=== PATIENT | female | born 1970 | race American Indian/Alaskan Native ===

== ENCOUNTER 2017-08-21 19:55 | Inpatient (IN) | payer OTHER ==
[2017-08-21] MEDS ORDERED: TYLENOL ONE (20:28)
[2017-08-21] MEDS ORDERED: CATAPRES ONE (20:29)
[2017-08-21] MEDS ORDERED: TYLENOL PO ONE (20:31)
[2017-08-21] MEDS ORDERED: CATAPRES PO ONE (20:31)
[2017-08-21 20:53] LABS: Bilirubin,Urine NEG (Negative); Blood,Urine SM (Negative); Color,Urine Yellow (Yellow); Urobilinogen,Urine < 2.0 mg/dL (<2.0)
[2017-08-21 21:02] LABS: WBC,Urine > 182.0 /HPF (0.0-6.0)
[2017-08-21 21:13] LABS: Mean Corpuscular HGB Conc 30 % (30-34); Mean Corpuscular Volume 82 fl (79-97); Platelet Count 313 K/mm3 (140-440); Red Blood Count 4.07 M/mm3 (3.65-5.03); Red Cell Distribution Width 15.9 % (13.2-15.2)
[2017-08-21 21:15] LABS: Hematocrit 33.5 % (30.3-42.9); Hemoglobin 10.2 gm/dl (10.1-14.3); Mean Corpuscular Hemoglobin 25 pg (28-32)
[2017-08-21 22:04] LABS: Albumin 4.1 g/dL (3.9-5); Calcium 6.6 mg/dL (8.4-10.2)
[2017-08-22] MEDS ORDERED: NACL 0.9% 1000 ML 1,000 ML IV ONE (00:32)
[2017-08-22] MEDS ORDERED: ROCEPHIN/NS 1 GM/50 ML 1 GM/50 ML BAG IV ONE (00:32)
[2017-08-22] MEDS ORDERED: cefTRIAXone 1 GM in NACL 0.9% 20 ML IV ONE (01:00)
--- NOTE | 2017-08-22 01:08 | Emergency Department Report ---
ED Female HPI - General Chief complaint: Urogenital-Female Stated complaint: BACK PAIN, PAIN URINATING Time Seen by Provider: 08/22/17 00:27 Source: patient Mode of arrival: Ambulatory Limitations: No Limitations - History of Present Illness Initial comments: 46 yo female with a past medical history, hypertension and hypothyroidism presents to the hospital complaining of 3 days of urinary frequency and pain with urination. Yesterday patient started to have 7/10 pain to her right flank described as a pressure rated 7/10 intensity. No aggravating or alleviating factors reported. She denies fever, nausea, vomiting, diarrhea. History of kidney stones in the past that passed spontaneously without surgery. Last almost 10 years ago. Patient has been noncompliant with her Synthroid and blood pressure medication times one year. Has not seen a primary care doctor in 1 year and denies known history of renal insufficiency. - Related Data Allergies Allergy/AdvReac Type Severity Reaction Status Date / Time No Known Allergies Allergy Unverified 08/21/17 20:00 ED Review of Systems ROS: Stated complaint: BACK PAIN, PAIN URINATING Other details as noted in HPI Comment: All other systems reviewed and negative ED Past Medical Hx - Past Medical History Previous Medical History?: Yes Hx Hypertension: Yes Additional medical history: Hypothyroidism - Social History Smoking Status: Never Smoker ED Physical Exam - General Limitations: No Limitations - Other Other exam information: General: No limitations, patient is alert in no acute distress Head exam: Atraumatic, normocephalic Eyes exam: Normal appearance ENT: Moist mucous membrane, normal oropharynx Neck exam: Normal inspection, full range of motion, no meningismus nontender Respiratory exam: Clear to auscultation bilateral, no wheezes, rales, crackles Cardiovascular: Normal rate and rhythm, normal heart sounds Abdomen: Soft, nondistended, no suprapubic tenderness, with normal bowel sounds , no rebound, or guarding Extremity: Full range of motion normal inspection no deformity Back: Normal Inspection, full range of motion, no right flank tenderness Neurologic: Alert, oriented x3, cranial nerves intact, no motor or sensory deficit Psychiatric: normal affect, normal mood Skin: Warm, dry, intact ED Course Vital Signs 08/21/17 08/21/17 08/21/17 20:03 20:32 20:33 Temperature 98.6 F Pulse Rate 102 H 102 H Respiratory 20 20 Rate Blood Pressure 183/94 183/94 Blood Pressure [Left] Blood Pressure [Right] O2 Sat by Pulse 100 Oximetry 08/22/17 08/22/17 00:36 00:37 Temperature 97.9 F Pulse Rate 88 Respiratory 16 16 Rate Blood Pressure Blood Pressure 181/116 [Left] Blood Pressure 174/99 [Right] O2 Sat by Pulse 99 98 Oximetry - Consultations Consultation #1: 08/22/17 01:35 case d/w Dr Samuel pino, will consult during admission ED Medical Decision Making - Lab Data Result diagrams: 08/21/17 20:31 08/21/17 20:31 Lab Results 08/21/17 08/21/17 08/21/17 Range/Units 20:30 20:31 20:31 WBC 8.8 (4.5-11.0) K/mm3 RBC 4.07 (3.65-5.03) M/mm3 Hgb 10.2 (10.1-14.3) gm/dl Hct 33.5 (30.3-42.9) % MCV 82 (79-97) fl MCH 25 L (28-32) pg MCHC 30 (30-34) % RDW 15.9 H (13.2-15.2) % Plt Count 313 (140-440) K/mm3 Sodium 140 (137-145) mmol/L Potassium 4.6 (3.6-5.0) mmol/L Chloride 104.6 (98-107) mmol/L Carbon Dioxide 19 L (22-30) mmol/L Anion Gap 21 mmol/L BUN 53 H (7-17) mg/dL Creatinine 4.1 H (0.7-1.2) mg/dL Estimated GFR 14 ml/min BUN/Creatinine Ratio 13 % Glucose 82 (65-100) mg/dL Calcium 6.6 L (8.4-10.2) mg/dL Total Bilirubin 0.20 (0.1-1.2) mg/dL AST 15 (5-40) units/L ALT 9 (7-56) units/L Alkaline Phosphatase 92 (35-129) units/L Total Protein 8.4 H (6.3-8.2) g/dL Albumin 4.1 (3.9-5) g/dL Albumin/Globulin Ratio 1.0 % Lipase 85 H (13-60) units/L HCG, Qual (Negative) Urine Color Yellow (Yellow) Urine Turbidity Clear (Clear) Urine pH 6.0 (5.0-7.0) Ur Specific [place] 1.011 (1.003-1.030) Urine Protein 100 mg/dl (Negative) mg/dL Urine Glucose (UA) 50 (Negative) mg/dL Urine Ketones Neg (Negative) mg/dL Urine Blood Sm (Negative) Urine Nitrite Neg (Negative) Urine Bilirubin Neg (Negative) Urine Urobilinogen < 2.0 (<2.0) mg/dL Ur Leukocyte Esterase Lg (Negative) Urine WBC (Auto) > 182.0 H (0.0-6.0) /HPF Urine RBC (Auto) 86.0 (0.0-6.0) /HPF Urine WBC Clumps 2+ /HPF 08/21/17 Range/Units 20:31 WBC (4.5-11.0) K/mm3 RBC (3.65-5.03) M/mm3 Hgb (10.1-14.3) gm/dl Hct (30.3-42.9) % MCV (79-97) fl MCH (28-32) pg MCHC (30-34) % RDW (13.2-15.2) % Plt Count (140-440) K/mm3 Sodium (137-145) mmol/L Potassium (3.6-5.0) mmol/L Chloride (98-107) mmol/L Carbon Dioxide (22-30) mmol/L Anion Gap mmol/L BUN (7-17) mg/dL Creatinine (0.7-1.2) mg/dL Estimated GFR ml/min BUN/Creatinine Ratio % Glucose (65-100) mg/dL Calcium (8.4-10.2) mg/dL Total Bilirubin (0.1-1.2) mg/dL AST (5-40) units/L ALT (7-56) units/L Alkaline Phosphatase (35-129) units/L Total Protein (6.3-8.2) g/dL Albumin (3.9-5) g/dL Albumin/Globulin Ratio % Lipase (13-60) units/L HCG, Qual Negative (Negative) Urine Color (Yellow) Urine Turbidity (Clear) Urine pH (5.0-7.0) Ur Specific [place] (1.003-1.030) Urine Protein (Negative) mg/dL Urine Glucose (UA) (Negative) mg/dL Urine Ketones (Negative) mg/dL Urine Blood (Negative) Urine Nitrite (Negative) Urine Bilirubin (Negative) Urine Urobilinogen (<2.0) mg/dL Ur Leukocyte Esterase (Negative) Urine WBC (Auto) (0.0-6.0) /HPF Urine RBC (Auto) (0.0-6.0) /HPF Urine WBC Clumps /HPF - Radiology Data Radiology results: report reviewed CT abdomen and pelvis without contrast: Small nodular airspace consolidation right lower lobe concerning for pneumonia. Stranding throughout the course of the right ureter and marginal right kidney. Wall thickening of the bladder. Concerning for infection. Cannot rule out recently passed stone. No nephrolithiasis - Medical Decision Making UTI No signs of sepsis Culture pending Rocephin initiated Renal insufficiency CT abdomen and pelvis reviewed IV fluids initiated Nephrology consult Uncontrolled hypertension Noncompliance of meds 1 year Received Clonidine 0.1 mg in the ED with persistent elevated blood Critical Care Time: No Critical care attestation.: If time is entered above; I have spent that time in minutes in the direct care of this critically ill patient, excluding procedure time. ED Disposition Clinical Impression: UTI (urinary tract infection), Acute renal insufficiency, Noncompliance with medication regimen, Uncontrolled hypertension, History of hypothyroidism Disposition: OP ADMIT IP TO THIS HOSP Is pt being admited?: Yes Condition: Stable Time of Disposition: 01:38 (Dr Granda/[facility])
--- NOTE | 2017-08-22 01:22 | Cat Scan Report ---
FINAL REPORT EXAM: CT ABDOMEN PELVIS WO CON HISTORY: renal insufficency, uti, right sided pain COMPARISON: None available. TECHNIQUE: Contiguous axial images were obtained. Additional sagittal and coronal reformatted images were obtained. FINDINGS: Small nodular consolidation the posterior margin right lower lobe measuring 1.3 x 2.6 centimeters concerning for pneumonia. Mild subsegmental atelectasis at the lung bases otherwise. No calcified gallstones. Liver, spleen, pancreas are grossly unremarkable. Right adrenal nodule measuring 2.4 x 1.4 centimeters in axial dimension. Internal Hounsfield units-16 compatible with adenoma. There is also left adrenal adenoma with internal Hounsfield units-11 measuring 1.4 x 0.8 centimeters in axial dimension. No nephrolithiasis bilaterally. There is mild right-sided perinephric fat stranding and fat stranding along the course the right ureter. No radiopaque calculus identified along the course the right ureter or within the urinary bladder. Wall thickening the urinary bladder with mild adjacent fat stranding. Wall thickening is accentuated by decompressed state of the urinary bladder. Aorta and IVC normal in caliber. Uterus and ovaries are grossly unremarkable. No free fluid or lymphadenopathy in the pelvic cavity. Large and small bowel loops normal in caliber. No focal inflammatory changes the bowel. Tiny noninflamed appendix. Lumbar vertebral body heights are preserved. Bony pelvis is grossly intact. IMPRESSION: Small nodular airspace consolidation right lower lobe concerning for pneumonia. Fat stranding along the course the right ureter and along the margin right kidney. There is also wall thickening and fat stranding at the margin the urinary bladder. Findings are concerning for infection of the right renal collecting system and urinary bladder. Recent passage of calculus is not excluded. No radiopaque calculus identified along the course the right ureter or urinary bladder on today's exam.
--- NOTE | 2017-08-22 01:51 | XRay Report ---
FINAL REPORT EXAM: XR CHEST ROUTINE 2V HISTORY: rll infiltrate on ct COMPARISON: None available. FINDINGS:: Frontal and lateral views of the chest obtained. Heart upper limits normal in size. Shallow inspiration. Small nodular consolidation the posterior margin right lower lobe seen on CT abdomen pelvis from today is not well visualized by plain film. No large consolidation or effusion otherwise. No pneumothorax IMPRESSION:: Small right lower lobe consolidation seen on earlier CT abdomen pelvis from the same date is not well visualized by plain film. Lungs otherwise clear.
[2017-08-22] MEDS ORDERED: TYLENOL PO PRN (02:16)
[2017-08-22] MEDS ORDERED: ZOFRAN IV PRN (02:16)
[2017-08-22] MEDS ORDERED: SODIUM CHLORIDE FLUSH SYRINGE 10 ML IV PRN (02:16)
--- NOTE | 2017-08-22 02:22 | History and Physical Report ---
History of Present Illness Date of examination: 08/22/17 History of present illness: 46 year old woman with hypertension, hypothroidism, Chronic kidney disease, not on any medication for the last 1 year comes to the emergency room for dysuria, frquency. No fever, chills Review Of Systems: Constitutional: no weight loss Ears, eyes, nose, mouth and throat: no nasal congestion, no nasal discharge, no sinus pressure, blurry vision, diplopia Neck: No neck pain or rigidity. Cardiovascular: no chest pain, orthopnea, palpitations Respiratory: No shortness of breath, cough Gastrointestinal: no abdominal pain, hematochezia Genitourinary : no hematuria Musculoskeletal: no muscle ache Integumentary: no rash, no pruritis Neurological: no parathesias, focal weakness Endocrine: no cold or heat intolerance, no polyuria or polydipsia Hematologic/Lymphatic: no easy bruising, no easy bleeding, no gland swelling Allergic/Immunologic: no urticaria, no angioedema. PAST MEDICAL HISTORY: hypertension, hypothyroidism, CKD PAST SURGICAL HISTORY: Tubal ligation SOCIAL HISTORY: Denies alcohol, tobacco, drugs FAMILY HISTORY: Hypertension Medications and Allergies Allergies Allergy/AdvReac Type Severity Reaction Status Date / Time No Known Allergies Allergy Unverified 08/21/17 20:00 Active Meds: Active Medications Sodium Chloride (Nacl 0.9% 1000 Ml) 1,000 mls @ 200 mls/hr IV BOLUS ONE Stop: 08/22/17 05:31 Last Admin: 08/22/17 01:24 Dose: 200 mls/hr Exam - Physical Exam Narrative exam: Gen. appearance: Patient lying in bed, no apparent distress HEENT: Normocephalic, atraumatic, pupils equally round and reactive to light, extraocular movement intact, and no sclericterus,. No JVD or thyromegaly or nodule,neck supple, no carotid bruit ,mucous membranes moist, no exudate or erythema Heart: S1, S2, regular rate and rhythm Lungs: Clear to auscultation bilaterally, breathing comfortable Abdomen: Positive bowel sounds, nontender, nondistended, no organomegaly Extremity: No edema, cyanosis, clubbing Skin: No rash, nodules, warm, dry Neuro: Oriented 3, cranial nerves II-12 intact, speech is fluent, motor and sensory intact - Constitutional Vitals: Temp Pulse Resp BP Pulse Ox 97.9 F 74 15 174/99 98 08/22/17 00:36 08/22/17 01:47 08/22/17 01:47 08/22/17 01:47 08/22/17 01:47 Results - Labs CBC & Chem 7: 08/21/17 20:31 08/21/17 20:31 Labs: Abnormal lab results 08/21/17 08/21/17 08/21/17 Range/Units 20:30 20:31 20:31 MCH 25 L (28-32) pg RDW 15.9 H (13.2-15.2) % Carbon Dioxide 19 L (22-30) mmol/L BUN 53 H (7-17) mg/dL Creatinine 4.1 H (0.7-1.2) mg/dL Calcium 6.6 L (8.4-10.2) mg/dL Total Protein 8.4 H (6.3-8.2) g/dL Lipase 85 H (13-60) units/L Urine WBC (Auto) > 182.0 H (0.0-6.0) /HPF - Imaging and Cardiology CT scan - abdomen: report reviewed CT scan - pelvis: report reviewed Assessment and Plan Assessment Acute on chronic renal failure Pneumonia, community acquire UTI Hypertension, uncontrolled Plan Start IV fluid, antibiotic, IV hydralazine Folow antibiotic Dvt prophalaxis
--- NOTE | 2017-08-22 03:15 | Ultrasound Report ---
FINAL REPORT EXAM: US RENAL BILAT HISTORY: rf COMPARISON: CT of the abdomen and pelvis from the same date. TECHNIQUE: Several real-time grayscale and color Doppler images were obtained. FINDINGS: The right kidney measures 10.1 x 4.6 x 5.5 centimeters. Cortex 1.3 centimeters. Left kidney measures 11.7 x 6.6 x 6.5 centimeters. Cortex 1.7 centimeters. No gross focal renal lesion bilaterally. Punctate nonobstructive renal calculi could be obscured by renal sinus fat. No renal calculus seen on earlier CT of the abdomen and pelvis. Mild pelviectasis bilaterally. There is gross vascular flow to the bilateral kidneys. IMPRESSION: No gross focal renal lesion bilaterally. Mild bilateral pelviectasis.
[2017-08-22] MEDS: NACL 0.45% 1000 ML 1,000 ML IV SCH ×2 (06:07→18:19)
[2017-08-22] MEDS: ZITHROMAX PO SCH (09:12)
[2017-08-22] MEDS: LOVENOX SUB-Q SCH (09:12)
[2017-08-22] MEDS: CEFTRIAXONE IV SCH (10:08)
[2017-08-22] MEDS: SODIUM CHLORIDE FLUSH SYRINGE 10 ML IV SCH ×2 (10:08→22:04)
[2017-08-22] MEDS: NACL 0.9% IV SCH (10:08)
[2017-08-22 11:10] LABS: Calcium 6.6 mg/dL (8.4-10.2)
[2017-08-22] MEDS: PERCOCET 5/325 PO PRN ×2 (11:23→18:23)
--- NOTE | 2017-08-22 12:42 | Event Note ---
Date: 08/22/17 patient seen and examined admitted with PNA, UTI and RAVINDER cont abx, follow nephrology recommendation, get renal US will cont current Mx and plan as dictated in H and P
--- NOTE | 2017-08-22 13:20 | Consultation ---
History of Present Illness - Reason for Consult Consult date: 08/22/17 acute renal failure Requesting physician: UMEHS BERMEO - History of Present Illness 46 yo female with a past medical history, hypertension and hypothyroidism presents to the hospital complaining of 3 days of urinary frequency and pain with urination. day before yesterday patient started to have 7/10 pain to her right flank described as a pressure rated 7/10 intensity. No aggravating or alleviating factors reported. She denies fever, nausea, vomiting, diarrhea. History of kidney stones in the past that passed spontaneously without surgery. Last almost 10 years ago. Patient has been noncompliant with her Synthroid and blood pressure medication times one year. Has not seen a primary care doctor in 1 year and denies known history of renal insufficiency. Patient denies any previous knowledge of renal dysfunction. She does have a history of hypertension. However states that she has not been very compliant with her antihypertensive medications. Patient states that she may have had a kidney stone in the past. She admits to having taken some nonsteroidals in the past few days. Past History Past Medical History: hypertension, hypothyroidism Past Surgical History: No surgical history Social history: no significant social history Family history: no significant family history Medications and Allergies Allergies Allergy/AdvReac Type Severity Reaction Status Date / Time No Known Allergies Allergy Unverified 08/21/17 20:00 Active Meds: Active Medications Acetaminophen (Tylenol) 650 mg PO Q4H PRN PRN Reason: Pain MILD(1-3)/Fever >100.5/KIM Azithromycin (Zithromax) 500 mg PO DAILY [facility] Last Admin: 08/22/17 09:12 Dose: 500 mg Enoxaparin Sodium (Lovenox) 30 mg SUB-Q QDAY [facility] Last Admin: 08/22/17 09:12 Dose: 30 mg Sodium Chloride (Nacl 0.45% 1000 Ml) 1,000 mls @ 125 mls/hr IV DIRECT [facility] Last Admin: 08/22/17 06:07 Dose: 125 mls/hr Ceftriaxone Sodium 1 gm/ (Sodium Chloride) 20 mls @ 2 mls/min IV Q24HR [facility] Last Admin: 08/22/17 10:08 Dose: 2 mls/min Ondansetron HCl (Zofran) 4 mg IV Q8H PRN PRN Reason: Nausea And Vomiting Oxycodone/Acetaminophen (Percocet 5/325) 1 tab PO Q6H PRN PRN Reason: Pain, Moderate (4-6) Last Admin: 08/22/17 11:23 Dose: 1 tab Sodium Chloride (Sodium Chloride Flush Syringe 10 Ml) 10 ml IV BID NILA Last Admin: 08/22/17 10:08 Dose: 10 ml Sodium Chloride (Sodium Chloride Flush Syringe 10 Ml) 10 ml IV PRN PRN PRN Reason: LINE FLUSH Review of Systems All systems: negative (except as noted above) Exam - Vital Signs Vital signs: Vital Signs Temp Pulse Resp BP Pulse Ox 98.6 F 102 H 20 183/94 100 08/21/17 20:03 08/21/17 20:03 08/21/17 20:03 08/21/17 20:03 08/21/17 20:03 - General Appearance General appearance: well-developed, well-nourished, appears stated age, obese EENT: PERRL, mucous membranes moist Neck: Present: neck supple, trachea midline. Absent: JVD/HJR, Masses Respiratory: Clear to Ascultation Heart: regular, normal heart rate, S1S2, no murmurs Gastrointestinal: Present: normal, normoactive bowel sounds, tenderness (right flank) Integumentary: no rash, other (no edema ) Results - Lab Results 08/21/17 20:31 08/22/17 10:35 Most recent lab results Calcium 6.6 mg/dL (8.4-10.2) L 08/22/17 10:35 Assessment and Plan Impression * Acute renal failure. May be prerenal and/or related to pyelonephritis * She may have some degree of underlying chronic kidney disease as well * Pyelonephritis * Hypertension * Hypothyroidism Recommendations * Shall check a fractional excretion of sodium * Renal ultrasound shows mild caliectasis * Continue IV hydration * Check vasculitis workup as well as urine for eosinophils * Continue IV antibiotics * Monitor fluid status and electrolytes closely * No indication for renal replacement therapy at this time * Thank you very much for the consultation. Shall follow along with you
[2017-08-22] MEDS ORDERED: APRESOLINE IV PRN (14:01)
[2017-08-22] MEDS: LOPRESSOR PO SCH ×2 (14:09→21:13)
[2017-08-22] MEDS: NORVASC PO SCH (14:10)
[2017-08-22 14:33] LABS: Hepatitis A Antibody IgM Non-Reactive (NonReactive); Hepatitis B Core IgM Non-Reactive (NonReactive); Hepatitis B Surface Antigen Non-Reactive (Negative); Hepatitis C Virus Antibody Non-Reactive (NonReactive)
[2017-08-22 20:42] LABS: Creatinine,Urine 74.9 mg/dL (0.1-20.0); Fractional Sodium Excretion 2.2
[2017-08-22 20:54] LABS: Protein/Creatinine Ratio,Urine 5.38
[2017-08-22] MEDS: AMBIEN PO PRN (21:13)
[2017-08-23] MEDS: NACL 0.45% 1000 ML 1,000 ML IV SCH ×3 (04:43→22:59)
[2017-08-23 06:47] LABS: Basophils % (Auto) 0.4 % (0.0-1.8); Eosinophils # (Auto) 0.1 K/mm3 (0.0-0.4); Eosinophils % (Auto) 2.3 % (0.0-4.3); Hematocrit 29.2 % (30.3-42.9); Lymphocytes # (Auto) 2.4 K/mm3 (1.2-5.4); Mean Corpuscular HGB Conc 31 % (30-34); Mean Corpuscular Volume 82 fl (79-97); Monocytes # (Auto) 0.5 K/mm3 (0.0-0.8); Monocytes % (Auto) 7.4 % (0.0-7.3); Platelet Count 246 K/mm3 (140-440); Red Blood Count 3.58 M/mm3 (3.65-5.03); Red Cell Distribution Width 15.9 % (13.2-15.2)
[2017-08-23 07:01] LABS: Mean Corpuscular Hemoglobin 25 pg (28-32)
[2017-08-23] MEDS: PERCOCET 5/325 PO PRN ×3 (08:24→21:41)
[2017-08-23] MEDS: NACL 0.9% IV SCH (10:00)
[2017-08-23] MEDS: CEFTRIAXONE IV SCH (10:00)
[2017-08-23] MEDS ORDERED: ROCEPHIN/NS 1 GM/50 ML 1 GM/50 ML BAG IV SCH (10:00)
[2017-08-23] MEDS: NORVASC PO SCH (10:19)
[2017-08-23] MEDS: SODIUM CHLORIDE FLUSH SYRINGE 10 ML IV SCH ×2 (10:19→21:33)
[2017-08-23] MEDS: LOPRESSOR PO SCH ×2 (10:19→21:32)
[2017-08-23] MEDS: LOVENOX SUB-Q SCH (10:19)
[2017-08-23] MEDS: ZITHROMAX PO SCH (10:20)
--- NOTE | 2017-08-23 11:14 | Progress Note ---
Assessment and Plan Impression * Acute renal failure. May be prerenal and/or related to pyelonephritis * She may have some degree of underlying chronic kidney disease as well * Pyelonephritis * Hypertension * Hypothyroidism Recommendations * 2.2--fractional excretion of sodium * Renal ultrasound shows mild caliectasis * improving renal function today * Continue IV hydration * Check vasculitis workup--2 urine for eosinophils * Continue IV antibiotics * Monitor fluid status and electrolytes closely * No indication for renal replacement therapy at this time Subjective Date of service: 08/23/17 Principal diagnosis: toby Interval history: resting in bed today Objective - Exam Narrative Exam: General appearance: well-developed, well-nourished, appears stated age, obese EENT: PERRL, mucous membranes moist Neck: Present: neck supple, trachea midline. Absent: JVD/HJR, Masses Respiratory: Clear to Ascultation Heart: regular, normal heart rate, S1S2, no murmurs Gastrointestinal: Present: normal, normoactive bowel sounds, tenderness (right flank) Integumentary: no rash, other (no edema ) - Vital Signs Vital signs: Vital Signs - 12hr 08/22/17 08/23/17 23:48 07:55 Temperature 98.1 F 98.4 F Pulse Rate 86 82 Respiratory 20 18 Rate Blood Pressure 151/99 167/91 O2 Sat by Pulse 100 99 Oximetry - Lab 08/23/17 06:17 08/23/17 06:17 Most recent lab results Calcium 6.0 mg/dL (8.4-10.2) L 08/23/17 06:17 Urine Creatinine 74.9 mg/dL (0.1-20.0) H 08/22/17 20:20 Urine Sodium 62 mmol/L 08/22/17 20:20 Urine Total Protein 403 mg/dL (5-11.8) H 08/22/17 20:20
--- NOTE | 2017-08-23 14:23 | Progress Note ---
Assessment and Plan Acute on chronic renal failure - cont iv fluid, nephrology following - monitor BMP - renal US unremarkable Pneumonia, community acquire UTI - follow cx, cont abx Hypertension, uncontrolled - cont current meds, IV hydralazine Anemia, likely due to CD - will monitor H/H Dvt prophalaxis, lovenox Brief history: 46 yo female with a past medical history, hypertension and hypothyroidism presents to the hospital complaining of 3 days of urinary frequency and pain with urination. CXR showed RLL PNA, UTI and Cr of 4.1 Radiological test: CXR - RLL PNA Renal US - no obstruction, no hydronephrosis abdominal/pelvis CT - Hospitalist Physical exam: GENERAL: well-developed aobese AAF lying on bed appeared to be in no discomfort. HEENT: Normocephalic. Atraumatic. No conjunctival congestion or icterus. Patient has moist mucous membranes. NECK: Supple. Trachea midline. CHEST/LUNGS: Clear to auscultated bilaterally, breathing nonlabored. No wheezes crackles or rhonchi. HEART/CARDIOVASCULAR: Regular in rate and rhythm. S1 and S2 positive. ABDOMEN: Abdomen is soft, nontender. Patient has normal bowel sounds. SKIN: There is no rash. Warm and dry. NEURO: No focal motor deficit. Follows command. MUSCULOSKELETAL: No joint effusion or tenderness. EXTRIMITY: No edema, no cyanosis or clubbing. PSYCH: Cooperative. Subjective Date of service: 08/23/17 Principal diagnosis: toby Interval history: Pt seen and examined tolerating diet, denies any abdominal pain Objective - Constitutional Vitals: Vital Signs - 12hr 08/23/17 07:55 Temperature 98.4 F Pulse Rate 82 Respiratory 18 Rate Blood Pressure 167/91 O2 Sat by Pulse 99 Oximetry - Labs CBC & Chem 7: 08/23/17 06:17 08/23/17 06:17 Labs: Abnormal lab results 08/22/17 08/22/17 08/23/17 Range/Units 18:45 20:20 06:17 RBC 3.58 L (3.65-5.03) M/mm3 Hgb 9.0 L (10.1-14.3) gm/dl Hct 29.2 L (30.3-42.9) % MCH 25 L (28-32) pg RDW 15.9 H (13.2-15.2) % Lymph % (Auto) 38.0 H (13.4-35.0) % [place] % (Auto) 7.4 H (0.0-7.3) % Chloride (98-107) mmol/L Carbon Dioxide (22-30) mmol/L BUN (7-17) mg/dL Creatinine 4.2 H (0.7-1.2) mg/dL Calcium (8.4-10.2) mg/dL Urine Creatinine 74.9 H (0.1-20.0) mg/dL Urine Total Protein 403 H (5-11.8) mg/dL 08/23/17 Range/Units 06:17 RBC (3.65-5.03) M/mm3 Hgb (10.1-14.3) gm/dl Hct (30.3-42.9) % MCH (28-32) pg RDW (13.2-15.2) % Lymph % (Auto) (13.4-35.0) % [place] % (Auto) (0.0-7.3) % Chloride 108.4 H (98-107) mmol/L Carbon Dioxide 19 L (22-30) mmol/L BUN 43 H (7-17) mg/dL Creatinine 3.7 H (0.7-1.2) mg/dL Calcium 6.0 L (8.4-10.2) mg/dL Urine Creatinine (0.1-20.0) mg/dL Urine Total Protein (5-11.8) mg/dL
[2017-08-23] MEDS: AMBIEN PO PRN (21:41)
[2017-08-24] MEDS: NACL 0.45% 1000 ML 1,000 ML IV SCH ×3 (06:13→21:17)
[2017-08-24] MEDS: NORVASC PO SCH (09:15)
[2017-08-24] MEDS: LOVENOX SUB-Q SCH (09:15)
[2017-08-24] MEDS: LOPRESSOR PO SCH ×2 (09:15→21:17)
[2017-08-24] MEDS: ZITHROMAX PO SCH (09:16)
[2017-08-24] MEDS: CEFTRIAXONE IV SCH (09:16)
[2017-08-24] MEDS: SODIUM CHLORIDE FLUSH SYRINGE 10 ML IV SCH ×2 (09:16→21:19)
[2017-08-24] MEDS: NACL 0.9% IV SCH (09:16)
--- NOTE | 2017-08-24 10:13 | Progress Note ---
Assessment and Plan Impression * Acute renal failure. May be prerenal and/or related to pyelonephritis * She may have some degree of underlying chronic kidney disease as well * Pyelonephritis * Hypertension * Hypothyroidism Recommendations * 2.2--fractional excretion of sodium * Renal ultrasound shows mild caliectasis * stable renal function today * Continue IV hydration * Check vasculitis workup--2 urine for eosinophils * Continue IV antibiotics * Monitor fluid status and electrolytes closely * No indication for renal replacement therapy at this time Subjective Date of service: 08/24/17 Principal diagnosis: toby Interval history: resting in bed today Objective - Exam Narrative Exam: General appearance: well-developed, well-nourished, appears stated age, obese EENT: PERRL, mucous membranes moist Neck: Present: neck supple, trachea midline. Absent: JVD/HJR, Masses Respiratory: Clear to Ascultation Heart: regular, normal heart rate, S1S2, no murmurs Gastrointestinal: Present: normal, normoactive bowel sounds, tenderness (right flank) Integumentary: no rash, other (no edema ) - Vital Signs Vital signs: Vital Signs - 12hr 08/23/17 08/23/17 08/24/17 22:41 23:36 07:23 Temperature 98.3 F Pulse Rate 78 78 Respiratory 18 18 20 Rate Blood Pressure 157/84 156/77 O2 Sat by Pulse 99 100 Oximetry - Lab 08/23/17 06:17 08/24/17 03:36 Most recent lab results Calcium 6.0 mg/dL (8.4-10.2) L 08/24/17 03:36 Urine Creatinine 74.9 mg/dL (0.1-20.0) H 08/22/17 20:20 Urine Sodium 62 mmol/L 08/22/17 20:20 Urine Total Protein 403 mg/dL (5-11.8) H 08/22/17 20:20
--- NOTE | 2017-08-24 18:40 | Progress Note ---
Assessment and Plan Assessment and plan: --Acute on chronic renal failure Mild improvement, creatinine improved from 4.2-3.6 today Continue IV fluids, closely monitor renal function, avoid nephrotoxic medications Nephrology following --Community acquired Pneumonia, Continue current antibiotics, follow cultures --Sepsis secondary to UTI/Escherichia coli Continue antibiotics, supportive care --Malignant Hypertension; well controlled Continue current antihypertensives and when necessary medications --Anemia, likely due to chronic kidney disease Closely monitor H&H and transfuse as needed --DVT prophylaxis: lovenox, renal dose Closely monitor the patient and adjust management as needed Consults and recommendations noted no appreciated History Interval history: Patient seen and examined medical records reviewed No new complaints Alert awake oriented 3 Vital signs reviewed Hospitalist Physical - Constitutional Vitals: Temp Pulse Resp BP Pulse Ox 98.1 F 84 20 137/74 98 08/24/17 16:11 08/24/17 16:11 08/24/17 16:11 08/24/17 16:11 08/24/17 16:11 General appearance: Present: no acute distress, well-nourished, obese (morbidly obese) - EENT Eyes: Present: PERRL, EOM intact - Neck Neck: Present: supple, normal ROM - Respiratory Respiratory effort: normal Respiratory: bilateral: diminished, negative: rales, rhonchi, wheezing - Cardiovascular Rhythm: regular Heart Sounds: Present: S1 & S2 - Extremities Extremities: no ischemia, No edema - Abdominal General gastrointestinal: soft, non-tender, non-distended, normal bowel sounds - Integumentary Integumentary: Present: clear, warm - Psychiatric Psychiatric: appropriate mood/affect, cooperative - Neurologic Neurologic: CNII-XII intact, moves all extremities Results - Labs CBC & Chem 7: 08/23/17 06:17 08/24/17 03:36 Labs: Laboratory Last Values WBC 6.2 K/mm3 (4.5-11.0) 08/23/17 06:17 RBC 3.58 M/mm3 (3.65-5.03) L 08/23/17 06:17 Hgb 9.0 gm/dl (10.1-14.3) L 08/23/17 06:17 Hct 29.2 % (30.3-42.9) L 08/23/17 06:17 MCV 82 fl (79-97) 08/23/17 06:17 MCH 25 pg (28-32) L 08/23/17 06:17 MCHC 31 % (30-34) 08/23/17 06:17 RDW 15.9 % (13.2-15.2) H 08/23/17 06:17 Plt Count 246 K/mm3 (140-440) 08/23/17 06:17 Lymph % (Auto) 38.0 % (13.4-35.0) H 08/23/17 06:17 [place] % (Auto) 7.4 % (0.0-7.3) H 08/23/17 06:17 Eos % (Auto) 2.3 % (0.0-4.3) 08/23/17 06:17 Baso % (Auto) 0.4 % (0.0-1.8) 08/23/17 06:17 Lymph # 2.4 K/mm3 (1.2-5.4) 08/23/17 06:17 [place] # 0.5 K/mm3 (0.0-0.8) 08/23/17 06:17 Eos # 0.1 K/mm3 (0.0-0.4) 08/23/17 06:17 Baso # 0.0 K/mm3 (0.0-0.1) 08/23/17 06:17 Seg Neutrophils % 51.9 % (40.0-70.0) 08/23/17 06:17 Seg Neutrophils # 3.2 K/mm3 (1.8-7.7) 08/23/17 06:17 Sodium 140 mmol/L (137-145) 08/24/17 03:36 Potassium 4.5 mmol/L (3.6-5.0) 08/24/17 03:36 Chloride 105.8 mmol/L (98-107) 08/24/17 03:36 Carbon Dioxide 19 mmol/L (22-30) L 08/24/17 03:36 Anion Gap 20 mmol/L 08/24/17 03:36 BUN 38 mg/dL (7-17) H 08/24/17 03:36 Creatinine 3.6 mg/dL (0.7-1.2) H 08/24/17 03:36 Estimated GFR 16 ml/min 08/24/17 03:36 BUN/Creatinine Ratio 11 % 08/24/17 03:36 Glucose 76 mg/dL (65-100) 08/24/17 03:36 Calcium 6.0 mg/dL (8.4-10.2) L 08/24/17 03:36 Total Bilirubin 0.20 mg/dL (0.1-1.2) 08/21/17 20:31 AST 15 units/L (5-40) 08/21/17 20:31 ALT 9 units/L (7-56) 08/21/17 20:31 Alkaline Phosphatase 92 units/L (35-129) 08/21/17 20:31 Total Protein 8.4 g/dL (6.3-8.2) H 08/21/17 20:31 Albumin 4.1 g/dL (3.9-5) 08/21/17 20:31 Albumin/Globulin Ratio 1.0 % 08/21/17 20:31 Lipase 85 units/L (13-60) H 08/21/17 20:31 HCG, Qual Negative (Negative) 08/21/17 20:31 Urine Color Yellow (Yellow) 08/21/17 20:30 Urine Turbidity Clear (Clear) 08/21/17 20:30 Urine pH 6.0 (5.0-7.0) 08/21/17 20:30 Ur Specific [place] 1.011 (1.003-1.030) 08/21/17 20:30 Urine Protein 100 mg/dl mg/dL (Negative) 08/21/17 20:30 Urine Glucose (UA) 50 mg/dL (Negative) 08/21/17 20:30 Urine Ketones Neg mg/dL (Negative) 08/21/17 20:30 Urine Blood Sm (Negative) 08/21/17 20:30 Urine Nitrite Neg (Negative) 08/21/17 20:30 Urine Bilirubin Neg (Negative) 08/21/17 20:30 Urine Urobilinogen < 2.0 mg/dL (<2.0) 08/21/17 20:30 Ur Leukocyte Esterase Lg (Negative) 08/21/17 20:30 Urine WBC (Auto) > 182.0 /HPF (0.0-6.0) H 08/21/17 20:30 Urine RBC (Auto) 86.0 /HPF (0.0-6.0) 08/21/17 20:30 Urine WBC Clumps 2+ /HPF 08/21/17 20:30 Urine Eosinophils 2 (None Seen) 08/22/17 20:20 Urine Creatinine 74.9 mg/dL (0.1-20.0) H 08/22/17 20:20 Protein/Creatinin Ratio 5.38 08/22/17 20:20 Urine Sodium 62 mmol/L 08/22/17 20:20 Fraction Sodium Excret 2.2 08/22/17 20:20 Urine Total Protein 403 mg/dL (5-11.8) H 08/22/17 20:20 Hepatitis A IgM Ab Non-reactive (NonReactive) 08/22/17 13:30 Hep Bs Antigen Non-reactive (Negative) 08/22/17 13:30 Hep B Core IgM Ab Non-reactive (NonReactive) 08/22/17 13:30 Hepatitis C Antibody Non-reactive (NonReactive) 08/22/17 13:30
[2017-08-24] MEDS: PERCOCET 5/325 PO PRN (20:20)
[2017-08-24] MEDS: AMBIEN PO PRN (21:17)
[2017-08-25] MEDS: NACL 0.45% 1000 ML 1,000 ML IV SCH ×2 (04:51→22:22)
[2017-08-25] MEDS: LOPRESSOR PO SCH ×2 (09:39→22:21)
[2017-08-25] MEDS: NORVASC PO SCH (09:39)
[2017-08-25] MEDS: ZITHROMAX PO SCH (09:40)
[2017-08-25] MEDS: LOVENOX SUB-Q SCH (09:40)
[2017-08-25] MEDS: NACL 0.9% IV SCH (09:40)
[2017-08-25] MEDS: CEFTRIAXONE IV SCH (09:40)
[2017-08-25] MEDS ORDERED: MILK OF MAGNESIA PO PRN (09:41)
[2017-08-25] MEDS: SODIUM CHLORIDE FLUSH SYRINGE 10 ML IV SCH ×2 (09:48→22:24)
[2017-08-25 10:13] LABS: Calcium 6.3 mg/dL (8.4-10.2)
--- NOTE | 2017-08-25 10:26 | Progress Note ---
Assessment and Plan - Patient Problems (1) Acute renal insufficiency Current Visit: Yes Status: Acute Plan to address problem: may be prerenal, r/o interstitial nephritis. Scr up from 3.6--3.9 today, non oliguric. Renal US- no hydro. Continue present hydration. CXR report reviewed- no infiltrates. Adjust meds per renal function. Urine culture-E.coli. Consider kidney biopsy if no improvement in renal function and free of infection. Ca- noted to be low--check ionised calcium, Mg, P levels. (2) Hypocalcemia Current Visit: Yes Status: Acute (3) UTI (urinary tract infection) Current Visit: Yes Status: Acute (4) HTN (hypertension) Current Visit: Yes Status: Acute Plan to address problem: BP under control, continue present meds (5) Anemia Current Visit: Yes Status: Acute Subjective Date of service: 08/25/17 Principal diagnosis: toby Interval history: alert, oriented, feeling little better Objective - Vital Signs Vital signs: Vital Signs - 12hr 08/24/17 08/25/17 08/25/17 23:52 07:28 08:12 Temperature 98.6 F 97.7 F Pulse Rate 71 73 Respiratory 20 20 17 Rate Blood Pressure 135/74 150/85 Blood Pressure 156/87 [Right] O2 Sat by Pulse 98 100 Oximetry - General Appearance General appearance: well-developed EENT: mucous membranes moist Neck: no JVD Respiratory: Present: Clear to Ascultation Cardiology: regular Gastrointestinal: normoactive bowel sounds Neurologic: alert and oriented x3 Musculoskeletal: other (no edema) Psychiatric: mood/affect appropriate, cooperative - Lab 08/23/17 06:17 08/25/17 09:33 Most recent lab results Calcium 6.3 mg/dL (8.4-10.2) L 08/25/17 09:33 Urine Creatinine 74.9 mg/dL (0.1-20.0) H 08/22/17 20:20 Urine Sodium 62 mmol/L 08/22/17 20:20 Urine Total Protein 403 mg/dL (5-11.8) H 08/22/17 20:20
[2017-08-25] MEDS: TUMS PO SCH ×2 (14:59→22:21)
--- NOTE | 2017-08-25 15:31 | Progress Note ---
Assessment and Plan Assessment and plan: --Acute on chronic renal failure; worsening renal function Nephrology following, continue IV fluids, nephrology following closely monitor renal function, avoid nephrotoxic medications --Community acquired Pneumonia, Continue current antibiotics, follow cultures --Sepsis secondary to UTI/Escherichia coli Continue Rocephin, supportive care --Malignant Hypertension; well controlled Continue current antihypertensives and when necessary medications --Anemia, likely due to chronic kidney disease Closely monitor H&H and transfuse as needed --DVT prophylaxis: lovenox, renal dose Closely monitor the patient and adjust management as needed Consults and recommendations noted no appreciated Plan of care reviewed with the patient and her nurse Possible discharge in 1-2 days if renal function continues to improve History Interval history: Patient seen and examined medical records reviewed no new events reported by the nursing staff Urine cultures positive for Escherichia coli Patient is on Rocephin Renal function slightly worse today Patient is alert awake oriented 3 Vital signs reviewed Hospitalist Physical - Constitutional Vitals: Temp Pulse Resp BP Pulse Ox 97.7 F 73 17 156/87 100 08/25/17 08:12 08/25/17 08:12 08/25/17 08:12 08/25/17 08:12 08/25/17 08:12 General appearance: Present: no acute distress, well-nourished, obese (morbidly obese) - EENT Eyes: Present: PERRL, EOM intact - Neck Neck: Present: supple, normal ROM - Respiratory Respiratory effort: normal Respiratory: bilateral: diminished, negative: rales, rhonchi, wheezing - Cardiovascular Rhythm: regular Heart Sounds: Present: S1 & S2 - Extremities Extremities: no ischemia, No edema - Abdominal General gastrointestinal: soft, non-tender, non-distended, normal bowel sounds - Integumentary Integumentary: Present: clear, warm - Psychiatric Psychiatric: appropriate mood/affect, cooperative - Neurologic Neurologic: CNII-XII intact, moves all extremities Results - Labs CBC & Chem 7: 08/23/17 06:17 08/25/17 09:33 Labs: Laboratory Last Values WBC 6.2 K/mm3 (4.5-11.0) 08/23/17 06:17 RBC 3.58 M/mm3 (3.65-5.03) L 08/23/17 06:17 Hgb 9.0 gm/dl (10.1-14.3) L 08/23/17 06:17 Hct 29.2 % (30.3-42.9) L 08/23/17 06:17 MCV 82 fl (79-97) 08/23/17 06:17 MCH 25 pg (28-32) L 08/23/17 06:17 MCHC 31 % (30-34) 08/23/17 06:17 RDW 15.9 % (13.2-15.2) H 08/23/17 06:17 Plt Count 246 K/mm3 (140-440) 08/23/17 06:17 Lymph % (Auto) 38.0 % (13.4-35.0) H 08/23/17 06:17 [place] % (Auto) 7.4 % (0.0-7.3) H 08/23/17 06:17 Eos % (Auto) 2.3 % (0.0-4.3) 08/23/17 06:17 Baso % (Auto) 0.4 % (0.0-1.8) 08/23/17 06:17 Lymph # 2.4 K/mm3 (1.2-5.4) 08/23/17 06:17 [place] # 0.5 K/mm3 (0.0-0.8) 08/23/17 06:17 Eos # 0.1 K/mm3 (0.0-0.4) 08/23/17 06:17 Baso # 0.0 K/mm3 (0.0-0.1) 08/23/17 06:17 Seg Neutrophils % 51.9 % (40.0-70.0) 08/23/17 06:17 Seg Neutrophils # 3.2 K/mm3 (1.8-7.7) 08/23/17 06:17 Sodium 139 mmol/L (137-145) 08/25/17 09:33 Potassium 4.3 mmol/L (3.6-5.0) 08/25/17 09:33 Chloride 103.9 mmol/L (98-107) 08/25/17 09:33 Carbon Dioxide 20 mmol/L (22-30) L 08/25/17 09:33 Anion Gap 19 mmol/L 08/25/17 09:33 BUN 37 mg/dL (7-17) H 08/25/17 09:33 Creatinine 3.9 mg/dL (0.7-1.2) H 08/25/17 09:33 Estimated GFR 15 ml/min 08/25/17 09:33 BUN/Creatinine Ratio 9 % 08/25/17 09:33 Glucose 119 mg/dL (65-100) H 08/25/17 09:33 Calcium 6.3 mg/dL (8.4-10.2) L 08/25/17 09:33 Total Bilirubin 0.20 mg/dL (0.1-1.2) 08/21/17 20:31 AST 15 units/L (5-40) 08/21/17 20:31 ALT 9 units/L (7-56) 08/21/17 20:31 Alkaline Phosphatase 92 units/L (35-129) 08/21/17 20:31 Total Protein 8.4 g/dL (6.3-8.2) H 08/21/17 20:31 Albumin 4.1 g/dL (3.9-5) 08/21/17 20:31 Albumin/Globulin Ratio 1.0 % 08/21/17 20:31 Lipase 85 units/L (13-60) H 08/21/17 20:31 HCG, Qual Negative (Negative) 08/21/17 20:31 Urine Color Yellow (Yellow) 08/21/17 20:30 Urine Turbidity Clear (Clear) 08/21/17 20:30 Urine pH 6.0 (5.0-7.0) 08/21/17 20:30 Ur Specific [place] 1.011 (1.003-1.030) 08/21/17 20:30 Urine Protein 100 mg/dl mg/dL (Negative) 08/21/17 20:30 Urine Glucose (UA) 50 mg/dL (Negative) 08/21/17 20:30 Urine Ketones Neg mg/dL (Negative) 08/21/17 20:30 Urine Blood Sm (Negative) 08/21/17 20:30 Urine Nitrite Neg (Negative) 08/21/17 20:30 Urine Bilirubin Neg (Negative) 08/21/17 20:30 Urine Urobilinogen < 2.0 mg/dL (<2.0) 08/21/17 20:30 Ur Leukocyte Esterase Lg (Negative) 08/21/17 20:30 Urine WBC (Auto) > 182.0 /HPF (0.0-6.0) H 08/21/17 20:30 Urine RBC (Auto) 86.0 /HPF (0.0-6.0) 08/21/17 20:30 Urine WBC Clumps 2+ /HPF 08/21/17 20:30 Urine Eosinophils 2 (None Seen) 08/22/17 20:20 Urine Creatinine 74.9 mg/dL (0.1-20.0) H 08/22/17 20:20 Protein/Creatinin Ratio 5.38 08/22/17 20:20 Urine Sodium 62 mmol/L 08/22/17 20:20 Fraction Sodium Excret 2.2 08/22/17 20:20 Urine Total Protein 403 mg/dL (5-11.8) H 08/22/17 20:20 Complement C3 165 mg/dL (83-193) 08/22/17 13:30 Complement C4 59 mg/dL (15-57) H 08/22/17 13:30 Hepatitis A IgM Ab Non-reactive (NonReactive) 08/22/17 13:30 Hep Bs Antigen Non-reactive (Negative) 08/22/17 13:30 Hep B Core IgM Ab Non-reactive (NonReactive) 08/22/17 13:30 Hepatitis C Antibody Non-reactive (NonReactive) 08/22/17 13:30
[2017-08-25 17:45] LABS: Myeloperoxidase Antibody <1.0 AI (<1.0)
[2017-08-25 22:52] LABS: Albumin 3.4 g/dL (3.8-4.8); Gamma Globulin 1.4 g/dL (0.8-1.7)
[2017-08-26 06:06] LABS: Albumin 3.4 g/dL (3.9-5); Calcium 6.4 mg/dL (8.4-10.2)
[2017-08-26] MEDS: NACL 0.45% 1000 ML 1,000 ML IV SCH ×2 (06:13→12:52)
--- NOTE | 2017-08-26 09:36 | Progress Note ---
Hospitalist Physical - Constitutional Vitals: Temp Pulse Resp BP Pulse Ox 98.6 F 72 20 137/75 100 08/25/17 23:47 08/25/17 23:47 08/25/17 23:47 08/25/17 23:47 08/25/17 23:47 General appearance: Present: no acute distress, well-nourished, obese (morbidly obese) Results - Labs CBC & Chem 7: 08/23/17 06:17 08/26/17 04:59 Labs: Laboratory Last Values WBC 6.2 K/mm3 (4.5-11.0) 08/23/17 06:17 RBC 3.58 M/mm3 (3.65-5.03) L 08/23/17 06:17 Hgb 9.0 gm/dl (10.1-14.3) L 08/23/17 06:17 Hct 29.2 % (30.3-42.9) L 08/23/17 06:17 MCV 82 fl (79-97) 08/23/17 06:17 MCH 25 pg (28-32) L 08/23/17 06:17 MCHC 31 % (30-34) 08/23/17 06:17 RDW 15.9 % (13.2-15.2) H 08/23/17 06:17 Plt Count 246 K/mm3 (140-440) 08/23/17 06:17 Lymph % (Auto) 38.0 % (13.4-35.0) H 08/23/17 06:17 [place] % (Auto) 7.4 % (0.0-7.3) H 08/23/17 06:17 Eos % (Auto) 2.3 % (0.0-4.3) 08/23/17 06:17 Baso % (Auto) 0.4 % (0.0-1.8) 08/23/17 06:17 Lymph # 2.4 K/mm3 (1.2-5.4) 08/23/17 06:17 [place] # 0.5 K/mm3 (0.0-0.8) 08/23/17 06:17 Eos # 0.1 K/mm3 (0.0-0.4) 08/23/17 06:17 Baso # 0.0 K/mm3 (0.0-0.1) 08/23/17 06:17 Seg Neutrophils % 51.9 % (40.0-70.0) 08/23/17 06:17 Seg Neutrophils # 3.2 K/mm3 (1.8-7.7) 08/23/17 06:17 Sodium 141 mmol/L (137-145) 08/26/17 04:59 Potassium 4.6 mmol/L (3.6-5.0) 08/26/17 04:59 Chloride 106.0 mmol/L (98-107) 08/26/17 04:59 Carbon Dioxide 22 mmol/L (22-30) 08/26/17 04:59 Anion Gap 18 mmol/L 08/26/17 04:59 BUN 39 mg/dL (7-17) H 08/26/17 04:59 Creatinine 3.9 mg/dL (0.7-1.2) H 08/26/17 04:59 Estimated GFR 15 ml/min 08/26/17 04:59 BUN/Creatinine Ratio 10 % 08/26/17 04:59 Glucose 78 mg/dL (65-100) 08/26/17 04:59 Calcium 6.4 mg/dL (8.4-10.2) L 08/26/17 04:59 Magnesium 1.50 mg/dL (1.7-2.3) L 08/26/17 04:59 Total Bilirubin 0.20 mg/dL (0.1-1.2) 08/26/17 04:59 AST 13 units/L (5-40) 08/26/17 04:59 ALT 8 units/L (7-56) 08/26/17 04:59 Alkaline Phosphatase 72 units/L (35-129) 08/26/17 04:59 Serum Total Protein 6.9 g/dL (6.1-8.1) 08/23/17 06:17 Total Protein 7.0 g/dL (6.3-8.2) 08/26/17 04:59 Albumin 3.4 g/dL (3.9-5) L 08/26/17 04:59 Albumin/Globulin Ratio 0.9 % 08/26/17 04:59 Brxbv-8-Htzhjhcog 0.3 g/dL (0.2-0.3) 08/23/17 06:17 Jweui-1-Shkqzqzfa 0.8 g/dL (0.5-0.9) 08/23/17 06:17 Beta Globulins 0.5 g/dL (0.2-0.5) 08/23/17 06:17 Gamma Globulins 1.4 g/dL (0.8-1.7) 08/23/17 06:17 Abnorm Protein Band 1 see below 08/23/17 06:17 PEP Interpretation see below H 08/23/17 06:17 Lipase 85 units/L (13-60) H 08/21/17 20:31 HCG, Qual Negative (Negative) 08/21/17 20:31 PTH Intact 533.6 pg/mL (15-65) H 08/26/17 07:35 Urine Color Yellow (Yellow) 08/21/17 20:30 Urine Turbidity Clear (Clear) 08/21/17 20:30 Urine pH 6.0 (5.0-7.0) 08/21/17 20:30 Ur Specific [place] 1.011 (1.003-1.030) 08/21/17 20:30 Urine Protein 100 mg/dl mg/dL (Negative) 08/21/17 20:30 Urine Glucose (UA) 50 mg/dL (Negative) 08/21/17 20:30 Urine Ketones Neg mg/dL (Negative) 08/21/17 20:30 Urine Blood Sm (Negative) 08/21/17 20:30 Urine Nitrite Neg (Negative) 08/21/17 20:30 Urine Bilirubin Neg (Negative) 08/21/17 20:30 Urine Urobilinogen < 2.0 mg/dL (<2.0) 08/21/17 20:30 Ur Leukocyte Esterase Lg (Negative) 08/21/17 20:30 Urine WBC (Auto) > 182.0 /HPF (0.0-6.0) H 08/21/17 20:30 Urine RBC (Auto) 86.0 /HPF (0.0-6.0) 08/21/17 20:30 Urine WBC Clumps 2+ /HPF 08/21/17 20:30 Urine Eosinophils 2 (None Seen) 08/22/17 20:20 Urine Creatinine 74.9 mg/dL (0.1-20.0) H 08/22/17 20:20 Protein/Creatinin Ratio 5.38 08/22/17 20:20 Urine Sodium 62 mmol/L 08/22/17 20:20 Fraction Sodium Excret 2.2 08/22/17 20:20 Urine Total Protein 403 mg/dL (5-11.8) H 08/22/17 20:20 Proteinase 3 (PR3) Ab <1.0 AI (<1.0) 08/22/17 13:30 Myeloperoxidase Ab <1.0 AI (<1.0) 08/22/17 13:30 Complement C3 165 mg/dL (83-193) 08/22/17 13:30 Complement C4 59 mg/dL (15-57) H 08/22/17 13:30 Hepatitis A IgM Ab Non-reactive (NonReactive) 08/22/17 13:30 Hep Bs Antigen Non-reactive (Negative) 08/22/17 13:30 Hep B Core IgM Ab Non-reactive (NonReactive) 08/22/17 13:30 Hepatitis C Antibody Non-reactive (NonReactive) 08/22/17 13:30
[2017-08-26] MEDS: LOPRESSOR PO SCH (10:12)
[2017-08-26] MEDS: ZITHROMAX PO SCH (10:12)
[2017-08-26] MEDS: LOVENOX SUB-Q SCH (10:13)
[2017-08-26] MEDS: SODIUM CHLORIDE FLUSH SYRINGE 10 ML IV SCH (10:13)
[2017-08-26] MEDS: NORVASC PO SCH (10:13)
[2017-08-26] MEDS: TUMS PO SCH (10:13)
[2017-08-26] MEDS: NACL 0.9% IV SCH (10:14)
[2017-08-26] MEDS: CEFTRIAXONE IV SCH (10:14)
[2017-08-26] MEDS ORDERED: MAGNESIUM SULFATE 2GM/50ML 2 GM/50 ML BAG IV ONE (11:00)
--- NOTE | 2017-08-26 11:36 | Progress Note ---
Assessment and Plan - Patient Problems (1) Acute renal insufficiency Current Visit: Yes Status: Acute Plan to address problem: may be prerenal, r/o interstitial nephritis. Scr 3.9 today, non oliguric. Renal US- no hydro. Continue present hydration. CXR report reviewed- no infiltrates. Adjust meds per renal function. Urine culture-E.coli. Consider kidney biopsy when urine culture is negative. Ca- noted to be low-placed on Calcium supplements, noted high PTH and ,low Magnesium levels. Placed on Calcitriol and Magnesium supplements. Scr leveling off around 3.9-pt may have underlying CKD stage 4. Will follow as outpatient (2) Hypocalcemia Current Visit: Yes Status: Acute (3) UTI (urinary tract infection) Current Visit: Yes Status: Acute (4) HTN (hypertension) Current Visit: Yes Status: Acute (5) Anemia Current Visit: Yes Status: Acute (6) Secondary hyperparathyroidism Current Visit: Yes Status: Acute Subjective Date of service: 08/26/17 Principal diagnosis: toby Interval history: alert, oriented, feeling better, denies CP or SOB Objective - Vital Signs Vital signs: Vital Signs - 12hr 08/25/17 08/26/17 23:47 07:35 Temperature 98.6 F 98.5 F Pulse Rate 72 79 Respiratory 20 22 Rate Blood Pressure 137/75 147/85 O2 Sat by Pulse 100 97 Oximetry - General Appearance General appearance: well-developed EENT: mucous membranes moist Neck: no JVD Respiratory: Present: Clear to Ascultation Cardiology: regular Gastrointestinal: normoactive bowel sounds Neurologic: alert and oriented x3 Musculoskeletal: other (no edema) Psychiatric: mood/affect appropriate, cooperative - Lab 08/23/17 06:17 08/26/17 04:59 Most recent lab results Calcium 6.4 mg/dL (8.4-10.2) L 08/26/17 04:59 Magnesium 1.50 mg/dL (1.7-2.3) L 08/26/17 04:59 Urine Creatinine 74.9 mg/dL (0.1-20.0) H 08/22/17 20:20 Urine Sodium 62 mmol/L 08/22/17 20:20 Urine Total Protein 403 mg/dL (5-11.8) H 08/22/17 20:20
[2017-08-26] MEDS ORDERED: MAG-OX PO SCH (12:00)
[2017-08-26] MEDS ORDERED: ROCALTROL PO SCH (12:00)
--- NOTE | 2017-08-26 14:49 | Discharge Summary ---
Providers - Providers Date of Admission: 08/22/17 02:16 Date of discharge: 08/26/17 Attending physician: OLY VELIZ 08/22/17 01:34 Consult to Physician [CONS] Urgent Comment: Consulting Provider: NIYAH ROWLAND Physician Instructions: Reason For Exam: new onset renal insuf Primary care physician: [employer] Hospitalization Condition: Stable Hospital course: --Morbid obesity; BMI 45.4, counseling done advised diet modification and exercise as tolerated and weight reduction Patient may need outpatient bariatric surgical evaluation for weight reduction program when medically stable --Acute on chronic renal failure; worsening renal function Nephrology following, continue IV fluids, nephrology following closely monitor renal function, avoid nephrotoxic medications --Community acquired Pneumonia, Continue current antibiotics, follow cultures --Sepsis secondary to UTI/Escherichia coli Continue Rocephin, supportive care --Malignant Hypertension; well controlled Continue current antihypertensives and when necessary medications --Anemia, likely due to chronic kidney disease Closely monitor H&H and transfuse as needed Disposition: DC-01 TO HOME OR SELFCARE Time spent for discharge: 31 min Core Measure Documentation - Palliative Care Palliative Care/ Comfort Measures: Not Applicable - Core Measures Any of the following diagnoses?: none Exam - Constitutional Vitals: Temp Pulse Resp BP Pulse Ox 98.5 F 79 22 147/85 97 08/26/17 07:35 08/26/17 07:35 08/26/17 07:35 08/26/17 07:35 08/26/17 07:35 General appearance: Present: no acute distress, well-nourished, obese (morbidly obese) - EENT Eyes: Present: PERRL, EOM intact - Neck Neck: Present: supple, normal ROM - Respiratory Respiratory effort: normal Respiratory: bilateral: diminished, negative: rales, rhonchi, wheezing - Cardiovascular Rhythm: regular Heart Sounds: Present: S1 & S2 - Extremities Extremities: no ischemia, No edema - Abdominal General gastrointestinal: Present: soft, non-tender, non-distended, normal bowel sounds - Integumentary Integumentary: Present: clear, warm - Musculoskeletal Musculoskeletal: strength equal bilaterally - Psychiatric Psychiatric: appropriate mood/affect, cooperative - Neurologic Neurologic: CNII-XII intact, moves all extremities Plan Activity: no restrictions Diet: renal Additional Instructions: Advised diet modification and exercise as tolerated and weight reduction and medically stable. Advised to follow-up with private [employer] as per scheduled Follow up with: PRIMARY CARE, [Primary Care Provider] - 7 Days HUAN CARD MD [Staff Physician] - 7 Days Prescriptions: amLODIPine [Norvasc] 10 mg PO QDAY #30 tablet Ciprofloxacin HCl [Ciprofloxacin TAB] 250 mg PO BID #14 tablet Magnesium Oxide [Mag-Ox] 400 mg PO QDAY #7 tablet Metoprolol [Lopressor TAB] 50 mg PO BID #60 tablet
[2017-08-26 16:38] VITALS: BP 152/100
== END 2017-08-26 17:19 | disposition home or self-care (01) | DRG 871 ==
LOC: ED 19:55 → 3A 08-22 02:16
PROVIDERS: ADMIT Internal Medicine; ATTEND Internal Medicine
DX: A41.9 Sepsis, unspecified organism (principal); J18.9 Pneumonia, unspecified organism; N17.9 Acute kidney failure, unspecified; Z68.42 Body mass index [BMI] 45.0-49.9, adult; N12 Tubulo-interstitial nephritis, not specified as acute or chronic; N25.81 Secondary hyperparathyroidism of renal origin; E66.01 Morbid (severe) obesity due to excess calories; N18.9 Chronic kidney disease, unspecified; B96.20 Unspecified Escherichia coli [E. coli] as the cause of diseases classified elsewhere; I12.9 Hypertensive chronic kidney disease with stage 1 through stage 4 chronic kidney disease, or unspecified chronic kidney disease; E83.51 Hypocalcemia; D63.8 Anemia in other chronic diseases classified elsewhere; E03.9 Hypothyroidism, unspecified; Z71.3 Dietary counseling and surveillance; Z87.442 Personal history of urinary calculi; Z91.14 Patient's other noncompliance with medication regimen; Z98.51 Tubal ligation status; Z82.49 Family history of ischemic heart disease and other diseases of the circulatory system
CPT/HCPCS: 36415; 71046; 74176; 76770; 80048; 80053; 80074; 81001; 82330; 82565; 82570; 83690; 83735; 83970; 84156; 84165; 84295; 84300; 84703; 85025; 85027; 86021; 86160; 87076; 87086; 87186; 89050; 96361; 96374; J0696; J1650; J3475; J7030; J7050

== ENCOUNTER 2017-12-02 16:06 | Emergency (ER) | payer SELFPAY ==
[2017-12-02 16:55] LABS: HCG Qualitative,Urine Negative (Negative)
[2017-12-02 16:59] LABS: Bacteria,Urine 2+ /HPF (Negative); Bilirubin,Urine NEG (Negative); Blood,Urine NEG (Negative); Urobilinogen,Urine < 2.0 mg/dL (<2.0)
[2017-12-02 17:01] LABS: Color,Urine Yellow (Yellow); Protein,Urine >500 mg/dL (Negative); WBC,Urine > 182.0 /HPF (0.0-6.0)
--- NOTE | 2017-12-02 19:38 | Emergency Department Report ---
ED Female HPI - General Chief complaint: Urogenital-Female Stated complaint: UTI Source: patient Mode of arrival: Ambulatory Limitations: No Limitations - History of Present Illness Initial comments: 47-year-old -[place] female comes in complaining of burning with urination for one week. Patient 4 mL decrease her sweet drinks and has increased her water intake. Patient denies any hematuria, denies any fever or chills no nausea or vomiting. She reports that she's had a similar episode back in July and was treated for urinary tract infection. Patient has a past medical history of hypertension and has been out of her amlodipine and metoprolol for 2 months. Blood pressure in triage is 177/100. MD Complaint: dysuria -: week(s) (1) Are you Now?: No (tubal ligation) Associated Symptoms: denies other symptoms - Related Data Sexually active: Yes (men) Previous Rx's Medication Instructions Recorded Last Taken Type Ciprofloxacin HCl [Ciprofloxacin 250 mg PO BID #14 tablet 08/26/17 Unknown Rx TAB] Magnesium Oxide [Mag-Ox] 400 mg PO QDAY #7 tablet 08/26/17 Unknown Rx Metoprolol [Lopressor TAB] 50 mg PO BID #60 tablet 12/02/17 Unknown Rx Nitrofurantoin Monohyd/M-Cryst 100 mg PO BID 10 Days #20 capsule 12/02/17 Unknown Rx [Macrobid 100 mg Capsule] amLODIPine [Norvasc] 10 mg PO QDAY #30 tablet 12/02/17 Unknown Rx Allergies Allergy/AdvReac Type Severity Reaction Status Date / Time No Known Allergies Allergy Unverified 08/21/17 20:00 ED Review of Systems ROS: Stated complaint: UTI Other details as noted in HPI Comment: All other systems reviewed and negative Constitutional: denies: chills, fever Genitourinary: urgency, dysuria, frequency ED Past Medical Hx - Past Medical History Hx Hypertension: Yes Hx Congestive Heart Failure: No Hx Diabetes: No Hx Renal Disease: Yes Hx Kidney Stones: Yes Hx Asthma: No Hx COPD: No Additional medical history: Hypothyroidism - Surgical History Past Surgical History?: Yes Additional Surgical History: LEEP, tubal ligation, thyroidectomy - Social History Smoking Status: Never Smoker Substance Use Type: None - Medications Home Medications: Home Medications Medication Instructions Recorded Confirmed Last Taken Type Ciprofloxacin HCl [Ciprofloxacin 250 mg PO BID #14 tablet 08/26/17 Unknown Rx TAB] Magnesium Oxide [Mag-Ox] 400 mg PO QDAY #7 tablet 08/26/17 Unknown Rx Metoprolol [Lopressor TAB] 50 mg PO BID #60 tablet 12/02/17 Unknown Rx Nitrofurantoin Monohyd/M-Cryst 100 mg PO BID 10 Days #20 capsule 12/02/17 Unknown Rx [Macrobid 100 mg Capsule] amLODIPine [Norvasc] 10 mg PO QDAY #30 tablet 12/02/17 Unknown Rx ED Physical Exam - General Limitations: No Limitations General appearance: alert, in no apparent distress - Head Head exam: Present: atraumatic, normocephalic - Eye Eye exam: Present: normal appearance, EOMI - ENT ENT exam: Present: mucous membranes moist - Respiratory Respiratory exam: Present: normal lung sounds bilaterally. Absent: respiratory distress - Cardiovascular Cardiovascular Exam: Present: regular rate, normal rhythm. Absent: systolic murmur, diastolic murmur, rubs, gallop - GI/Abdominal GI/Abdominal exam: Present: soft, normal bowel sounds. Absent: distended, tenderness, guarding - Extremities Exam Extremities exam: Present: full ROM - Neurological Exam Neurological exam: Present: alert, oriented X3 - Skin Skin exam: Present: warm, dry, intact, normal color. Absent: rash ED Course Vital Signs 12/02/17 16:13 Temperature 98.4 F Pulse Rate 89 Respiratory 16 Rate Blood Pressure 177/100 O2 Sat by Pulse 99 Oximetry ED Medical Decision Making - Medical Decision Making Patient has been evaluated by this provider in fast track. Review over lab which shows patient has a urinary tract infection. Discussed patient that she has a urinary tract infection we will treat her on Macrobid 100 mg by mouth twice a day 10 days. Discussed patient she needs to have a follow-up visit with her primary care provider in 3-5 days. I will refer patient to [facility] for further evaluation. Critical care attestation.: If time is entered above; I have spent that time in minutes in the direct care of this critically ill patient, excluding procedure time. ED Disposition Clinical Impression: Noncompliance with medication regimen, Uncontrolled hypertension UTI (urinary tract infection) Qualifiers: Urinary tract infection type: acute cystitis Hematuria presence: without hematuria Qualified Code(s): N30.00 - Acute cystitis without hematuria Disposition: TO HOME OR SELFCARE Is pt being admited?: No Does the pt Need Aspirin: No Condition: Stable Instructions: Hypertension (ED), Urinary Tract Infection in Women (ED), Nitrofurantoin Combination (By mouth) Additional Instructions: Complete antibiotics as prescribed. Please take your chronic disease management medication as prescribed. It is very important for you to follow-up with [facility] for treatment and management of chronic disease. Prescriptions: amLODIPine [Norvasc] 10 mg PO QDAY #30 tablet Metoprolol [Lopressor TAB] 50 mg PO BID #60 tablet Nitrofurantoin Monohyd/M-Cryst [Macrobid 100 mg Capsule] 100 mg PO BID 10 Days # 20 capsule Referrals: PRIMARY CARE, [Primary Care Provider] - 3-5 Days Forms: Work/School Release Form(ED)
[2017-12-02 19:58] VITALS: BP 154/86
== END 2017-12-02 19:54 | disposition home or self-care (01) ==
LOC: ED 16:06
DX: N30.00 Acute cystitis without hematuria (principal); I10 Essential (primary) hypertension; E89.0 Postprocedural hypothyroidism; Z91.14 Patient's other noncompliance with medication regimen; Z87.442 Personal history of urinary calculi; Z98.51 Tubal ligation status
CPT/HCPCS: 81001; 81025; 99283

== ENCOUNTER 2018-12-07 07:31 | Inpatient (IN) | payer OTHER ==
--- NOTE | 2018-12-07 08:24 | XRay Report ---
CHEST 2 VIEWS INDICATION: Cough and shortness of breath for a few months, leg swelling.. COMPARISON: None FINDINGS: Support devices: None. Heart: Mild cardiomegaly. Lungs/pleura: Bilateral pulmonary edema is suspected. Infiltrates are thought less likely. Trace pleu ral effusions could be present on the lateral view. No large pleural effusion. No pneumothorax. Additional findings: None. IMPRESSION: Mild CHF. Signer Name: Jairon Larsen Jr, MD Signed: 12/07/2018 8:19 AM Workstation Name: [id number]
[2018-12-07] MEDS ORDERED: LASIX IV ONE ×2 (09:04→22:54)
[2018-12-07 09:40] LABS: Basophils # (Auto) 0.1 K/mm3 (0.0-0.1); Basophils % (Auto) 0.8 % (0.0-1.8); Eosinophils # (Auto) 0.1 K/mm3 (0.0-0.4); Eosinophils % (Auto) 0.9 % (0.0-4.3); Hematocrit 25.6 % (30.3-42.9); Hemoglobin 8.2 gm/dl (10.1-14.3); Lymphocytes # (Auto) 1.7 K/mm3 (1.2-5.4); Mean Corpuscular HGB Conc 32 % (30-34); Mean Corpuscular Volume 84 fl (79-97); Monocytes # (Auto) 0.6 K/mm3 (0.0-0.8); Platelet Count 232 K/mm3 (140-440); Red Blood Count 3.05 M/mm3 (3.65-5.03); Red Cell Distribution Width 15.3 % (13.2-15.2)
[2018-12-07 09:52] LABS: BUN/Creatinine Ratio 9; Blood Urea Nitrogen 78 mg/dL (7-17); Hemolysis Index 4
[2018-12-07 10:01] LABS: Calcium 4.8 mg/dL (8.4-10.2)
[2018-12-07] MEDS ORDERED: TYLENOL PO PRN (10:23)
[2018-12-07] MEDS ORDERED: ZOFRAN IV PRN (10:23)
[2018-12-07] MEDS ORDERED: SODIUM CHLORIDE FLUSH SYRINGE 10 ML IV PRN (10:23)
--- NOTE | 2018-12-07 10:24 | Emergency Department Report ---
ED General Adult HPI - General Chief complaint: Upper Respiratory Infection Stated complaint: [place],COUGH Time Seen by Provider: 12/07/18 08:50 Source: patient Mode of arrival: Ambulatory Limitations: No Limitations - History of Present Illness Initial comments: Patient is a 48-year-old female who has a past medical history of hypertension and is noncompliant with meds who states that for the last 2-3 months she has been having some intermittent cough shortness of breath. Patient also states she has some mild swelling in her ankles that comes and goes. Patient stated that the cough was slightly worse last night which prompted her to come to the emergency department. Patient denies any fever. Cough is dry and nonproductive. Patient does have some worsening of symptoms when lying flat. The patient denies any chest pain nausea vomiting diarrhea or abdominal pain this time. - Related Data Previous Rx's Medication Instructions Recorded Last Taken Type Ciprofloxacin HCl [Ciprofloxacin 250 mg PO BID #14 tablet 08/26/17 Unknown Rx TAB] Magnesium Oxide [Mag-Ox] 400 mg PO QDAY #7 tablet 08/26/17 Unknown Rx Metoprolol [Lopressor TAB] 50 mg PO BID #60 tablet 12/02/17 Unknown Rx Nitrofurantoin Monohyd/M-Cryst 100 mg PO BID 10 Days #20 capsule 12/02/17 Unknown Rx [Macrobid 100 mg Capsule] amLODIPine [Norvasc] 10 mg PO QDAY #30 tablet 12/02/17 Unknown Rx Allergies Allergy/AdvReac Type Severity Reaction Status Date / Time No Known Allergies Allergy Unverified 08/21/17 20:00 ED Review of Systems ROS: Stated complaint: [place],COUGH Other details as noted in HPI Comment: All other systems reviewed and negative ED Past Medical Hx - Past Medical History Previous Medical History?: Yes Hx Hypertension: Yes Hx Congestive Heart Failure: No Hx Diabetes: No Hx Renal Disease: Yes Hx Kidney Stones: Yes Hx Asthma: No Hx COPD: No Additional medical history: Hypothyroidism - Surgical History Past Surgical History?: Yes Additional Surgical History: LEEP, tubal ligation, thyroidectomy - Social History Smoking Status: Never Smoker Substance Use Type: None - Medications Home Medications: Home Medications Medication Instructions Recorded Confirmed Last Taken Type Ciprofloxacin HCl [Ciprofloxacin 250 mg PO BID #14 tablet 08/26/17 Unknown Rx TAB] Magnesium Oxide [Mag-Ox] 400 mg PO QDAY #7 tablet 08/26/17 Unknown Rx Metoprolol [Lopressor TAB] 50 mg PO BID #60 tablet 12/02/17 Unknown Rx Nitrofurantoin Monohyd/M-Cryst 100 mg PO BID 10 Days #20 capsule 12/02/17 Unknown Rx [Macrobid 100 mg Capsule] amLODIPine [Norvasc] 10 mg PO QDAY #30 tablet 12/02/17 Unknown Rx ED Physical Exam - General Limitations: No Limitations General appearance: alert, in no apparent distress - Head Head exam: Present: atraumatic, normocephalic - Eye Eye exam: Present: normal appearance, PERRL, EOMI - ENT ENT exam: Present: mucous membranes moist - Neck Neck exam: Present: normal inspection - Respiratory Respiratory exam: Present: normal lung sounds bilaterally, rales. Absent: respiratory distress, wheezes, rhonchi, stridor - Cardiovascular Cardiovascular Exam: Present: regular rate, normal rhythm, normal heart sounds (bilateral base). Absent: systolic murmur, diastolic murmur, rubs, gallop - GI/Abdominal GI/Abdominal exam: Present: soft, normal bowel sounds. Absent: distended, tenderness, guarding, rebound - Extremities Exam Extremities exam: Present: normal inspection - Back Exam Back exam: Present: normal inspection - Neurological Exam Neurological exam: Present: alert, oriented X3 - Psychiatric Psychiatric exam: Present: normal affect, normal mood - Skin Skin exam: Present: warm, dry, intact, normal color. Absent: rash ED Course Vital Signs 12/07/18 12/07/18 07:45 09:42 Temperature 97.7 F Pulse Rate 94 H Respiratory 18 18 Rate Blood Pressure 143/100 O2 Sat by Pulse 94 98 Oximetry ED Medical Decision Making - Lab Data Result diagrams: 12/07/18 09:08 12/07/18 09:08 Lab Results 12/07/18 12/07/18 Range/Units 09:08 09:08 WBC 8.7 (4.5-11.0) K/mm3 RBC 3.05 L (3.65-5.03) M/mm3 Hgb 8.2 L (10.1-14.3) gm/dl Hct 25.6 L (30.3-42.9) % MCV 84 (79-97) fl MCH 27 L (28-32) pg MCHC 32 (30-34) % RDW 15.3 H (13.2-15.2) % Plt Count 232 (140-440) K/mm3 Lymph % (Auto) 20.0 (13.4-35.0) % [place] % (Auto) 7.0 (0.0-7.3) % Eos % (Auto) 0.9 (0.0-4.3) % Baso % (Auto) 0.8 (0.0-1.8) % Lymph # 1.7 (1.2-5.4) K/mm3 [place] # 0.6 (0.0-0.8) K/mm3 Eos # 0.1 (0.0-0.4) K/mm3 Baso # 0.1 (0.0-0.1) K/mm3 Seg Neutrophils % 71.3 H (40.0-70.0) % Seg Neutrophils # 6.2 (1.8-7.7) K/mm3 Sodium 142 (137-145) mmol/L Potassium 5.3 H (3.6-5.0) mmol/L Chloride 108.1 H (98-107) mmol/L Carbon Dioxide 14 L (22-30) mmol/L Anion Gap 25 mmol/L BUN 78 H (7-17) mg/dL Creatinine 9.1 H (0.7-1.2) mg/dL Estimated GFR 6 ml/min BUN/Creatinine Ratio 9 % Glucose 82 (65-100) mg/dL Calcium 4.8 L* (8.4-10.2) mg/dL Troponin T < 0.010 (0.00-0.029) ng/mL - Radiology Data [facility] [address] [place] [address] XRay Report Signed Patient: PEDRO MCGREGOR MR#: [id number] : 1970 Acct:[id number] Age/Sex: 48 / F ADM Date: 12/07/18 Loc: ED Attending Dr: Ordering Physician: ED MD ERNST Date of Service: 12/07/18 Procedure(s): XR chest routine 2V Accession Number(s): [id number] cc: ED MD ERNST Fluoro Time In Minutes: CHEST 2 VIEWS INDICATION: Cough and shortness of breath for a few months, leg swelling.. COMPARISON: None FINDINGS: Support devices: None. Heart: Mild cardiomegaly. Lungs/pleura: Bilateral pulmonary edema is suspected. Infiltrates are thought less likely. Trace pleural effusions could be present on the lateral view. No large pleural effusion. No pneumothorax. Additional findings: None. IMPRESSION: Mild CHF. Signer Name: Jairon Larsen Jr, MD Signed: 12/07/2018 8:19 AM Workstation Name: [id number] - Medical Decision Making Patient is presenting with a cough. Patient's x-ray was ordered from triage that shows she has bilateral pulmonary edema which is quite extensive despite how asymptomatic the patient is. Patient had laboratory studies drawn which shows she does have acute on chronic renal failure. Patient has various just mild hyperkalemia. Patient to be admitted to the hospitalist service, Dr. Edwards. Patient's hypo-calcium was treated with an amp of calcium gluconate. Critical Care Time: Yes (30) Critical care attestation.: If time is entered above; I have spent that time in minutes in the direct care of this critically ill patient, excluding procedure time. ED Disposition Clinical Impression: Acute pulmonary edema, Hypocalcemia, Noncompliance with medication regimen, Uncontrolled hypertension Acute on chronic renal failure Qualifiers: Acute renal failure type: unspecified Chronic kidney disease stage: unspecified stage Qualified Code(s): N17.9 - Acute kidney failure, unspecified; N18.9 - Chronic kidney disease, unspecified Disposition: OP ADMIT IP TO THIS HOSP Is pt being admited?: Yes Does the pt Need Aspirin: No Condition: Stable Instructions: Pulmonary Edema (ED), Hypertension (ED) Time of Disposition: 10:27
[2018-12-07] MEDS ORDERED: CALCIUM GLUCONATE 1,000 MG in NACL 0.9% 100 ML IV ONE (11:00)
[2018-12-07] MEDS ORDERED: LOPRESSOR PO SCH (11:00)
--- NOTE | 2018-12-07 12:24 | History and Physical Report ---
History of Present Illness Date of examination: 12/07/18 Date of admission: 12/07/18 10:23 Chief complaint: Shortness of breath and fatigue. History of present illness: 48 years old with a history of hypertension chronic kidney disease obesity lost to follow-up secondary to come insurance. Patient complains of 1-2 weeks of lethargy and weakness fatigue and shortness of breath. 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 Patient presente d to the ED with a chief complaint of shortness of breath and uncontrolled hypertension patient denied any acute chest pain denied any orthopnea but did have PND and shortness of breath with minimal exertion. Patient denies any nausea or vomiting. No diarrhea. No sick contacts. No hematuria no dysuria. Workup in the ED patient found to have acute renal failure with the B UN of 78 and creatinine of 9.5 as well as uncontrolled hypertension. Patient admitted for acute renal failure and emergent hemodialysis. Present patient denies any chest pain shortness of breath she does have occasionally productive cough. no fever Past History Past Medical History: hypertension, renal failure. denies: acute OK, atrial fib, arrhythmia, anemia, arthritis, CAD, cancer, COPD, diabetes, dialysis, DVT, ESRD, GERD, heart failure, hepatitis, HIV/AIDS, hyperthyroidism, hyperlipidemia, hypothyroidism, liver disease, migraines, stroke Past Surgical History: No surgical history Social history: single, lives with family, full code. denies: smoking, alcohol abuse, prescription drug abuse Family history: hypertension Medications and Allergies Allergies Allergy/AdvReac Type Severity Reaction Status Date / Time No Known Allergies Allergy Unverified 08/21/17 20:00 Home Medications Medication Instructions Recorded Confirmed Last Taken Type No Known Home Medications [No 12/07/18 12/07/18 Unknown History Reported Home Medications] Active Meds: Active Medications Acetaminophen (Tylenol) 650 mg PO Q4H PRN PRN Reason: Pain MILD(1-3)/Fever >100.5/KIM Amlodipine Besylate (Norvasc) 10 mg PO QDAY [facility] Docusate Sodium (Colace) 100 mg PO BID [facility] Azithromycin 500 mg/ Sodium (Chloride) 250 mls @ 250 mls/hr IV Q24HR [facility]; Protocol Metoprolol Tartrate (Lopressor) 50 mg PO BID [facility] Metoprolol Tartrate (Lopressor) 25 mg PO BID [facility] Ondansetron HCl (Zofran) 4 mg IV Q8H PRN PRN Reason: Nausea And Vomiting Oxycodone/Acetaminophen (Percocet 5/325) 1 tab PO Q6H PRN PRN Reason: Pain, Moderate (4-6) Sodium Chloride (Sodium Chloride Flush Syringe 10 Ml) 10 ml IV BID [facility] Stop: 12/17/18 21:59 Sodium Chloride (Sodium Chloride Flush Syringe 10 Ml) 10 ml IV PRN PRN PRN Reason: LINE FLUSH Review of Systems Constitutional: anorexia, weakness, malaise, no weight loss, no weight gain, no sweats, no night sweats, no fatigue, no lethargy, no chronic headaches, no daytime sleepiness, no chronic pain Ears, nose, mouth and throat: no ear pain, no tinnitis, no nose pain, no nasal discharge, no epistaxis, no bleeding gums, no mouth pain, no hoarseness, no sore throat, no swelling in mouth, no post-nasal drip, no headache, no neck fullness/pressure Breasts: deferred Cardiovascular: edema, lightheadedness, shortness of breath, dyspnea on exertion, high blood pressure, leg edema, decreased exercise tolerance, no chest pain, no orthopnea, no palpitations, no rapid/irregular heart beat, no syncope, no paroxysmal nocturnal dyspnea, no claudication, no phlebitis Respiratory: cough, cough with sputum, shortness of breath, dyspnea on exertion, no excessive sputum, no hemoptysis, no congestion, no wheezing, no pleurisy, no pain, no pain on inspiration, no snoring, no sleep apnea, no home oxygen Gastrointestinal: nausea, early satiety, no vomiting, no constipation, no hematemesis, no melena, no hematochezia, no loss of appetite, no early satiety, no dyspepsia/bloating, no other Genitourinary Female: no dyspareunia, no pelvic pain, no flank pain, no dysuria, no urgency, no urge incontinence, no mixed incontinence, no hematuria, no nocturia, no vaginal itching, no mood problems, no prolapse symptoms Menstruation: no premenarcheal, no post hysterectomy, no ammenorrhea, no ammenorrhea on BC, no period spotting, no menses 1-7 days, no menses 8 or > days Musculoskeletal: muscle weakness, no neck stiffness, no neck pain, no shooting arm pain, no shooting leg pain, no morning stiffness, no muscle cramps, no myalgias, no limitation of motion, no gait dysfunction, no fractures Integumentary: no redness, no wounds, no lesions, no depigmentation, no acne, no change in hair/nails, no hirsutism, no foot/leg ulcers Neurological: no paralysis, no seizures, no convulsions, no burning pain, no paralysis Psychiatric: depression, no memory loss, no sleep disturbances, no insomnia, no hypersomnia, no change in appetite, no disorientation, no hallucinations, no paranoia, no hopelessness, no anhedonia, no difficulties concentrating Endocrine: no heat intolerance, no excessive thirst, no polyuria, no nocturia, no excessive sweating, no weight change, no increase in ring/shoe/hat size, no deepening of the voice, no palpatations, no high blood sugars, no low blood sugars, no recent glucocorticoid use Hematologic/Lymphatic: no lymphadenopathy, no lymphedema Allergic/Immunologic: no persistent infections, no anaphylaxis, no seasonal allergies Exam - Constitutional Vitals: Temp Pulse Resp BP Pulse Ox 97.8 F 96 H 16 136/101 98 12/07/18 11:26 12/07/18 11:26 12/07/18 11:26 12/07/18 11:26 12/07/18 11:26 General appearance: Present: no acute distress - EENT Eyes: Present: PERRL, EOM intact ENT: hearing intact, clear oral mucosa, dentition normal - Neck Neck: Present: supple, normal ROM - Respiratory Respiratory: bilateral: rhonchi (left greater than rt) - Cardiovascular Rhythm: regular - Extremities Extremities: no ischemia, pulses intact, pulses symmetrical, normal temperature, normal color, Full ROM Extremity abnormal: edema Peripheral Pulses: within normal limits - Abdominal General gastrointestinal: Present: soft, non-tender, non-distended, normal bowel sounds - Integumentary Integumentary: Present: clear, warm, dry - Musculoskeletal Musculoskeletal: strength equal bilaterally, generalized weakness - Psychiatric Psychiatric: appropriate mood/affect, intact judgment & insight - Neurologic Neurologic: CNII-XII intact, moves all extremities Results - Labs CBC & Chem 7: 12/07/18 09:08 12/07/18 09:08 Labs: Laboratory Last Values WBC 8.7 K/mm3 (4.5-11.0) 12/07/18 09:08 RBC 3.05 M/mm3 (3.65-5.03) L 12/07/18 09:08 Hgb 8.2 gm/dl (10.1-14.3) L 12/07/18 09:08 Hct 25.6 % (30.3-42.9) L 12/07/18 09:08 MCV 84 fl (79-97) 12/07/18 09:08 MCH 27 pg (28-32) L 12/07/18 09:08 MCHC 32 % (30-34) 12/07/18 09:08 RDW 15.3 % (13.2-15.2) H 12/07/18 09:08 Plt Count 232 K/mm3 (140-440) 12/07/18 09:08 Lymph % (Auto) 20.0 % (13.4-35.0) 12/07/18 09:08 [place] % (Auto) 7.0 % (0.0-7.3) 12/07/18 09:08 Eos % (Auto) 0.9 % (0.0-4.3) 12/07/18 09:08 Baso % (Auto) 0.8 % (0.0-1.8) 12/07/18 09:08 Lymph # 1.7 K/mm3 (1.2-5.4) 12/07/18 09:08 [place] # 0.6 K/mm3 (0.0-0.8) 12/07/18 09:08 Eos # 0.1 K/mm3 (0.0-0.4) 12/07/18 09:08 Baso # 0.1 K/mm3 (0.0-0.1) 12/07/18 09:08 Seg Neutrophils % 71.3 % (40.0-70.0) H 12/07/18 09:08 Seg Neutrophils # 6.2 K/mm3 (1.8-7.7) 12/07/18 09:08 Sodium 142 mmol/L (137-145) 12/07/18 09:08 Potassium 5.3 mmol/L (3.6-5.0) H 12/07/18 09:08 Chloride 108.1 mmol/L (98-107) H 12/07/18 09:08 Carbon Dioxide 14 mmol/L (22-30) L 12/07/18 09:08 25 mmol/L 12/07/18 09:08 BUN 78 mg/dL (7-17) H 12/07/18 09:08 9.1 mg/dL (0.7-1.2) H 12/07/18 09:08 Estimated GFR 6 ml/min 12/07/18 09:08 9 % 12/07/18 09:08 Glucose 82 mg/dL (65-100) 12/07/18 09:08 Calcium 4.8 mg/dL (8.4-10.2) L* 12/07/18 09:08 < 0.010 ng/mL (0.00-0.029) 12/07/18 09:08 NT-Pro-B Natriuret Pep 30197 pg/mL (0-450) H 12/07/18 09:08 - Imaging and Cardiology EKG: image reviewed Chest x-ray: image reviewed Assessment and Plan Advance Directives: Yes VTE prophylaxis?: Chemical Plan of care discussed with patient/family: Yes - Patient Problems (1) Acute bronchitis Current Visit: Yes Status: Acute Plan to address problem: I believe patient may very well have underlying acute bronchitis which treated empirically for productive cough. Masked. By pulmonary edema will start azithromycin also cough suppressant. (2) Acute on chronic renal failure Current Visit: Yes Status: Acute Qualifiers: Acute renal failure type: unspecified Chronic kidney disease stage: unspecified stage Qualified Code(s): N17.9 - Acute kidney failure, unspecified; N18.9 - Chronic kidney disease, unspecified Plan to address problem: Acute on chronic renal failure patient hyperkalemia hypocalcemia uncontrolled blood pressure. Patient will require immediate hemodialysis. Obtain renal consult. corrected hyperkalemia has been completed in the ER. (3) Acute pulmonary edema Current Visit: Yes Status: Acute Plan to address problem: Secondary to acute renal failure. Patient received Lasix at 9 AM repeat again at 1 and necessary. (4) Hypocalcemia Current Visit: Yes Status: Acute Plan to address problem: Replace IV calcium obtain electrolytes in a.m. (5) Noncompliance with medication regimen Current Visit: Yes Status: Acute Plan to address problem: Rest importance of compliance and renal failure. Plans with hypertensives. (6) Uncontrolled hypertension Current Visit: Yes Status: Acute (7) Anemia Current Visit: No Status: Acute Plan to address problem: secondary to chronic disease. (8) History of hypothyroidism Current Visit: No Status: Acute Plan to address problem: We'll obtain TSH. Titrate accordingly. Patient is not on levothyroxin. Did not have any med secondary to insurance complications.
[2018-12-07] MEDS ORDERED: ROBITUSSIN PO PRN (12:52)
[2018-12-07] MEDS ORDERED: ROBITUSSIN ONE (13:22)
[2018-12-07] MEDS: ZITHROMAX 500 MG in NACL 0.9% 250ML 250 ML IV SCH (13:36)
[2018-12-07] MEDS: LOPRESSOR PO SCH ×2 (13:36→21:37)
[2018-12-07] MEDS: ROBITUSSIN PO PRN (13:37)
[2018-12-07] MEDS ORDERED: TESSALON PERLES PO PRN (21:19)
[2018-12-07] MEDS: COLACE PO SCH (21:37)
[2018-12-07] MEDS: SODIUM CHLORIDE FLUSH SYRINGE 10 ML IV SCH (21:37)
[2018-12-07] MEDS: BENADRYL PO PRN (21:37)
[2018-12-07] MEDS ORDERED: CALCIUM GLUCONATE 2,000 MG in NACL 0.9% 100 ML IV ONE (22:53)
[2018-12-07] MEDS ORDERED: KIONEX PO ONE (22:53)
[2018-12-08 01:13] LABS: Calcium 5.1 mg/dL (8.4-10.2)
[2018-12-08 02:26] LABS: Amorphous Crystals,Urine Few; Bilirubin,Urine NEG (Negative); Blood,Urine NEG (Negative); Color,Urine Yellow (Yellow); Mucus,Urine FEW /HPF; Urobilinogen,Urine < 2.0 mg/dL (<2.0)
[2018-12-08 02:28] LABS: Protein,Urine >500 mg/dL (Negative)
[2018-12-08 03:07] LABS: Creatinine,Urine 68.9 mg/dL (0.1-20.0)
[2018-12-08 03:22] LABS: Protein/Creatinine Ratio,Urine 4.47
[2018-12-08 06:01] LABS: Albumin 3.3 g/dL (3.9-5)
--- NOTE | 2018-12-08 07:26 | Consultation ---
History of Present Illness - Reason for Consult Consult date: 12/08/18 acute renal failure, chronic renal failure, end stage renal disease, hyperkalemia, metabolic acidosis - History of Present Illness the patient is a 48 Yo female with history significant for Obesity, Uncontrolled HTN and advanced CKD who presented to the Ed with complaints of 1-2 weeks of lethargy, weakness, fatigue and shortness of breath. Her breathing got worse for the past few days that she has difficulty in walking to the parking lot. Sob is associated with orthopnea, PND and MANRIQUE. She lost about 20 lbs of weight over the past 4 weeks from appetite and poor PO intake. Patient denies any nausea, vomiting, diarrhea, sick contacts, dysuria, hematuria, dysuria, cp, cough or leg swelling. Workup in the ED revealed BUN of 78, creatinine of 9.5, K 5.3, Calcium 5.3 as well as uncontrolled hypertension. Patient admitted for acute on chronic renal failure. Nephrology was consulted for further evaluatio n. Past History Past Medical History: anemia, hypertension, renal failure Past Surgical History: No surgical history Social history: single, lives with family, full code. denies: smoking, alcohol abuse, prescription drug abuse Family history: hypertension Medications and Allergies Allergies Allergy/AdvReac Type Severity Reaction Status Date / Time No Known Allergies Allergy Unverified 08/21/17 20:00 Home Medications Medication Instructions Recorded Confirmed Last Taken Type No Known Home Medications [No 12/07/18 12/07/18 Unknown History Reported Home Medications] Active Meds: Active Medications Acetaminophen (Tylenol) 650 mg PO Q4H PRN PRN Reason: Pain MILD(1-3)/Fever >100.5/KIM Amlodipine Besylate (Norvasc) 10 mg PO QDAY [facility] Benzonatate (Tessalon Perles) 200 mg PO Q8HR PRN PRN Reason: cough Last Admin: 12/07/18 21:37 Dose: 200 mg Documented by: Diphenhydramine HCl (Benadryl) 25 mg PO QHS PRN PRN Reason: Sleep Last Admin: 12/07/18 21:37 Dose: 25 mg Documented by: Docusate Sodium (Colace) 100 mg PO BID NILA Last Admin: 12/07/18 21:37 Dose: 100 mg Documented by: Guaifenesin (Robitussin) 200 mg PO Q4H PRN PRN Reason: Cough Last Admin: 12/07/18 13:37 Dose: 200 mg Documented by: Azithromycin 500 mg/ Sodium (Chloride) 250 mls @ 250 mls/hr IV Q24HR [facility]; Protocol Last Admin: 12/07/18 13:36 Dose: 250 mls/hr Documented by: Metoprolol Tartrate (Lopressor) 25 mg PO BID [facility] Last Admin: 12/07/18 21:37 Dose: 25 mg Documented by: Ondansetron HCl (Zofran) 4 mg IV Q8H PRN PRN Reason: Nausea And Vomiting Oxycodone/Acetaminophen (Percocet 5/325) 1 tab PO Q6H PRN PRN Reason: Pain, Moderate (4-6) Sodium Chloride (Sodium Chloride Flush Syringe 10 Ml) 10 ml IV BID [facility] Stop: 12/17/18 21:59 Last Admin: 12/07/18 21:37 Dose: 10 ml Documented by: Sodium Chloride (Sodium Chloride Flush Syringe 10 Ml) 10 ml IV PRN PRN PRN Reason: LINE FLUSH Review of Systems Constitutional: weight loss, anorexia, fatigue, weakness, malaise, poor appetite, no weight gain, no fever, no chills Breasts: deferred Cardiovascular: orthopnea, shortness of breath, dyspnea on exertion, paroxysmal nocturnal dyspnea, high blood pressure, decreased exercise tolerance, no chest pain, no palpitations, no edema, no syncope, no lightheadedness, no leg edema Respiratory: shortness of breath, dyspnea on exertion, no cough, no hemoptysis, no sleep apnea, no home oxygen Gastrointestinal: no abdominal pain, no nausea, no vomiting, no diarrhea, no hematemesis, no melena Genitourinary Female: no dysuria, no hematuria Rectal: no bleeding Musculoskeletal: muscle weakness Integumentary: no deferred, no sores, no wounds, no jaundice Neurological: weakness, no paralysis, no parathesias, no numbness, no tingling, no seizures, no syncope, no headaches, no aphasia, no change in speech, no change in mentation, no confusion, no memory loss Exam - Vital Signs Vital signs: Vital Signs Temp Pulse Resp BP Pulse Ox 97.7 F 94 H 18 143/100 94 12/07/18 07:45 12/07/18 07:45 12/07/18 07:45 12/07/18 07:45 12/07/18 07:45 - General Appearance General appearance: well-developed, well-nourished, appears stated age, obese, other (no distress) EENT: ATNC, PERRL, mucous membranes moist, hearing intact, vision intact Neck: Present: neck supple, trachea midline Respiratory: Rales Heart: regular, S1S2, no murmurs Gastrointestinal: Present: normoactive bowel sounds, obese. Absent: tenderness, distended Integumentary: no rash, warm and dry Neurologic: no focal deficit, no asterixis, alert and oriented x3 Musculoskeletal: Present: other (no edema) Results - Lab Results 12/07/18 09:08 12/08/18 05:06 Most recent lab results Calcium 5.1 mg/dL (8.4-10.2) L* 12/08/18 00:07 Phosphorus 7.10 mg/dL (2.5-4.5) H 12/08/18 05:06 68.9 mg/dL (0.1-20.0) H 12/08/18 01:30 77 mmol/L 12/08/18 01:30 308 mg/dL (5-11.8) H 12/08/18 01:30 - Image Kidney/bladder ultrasound: report reviewed Assessment and Plan 1. ESRD: Most likly CKD has progressed to ESRD. Patient presented with uremic symptoms. Metabolic features suggestive of ESRD. Renal US was negative for hydronephosis. Renal prognosis is poor. Avoid nephrotoxic agents. Meds dosage based on GFR. Patient require hemodialysis due to ESRD, uremic symptoms and associated multiple metabolic abnormalities. Explained the indications, benefits and risks involved in hemodialysis. She voiced understanding and gave consent. Vascular consulted for Tunnel dialysis catheter placement. Patient is also interested in PD. consulted for PD catheter placement. Hemodialysis: today. 2. FEN: Hyperkalemia, K level is better today. Anion gap MA, HD today. Volume overload, Lasix and UF with HD today. Hypocalcemia, replete Ca and high Ca bath Monitor lytes. 3. Anemia: Epogen. 4. Suspected CHF. 5. Uncontrolled HTN: Monitor BP.
[2018-12-08 07:34] LABS: Calcium 5.6 mg/dL (8.4-10.2)
--- NOTE | 2018-12-08 08:25 | Ultrasound Report ---
ULTRASOUND RENAL INDICATION / CLINICAL INFORMATION: Acute renal failure.. COMPARISON: 08/22/2017 ultrasound renal report FINDINGS: RIGHT KIDNEY: Length = 9.4 cm. [normal > 9 cm] - Parenchymal Thickness = 1.4 cm. [normal > 1.5 cm] - Echogenicity: Increased - Hydronephrosis: None. - Cyst or mass: No significant abnormality. - Stones: None seen. LEFT KIDNEY: Length = 8.9 cm. [normal > 9 cm] - Parenchymal Thickness = 1.7 cm. [normal > 1.5 cm] - Echogenicity: Increased - Hydronephrosis: None. - Cyst or mass: No significant abnormality. - Stones: None seen. URINARY BLADDER: No significant abnormality. FREE FLUID: None. ADDITIONAL FINDINGS: None. IMPRESSION: Increased parenchymal echogenicity in both kidneys consistent with nonspecific renal parenchymal dis ease. No focal renal lesion, nephrolithiasis or hydronephrosis is appreciated. Signer Name: Jairon Larsen Jr, MD Signed: 12/08/2018 8:21 AM Workstation Name: [id number]
[2018-12-08] MEDS ORDERED: CALCIUM GLUCONATE 2,000 MG in NACL 0.9% 100 ML IV ONE (10:00)
[2018-12-08] MEDS ORDERED: NACL 0.9% 100 ML IV PRN (10:00)
[2018-12-08] MEDS: LOPRESSOR PO SCH ×2 (10:32→22:49)
[2018-12-08] MEDS: COLACE PO SCH ×2 (10:32→22:49)
[2018-12-08] MEDS: NORVASC PO SCH (10:33)
[2018-12-08] MEDS: SODIUM CHLORIDE FLUSH SYRINGE 10 ML IV SCH ×2 (10:34→22:50)
[2018-12-08] MEDS: ZITHROMAX 500 MG in NACL 0.9% 250ML 250 ML IV SCH (10:58)
[2018-12-08] MEDS: PERCOCET 5/325 PO PRN ×2 (12:03→22:48)
--- NOTE | 2018-12-08 12:16 | Consultation ---
History of Present Illness Consult date: 12/08/18 Reason for consult: other (PD catheter evaluation) Requesting physician: FLYNN GEORGE Chief complaint: lethargy and SOB - History of present illness History of present illness: 48yo F who was recently diagnosed with renal failure. Pt has expressed interest in PD catheter placement for dialysis. we are being asked to see her for catheter placement. Pt reports weakness and SOB. She is overwhelmed by this whole situation. She has not made a decision on what she would like to do at this time, but she would like information on the PD catheter. Past History Past Medical History: anemia, hypertension, renal failure Past Surgical History: Other (Alvaro tubal ligation) Social history: single, lives with family, full code. denies: smoking, alcohol abuse, prescription drug abuse Family history: hypertension Medications and Allergies Allergies Allergy/AdvReac Type Severity Reaction Status Date / Time No Known Allergies Allergy Unverified 08/21/17 20:00 Home Medications Medication Instructions Recorded Confirmed Last Taken Type No Known Home Medications [No 12/07/18 12/07/18 Unknown History Reported Home Medications] Active Meds: Active Medications Acetaminophen (Tylenol) 650 mg PO Q4H PRN PRN Reason: Pain MILD(1-3)/Fever >100.5/KIM Amlodipine Besylate (Norvasc) 10 mg PO QDAY [facility] Last Admin: 12/08/18 10:33 Dose: Not Given Documented by: Benzonatate (Tessalon Perles) 200 mg PO Q8HR PRN PRN Reason: cough Last Admin: 12/07/18 21:37 Dose: 200 mg Documented by: Diphenhydramine HCl (Benadryl) 25 mg PO QHS PRN PRN Reason: Sleep Last Admin: 12/07/18 21:37 Dose: 25 mg Documented by: Docusate Sodium (Colace) 100 mg PO BID NILA Last Admin: 12/08/18 10:32 Dose: Not Given Documented by: Epoetin Trevor (Procrit) 20,000 unit SUB-Q MARY PRN PRN Reason: hemodialysis Guaifenesin (Robitussin) 200 mg PO Q4H PRN PRN Reason: Cough Last Admin: 12/07/18 13:37 Dose: 200 mg Documented by: Azithromycin 500 mg/ Sodium (Chloride) 250 mls @ 250 mls/hr IV Q24HR [facility]; Protocol Last Admin: 12/08/18 10:58 Dose: 250 mls/hr Documented by: Sodium Chloride (Nacl 0.9%) 100 mls @ 999 mls/hr IV MARY PRN PRN Reason: Hypotension Metoprolol Tartrate (Lopressor) 25 mg PO BID [facility] Last Admin: 12/08/18 10:32 Dose: Not Given Documented by: Ondansetron HCl (Zofran) 4 mg IV Q8H PRN PRN Reason: Nausea And Vomiting Oxycodone/Acetaminophen (Percocet 5/325) 1 tab PO Q6H PRN PRN Reason: Pain, Moderate (4-6) Last Admin: 12/08/18 12:03 Dose: 1 tab Documented by: Sodium Chloride (Sodium Chloride Flush Syringe 10 Ml) 10 ml IV BID [facility] Stop: 12/17/18 21:59 Last Admin: 12/08/18 10:34 Dose: 10 ml Documented by: Sodium Chloride (Sodium Chloride Flush Syringe 10 Ml) 10 ml IV PRN PRN PRN Reason: LINE FLUSH Review of Systems - Constitutional weakness, no fever, no chills - Cardiovascular shortness of breath, no chest pain - Respiratory cough - Gastrointestinal no abdominal pain, no nausea, no vomiting - Muskuloskeletal no low back pain - Integumentary no rash, no sores, no wounds Exam Vital Signs Temp Pulse Resp BP Pulse Ox 97.7 F 94 H 18 143/100 94 12/07/18 07:45 12/07/18 07:45 12/07/18 07:45 12/07/18 07:45 12/07/18 07:45 - General physical appearance Positive: no distress, no pain, obese - Eyes Positive: normal occular movement - Respiratory Positive: normal expansion, normal respiratory effort, clear to auscultation, other (+cough) - Cardiovascular Rhythm: regular - Abdomen Abdomen: Present: soft, surgical scars (well healed midline subumbilical incision). Absent: tender, guarding, rigid, wound - Neurologic Neurologic: alert and oriented to time, place and person - Psychiatric Psychiatric: appropriate mood/affect, intact judgment & insight, cooperative Results - Labs 12/07/18 09:08 12/08/18 05:06 Abnormal lab results 12/08/18 12/08/18 12/08/18 Range/Units 00:07 01:30 01:30 Potassium 5.1 H (3.6-5.0) mmol/L Chloride 107.8 H (98-107) mmol/L Carbon Dioxide 15 L (22-30) mmol/L BUN 76 H (7-17) mg/dL Creatinine 8.8 H (0.7-1.2) mg/dL Calcium 5.1 L* (8.4-10.2) mg/dL Phosphorus (2.5-4.5) mg/dL Albumin (3.9-5) g/dL PTH Intact (15-65) pg/mL Urine WBC (Auto) 16.0 H (0.0-6.0) /HPF Urine Creatinine 68.9 H (0.1-20.0) mg/dL Urine Total Protein 308 H (5-11.8) mg/dL 12/08/18 12/08/18 Range/Units 05:06 05:06 Potassium (3.6-5.0) mmol/L Chloride 108.3 H (98-107) mmol/L Carbon Dioxide 13 L (22-30) mmol/L BUN 79 H (7-17) mg/dL Creatinine 9.0 H (0.7-1.2) mg/dL Calcium 5.6 L* (8.4-10.2) mg/dL Phosphorus 7.10 H (2.5-4.5) mg/dL Albumin 3.3 L (3.9-5) g/dL PTH Intact 764.2 H (15-65) pg/mL Urine WBC (Auto) (0.0-6.0) /HPF Urine Creatinine (0.1-20.0) mg/dL Urine Total Protein (5-11.8) mg/dL Diabetes panel 12/08/18 12/08/18 Range/Units 00:07 05:06 Sodium 142 144 (137-145) mmol/L Potassium 5.1 H 4.6 (3.6-5.0) mmol/L Chloride 107.8 H 108.3 H (98-107) mmol/L Carbon Dioxide 15 L 13 L (22-30) mmol/L BUN 76 H 79 H (7-17) mg/dL Creatinine 8.8 H 9.0 H (0.7-1.2) mg/dL Glucose 91 92 (65-100) mg/dL Calcium 5.1 L* 5.6 L* (8.4-10.2) mg/dL AST 15 (5-40) units/L ALT 8 (7-56) units/L Alkaline Phosphatase 68 (35-129) units/L Total Protein 7.9 (6.3-8.2) g/dL Albumin 3.3 L (3.9-5) g/dL Calcium panel 12/08/18 12/08/18 Range/Units 00:07 05:06 Calcium 5.1 L* 5.6 L* (8.4-10.2) mg/dL Phosphorus 7.10 H (2.5-4.5) mg/dL Albumin 3.3 L (3.9-5) g/dL Pituitary panel 12/08/18 12/08/18 Range/Units 00:07 05:06 Sodium 142 144 (137-145) mmol/L Potassium 5.1 H 4.6 (3.6-5.0) mmol/L Chloride 107.8 H 108.3 H (98-107) mmol/L Carbon Dioxide 15 L 13 L (22-30) mmol/L BUN 76 H 79 H (7-17) mg/dL Creatinine 8.8 H 9.0 H (0.7-1.2) mg/dL Glucose 91 92 (65-100) mg/dL Calcium 5.1 L* 5.6 L* (8.4-10.2) mg/dL Adrenal panel 12/08/18 12/08/18 Range/Units 00:07 05:06 Sodium 142 144 (137-145) mmol/L Potassium 5.1 H 4.6 (3.6-5.0) mmol/L Chloride 107.8 H 108.3 H (98-107) mmol/L Carbon Dioxide 15 L 13 L (22-30) mmol/L BUN 76 H 79 H (7-17) mg/dL Creatinine 8.8 H 9.0 H (0.7-1.2) mg/dL Glucose 91 92 (65-100) mg/dL Calcium 5.1 L* 5.6 L* (8.4-10.2) mg/dL Total Bilirubin 0.50 (0.1-1.2) mg/dL AST 15 (5-40) units/L ALT 8 (7-56) units/L Alkaline Phosphatase 68 (35-129) units/L Total Protein 7.9 (6.3-8.2) g/dL Albumin 3.3 L (3.9-5) g/dL - Imaging Chest x-ray: report reviewed, image reviewed Assessment and Plan - Patient Problems (1) Acute renal insufficiency Current Visit: No Status: Acute Plan to address problem: Patient appears to be an adequate candidate for laparoscopic PD catheter placement. Procedure, risks, benefits were discussed. At this time she is not ready to make a decision. We'll follow up with her tomorrow. After she is medically stabilized, if she wishes to have the catheter, we will perform the procedure prior to her discharge. Will follow along. Please call with questions. Time=30min
[2018-12-08 13:21] LABS: Albumin 3.3 g/dL (3.9-5)
[2018-12-08 13:27] LABS: Hepatitis B Surface Antigen Non-Reactive (Negative); Hepatitis C Virus Antibody Non-Reactive (NonReactive)
[2018-12-08 13:31] LABS: Calcium 5.7 mg/dL (8.4-10.2)
[2018-12-08] MEDS ORDERED: HEPARIN/NS 5000 UNIT/500ML(CATH LAB) 500 ML IR ONE (13:41)
[2018-12-08] MEDS ORDERED: VERSED ONE (13:51)
[2018-12-08] MEDS ORDERED: ANCEF/STERILE WATER 2 GM/20 ML 2 GM/20 ML SYRINGE IV ONE (13:51)
--- NOTE | 2018-12-08 14:10 | Consultation ---
History of Present Illness - Reason for Consult Consult date: 12/08/18 ESRD requiring permcath - History of Present Illness 48 years old with a history of hypertension chronic kidney disease obesity lost to follow-up secondary to come insurance. Patient complains of 1-2 weeks of lethargy and weakness fatigue and shortness of breath. 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 Patient presented to the ED with a chief complaint of shortness of breath and uncontrolled hypertension patient denied any acute chest pain denied any orthopnea but did have PND and shortness of breath with minimal exertion. Patient denies any nausea or vomiting. No diarrhea. No sick contacts. No hematuria no dysuria. Workup in the ED patient found to have acute renal failure with the B UN of 78 and creatinine of 9.5 as well as uncontrolled hypertension. Patient admitted for acute renal failure and emergent hemodialysis. Present patient denies any chest pain shortness of breath she does have occasionally productive cough. Vascular consulted for HD access. R/B/A discussed with patient. Past History Past Medical History: anemia, hypertension, renal failure Past Surgical History: Other (Alvaro tubal ligation) Social history: single, lives with family, full code. denies: smoking, alcohol abuse, prescription drug abuse Family history: hypertension Medications and Allergies Allergies Allergy/AdvReac Type Severity Reaction Status Date / Time No Known Allergies Allergy Unverified 08/21/17 20:00 Home Medications Medication Instructions Recorded Confirmed Last Taken Type No Known Home Medications [No 12/07/18 12/07/18 Unknown History Reported Home Medications] Active Meds: Active Medications Acetaminophen (Tylenol) 650 mg PO Q4H PRN PRN Reason: Pain MILD(1-3)/Fever >100.5/KIM Amlodipine Besylate (Norvasc) 10 mg PO QDAY [facility] Last Admin: 12/08/18 10:33 Dose: Not Given Documented by: Benzonatate (Tessalon Perles) 200 mg PO Q8HR PRN PRN Reason: cough Last Admin: 12/07/18 21:37 Dose: 200 mg Documented by: Diphenhydramine HCl (Benadryl) 25 mg PO QHS PRN PRN Reason: Sleep Last Admin: 12/07/18 21:37 Dose: 25 mg Documented by: Docusate Sodium (Colace) 100 mg PO BID [facility] Last Admin: 12/08/18 10:32 Dose: Not Given Documented by: Epoetin Trevor (Procrit) 20,000 unit SUB-Q MARY PRN PRN Reason: hemodialysis Guaifenesin (Robitussin) 200 mg PO Q4H PRN PRN Reason: Cough Last Admin: 12/07/18 13:37 Dose: 200 mg Documented by: Azithromycin 500 mg/ Sodium (Chloride) 250 mls @ 250 mls/hr IV Q24HR [facility]; Protocol Last Admin: 12/08/18 10:58 Dose: 250 mls/hr Documented by: Sodium Chloride (Nacl 0.9%) 100 mls @ 999 mls/hr IV MARY PRN PRN Reason: Hypotension Metoprolol Tartrate (Lopressor) 25 mg PO BID [facility] [place] Last Admin: 12/08/18 10:32 Dose: Not Given Documented by: Ondansetron HCl (Zofran) 4 mg IV Q8H PRN PRN Reason: Nausea And Vomiting Oxycodone/Acetaminophen (Percocet 5/325) 1 tab PO Q6H PRN PRN Reason: Pain, Moderate (4-6) Last Admin: 12/08/18 12:03 Dose: 1 tab Documented by: Sodium Chloride (Sodium Chloride Flush Syringe 10 Ml) 10 ml IV BID [facility] Stop: 12/17/18 21:59 Last Admin: 12/08/18 10:34 Dose: 10 ml Documented by: Sodium Chloride (Sodium Chloride Flush Syringe 10 Ml) 10 ml IV PRN PRN PRN Reason: LINE FLUSH Review of Systems All systems: negative (see HPI) Exam - Constitutional Vitals: Temp Pulse Resp BP Pulse Ox 98.5 F 90 18 148/101 90 12/08/18 10:26 12/08/18 10:33 12/08/18 10:26 12/08/18 10:33 12/08/18 03:31 General appearance: Present: no acute distress - EENT Eyes: Present: EOM intact ENT: hearing intact - Respiratory Respiratory effort: normal, other (cannot lay supine) - Extremities Extremities: normal temperature, normal color - Abdominal General gastrointestinal: Present: soft - Psychiatric Psychiatric: appropriate mood/affect, cooperative Results - Labs CBC & Chem 7: 12/07/18 09:08 12/08/18 Unknown Labs: Abnormal lab results 07/11/19 07/11/19 07/11/19 Range/Units 00:07 01:30 01:30 Potassium 5.1 H (3.6-5.0) mmol/L Chloride 107.8 H (98-107) mmol/L Carbon Dioxide 15 L (22-30) mmol/L BUN 76 H (7-17) mg/dL Creatinine 8.8 H (0.7-1.2) mg/dL Calcium 5.1 L* (8.4-10.2) mg/dL Phosphorus (2.5-4.5) mg/dL Albumin (3.9-5) g/dL PTH Intact (15-65) pg/mL Urine WBC (Auto) 16.0 H (0.0-6.0) /HPF Urine Creatinine 68.9 H (0.1-20.0) mg/dL Urine Total Protein 308 H (5-11.8) mg/dL 12/08/18 12/08/18 12/08/18 Range/Units 05:06 05:06 Unknown Potassium (3.6-5.0) mmol/L Chloride 108.3 H (98-107) mmol/L Carbon Dioxide 13 L 15 L (22-30) mmol/L BUN 79 H 78 H (7-17) mg/dL Creatinine 9.0 H 8.8 H (0.7-1.2) mg/dL Calcium 5.6 L* 5.7 L* (8.4-10.2) mg/dL Phosphorus 7.10 H (2.5-4.5) mg/dL Albumin 3.3 L 3.3 L (3.9-5) g/dL PTH Intact 764.2 H (15-65) pg/mL Urine WBC (Auto) (0.0-6.0) /HPF Urine Creatinine (0.1-20.0) mg/dL Urine Total Protein (5-11.8) mg/dL Assessment and Plan 48-year-old female with acute on chronic renal failure likely progressing to end-stage renal disease with need for hemodialysis access. Nothing by mouth except meds for PermCath placement today. Hopefully renal function improves, but if not, patient will need permanent access. Discussed dialysis with patient and access options with patient. Avoid venipunctures and IV access as the left upper extremity. Vein mapping ordered. Card provided to patient. Follow-up in 2 weeks.
[2018-12-08] MEDS ORDERED: NACL 0.9% 250ML 250 ML ONE (14:27)
[2018-12-08] MEDS: SUBLIMAZE ONE ×2 (14:32→14:33)
[2018-12-08] MEDS: XYLOCAINE 2% INFILTRATI ONE ×2 (14:33→14:36)
[2018-12-08] MEDS: HEPARIN 10,000 UNITS/10 ML ONE ×4 (14:45→14:48)
[2018-12-08] MEDS ORDERED: XYLOCAINE 1%/ EPI 1:100,000 INFILTRATI ONE (14:46)
--- NOTE | 2018-12-08 15:05 | Operative Report ---
Operative Report Operative Report: EXAM: 1. Ultrasound-guided puncture of the right internal jugular vein 2. Fluoroscopic-guided placement of a right internal jugular tunneled cuffed hemodialysis catheter. DATE: 12/08/18 INDICATION: End-stage renal disease requiring hemodialysis access MEDICATIONS: Please see nursing report for full details. DEVICES: 23 cm tip to cuff 15 Fr dual lumen hemodialysis catheter HORSE BREEDER: RUPALI DE LUNA MD CONTRAST: None PROCEDURE: The risks, benefits, and alternatives were discussed and informed consent was obtained. The patient was transported to the angiography suite in satisfactory/stable condition and was transported onto the angiography table. The patient's right internal jugular vein was assessed with ultrasound and determined to be patent prior to procedure. The patient was prepped and draped in a sterile fashion. The puncture site was anesthetized. Under sonographic guidance, the right internal jugular vein was punctured with a 21-gauge micropuncture needle and a 0.018 inch wire was advanced into the inferior vena cava. The micropuncture needle was exchanged for a transitional dilator and the wire was retracted into the right atrium to checo intravascular distance. The wire and inner dilator were removed. 0.035 inch wire was advanced through the transitional dilator into the inferior vena cava with the assistance of a vertebral catheter. A suitable exit site was identified on the patient's chest inferior and lateral to the venotomy. The site was anesthetized with local anesthetic and the track was anesthetized. Dermatotomy was made. The PermCath was attached to the tunneling device and tunneled between the dermatotomy to the venotomy. Over the 0.035 inch wire, serial dilatation was performed with ultimate placement of a peel-away sheath. The catheter was advanced through the peel- away sheath after the wire was removed and positioned centrally under fluorosc opic guidance. The peel-away sheath was removed. 4-0 Vicryl suture was used to close the venotomy and Dermabond was then applied. 2-0 Ethilon suture was used to secure the catheter at the dermatotomy. The catheter was charged with heparin 1000 units per mL of space. Sterile dressing and Biopatch applied. The patient was transferred from the angiography suite back to the floor in stable condition. FINDINGS: 1. Excellent flow was obtained through the dialysis catheter with 20 mL syringes. 2. The catheter tip is in the right atrium. IMPRESSION: 1. Successful ultrasound and fluoroscopically guided placement of a right internal jugular tunneled cuffed hemodialysis catheter.
[2018-12-08] MEDS ORDERED: NACL 0.9 (PRIMING MACHINE ONLY DIALYSIS) MC ONE (16:39)
[2018-12-08] MEDS: PROCRIT SUB-Q PRN (17:05)
--- NOTE | 2018-12-08 18:07 | Progress Note ---
Assessment and Plan - Patient Problems (1) Acute bronchitis Current Visit: Yes Status: Acute Plan to address problem: Patient cough is resolving bronchitis is improved. Less cough no fever no chills. The shortness of breath now most likely secondary to volume overload. (2) Acute on chronic renal failure Current Visit: Yes Status: Acute Qualifiers: Acute renal failure type: unspecified Chronic kidney disease stage: unspec ified stage Qualified Code(s): N17.9 - Acute kidney failure, unspecified; N18.9 - Chronic kidney disease, unspecified Plan to address problem: Acute on chronic renal failure patient hyperkalemia hypocalcemia uncontrolled blood pressure. Patient will require immediate hemodialysis. To have catheter placed today for emergent dialysis. Spoke with nephrology. Blood pressure much better controlled. (3) Acute pulmonary edema Current Visit: Yes Status: Acute Plan to address problem: Secondary to acute renal failure. Patient received Lasix at 9 AM repeat again at 1 and necessary. (4) Hypocalcemia Current Visit: Yes Status: Acute Plan to address problem: Replace IV calcium obtain electrolytes in patient's calcium remains low. We'll give another 2000 of calcium gluconate today. (5) Noncompliance with medication regimen Current Visit: Yes Status: Acute Plan to address problem: Rest importance of compliance and renal failure. Plans with hypertensives. (6) Uncontrolled hypertension Current Visit: Yes Status: Acute Plan to address problem: Much better with amlodipine and metoprolol. We'll titrate accordingly. Patient tolerated medications well. (7) Anemia Current Visit: No Status: Acute Plan to address problem: secondary to chronic disease. (8) History of hypothyroidism Current Visit: No Status: Acute Plan to address problem: We'll obtain TSH. Titrate accordingly. Patient is not on levothyroxin. Did not have any med secondary to insurance complications. History Interval history: Patient actually feels better today. I think that her blood pressure is controlled. Complains of headache. Patient is stressed about thoughts of having dialysis. Discussed good outcomes with patients on dialysis. Hospitalist Physical - Constitutional Vitals: Temp Pulse Resp BP Pulse Ox 97.3 F L 77 20 140/89 90 12/08/18 17:30 12/08/18 17:30 12/08/18 17:30 12/08/18 17:30 12/08/18 03:31 General appearance: Present: no acute distress - EENT Eyes: Present: PERRL, EOM intact ENT: hearing intact, clear oral mucosa, dentition normal, no oropharyngeal erythema, no poor dentition, no ulcerations - Neck Neck: Present: supple, normal ROM - Respiratory Respiratory: bilateral: CTA - Cardiovascular Rhythm: irregularly irregular - Extremities Extremities: no ischemia, pulses intact, pulses symmetrical, No edema, normal temperature, normal color, Full ROM Peripheral Pulses: within normal limits - Abdominal General gastrointestinal: soft, non-tender, non-distended, normal bowel sounds - Integumentary Integumentary: Present: clear, warm, dry - Psychiatric Psychiatric: appropriate mood/affect, intact judgment & insight, memory intact - Neurologic Neurologic: CNII-XII intact, no focal deficits, moves all extremities, gait normal Results - Labs CBC & Chem 7: 12/07/18 09:08 12/08/18 Unknown Labs: Laboratory Last Values WBC 8.7 K/mm3 (4.5-11.0) 12/07/18 09:08 RBC 3.05 M/mm3 (3.65-5.03) L 12/07/18 09:08 Hgb 8.2 gm/dl (10.1-14.3) L 12/07/18 09:08 Hct 25.6 % (30.3-42.9) L 12/07/18 09:08 MCV 84 fl (79-97) 12/07/18 09:08 MCH 27 pg (28-32) L 12/07/18 09:08 MCHC 32 % (30-34) 12/07/18 09:08 RDW 15.3 % (13.2-15.2) H 12/07/18 09:08 Plt Count 232 K/mm3 (140-440) 12/07/18 09:08 Lymph % (Auto) 20.0 % (13.4-35.0) 12/07/18 09:08 [place] % (Auto) 7.0 % (0.0-7.3) 12/07/18 09:08 Eos % (Auto) 0.9 % (0.0-4.3) 12/07/18 09:08 Baso % (Auto) 0.8 % (0.0-1.8) 12/07/18 09:08 Lymph # 1.7 K/mm3 (1.2-5.4) 12/07/18 09:08 [place] # 0.6 K/mm3 (0.0-0.8) 12/07/18 09:08 Eos # 0.1 K/mm3 (0.0-0.4) 12/07/18 09:08 Baso # 0.1 K/mm3 (0.0-0.1) 12/07/18 09:08 Seg Neutrophils % 71.3 % (40.0-70.0) H 12/07/18 09:08 Seg Neutrophils # 6.2 K/mm3 (1.8-7.7) 12/07/18 09:08 Sodium 140 mmol/L (137-145) 12/08/18 Unknown Potassium 4.4 mmol/L (3.6-5.0) 12/08/18 Unknown Chloride 104.8 mmol/L (98-107) 12/08/18 Unknown Carbon Dioxide 15 mmol/L (22-30) L 12/08/18 Unknown 25 mmol/L 12/08/18 Unknown BUN 78 mg/dL (7-17) H 12/08/18 Unknown 8.8 mg/dL (0.7-1.2) H 12/08/18 Unknown Estimated GFR 6 ml/min 12/08/18 Unknown 9 % 12/08/18 Unknown Glucose 94 mg/dL (65-100) 12/08/18 Unknown Calcium 5.7 mg/dL (8.4-10.2) L* 12/08/18 Unknown Phosphorus 7.10 mg/dL (2.5-4.5) H 12/08/18 05:06 0.40 mg/dL (0.1-1.2) 12/08/18 Unknown AST 12 units/L (5-40) 12/08/18 Unknown ALT 7 units/L (7-56) 12/08/18 Unknown 67 units/L (35-129) 12/08/18 Unknown < 0.010 ng/mL (0.00-0.029) 12/07/18 09:08 NT-Pro-B Natriuret Pep 86718 pg/mL (0-450) H 12/07/18 09:08 6.7 g/dL (6.3-8.2) 12/08/18 Unknown 3.3 g/dL (3.9-5) L 12/08/18 Unknown 1.0 % 12/08/18 Unknown PTH Intact 764.2 pg/mL (15-65) H 12/08/18 05:06 Yellow (Yellow) 12/08/18 01:30 Slightly-cloudy (Clear) 12/08/18 01:30 5.0 (5.0-7.0) 12/08/18 01:30 Ur Specific [place] 1.010 (1.003-1.030) 12/08/18 01:30 >500 mg/dL (Negative) 12/08/18 01:30 Neg mg/dL (Negative) 12/08/18 01:30 Tr mg/dL (Negative) 12/08/18 01:30 Neg (Negative) 12/08/18 01:30 Neg (Negative) 12/08/18 01:30 Neg (Negative) 12/08/18 01:30 < 2.0 mg/dL (<2.0) 12/08/18 01:30 Ur Leukocyte Esterase Sm (Negative) 12/08/18 01:30 16.0 /HPF (0.0-6.0) H 12/08/18 01:30 1.0 /HPF (0.0-6.0) 12/08/18 01:30 U Epithel Cells (Auto) 6.0 /HPF (0-13.0) 12/08/18 01:30 Amorphous Crystals Few 12/08/18 01:30 Few /HPF 12/08/18 01:30 <5% (None Seen) 12/08/18 01:30 68.9 mg/dL (0.1-20.0) H 12/08/18 01:30 Protein/Creatinin Ratio 4.47 12/08/18 01:30 77 mmol/L 12/08/18 01:30 308 mg/dL (5-11.8) H 12/08/18 01:30 Hepatitis A IgM Ab Non-reactive (NonReactive) 12/08/18 05:06 Hep Bs Antigen Non-reactive (Negative) 12/08/18 05:06 Hep B Core IgM Ab Non-reactive (NonReactive) 12/08/18 05:06 Non-reactive (NonReactive) 12/08/18 05:06 Active Medications - Current Medications Current Medications: Generic Name Dose Route Start Last Admin Trade Name Freq PRN Reason Stop Dose Admin Acetaminophen 650 mg 12/07/18 10:23 Tylenol PO Q4H PRN Pain MILD(1-3)/Fever >100.5/KIM Amlodipine Besylate 10 mg 12/08/18 10:00 12/08/18 10:33 Norvasc PO Not Given QDAY NILA Benzonatate 200 mg 12/07/18 21:19 12/07/18 21:37 Tessalon Perles PO 200 mg Q8HR PRN Administration cough Diphenhydramine HCl 25 mg 12/07/18 21:18 12/07/18 21:37 Benadryl PO 25 mg QHS PRN Administration Sleep Docusate Sodium 100 mg 12/07/18 22:00 12/08/18 10:32 Colace PO Not Given BID [facility] Epoetin Trevor 20,000 unit 12/08/18 10:00 12/08/18 17:05 Procrit SUB-Q 20,000 unit MARY PRN Administration hemodialysis Guaifenesin 200 mg 12/07/18 13:01 12/07/18 13:37 Robitussin PO 200 mg Q4H PRN Administration Cough Azithromycin 500 mg/ Sodium 250 mls @ 250 mls/hr 12/07/18 13:00 12/08/18 15:00 Chloride IV Infused Q24HR [facility] Infusion Protocol Sodium Chloride 100 mls @ 999 mls/hr 12/08/18 10:00 Nacl 0.9% IV MARY PRN Hypotension Metoprolol Tartrate 25 mg 12/07/18 13:00 12/08/18 10:32 Lopressor PO Not Given BID [facility] Ondansetron HCl 4 mg 12/07/18 10:23 Zofran IV Q8H PRN Nausea And Vomiting Oxycodone/Acetaminophen 1 tab 12/07/18 10:23 12/08/18 12:03 Percocet 5/325 PO 1 tab Q6H PRN Administration Pain, Moderate (4-6) Sodium Chloride 10 ml 12/07/18 22:00 12/08/18 10:34 Sodium Chloride Flush Syringe 10 Ml IV 12/17/18 21:59 10 ml BID NILA Administration Sodium Chloride 10 ml 12/07/18 10:23 Sodium Chloride Flush Syringe 10 Ml IV PRN PRN LINE FLUSH Nutrition/Malnutrition Assess - Dietary Evaluation Nutrition/Malnutrition Findings: Nutrition Notes Start: 12/08/18 12:30 Freq: Status: Active Protocol: Document 12/08/18 12:30 LP (Rec: 12/08/18 12:35 LP [email or web address]) Nutrition Notes Need for Assessment generated from: devops engineer Initial or Follow up Brief Note Current Diagnosis Acute Kidney Injury, Hypertension Other Pertinent Diagnosis non-compliance with medication , PE Subjective/Other Information Screen for MST. Pt states appetite decreased a little but was eating well prior to feeling sick. Pt denies need for education. Pt ran out of medications. Educated on the importance of taking medications and following cardiac diet. Nutrition Intervention Revisit per MD consult or patient Sign Off request:
[2018-12-08] MEDS: ROBITUSSIN PO PRN (22:49)
--- NOTE | 2018-12-09 08:39 | Progress Note ---
Assessment and Plan 1. ESRD: Most likly CKD has progressed to ESRD. Patient presented with uremic symptoms. Metabolic features suggestive of ESRD. Renal US was negative for hydronephosis. Renal prognosis is poor. Avoid nephrotoxic agents. Meds dosage based on GFR. Patient was started on hemodialysis due to ESRD, uremic symptoms and associated multiple metabolic abnormalities. Hemodialysis: 12/08, 12/09. Patient agrees for PD catheter placement during this admission. Need outpatient hemodialysis chair. 2. FEN: Hyperkalemia, K level is better. Anion gap MA, HD today. Volume overload, UF with HD today. Hypocalcemia, replete Ca and high Ca bath. Start on Calcium acetate. Monitor lytes. 3. Anemia: Epogen. 4. Systolic CHF with EF 20-25%: Followed by Cards. 5. Uncontrolled HTN: BP is better. Subjective Date of service: 12/09/18 Interval history: Patient was seen and examined at the bedside. Doing better today. Objective - Vital Signs Vital signs: Vital Signs - 12hr 12/08/18 12/09/18 12/09/18 23:00 00:01 02:42 Temperature 98.8 F Pulse Rate 95 H 97 H Respiratory 18 18 Rate Blood Pressure 124/85 O2 Sat by Pulse 95 Oximetry 12/09/18 03:10 Temperature 98.4 F Pulse Rate 80 Respiratory 18 Rate Blood Pressure 137/84 O2 Sat by Pulse 96 Oximetry - General Appearance General appearance: well-developed, well-nourished, appears stated age, obese, other (no distress, R IJ tunnel catheter) EENT: ATNC, PERRL, hearing intact, vision intact Neck: supple Respiratory: Present: Clear to Ascultation Cardiology: regular, S1S2, no murmurs Gastrointestinal: normoactive bowel sounds, no tenderness, no distended, obese Integumentary: no rash, warm and dry Neurologic: no focal deficit, no asterixis, alert and oriented x3 Musculoskeletal: other (no edema) Psychiatric: cooperative - Lab 12/07/18 09:08 12/08/18 Unknown Most recent lab results Calcium 5.7 mg/dL (8.4-10.2) L* 12/08/18 Unknown Phosphorus 7.10 mg/dL (2.5-4.5) H 12/08/18 05:06 68.9 mg/dL (0.1-20.0) H 12/08/18 01:30 77 mmol/L 12/08/18 01:30 308 mg/dL (5-11.8) H 12/08/18 01:30 Medications & Allergies - Medications Allergies/Adverse Reactions: Allergies No Known Allergies Allergy (Unverified 08/21/17 20:00) Home Medications: Home Medications Medication Instructions Recorded Confirmed Last Taken Type No Known Home Medications [No 12/07/18 12/07/18 Unknown History Reported Home Medications] Active Medications: Generic Name Dose Route Start Last Admin Trade Name Freq PRN Reason Stop Dose Admin Acetaminophen 650 mg 12/07/18 10:23 Tylenol PO Q4H PRN Pain MILD(1-3)/Fever >100.5/KIM Amlodipine Besylate 10 mg 12/08/18 10:00 12/08/18 10:33 Norvasc PO Not Given QDAY NILA Benzonatate 200 mg 12/07/18 21:19 12/07/18 21:37 Tessalon Perles PO 200 mg Q8HR PRN Administration cough Diphenhydramine HCl 25 mg 12/07/18 21:18 12/07/18 21:37 Benadryl PO 25 mg QHS PRN Administration Sleep Docusate Sodium 100 mg 12/07/18 22:00 12/08/18 22:49 Colace PO 100 mg BID NILA Administration Epoetin Trevor 20,000 unit 12/08/18 10:00 12/08/18 17:05 Procrit SUB-Q 20,000 unit MARY PRN Administration hemodialysis Guaifenesin 200 mg 12/07/18 13:01 12/08/18 22:49 Robitussin PO 200 mg Q4H PRN Administration Cough Azithromycin 500 mg/ Sodium 250 mls @ 250 mls/hr 12/07/18 13:00 12/08/18 15:00 Chloride IV Infused Q24HR [facility] Infusion Protocol Sodium Chloride 100 mls @ 999 mls/hr 12/08/18 10:00 Nacl 0.9% IV MARY PRN Hypotension Metoprolol Tartrate 25 mg 12/07/18 13:00 12/08/18 22:49 Lopressor PO 25 mg BID NILA Administration Ondansetron HCl 4 mg 12/07/18 10:23 Zofran IV Q8H PRN Nausea And Vomiting Oxycodone/Acetaminophen 1 tab 12/07/18 10:23 12/08/18 22:48 Percocet 5/325 PO 1 tab Q6H PRN Administration Pain, Moderate (4-6) Sodium Chloride 10 ml 12/07/18 22:00 12/08/18 22:50 Sodium Chloride Flush Syringe 10 Ml IV 12/17/18 21:59 10 ml BID NILA Administration Sodium Chloride 10 ml 12/07/18 10:23 Sodium Chloride Flush Syringe 10 Ml IV PRN PRN LINE FLUSH
[2018-12-09] MEDS: LOPRESSOR PO SCH (09:09)
[2018-12-09] MEDS: COLACE PO SCH ×2 (09:09→22:00)
[2018-12-09] MEDS: NORVASC PO SCH (09:09)
[2018-12-09] MEDS: SODIUM CHLORIDE FLUSH SYRINGE 10 ML IV SCH ×2 (09:11→22:01)
--- NOTE | 2018-12-09 09:11 | Progress Note ---
Assessment and Plan Assessment and plan: Acute hypoxic respiratory failure. Etiology secondary to systolic heart failure and volume overload. Continue hemodialysis to maintain negative fluid balance. Acute HFrEF. Echocardiogram reveals moderate to severe dilation of the left ventricle. Moderate concentric left ventricular hypertrophy. EF 20-25%. Mild pulmonary hypertension. Consult cardiology for further evaluation. Acute bronchitis. Continue antibiotics ESRD. Continue hemodialysis per nephrology. Accelerated hypertension. Continue antihypertensive medications. History of hypothyroidism. History Interval history: No new issues overnight. Hospitalist Physical - Constitutional Vitals: Temp Pulse Resp BP Pulse Ox 98.7 F 99 H 18 151/108 96 12/09/18 08:39 12/09/18 08:39 12/09/18 08:39 12/09/18 08:39 12/09/18 08:39 General appearance: Present: no acute distress - EENT Eyes: Present: PERRL, EOM intact ENT: hearing intact, clear oral mucosa, dentition normal - Neck Neck: Present: supple, normal ROM - Respiratory Respiratory effort: normal Respiratory: bilateral: CTA - Cardiovascular Rhythm: regular Heart Sounds: Present: S1 & S2. Absent: gallop, rub - Extremities Extremities: no ischemia, No edema, Full ROM - Abdominal General gastrointestinal: soft, non-tender, non-distended, normal bowel sounds - Integumentary Integumentary: Present: clear, warm, dry - Neurologic Neurologic: CNII-XII intact, moves all extremities Results - Labs CBC & Chem 7: 12/07/18 09:08 12/08/18 Unknown Labs: Laboratory Last Values WBC 8.7 K/mm3 (4.5-11.0) 12/07/18 09:08 RBC 3.05 M/mm3 (3.65-5.03) L 12/07/18 09:08 Hgb 8.2 gm/dl (10.1-14.3) L 12/07/18 09:08 Hct 25.6 % (30.3-42.9) L 12/07/18 09:08 MCV 84 fl (79-97) 12/07/18 09:08 MCH 27 pg (28-32) L 12/07/18 09:08 MCHC 32 % (30-34) 12/07/18 09:08 RDW 15.3 % (13.2-15.2) H 12/07/18 09:08 Plt Count 232 K/mm3 (140-440) 12/07/18 09:08 Lymph % (Auto) 20.0 % (13.4-35.0) 12/07/18 09:08 [place] % (Auto) 7.0 % (0.0-7.3) 12/07/18 09:08 Eos % (Auto) 0.9 % (0.0-4.3) 12/07/18 09:08 Baso % (Auto) 0.8 % (0.0-1.8) 12/07/18 09:08 Lymph # 1.7 K/mm3 (1.2-5.4) 12/07/18 09:08 [place] # 0.6 K/mm3 (0.0-0.8) 12/07/18 09:08 Eos # 0.1 K/mm3 (0.0-0.4) 12/07/18 09:08 Baso # 0.1 K/mm3 (0.0-0.1) 12/07/18 09:08 Seg Neutrophils % 71.3 % (40.0-70.0) H 12/07/18 09:08 Seg Neutrophils # 6.2 K/mm3 (1.8-7.7) 12/07/18 09:08 Sodium 140 mmol/L (137-145) 12/08/18 Unknown Potassium 4.4 mmol/L (3.6-5.0) 12/08/18 Unknown Chloride 104.8 mmol/L (98-107) 12/08/18 Unknown Carbon Dioxide 15 mmol/L (22-30) L 12/08/18 Unknown 25 mmol/L 12/08/18 Unknown BUN 78 mg/dL (7-17) H 12/08/18 Unknown 8.8 mg/dL (0.7-1.2) H 12/08/18 Unknown Estimated GFR 6 ml/min 12/08/18 Unknown 9 % 12/08/18 Unknown Glucose 94 mg/dL (65-100) 12/08/18 Unknown Calcium 5.7 mg/dL (8.4-10.2) L* 12/08/18 Unknown Phosphorus 7.10 mg/dL (2.5-4.5) H 12/08/18 05:06 0.40 mg/dL (0.1-1.2) 12/08/18 Unknown AST 12 units/L (5-40) 12/08/18 Unknown ALT 7 units/L (7-56) 12/08/18 Unknown 67 units/L (35-129) 12/08/18 Unknown < 0.010 ng/mL (0.00-0.029) 12/07/18 09:08 NT-Pro-B Natriuret Pep 87419 pg/mL (0-450) H 12/07/18 09:08 6.7 g/dL (6.3-8.2) 12/08/18 Unknown 3.3 g/dL (3.9-5) L 12/08/18 Unknown 1.0 % 12/08/18 Unknown PTH Intact 764.2 pg/mL (15-65) H 12/08/18 05:06 Yellow (Yellow) 12/08/18 01:30 Slightly-cloudy (Clear) 12/08/18 01:30 5.0 (5.0-7.0) 12/08/18 01:30 Ur Specific [place] 1.010 (1.003-1.030) 12/08/18 01:30 >500 mg/dL (Negative) 12/08/18 01:30 Neg mg/dL (Negative) 12/08/18 01:30 Tr mg/dL (Negative) 12/08/18 01:30 Neg (Negative) 12/08/18 01:30 Neg (Negative) 12/08/18 01:30 Neg (Negative) 12/08/18 01:30 < 2.0 mg/dL (<2.0) 12/08/18 01:30 Ur Leukocyte Esterase Sm (Negative) 12/08/18 01:30 16.0 /HPF (0.0-6.0) H 12/08/18 01:30 1.0 /HPF (0.0-6.0) 12/08/18 01:30 U Epithel Cells (Auto) 6.0 /HPF (0-13.0) 12/08/18 01:30 Amorphous Crystals Few 12/08/18 01:30 Few /HPF 12/08/18 01:30 <5% (None Seen) 12/08/18 01:30 68.9 mg/dL (0.1-20.0) H 12/08/18 01:30 Protein/Creatinin Ratio 4.47 12/08/18 01:30 77 mmol/L 12/08/18 01:30 308 mg/dL (5-11.8) H 12/08/18 01:30 Hepatitis A IgM Ab Non-reactive (NonReactive) 12/08/18 05:06 Hep Bs Antigen Non-reactive (Negative) 12/08/18 05:06 Hep B Core IgM Ab Non-reactive (NonReactive) 12/08/18 05:06 Non-reactive (NonReactive) 12/08/18 05:06 Active Medications - Current Medications Current Medications: Generic Name Dose Route Start Last Admin Trade Name Freq PRN Reason Stop Dose Admin Acetaminophen 650 mg 12/07/18 10:23 Tylenol PO Q4H PRN Pain MILD(1-3)/Fever >100.5/KIM Amlodipine Besylate 10 mg 12/08/18 10:00 12/08/18 10:33 Norvasc PO Not Given QDAY NILA Benzonatate 200 mg 12/07/18 21:19 12/07/18 21:37 Tessalon Perles PO 200 mg Q8HR PRN Administration cough Diphenhydramine HCl 25 mg 12/07/18 21:18 12/07/18 21:37 Benadryl PO 25 mg QHS PRN Administration Sleep Docusate Sodium 100 mg 12/07/18 22:00 12/08/18 22:49 Colace PO 100 mg BID NILA Administration Epoetin [place] 20,000 unit 12/08/18 10:00 12/08/18 17:05 Procrit SUB-Q 20,000 unit MARY PRN Administration hemodialysis Guaifenesin 200 mg 12/07/18 13:01 12/08/18 22:49 Robitussin PO 200 mg Q4H PRN Administration Cough Azithromycin 500 mg/ Sodium 250 mls @ 250 mls/hr 12/07/18 13:00 12/08/18 15:00 Chloride IV Infused Q24HR [facility] Infusion Protocol Sodium Chloride 100 mls @ 999 mls/hr 12/08/18 10:00 Nacl 0.9% IV MARY PRN Hypotension Metoprolol Tartrate 25 mg 12/07/18 13:00 12/08/18 22:49 Lopressor PO 25 mg BID NILA Administration Ondansetron HCl 4 mg 12/07/18 10:23 Zofran IV Q8H PRN Nausea And Vomiting Oxycodone/Acetaminophen 1 tab 12/07/18 10:23 12/08/18 22:48 Percocet 5/325 PO 1 tab Q6H PRN Administration Pain, Moderate (4-6) Sodium Chloride 10 ml 12/07/18 22:00 12/08/18 22:50 Sodium Chloride Flush Syringe 10 Ml IV 12/17/18 21:59 10 ml BID NILA Administration Sodium Chloride 10 ml 12/07/18 10:23 Sodium Chloride Flush Syringe 10 Ml IV PRN PRN LINE FLUSH Nutrition/Malnutrition Assess - Dietary Evaluation Nutrition/Malnutrition Findings: Nutrition Notes Start: 12/08/18 12:30 Freq: Status: Active Protocol: Document 12/08/18 12:30 LP (Rec: 12/08/18 12:35 LP [email or web address]) Nutrition Notes Need for Assessment generated from: cloth calender Initial or Follow up Brief Note Current Diagnosis Acute Kidney Injury, Hypertension Other Pertinent Diagnosis non-compliance with medication , PE Subjective/Other Information Screen for MST. Pt states appetite decreased a little but was eating well prior to feeling sick. Pt denies need for education. Pt ran out of medications. Educated on the importance of taking medications and following cardiac diet. Nutrition Intervention Revisit per MD consult or patient Sign Off request:
[2018-12-09] MEDS: PERCOCET 5/325 PO PRN ×2 (09:24→22:00)
[2018-12-09] MEDS ORDERED: HEPARIN 10,000 UNITS/10 ML IV PRN (10:00)
[2018-12-09] MEDS ORDERED: NACL 0.9% 100 ML IV PRN (10:00)
--- NOTE | 2018-12-09 11:02 | Consultation ---
History of Present Illness Consult date: 12/09/18 Consult reason: congestive heart failure History of present illness: This is a 48-year old woman with hypertension, chronic kidney disease, non-c ompliant with medications and outpatient follow up due to loss of insurance. Patient was admitted to this hospital with uncontrolled hypertension, pulmonary edema, and worsening renal failure subsequently requiring hemodialysis. Further evaluation with an echocardiogram revealed a dilated LV, at least moderate MR, mild to moderate TR with a decreased left ventricular systolic function, ejection fraction 20-25%. Cardiac consultation has been requested. The duration of the cardiomyopathy is uncertain. Patient denies prior cardiac evaluation and workup. An ECG is sinus rhythm with Twave abnormalities. Past History Past Medical History: anemia, hypertension, renal failure Past Surgical History: Other (Alvaro tubal ligation) Social history: single, lives with family, full code. denies: smoking, alcohol abuse, prescription drug abuse Family history: hypertension Medications and Allergies Allergies Allergy/AdvReac Type Severity Reaction Status Date / Time No Known Allergies Allergy Unverified 08/21/17 20:00 Home Medications Medication Instructions Recorded Confirmed Last Taken Type No Known Home Medications [No 12/07/18 12/07/18 Unknown History Reported Home Medications] Active Meds: Active Medications Acetaminophen (Tylenol) 650 mg PO Q4H PRN PRN Reason: Pain MILD(1-3)/Fever >100.5/KIM Amlodipine Besylate (Norvasc) 10 mg PO QDAY [facility] Last Admin: 12/09/18 09:09 Dose: 10 mg Documented by: Benzonatate (Tessalon Perles) 200 mg PO Q8HR PRN PRN Reason: cough Last Admin: 12/07/18 21:37 Dose: 200 mg Documented by: Diphenhydramine HCl (Benadryl) 25 mg PO QHS PRN PRN Reason: Sleep Last Admin: 12/07/18 21:37 Dose: 25 mg Documented by: Docusate Sodium (Colace) 100 mg PO BID [facility] Last Admin: 12/09/18 09:09 Dose: 100 mg Documented by: Epoetin Trevor (Procrit) 20,000 unit SUB-Q MARY PRN PRN Reason: hemodialysis Last Admin: 12/08/18 17:05 Dose: 20,000 unit Documented by: Guaifenesin (Robitussin) 200 mg PO Q4H PRN PRN Reason: Cough Last Admin: 12/08/18 22:49 Dose: 200 mg Documented by: Heparin Sodium (Porcine) (Heparin 10,000 Units/10 Ml) 2,000 unit IV MARY PRN PRN Reason: hemodialysis Azithromycin 500 mg/ Sodium (Chloride) 250 mls @ 250 mls/hr IV Q24HR [facility]; Protocol Last Infusion: 12/08/18 15:00 Dose: Infused Documented by: Sodium Chloride (Nacl 0.9%) 100 mls @ 999 mls/hr IV MARY PRN PRN Reason: Hypotension Metoprolol Tartrate (Lopressor) 25 mg PO BID [facility] Last Admin: 12/09/18 09:09 Dose: 25 mg Documented by: Ondansetron HCl (Zofran) 4 mg IV Q8H PRN PRN Reason: Nausea And Vomiting Oxycodone/Acetaminophen (Percocet 5/325) 1 tab PO Q6H PRN PRN Reason: Pain, Moderate (4-6) Last Admin: 12/09/18 09:24 Dose: 1 tab Documented by: Sodium Chloride (Sodium Chloride Flush Syringe 10 Ml) 10 ml IV BID [facility] Stop: 12/17/18 21:59 Last Admin: 12/09/18 09:11 Dose: 10 ml Documented by: Sodium Chloride (Sodium Chloride Flush Syringe 10 Ml) 10 ml IV PRN PRN PRN Reason: LINE FLUSH Physical Examination Vital Signs Temp Pulse Resp BP Pulse Ox 97.7 F 94 H 18 143/100 94 12/07/18 07:45 12/07/18 07:45 12/07/18 07:45 12/07/18 07:45 12/07/18 07:45 General appearance: no acute distress HEENT: Positive: PERRL Neck: Positive: trachea midline Cardiac: Positive: Reg Rate and Rhythm Lungs: Positive: Decreased Breath Sounds Neuro: Positive: Grossly Intact Extremities: Present: +1 Edema Results 12/07/18 09:08 12/08/18 Unknown Cardiac Enzymes 12/08/18 Range/Units Unknown AST 12 (5-40) units/L Comprehensive Metabolic Panel 12/08/18 Range/Units Unknown Sodium 140 (137-145) mmol/L Potassium 4.4 (3.6-5.0) mmol/L Chloride 104.8 (98-107) mmol/L Carbon Dioxide 15 L (22-30) mmol/L BUN 78 H (7-17) mg/dL Creatinine 8.8 H (0.7-1.2) mg/dL Glucose 94 (65-100) mg/dL Calcium 5.7 L* (8.4-10.2) mg/dL AST 12 (5-40) units/L ALT 7 (7-56) units/L Alkaline Phosphatase 67 (35-129) units/L Total Protein 6.7 (6.3-8.2) g/dL Albumin 3.3 L (3.9-5) g/dL Assessment and Plan CKD with progression to ESRD initiated on dialysis Pulmonary edema Hypertension Acute systolic heart failure Cardiomyopathy, uncertain duration
[2018-12-09] MEDS ORDERED: NACL 0.9 (PRIMING MACHINE ONLY DIALYSIS) MC ONE (11:18)
[2018-12-09] MEDS: PROCRIT SUB-Q PRN (11:20)
[2018-12-09] MEDS: ZITHROMAX 500 MG in NACL 0.9% 250ML 250 ML IV SCH (13:06)
--- NOTE | 2018-12-09 13:30 | Progress Note ---
Assessment and Plan - Patient Problems (1) Acute renal insufficiency Current Visit: No Status: Acute Plan to address problem: Pt stable. Looks much more comfortable. Patient appears to be an adequate candidate for laparoscopic PD catheter placement. At this time she is still not ready to make a decision. We'll follow up with her tomorrow. After she is medically stabilized, if she wishes to have the catheter, we will perform the procedure prior to her discharge. Will follow along. Please call with questions. Time=10min Subjective Date of service: 12/09/18 Patient Reports: Positive: feels better, other (still has not made any decisions about dialysis) Objective Vital Signs - 12hr 12/09/18 12/09/18 12/09/18 02:42 03:10 07:00 Temperature 98.4 F Pulse Rate 80 87 Respiratory 18 18 Rate Blood Pressure 137/84 O2 Sat by Pulse 96 Oximetry 12/09/18 12/09/18 12/09/18 08:39 09:09 09:15 Temperature 98.7 F 98.0 F Pulse Rate 99 H 99 H 86 Respiratory 18 16 Rate Blood Pressure 151/108 151/108 117/79 O2 Sat by Pulse 96 Oximetry 12/09/18 12/09/18 12/09/18 09:24 10:05 10:15 Temperature Pulse Rate 86 70 Respiratory 20 Rate Blood Pressure 117/79 135/68 O2 Sat by Pulse Oximetry 12/09/18 12/09/18 12/09/18 10:30 10:45 11:00 Temperature Pulse Rate 69 81 90 Respiratory Rate Blood Pressure 137/82 154/91 138/84 O2 Sat by Pulse Oximetry 12/09/18 12/09/18 12/09/18 11:15 11:30 11:45 Temperature Pulse Rate 69 66 66 Respiratory Rate Blood Pressure 139/83 125/71 152/81 O2 Sat by Pulse Oximetry 12/09/18 12/09/18 12/09/18 12:00 12:15 12:30 Temperature Pulse Rate 60 79 87 Respiratory Rate Blood Pressure 148/87 142/79 151/56 O2 Sat by Pulse Oximetry 12/09/18 12/09/18 12:35 13:14 Temperature 97.8 F Pulse Rate 88 88 Respiratory 16 Rate Blood Pressure 149/79 149/79 O2 Sat by Pulse Oximetry - General physical appearance no distress, no pain, other (looks better) - Eyes normal occular movement - Respiratory normal expansion, normal respiratory effort - Psychiatric oriented to time, oriented to person, oriented to place, speech is normal, memory intact - Labs 12/07/18 09:08 12/08/18 Unknown Diabetes panel 12/08/18 Range/Units Unknown Calcium 5.7 L* (8.4-10.2) mg/dL Calcium panel 12/08/18 Range/Units Unknown Calcium 5.7 L* (8.4-10.2) mg/dL Pituitary panel 12/08/18 Range/Units Unknown Calcium 5.7 L* (8.4-10.2) mg/dL Adrenal panel 12/08/18 Range/Units Unknown Calcium 5.7 L* (8.4-10.2) mg/dL
--- NOTE | 2018-12-09 17:02 | Vascular Lab Report ---
DOPPLER ULTRASOUND UPPER EXTREMITY VENOUS MAPPING, BILATERAL INDICATION: Venous mapping of upper extremities for end-stage renal disease TECHNIQUE: Grayscale, color and spectral Doppler imaging of the venous system of the right and left upper extrem ities was performed. COMPARISON: None available. FINDINGS: RIGHT UPPER EXTREMITY: Subclavian Vein: Patent, measuring 6 mm in transverse diameter. Axillary Vein: Patent, measuring 7 mm in transverse diameter. Brachial Vein (Diameter in mm): - Upper Arm: 9.5 - Mid Arm: 4.1 - Antecubital: 3.4 Basilic Vein (Diameter in mm): - Upper Arm: 9.5 - Mid Arm: 4.1 - Antecubital: 3.4 - Upper Forearm: 1.7 - Mid Forearm: 2.0 - Wrist: 1.6 Cephalic Vein (Diameter in mm): - Upper Arm: 3.4 - Mid Arm: 3.4 - Antecubital: 3.8 - Upper Forearm: 2.3 - Mid Forearm: 2.3 - Wrist: 1.7 LEFT UPPER EXTREMITY: Subclavian Vein: Patent, transverse diameter of 5.6 mm. Axillary Vein: Patent, transverse diameter of 6.8 mm. Brachial Vein (Diameter in mm): - Upper Arm: 3.5 - Mid Arm: 3.7 - Antecubital: 3.0 Cephalic Vein (Diameter in mm): - Upper Arm: 5.6 - Mid Arm: 5.3 - Antecubital: 5.9 - Upper Forearm: 2.9 - Mid Forearm: 3.3 - Wrist: 2.6 Basilic Vein (Diameter in mm): - Upper Arm: 3.6 - Mid Arm: 3.8 - Antecubital: 1.9 - Upper Forearm: 2.8 - Mid Forearm: 1.8 - Wrist: 1.5 Additional Findings: The brachial and radial arteries are patent bilaterally with expected waveforms. IMPRESSION: 1. No sonographic evidence of deep venous thrombosis. 2. Upper extremity venous mapping as above. Signer Name: Craig Santoyo MD Signed: 12/09/2018 4:57 PM Workstation Name: [id number]
[2018-12-09] MEDS: ALDACTONE PO SCH (17:06)
[2018-12-09] MEDS: ZESTRIL PO SCH (17:06)
[2018-12-09] MEDS: COREG PO SCH ×2 (17:07→22:01)
[2018-12-09] MEDS: BENADRYL PO PRN (22:00)
[2018-12-09] MEDS: ROBITUSSIN PO PRN (22:01)
[2018-12-10 06:38] LABS: Calcium 6.6 mg/dL (8.4-10.2)
[2018-12-10 06:56] LABS: Hematocrit 25.4 % (30.3-42.9); Hemoglobin 8.1 gm/dl (10.1-14.3)
[2018-12-10] MEDS: PHOSLO PO SCH ×3 (09:58→18:31)
[2018-12-10] MEDS: NORVASC PO SCH ×2 (10:00→14:06)
[2018-12-10] MEDS: ZESTRIL PO SCH (10:00)
[2018-12-10] MEDS: ALDACTONE PO SCH ×2 (10:00)
[2018-12-10] MEDS: COLACE PO SCH ×2 (10:00→22:17)
[2018-12-10] MEDS: COREG PO SCH ×2 (10:00→22:17)
[2018-12-10] MEDS: SODIUM CHLORIDE FLUSH SYRINGE 10 ML IV SCH ×2 (10:00→22:18)
[2018-12-10] MEDS: ZITHROMAX 500 MG in NACL 0.9% 250ML 250 ML IV SCH (10:19)
--- NOTE | 2018-12-10 10:48 | Progress Note ---
Assessment and Plan - Patient Problems (1) Acute renal insufficiency Current Visit: No Status: Acute Plan to address problem: Pt stable. Patient appears to be an adequate candidate for laparoscopic PD catheter placement. However, she stated today that she would like to have hemodialysis. She has my card and I offered that I can come back if she would like to discuss it further. At this point, we will be available if needed. Please call with questions. Time=10min Subjective Date of service: 12/10/18 Patient Reports: Positive: no new complaints, feels better Objective Vital Signs - 12hr 12/09/18 12/09/18 12/09/18 23:00 23:03 23:05 Temperature 98.9 F Pulse Rate 75 90 Respiratory 18 18 Rate Blood Pressure 104/58 O2 Sat by Pulse 96 Oximetry 12/10/18 12/10/18 05:33 05:34 Temperature 98.2 F Pulse Rate 88 Respiratory 18 Rate Blood Pressure 108/67 O2 Sat by Pulse 93 Oximetry - General physical appearance no distress, no pain, other (looks better) - Eyes normal occular movement - Respiratory normal expansion, normal respiratory effort - Psychiatric oriented to time, oriented to person, oriented to place, speech is normal, memory intact - Labs 12/10/18 05:20 12/10/18 05:20 Diabetes panel 12/10/18 Range/Units 05:20 Sodium 139 (137-145) mmol/L Potassium 3.7 (3.6-5.0) mmol/L Chloride 101.1 (98-107) mmol/L Carbon Dioxide 25 D (22-30) mmol/L BUN 36 H (7-17) mg/dL Creatinine 6.2 H (0.7-1.2) mg/dL Glucose 94 (65-100) mg/dL Calcium 6.6 L D (8.4-10.2) mg/dL Calcium panel 12/10/18 Range/Units 05:20 Calcium 6.6 L D (8.4-10.2) mg/dL Pituitary panel 12/10/18 Range/Units 05:20 Sodium 139 (137-145) mmol/L Potassium 3.7 (3.6-5.0) mmol/L Chloride 101.1 (98-107) mmol/L Carbon Dioxide 25 D (22-30) mmol/L BUN 36 H (7-17) mg/dL Creatinine 6.2 H (0.7-1.2) mg/dL Glucose 94 (65-100) mg/dL Calcium 6.6 L D (8.4-10.2) mg/dL Adrenal panel 12/10/18 Range/Units 05:20 Sodium 139 (137-145) mmol/L Potassium 3.7 (3.6-5.0) mmol/L Chloride 101.1 (98-107) mmol/L Carbon Dioxide 25 D (22-30) mmol/L BUN 36 H (7-17) mg/dL Creatinine 6.2 H (0.7-1.2) mg/dL Glucose 94 (65-100) mg/dL Calcium 6.6 L D (8.4-10.2) mg/dL
--- NOTE | 2018-12-10 10:58 | Progress Note ---
Assessment and Plan CKD with progression to ESRD initiated on dialysis Pulmonary edema Hypertension Acute systolic heart failure Cardiomyopathy (EF 20-25%): Newly diagnosed with uncertain duration Recommend: Continue fluid management via dialysis and medical therapy for newly diagnosed cardiomyopathy Eventual evaluation for myocardial ischemia Subjective Date of service: 12/10/18 Interval history: No acute events Objective Vital Signs Temp Pulse Resp BP Pulse Ox 12/10/18 05:34 98.2 F 12/10/18 05:33 88 18 108/67 93 12/09/18 23:05 98.9 F 12/09/18 23:03 90 18 104/58 96 12/09/18 23:00 75 18 12/09/18 22:01 99 H 104/69 12/09/18 20:25 99 H 18 104/69 98 12/09/18 13:14 97.8 F 88 16 149/79 12/09/18 12:35 88 149/79 12/09/18 12:30 87 151/56 12/09/18 12:15 79 142/79 12/09/18 12:00 60 148/87 12/09/18 11:45 66 152/81 12/09/18 11:30 66 125/71 12/09/18 11:15 69 139/83 12/09/18 11:00 90 138/84 - Physical Examination HEENT: Positive: PERRL Neck: Positive: trachea midline Cardiac: Positive: Reg Rate and Rhythm Lungs: Positive: Decreased Breath Sounds Neuro: Positive: Grossly Intact Extremities: Present: +1 Edema - Labs and Meds CBC 12/10/18 Range/Units 05:20 Hgb 8.1 L (10.1-14.3) gm/dl Hct 25.4 L (30.3-42.9) % Comprehensive Metabolic Panel 12/10/18 Range/Units 05:20 Sodium 139 (137-145) mmol/L Potassium 3.7 (3.6-5.0) mmol/L Chloride 101.1 (98-107) mmol/L Carbon Dioxide 25 D (22-30) mmol/L BUN 36 H (7-17) mg/dL Creatinine 6.2 H (0.7-1.2) mg/dL Glucose 94 (65-100) mg/dL Calcium 6.6 L D (8.4-10.2) mg/dL - Imaging and Cardiology EKG: image reviewed
--- NOTE | 2018-12-10 11:00 | Progress Note ---
Assessment and Plan Assessment and plan: Acute hypoxic respiratory failure. Etiology secondary to systolic heart failure and volume overload. Continue hemodialysis to maintain negative fluid balance. Acute HFrEF. Echocardiogram reveals moderate to severe dilation of the left ventricle. Moderate concentric left ventricular hypertrophy. EF 20-25%. Mild pulmonary hypertension. Eventual evaluation for myocardial ischemia per cardiology Cardiomyopathy. As above. Acute bronchitis. Continue antibiotics ESRD. Continue hemodialysis per nephrology. Accelerated hypertension. Continue antihypertensive medications. History of hypothyroidism. History Interval history: No new issues overnight. Hospitalist Physical - Constitutional Vitals: Temp Pulse Resp BP Pulse Ox 98.2 F 88 18 108/67 93 12/10/18 05:34 12/10/18 05:33 12/10/18 05:33 12/10/18 05:33 12/10/18 05:33 General appearance: Present: no acute distress - EENT Eyes: Present: PERRL, EOM intact ENT: hearing intact, clear oral mucosa, dentition normal - Neck Neck: Present: supple, normal ROM - Respiratory Respiratory effort: normal Respiratory: bilateral: CTA - Cardiovascular Rhythm: regular Heart Sounds: Present: S1 & S2. Absent: gallop, rub - Extremities Extremities: no ischemia, No edema, Full ROM - Abdominal General gastrointestinal: soft, non-tender, non-distended, normal bowel sounds - Integumentary Integumentary: Present: clear, warm, dry - Neurologic Neurologic: CNII-XII intact, moves all extremities Results - Labs CBC & Chem 7: 12/10/18 05:20 12/10/18 05:20 Labs: Laboratory Last Values WBC 8.7 K/mm3 (4.5-11.0) 12/07/18 09:08 RBC 3.05 M/mm3 (3.65-5.03) L 12/07/18 09:08 Hgb 8.1 gm/dl (10.1-14.3) L 12/10/18 05:20 Hct 25.4 % (30.3-42.9) L 12/10/18 05:20 MCV 84 fl (79-97) 12/07/18 09:08 MCH 27 pg (28-32) L 12/07/18 09:08 MCHC 32 % (30-34) 12/07/18 09:08 RDW 15.3 % (13.2-15.2) H 12/07/18 09:08 Plt Count 232 K/mm3 (140-440) 12/07/18 09:08 Lymph % (Auto) 20.0 % (13.4-35.0) 12/07/18 09:08 Rush % (Auto) 7.0 % (0.0-7.3) 12/07/18 09:08 Eos % (Auto) 0.9 % (0.0-4.3) 12/07/18 09:08 Baso % (Auto) 0.8 % (0.0-1.8) 12/07/18 09:08 Lymph # 1.7 K/mm3 (1.2-5.4) 12/07/18 09:08 Rush # 0.6 K/mm3 (0.0-0.8) 12/07/18 09:08 Eos # 0.1 K/mm3 (0.0-0.4) 12/07/18 09:08 Baso # 0.1 K/mm3 (0.0-0.1) 12/07/18 09:08 Seg Neutrophils % 71.3 % (40.0-70.0) H 12/07/18 09:08 Seg Neutrophils # 6.2 K/mm3 (1.8-7.7) 12/07/18 09:08 Sodium 139 mmol/L (137-145) 12/10/18 05:20 Potassium 3.7 mmol/L (3.6-5.0) 12/10/18 05:20 Chloride 101.1 mmol/L (98-107) 12/10/18 05:20 Carbon Dioxide 25 mmol/L (22-30) D 12/10/18 05:20 17 mmol/L 12/10/18 05:20 BUN 36 mg/dL (7-17) H 12/10/18 05:20 6.2 mg/dL (0.7-1.2) H 12/10/18 05:20 Estimated GFR 9 ml/min 12/10/18 05:20 6 % 12/10/18 05:20 Glucose 94 mg/dL (65-100) 12/10/18 05:20 Calcium 6.6 mg/dL (8.4-10.2) L D 12/10/18 05:20 Phosphorus 7.10 mg/dL (2.5-4.5) H 12/08/18 05:06 0.40 mg/dL (0.1-1.2) 12/08/18 Unknown AST 12 units/L (5-40) 12/08/18 Unknown ALT 7 units/L (7-56) 12/08/18 Unknown 67 units/L (35-129) 12/08/18 Unknown < 0.010 ng/mL (0.00-0.029) 12/07/18 09:08 NT-Pro-B Natriuret Pep 41927 pg/mL (0-450) H 12/07/18 09:08 6.7 g/dL (6.3-8.2) 12/08/18 Unknown 3.3 g/dL (3.9-5) L 12/08/18 Unknown 1.0 % 12/08/18 Unknown PTH Intact 764.2 pg/mL (15-65) H 12/08/18 05:06 Yellow (Yellow) 12/08/18 01:30 Slightly-cloudy (Clear) 12/08/18 01:30 5.0 (5.0-7.0) 12/08/18 01:30 Ur Specific Mark 1.010 (1.003-1.030) 12/08/18 01:30 >500 mg/dL (Negative) 12/08/18 01:30 Neg mg/dL (Negative) 12/08/18 01:30 Tr mg/dL (Negative) 12/08/18 01:30 Neg (Negative) 12/08/18 01:30 Neg (Negative) 12/08/18 01:30 Neg (Negative) 12/08/18 01:30 < 2.0 mg/dL (<2.0) 12/08/18 01:30 Ur Leukocyte Esterase Sm (Negative) 12/08/18 01:30 16.0 /HPF (0.0-6.0) H 12/08/18 01:30 1.0 /HPF (0.0-6.0) 12/08/18 01:30 U Epithel Cells (Auto) 6.0 /HPF (0-13.0) 12/08/18 01:30 Amorphous Crystals Few 12/08/18 01:30 Few /HPF 12/08/18 01:30 <5% (None Seen) 12/08/18 01:30 68.9 mg/dL (0.1-20.0) H 12/08/18 01:30 Protein/Creatinin Ratio 4.47 12/08/18 01:30 77 mmol/L 12/08/18 01:30 308 mg/dL (5-11.8) H 12/08/18 01:30 Hepatitis A IgM Ab Non-reactive (NonReactive) 12/08/18 05:06 Hep Bs Antigen Non-reactive (Negative) 12/08/18 05:06 Hep B Core IgM Ab Non-reactive (NonReactive) 12/08/18 05:06 Non-reactive (NonReactive) 12/08/18 05:06 Active Medications - Current Medications Current Medications: Generic Name Dose Route Start Last Admin Trade Name Freq PRN Reason Stop Dose Admin Acetaminophen 650 mg 12/07/18 10:23 Tylenol PO Q4H PRN Pain MILD(1-3)/Fever >100.5/KIM Amlodipine Besylate 10 mg 12/08/18 10:00 12/09/18 09:09 Norvasc PO 10 mg QDAY NILA Administration Benzonatate 200 mg 12/07/18 21:19 12/07/18 21:37 Tessalon Perles PO 200 mg Q8HR PRN Administration cough Calcium Acetate 1,334 mg 12/10/18 08:00 12/10/18 09:58 Phoslo PO 1,334 mg TIDWM NILA Administration Carvedilol 6.25 mg 12/09/18 13:00 12/10/18 10:00 Coreg PO 6.25 mg BID NILA Administration Diphenhydramine HCl 25 mg 12/07/18 21:18 12/09/18 22:00 Benadryl PO 25 mg QHS PRN Administration Sleep Docusate Sodium 100 mg 12/07/18 22:00 12/10/18 10:00 Colace PO 100 mg BID NILA Administration Epoetin Trevor 20,000 unit 12/08/18 10:00 12/09/18 11:20 Procrit SUB-Q 20,000 unit MARY PRN Administration hemodialysis Guaifenesin 200 mg 12/07/18 13:01 12/09/18 22:01 Robitussin PO 200 mg Q4H PRN Administration Cough Heparin Sodium (Porcine) 2,000 unit 12/09/18 10:00 Heparin 10,000 Units/10 Ml IV MARY PRN hemodialysis Azithromycin 500 mg/ Sodium 250 mls @ 250 mls/hr 12/07/18 13:00 12/10/18 10:19 Chloride IV 12/11/18 10:59 250 mls/hr Q24HR NILA Administration Protocol Sodium Chloride 100 mls @ 999 mls/hr 12/09/18 10:00 Nacl 0.9% IV MARY PRN Hypotension Lisinopril 5 mg 12/09/18 13:00 12/10/18 10:00 Zestril PO 5 mg QDAY NILA Administration Ondansetron HCl 4 mg 12/07/18 10:23 Zofran IV Q8H PRN Nausea And Vomiting Oxycodone/Acetaminophen 1 tab 12/07/18 10:23 12/09/18 22:00 Percocet 5/325 PO 1 tab Q6H PRN Administration Pain, Moderate (4-6) Sodium Chloride 10 ml 12/07/18 22:00 12/10/18 10:00 Sodium Chloride Flush Syringe 10 Ml IV 12/17/18 21:59 10 ml BID NILA Administration Sodium Chloride 10 ml 12/07/18 10:23 Sodium Chloride Flush Syringe 10 Ml IV PRN PRN LINE FLUSH Spironolactone 25 mg 12/09/18 13:00 12/09/18 17:06 Aldactone PO 25 mg QDAY NILA Administration Nutrition/Malnutrition Assess - Dietary Evaluation Nutrition/Malnutrition Findings: Nutrition Notes Start: 12/08/18 12:30 Freq: Status: Active Protocol: Document 12/08/18 12:30 LP (Rec: 12/08/18 12:35 LP [email or web address]) Nutrition Notes Need for Assessment generated from: mesh cutter Initial or Follow up Brief Note Current Diagnosis Acute Kidney Injury, Hypertension Other Pertinent Diagnosis non-compliance with medication , PE Subjective/Other Information Screen for MST. Pt states appetite decreased a little but was eating well prior to feeling sick. Pt denies need for education. Pt ran out of medications. Educated on the importance of taking medications and following cardiac diet. Nutrition Intervention Revisit per MD consult or patient Sign Off request:
--- NOTE | 2018-12-10 11:49 | Progress Note ---
Assessment and Plan 1. ESRD: Most likly CKD has progressed to ESRD. Patient presented with uremic symptoms. Metabolic features suggestive of ESRD. Renal US was negative for hydronephosis. Renal prognosis is poor. Avoid nephrotoxic agents. Meds dosage based on GFR. Patient was started on hemodialysis due to ESRD, uremic symptoms and associated multiple metabolic abnormalities. Hemodialysis: 12/08, 12/09. Next HD wednesday. Patient agrees for PD catheter placement during this admission. Need outpatient hemodialysis chair. 2. FEN: Hyperkalemia, K level is better. Anion gap MA, improved. Volume overload, improved. Hypocalcemia, replete Ca. On Calcium acetate. Monitor lytes. 3. Anemia: Epogen. 4. Systolic CHF with EF 20-25%: Followed by Cards. 5. Uncontrolled HTN: BP is some what low. Will stop Amlodipine. Subjective Date of service: 12/10/18 Interval history: Patient was seen and examined at the bedside. Doing better. Objective - Vital Signs Vital signs: Vital Signs - 12hr 12/10/18 12/10/18 05:33 05:34 Temperature 98.2 F Pulse Rate 88 Respiratory 18 Rate Blood Pressure 108/67 O2 Sat by Pulse 93 Oximetry - General Appearance General appearance: well-developed, well-nourished, appears stated age, obese, other (no distress, R IJ tunnel catheter) EENT: ATNC, PERRL, mucous membranes moist, hearing intact, vision intact Neck: supple Respiratory: Present: Clear to Ascultation Cardiology: regular, S1S2, no murmurs Gastrointestinal: normoactive bowel sounds, no tenderness, no distended, obese Integumentary: no rash, warm and dry Neurologic: no focal deficit, no asterixis, alert and oriented x3 Musculoskeletal: other (no edema) Psychiatric: cooperative - Lab 12/10/18 05:20 12/10/18 05:20 Most recent lab results Calcium 6.6 mg/dL (8.4-10.2) L D 12/10/18 05:20 Phosphorus 7.10 mg/dL (2.5-4.5) H 12/08/18 05:06 68.9 mg/dL (0.1-20.0) H 12/08/18 01:30 77 mmol/L 12/08/18 01:30 308 mg/dL (5-11.8) H 12/08/18 01:30 Medications & Allergies - Medications Allergies/Adverse Reactions: Allergies No Known Allergies Allergy (Unverified 08/21/17 20:00) Home Medications: Home Medications Medication Instructions Recorded Confirmed Last Taken Type No Known Home Medications [No 12/07/18 12/07/18 Unknown History Reported Home Medications] Active Medications: Generic Name Dose Route Start Last Admin Trade Name Freq PRN Reason Stop Dose Admin Acetaminophen 650 mg 12/07/18 10:23 Tylenol PO Q4H PRN Pain MILD(1-3)/Fever >100.5/KIM Amlodipine Besylate 10 mg 12/08/18 10:00 12/09/18 09:09 Norvasc PO 10 mg QDAY NILA Administration Benzonatate 200 mg 12/07/18 21:19 12/07/18 21:37 Tessalon Perles PO 200 mg Q8HR PRN Administration cough Calcium Acetate 1,334 mg 12/10/18 08:00 12/10/18 09:58 Phoslo PO 1,334 mg TIDWM NILA Administration Carvedilol 6.25 mg 12/09/18 13:00 12/10/18 10:00 Coreg PO 6.25 mg BID NILA Administration Diphenhydramine HCl 25 mg 12/07/18 21:18 12/09/18 22:00 Benadryl PO 25 mg QHS PRN Administration Sleep Docusate Sodium 100 mg 12/07/18 22:00 12/10/18 10:00 Colace PO 100 mg BID NILA Administration Epoetin Trevor 20,000 unit 12/08/18 10:00 12/09/18 11:20 Procrit SUB-Q 20,000 unit MARY PRN Administration hemodialysis Guaifenesin 200 mg 12/07/18 13:01 12/09/18 22:01 Robitussin PO 200 mg Q4H PRN Administration Cough Heparin Sodium (Porcine) 2,000 unit 12/09/18 10:00 Heparin 10,000 Units/10 Ml IV MARY PRN hemodialysis Azithromycin 500 mg/ Sodium 250 mls @ 250 mls/hr 12/07/18 13:00 12/10/18 10:19 Chloride IV 12/11/18 10:59 250 mls/hr Q24HR NILA Administration Protocol Sodium Chloride 100 mls @ 999 mls/hr 12/09/18 10:00 Nacl 0.9% IV MARY PRN Hypotension Lisinopril 5 mg 12/09/18 13:00 12/10/18 10:00 Zestril PO 5 mg QDAY NILA Administration Ondansetron HCl 4 mg 12/07/18 10:23 Zofran IV Q8H PRN Nausea And Vomiting Oxycodone/Acetaminophen 1 tab 12/07/18 10:23 12/09/18 22:00 Percocet 5/325 PO 1 tab Q6H PRN Administration Pain, Moderate (4-6) Sodium Chloride 10 ml 12/07/18 22:00 12/10/18 10:00 Sodium Chloride Flush Syringe 10 Ml IV 12/17/18 21:59 10 ml BID NILA Administration Sodium Chloride 10 ml 12/07/18 10:23 Sodium Chloride Flush Syringe 10 Ml IV PRN PRN LINE FLUSH Spironolactone 25 mg 12/09/18 13:00 12/09/18 17:06 Aldactone PO 25 mg QDAY NILA Administration
[2018-12-10] MEDS: PERCOCET 5/325 PO PRN (14:00)
[2018-12-10] MEDS: ROBITUSSIN PO PRN (22:17)
[2018-12-11] MEDS: PHOSLO PO SCH ×3 (08:00→17:09)
[2018-12-11] MEDS: PERCOCET 5/325 PO PRN ×2 (09:07→18:09)
[2018-12-11] MEDS: COREG PO SCH ×2 (11:11→21:39)
[2018-12-11] MEDS: COLACE PO SCH ×2 (11:11→21:39)
[2018-12-11] MEDS: ZITHROMAX 500 MG in NACL 0.9% 250ML 250 ML IV SCH (11:12)
[2018-12-11] MEDS: SODIUM CHLORIDE FLUSH SYRINGE 10 ML IV SCH ×2 (11:12→21:40)
--- NOTE | 2018-12-11 11:14 | Progress Note ---
Assessment and Plan 1. ESRD: Most likely CKD has progressed to ESRD. Patient presented with uremic symptoms. Metabolic features were suggestive of ESRD. Renal US was negative for hydronephosis. Renal prognosis is poor. Avoid nephrotoxic agents. Meds dosage based on GFR. Patient was started on hemodialysis due to ESRD, uremic symptoms and associated multiple metabolic abnormalities. Hemodialysis: 12/08, 12/09. Next HD tomorrow. Patient agrees for PD catheter placement during this admission. Need outpatient hemodialysis chair. 2. FEN: Hyperkalemia, K level is better. Anion gap MA, improved. Volume overload, improved. Hypocalcemia, replete Ca. On Calcium acetate. Monitor lytes. 3. Anemia: Epogen. 4. Systolic CHF with EF 20-25%: Followed by Cards. 5. Uncontrolled HTN: BP is well controlled. Subjective Date of service: 12/11/18 Interval history: Patient was seen and examined at the bedside. Doing better. Objective - Vital Signs Vital signs: Vital Signs - 12hr 12/11/18 12/11/18 12/11/18 00:08 00:10 05:03 Temperature 98.4 F Pulse Rate 86 86 Respiratory 18 18 Rate Blood Pressure 97/49 116/80 O2 Sat by Pulse 95 99 Oximetry 12/11/18 12/11/18 12/11/18 05:06 05:10 07:56 Temperature 98.5 F 98.4 F Pulse Rate 83 83 Respiratory 18 16 Rate Blood Pressure 110/72 121/88 O2 Sat by Pulse 100 98 Oximetry 12/11/18 11:11 Temperature Pulse Rate 83 Respiratory Rate Blood Pressure 108/65 O2 Sat by Pulse Oximetry - General Appearance General appearance: well-developed, well-nourished, appears stated age, obese, other (no distress, R IJ tunnel catheter) EENT: ATNC, PERRL, mucous membranes moist, hearing intact, vision intact Neck: supple Respiratory: Present: Clear to Ascultation Cardiology: regular, S1S2, no murmurs Gastrointestinal: normoactive bowel sounds, no tenderness, no distended, obese Integumentary: no rash, warm and dry Neurologic: no focal deficit, no asterixis, alert and oriented x3 Musculoskeletal: other (no edema) Psychiatric: cooperative - Lab 12/10/18 05:20 12/10/18 05:20 Most recent lab results Calcium 6.6 mg/dL (8.4-10.2) L D 12/10/18 05:20 Phosphorus 7.10 mg/dL (2.5-4.5) H 12/08/18 05:06 68.9 mg/dL (0.1-20.0) H 12/08/18 01:30 77 mmol/L 12/08/18 01:30 308 mg/dL (5-11.8) H 12/08/18 01:30 Medications & Allergies - Medications Allergies/Adverse Reactions: Allergies No Known Allergies Allergy (Unverified 08/21/17 20:00) Home Medications: Home Medications Medication Instructions Recorded Confirmed Last Taken Type No Known Home Medications [No 12/07/18 12/07/18 Unknown History Reported Home Medications] Active Medications: Generic Name Dose Route Start Last Admin Trade Name Freq PRN Reason Stop Dose Admin Acetaminophen 650 mg 12/07/18 10:23 Tylenol PO Q4H PRN Pain MILD(1-3)/Fever >100.5/KIM Benzonatate 200 mg 12/07/18 21:19 12/07/18 21:37 Tessalon Perles PO 200 mg Q8HR PRN Administration cough Calcium Acetate 1,334 mg 12/10/18 08:00 12/11/18 08:00 Phoslo PO 1,334 mg TIDWM NILA Administration Carvedilol 6.25 mg 12/09/18 13:00 12/11/18 11:11 Coreg PO 6.25 mg BID NILA Administration Diphenhydramine HCl 25 mg 12/07/18 21:18 12/09/18 22:00 Benadryl PO 25 mg QHS PRN Administration Sleep Docusate Sodium 100 mg 12/07/18 22:00 12/11/18 11:11 Colace PO 100 mg BID NILA Administration Epoetin Trevor 20,000 unit 12/08/18 10:00 12/09/18 11:20 Procrit SUB-Q 20,000 unit MARY PRN Administration hemodialysis Guaifenesin 200 mg 12/07/18 13:01 12/10/18 22:17 Robitussin PO 200 mg Q4H PRN Administration Cough Heparin Sodium (Porcine) 2,000 unit 12/09/18 10:00 Heparin 10,000 Units/10 Ml IV MARY PRN hemodialysis Sodium Chloride 100 mls @ 999 mls/hr 12/09/18 10:00 Nacl 0.9% IV MARY PRN Hypotension Lisinopril 5 mg 12/09/18 13:00 12/10/18 10:00 Zestril PO 5 mg QDAY NILA Administration Ondansetron HCl 4 mg 12/07/18 10:23 Zofran IV Q8H PRN Nausea And Vomiting Oxycodone/Acetaminophen 1 tab 12/07/18 10:23 12/11/18 09:07 Percocet 5/325 PO 1 tab Q6H PRN Administration Pain, Moderate (4-6) Sodium Chloride 10 ml 12/07/18 22:00 12/11/18 11:12 Sodium Chloride Flush Syringe 10 Ml IV 12/17/18 21:59 10 ml BID NILA Administration Sodium Chloride 10 ml 12/07/18 10:23 Sodium Chloride Flush Syringe 10 Ml IV PRN PRN LINE FLUSH Spironolactone 25 mg 12/09/18 13:00 12/10/18 10:00 Aldactone PO Not Given QDAY NILA
--- NOTE | 2018-12-11 12:26 | Progress Note ---
Assessment and Plan Assessment and plan: Acute hypoxic respiratory failure. Etiology secondary to systolic heart failure and volume overload. Continue hemodialysis to maintain negative fluid balance. Acute HFrEF. Echocardiogram reveals moderate to severe dilation of the left ventricle. Moderate concentric left ventricular hypertrophy. EF 20-25%. Mild pulmonary hypertension. Eventual evaluation for myocardial ischemia per cardiology Cardiomyopathy. As above. Klebsiella UTI. Start Levaquin daily. Follow-up blood cultures. ESRD. Continue hemodialysis per nephrology. Accelerated hypertension. Continue antihypertensive medications. History of hypothyroidism. History Interval history: No new issues overnight. Hospitalist Physical - Constitutional Vitals: Temp Pulse Resp BP Pulse Ox 98.4 F 83 16 108/65 98 12/11/18 07:56 12/11/18 11:11 12/11/18 07:56 12/11/18 11:11 12/11/18 07:56 General appearance: Present: no acute distress - EENT Eyes: Present: PERRL, EOM intact ENT: hearing intact, clear oral mucosa, dentition normal - Neck Neck: Present: supple, normal ROM - Respiratory Respiratory effort: normal Respiratory: bilateral: CTA - Cardiovascular Rhythm: regular Heart Sounds: Present: S1 & S2. Absent: gallop, rub - Extremities Extremities: no ischemia, No edema, Full ROM - Abdominal General gastrointestinal: soft, non-tender, non-distended, normal bowel sounds - Integumentary Integumentary: Present: clear, warm, dry - Neurologic Neurologic: CNII-XII intact, moves all extremities Results - Labs CBC & Chem 7: 12/10/18 05:20 12/10/18 05:20 Labs: Laboratory Last Values WBC 8.7 K/mm3 (4.5-11.0) 12/07/18 09:08 RBC 3.05 M/mm3 (3.65-5.03) L 12/07/18 09:08 Hgb 8.1 gm/dl (10.1-14.3) L 12/10/18 05:20 Hct 25.4 % (30.3-42.9) L 12/10/18 05:20 MCV 84 fl (79-97) 12/07/18 09:08 MCH 27 pg (28-32) L 12/07/18 09:08 MCHC 32 % (30-34) 12/07/18 09:08 RDW 15.3 % (13.2-15.2) H 12/07/18 09:08 Plt Count 232 K/mm3 (140-440) 12/07/18 09:08 Lymph % (Auto) 20.0 % (13.4-35.0) 12/07/18 09:08 [place] % (Auto) 7.0 % (0.0-7.3) 12/07/18 09:08 Eos % (Auto) 0.9 % (0.0-4.3) 12/07/18 09:08 Baso % (Auto) 0.8 % (0.0-1.8) 12/07/18 09:08 Lymph # 1.7 K/mm3 (1.2-5.4) 12/07/18 09:08 [place] # 0.6 K/mm3 (0.0-0.8) 12/07/18 09:08 Eos # 0.1 K/mm3 (0.0-0.4) 12/07/18 09:08 Baso # 0.1 K/mm3 (0.0-0.1) 12/07/18 09:08 Seg Neutrophils % 71.3 % (40.0-70.0) H 12/07/18 09:08 Seg Neutrophils # 6.2 K/mm3 (1.8-7.7) 12/07/18 09:08 Sodium 139 mmol/L (137-145) 12/10/18 05:20 Potassium 3.7 mmol/L (3.6-5.0) 12/10/18 05:20 Chloride 101.1 mmol/L (98-107) 12/10/18 05:20 Carbon Dioxide 25 mmol/L (22-30) D 12/10/18 05:20 17 mmol/L 12/10/18 05:20 BUN 36 mg/dL (7-17) H 12/10/18 05:20 6.2 mg/dL (0.7-1.2) H 12/10/18 05:20 Estimated GFR 9 ml/min 12/10/18 05:20 6 % 12/10/18 05:20 Glucose 94 mg/dL (65-100) 12/10/18 05:20 Calcium 6.6 mg/dL (8.4-10.2) L D 12/10/18 05:20 Phosphorus 7.10 mg/dL (2.5-4.5) H 12/08/18 05:06 0.40 mg/dL (0.1-1.2) 12/08/18 Unknown AST 12 units/L (5-40) 12/08/18 Unknown ALT 7 units/L (7-56) 12/08/18 Unknown 67 units/L (35-129) 12/08/18 Unknown < 0.010 ng/mL (0.00-0.029) 12/07/18 09:08 NT-Pro-B Natriuret Pep 35923 pg/mL (0-450) H 12/07/18 09:08 6.7 g/dL (6.3-8.2) 12/08/18 Unknown 3.3 g/dL (3.9-5) L 12/08/18 Unknown 1.0 % 12/08/18 Unknown PTH Intact 764.2 pg/mL (15-65) H 12/08/18 05:06 Yellow (Yellow) 12/08/18 01:30 Slightly-cloudy (Clear) 12/08/18 01:30 5.0 (5.0-7.0) 12/08/18 01:30 Ur Specific [place] 1.010 (1.003-1.030) 12/08/18 01:30 >500 mg/dL (Negative) 12/08/18 01:30 Neg mg/dL (Negative) 12/08/18 01:30 Tr mg/dL (Negative) 12/08/18 01:30 Neg (Negative) 12/08/18 01:30 Neg (Negative) 12/08/18 01:30 Neg (Negative) 12/08/18 01:30 < 2.0 mg/dL (<2.0) 12/08/18 01:30 Ur Leukocyte Esterase Sm (Negative) 12/08/18 01:30 16.0 /HPF (0.0-6.0) H 12/08/18 01:30 1.0 /HPF (0.0-6.0) 12/08/18 01:30 U Epithel Cells (Auto) 6.0 /HPF (0-13.0) 12/08/18 01:30 Amorphous Crystals Few 12/08/18 01:30 Few /HPF 12/08/18 01:30 <5% (None Seen) 12/08/18 01:30 68.9 mg/dL (0.1-20.0) H 12/08/18 01:30 Protein/Creatinin Ratio 4.47 12/08/18 01:30 77 mmol/L 12/08/18 01:30 308 mg/dL (5-11.8) H 12/08/18 01:30 Hepatitis A IgM Ab Non-reactive (NonReactive) 12/08/18 05:06 Hep Bs Antigen Non-reactive (Negative) 12/08/18 05:06 Hep B Core IgM Ab Non-reactive (NonReactive) 12/08/18 05:06 Non-reactive (NonReactive) 12/08/18 05:06 Active Medications - Current Medications Current Medications: Generic Name Dose Route Start Last Admin Trade Name Freq PRN Reason Stop Dose Admin Acetaminophen 650 mg 12/07/18 10:23 Tylenol PO Q4H PRN Pain MILD(1-3)/Fever >100.5/KIM Benzonatate 200 mg 12/07/18 21:19 12/07/18 21:37 Tessalon Perles PO 200 mg Q8HR PRN Administration cough Calcium Acetate 1,334 mg 12/10/18 08:00 12/11/18 08:00 Phoslo PO 1,334 mg TIDWM NILA Administration Carvedilol 6.25 mg 12/09/18 13:00 12/11/18 11:11 Coreg PO 6.25 mg BID NILA Administration Diphenhydramine HCl 25 mg 12/07/18 21:18 12/09/18 22:00 Benadryl PO 25 mg QHS PRN Administration Sleep Docusate Sodium 100 mg 12/07/18 22:00 12/11/18 11:11 Colace PO 100 mg BID NILA Administration Epoetin Trevor 20,000 unit 12/08/18 10:00 12/09/18 11:20 Procrit SUB-Q 20,000 unit MARY PRN Administration hemodialysis Guaifenesin 200 mg 12/07/18 13:01 12/10/18 22:17 Robitussin PO 200 mg Q4H PRN Administration Cough Heparin Sodium (Porcine) 2,000 unit 12/09/18 10:00 Heparin 10,000 Units/10 Ml IV MARY PRN hemodialysis Sodium Chloride 100 mls @ 999 mls/hr 12/09/18 10:00 Nacl 0.9% IV MARY PRN Hypotension Lisinopril 5 mg 12/09/18 13:00 12/10/18 10:00 Zestril PO 5 mg QDAY NILA Administration Ondansetron HCl 4 mg 12/07/18 10:23 Zofran IV Q8H PRN Nausea And Vomiting Oxycodone/Acetaminophen 1 tab 12/07/18 10:23 12/11/18 09:07 Percocet 5/325 PO 1 tab Q6H PRN Administration Pain, Moderate (4-6) Sodium Chloride 10 ml 12/07/18 22:00 12/11/18 11:12 Sodium Chloride Flush Syringe 10 Ml IV 12/17/18 21:59 10 ml BID NILA Administration Sodium Chloride 10 ml 12/07/18 10:23 Sodium Chloride Flush Syringe 10 Ml IV PRN PRN LINE FLUSH Spironolactone 25 mg 12/09/18 13:00 12/10/18 10:00 Aldactone PO Not Given QDAY NILA Nutrition/Malnutrition Assess - Dietary Evaluation Nutrition/Malnutrition Findings: Nutrition Notes Start: 12/08/18 12:30 Freq: Status: Active Protocol: Document 12/08/18 12:30 LP (Rec: 12/08/18 12:35 LP [id number]) Nutrition Notes 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 Pt states appetite decreased a little but was eating well prior to feeling sick. Pt denies need for education. Pt ran out of medications. Educated on the importance of taking medications and following cardiac diet. Nutrition Intervention Revisit per MD consult or patient Sign Off request:
--- NOTE | 2018-12-11 14:00 | Progress Note ---
Assessment and Plan CKD with progression to ESRD initiated on dialysis Pulmonary edema Hypertension Acute systolic heart failure Cardiomyopathy (EF 20-25%): Newly diagnosed with uncertain duration Recommend: Continue fluid management via dialysis and medical therapy for newly diagnosed cardiomyopathy Eventual evaluation for myocardial ischemia Subjective Date of service: 12/11/18 Interval history: No cardiac complaints. Pt is feeling better. Objective Vital Signs Temp Pulse Resp BP Pulse Ox 12/11/18 12:17 98.4 F 84 16 152/70 95 12/11/18 11:11 83 108/65 12/11/18 07:56 98.4 F 83 16 121/88 98 12/11/18 05:10 83 18 110/72 100 12/11/18 05:06 98.5 F 12/11/18 05:03 86 18 116/80 99 12/11/18 00:10 98.4 F 12/11/18 00:08 86 18 97/49 95 12/10/18 23:00 84 12/10/18 20:52 98.3 F 12/10/18 20:49 83 18 116/66 97 12/10/18 17:14 98.6 F 93 H 16 119/78 98 12/10/18 15:00 93 H - Physical Examination HEENT: Positive: PERRL Neck: Positive: trachea midline Cardiac: Positive: Reg Rate and Rhythm Lungs: Positive: clear to auscultation Neuro: Positive: Grossly Intact Extremities: Present: +1 Edema - Imaging and Cardiology EKG: image reviewed
[2018-12-11] MEDS: LEVAQUIN 500MG/100ML 500 MG/100 ML BAG IV SCH (16:46)
[2018-12-11] MEDS: ALDACTONE PO SCH (18:05)
[2018-12-11] MEDS: ZESTRIL PO SCH (18:05)
[2018-12-12 05:57] LABS: Basophils # (Auto) 0.1 K/mm3 (0.0-0.1); Basophils % (Auto) 0.6 % (0.0-1.8); Eosinophils # (Auto) 0.4 K/mm3 (0.0-0.4); Eosinophils % (Auto) 3.9 % (0.0-4.3); Hemoglobin 7.8 gm/dl (10.1-14.3); Lymphocytes # (Auto) 2.5 K/mm3 (1.2-5.4); Lymphocytes % (Auto) 27.8 % (13.4-35.0); Mean Corpuscular HGB Conc 31 % (30-34); Mean Corpuscular Volume 86 fl (79-97); Monocytes # (Auto) 0.8 K/mm3 (0.0-0.8); Platelet Count 173 K/mm3 (140-440); Red Blood Count 2.92 M/mm3 (3.65-5.03); Red Cell Distribution Width 15.4 % (13.2-15.2)
[2018-12-12 06:21] LABS: Calcium 6.3 mg/dL (8.4-10.2)
[2018-12-12] MEDS ORDERED: NACL 0.9% 100 ML IV PRN (08:17)
--- NOTE | 2018-12-12 09:13 | Progress Note ---
Assessment and Plan 1. ESRD: Most likely CKD has progressed to ESRD. Patient presented with uremic symptoms. Metabolic features were suggestive of ESRD. Renal US was negative for hydronephosis. Renal prognosis is poor. Avoid nephrotoxic agents. Meds dosage based on GFR. Patient was started on hemodialysis due to ESRD, uremic symptoms and associated multiple metabolic abnormalities. Hemodialysis: 12/08, 12/09, today. Patient agrees for PD catheter placement during this admission. Need outpatient hemodialysis chair. 2. FEN: Hyperkalemia, K level is better. Anion gap MA, improved. Volume overload, improved. Hypocalcemia, on Calcium acetate. Monitor lytes. 3. Anemia: Epogen. 4. Systolic CHF with EF 20-25%: Followed by Cards. 5. HTN: BP is well controlled. Subjective Date of service: 12/12/18 Interval history: Patient was seen and examined at the bedside. Doing better. Objective - Vital Signs Vital signs: Vital Signs - 12hr 12/11/18 12/11/18 12/11/18 21:39 23:27 23:29 Temperature 98.3 F Pulse Rate 89 89 Respiratory 18 Rate Blood Pressure 110/77 119/83 O2 Sat by Pulse 100 Oximetry 12/12/18 12/12/18 05:23 08:23 Temperature 98.5 F Pulse Rate 87 93 H Respiratory 18 18 Rate Blood Pressure 105/71 135/90 O2 Sat by Pulse 96 86 Oximetry - General Appearance General appearance: well-developed, well-nourished, appears stated age, obese, other (no distress, R IJ tunnel catheter) EENT: ATNC, PERRL, mucous membranes moist, hearing intact, vision intact Neck: supple Respiratory: Present: Clear to Ascultation Cardiology: regular, S1S2, no murmurs Gastrointestinal: normoactive bowel sounds, no tenderness, no distended, obese Integumentary: no rash, warm and dry Neurologic: no focal deficit, no asterixis, alert and oriented x3 Musculoskeletal: other (no edema) - Lab 12/12/18 05:12 12/12/18 05:12 Most recent lab results Calcium 6.3 mg/dL (8.4-10.2) L 12/12/18 05:12 Phosphorus 4.60 mg/dL (2.5-4.5) H 12/12/18 05:12 68.9 mg/dL (0.1-20.0) H 12/08/18 01:30 77 mmol/L 12/08/18 01:30 308 mg/dL (5-11.8) H 12/08/18 01:30 Medications & Allergies - Medications Allergies/Adverse Reactions: Allergies No Known Allergies Allergy (Unverified 08/21/17 20:00) Home Medications: Home Medications Medication Instructions Recorded Confirmed Last Taken Type No Known Home Medications [No 12/07/18 12/07/18 Unknown History Reported Home Medications] Active Medications: Generic Name Dose Route Start Last Admin Trade Name Freq PRN Reason Stop Dose Admin Acetaminophen 650 mg 12/07/18 10:23 Tylenol PO Q4H PRN Pain MILD(1-3)/Fever >100.5/KIM Benzonatate 200 mg 12/07/18 21:19 12/07/18 21:37 Tessalon Perles PO 200 mg Q8HR PRN Administration cough Calcium Acetate 1,334 mg 12/10/18 08:00 12/11/18 17:09 Phoslo PO 1,334 mg TIDWM NILA Administration Carvedilol 6.25 mg 12/09/18 13:00 12/11/18 21:39 Coreg PO 6.25 mg BID NLIA Administration Diphenhydramine HCl 25 mg 12/07/18 21:18 12/09/18 22:00 Benadryl PO 25 mg QHS PRN Administration Sleep Docusate Sodium 100 mg 12/07/18 22:00 12/11/18 21:39 Colace PO 100 mg BID NILA Administration Epoetin [place] 20,000 unit 12/08/18 10:00 12/09/18 11:20 Procrit SUB-Q 20,000 unit MARY PRN Administration hemodialysis Guaifenesin 200 mg 12/07/18 13:01 12/10/18 22:17 Robitussin PO 200 mg Q4H PRN Administration Cough Heparin Sodium (Porcine) 2,000 unit 12/09/18 10:00 Heparin 10,000 Units/10 Ml IV MARY PRN hemodialysis Levofloxacin/Dextrose 500 mg in 100 mls @ 100 mls/hr 12/11/18 14:00 12/11/18 16:46 Levaquin 500mg/100ml IV 100 mls/hr Q48HR NILA Administration Protocol Sodium Chloride 100 mls @ 999 mls/hr 12/12/18 08:17 Nacl 0.9% IV MARY PRN Hypotension Lisinopril 5 mg 12/09/18 13:00 12/11/18 18:05 Zestril PO 5 mg QDAY NILA Administration Ondansetron HCl 4 mg 12/07/18 10:23 Zofran IV Q8H PRN Nausea And Vomiting Oxycodone/Acetaminophen 1 tab 12/07/18 10:23 12/11/18 18:09 Percocet 5/325 PO 1 tab Q6H PRN Administration Pain, Moderate (4-6) Sodium Chloride 10 ml 12/07/18 22:00 12/11/18 21:40 Sodium Chloride Flush Syringe 10 Ml IV 12/17/18 21:59 10 ml BID NILA Administration Sodium Chloride 10 ml 12/07/18 10:23 Sodium Chloride Flush Syringe 10 Ml IV PRN PRN LINE FLUSH Spironolactone 25 mg 12/09/18 13:00 12/11/18 18:05 Aldactone PO 25 mg QDAY NILA Administration
[2018-12-12] MEDS: PHOSLO PO SCH ×3 (10:24→18:35)
[2018-12-12] MEDS: ALDACTONE PO SCH (10:25)
[2018-12-12] MEDS: COLACE PO SCH ×2 (10:26→22:27)
[2018-12-12] MEDS: ZESTRIL PO SCH (10:28)
[2018-12-12] MEDS: COREG PO SCH ×2 (10:30→22:28)
[2018-12-12] MEDS: SODIUM CHLORIDE FLUSH SYRINGE 10 ML IV SCH ×2 (10:48→22:29)
--- NOTE | 2018-12-12 11:34 | Progress Note ---
Assessment and Plan CKD with progression to ESRD initiated on dialysis Pulmonary edema Hypertension Acute systolic heart failure Cardiomyopathy, newly diagnosed with uncertain duration EF 20-25% by echo Recommendations: Continue hemodialysis for fluid management. Continue medical management for systolic heart failure. Pre-discharge myocardial perfusion will be done tomorrow. Subjective Date of service: 12/12/18 Interval history: Patient appears well. She denies chest pain and shortness of breath. Objective Vital Signs Temp Pulse Resp BP Pulse Ox 12/12/18 10:30 93 H 135/90 12/12/18 10:28 93 H 135/90 12/12/18 10:25 93 H 135/90 12/12/18 08:23 98.5 F 93 H 18 135/90 86 12/12/18 05:23 87 18 105/71 96 12/11/18 23:29 98.3 F 12/11/18 23:27 89 18 119/83 100 12/11/18 21:39 89 110/77 12/11/18 20:42 98.3 F 12/11/18 20:41 89 18 110/77 98 12/11/18 19:33 85 12/11/18 18:05 109 H 144/88 12/11/18 17:26 98.6 F 84 18 125/77 97 12/11/18 12:17 98.4 F 84 16 152/70 95 - Physical Examination General: No Apparent Distress HEENT: Positive: PERRL Neck: Positive: trachea midline Cardiac: Positive: Reg Rate and Rhythm Lungs: Positive: Decreased Breath Sounds Neuro: Positive: Grossly Intact Extremities: Present: +1 Edema - Labs and Meds CBC 12/12/18 Range/Units 05:12 WBC 9.1 (4.5-11.0) K/mm3 RBC 2.92 L (3.65-5.03) M/mm3 Hgb 7.8 L (10.1-14.3) gm/dl Hct 25.0 L (30.3-42.9) % Plt Count 173 (140-440) K/mm3 Lymph # 2.5 (1.2-5.4) K/mm3 [place] # 0.8 (0.0-0.8) K/mm3 Eos # 0.4 (0.0-0.4) K/mm3 Baso # 0.1 (0.0-0.1) K/mm3 Comprehensive Metabolic Panel 12/12/18 Range/Units 05:12 Sodium 141 (137-145) mmol/L Potassium 4.3 (3.6-5.0) mmol/L Chloride 101.1 (98-107) mmol/L Carbon Dioxide 23 (22-30) mmol/L BUN 53 H (7-17) mg/dL Creatinine 8.4 H (0.7-1.2) mg/dL Glucose 87 (65-100) mg/dL Calcium 6.3 L (8.4-10.2) mg/dL
--- NOTE | 2018-12-12 12:02 | Progress Note ---
Assessment and Plan Assessment and plan: Acute hypoxic respiratory failure. Etiology secondary to systolic heart failure and volume overload. Continue hemodialysis to maintain negative fluid balance. Acute HFrEF. Echocardiogram reveals moderate to severe dilation of the left ventricle. Moderate concentric left ventricular hypertrophy. EF 20-25%. Mild pulmonary hypertension. Eventual evaluation for myocardial ischemia per cardiology Cardiomyopathy. As above. Klebsiella UTI. Cont. Levaquin daily. Follow-up blood cultures. ESRD. Continue hemodialysis per nephrology. Pt with new HD Accelerated hypertension. Continue antihypertensive medications. History of hypothyroidism. History Interval history: No new issues overnight. Hospitalist Physical - Constitutional Vitals: Temp Pulse Resp BP Pulse Ox 98.5 F 93 H 18 135/90 86 12/12/18 08:23 12/12/18 10:30 12/12/18 08:23 12/12/18 10:30 12/12/18 08:23 General appearance: Present: no acute distress - EENT Eyes: Present: PERRL, EOM intact ENT: hearing intact, clear oral mucosa, dentition normal - Neck Neck: Present: supple, normal ROM - Respiratory Respiratory effort: normal Respiratory: bilateral: CTA - Cardiovascular Rhythm: regular Heart Sounds: Present: S1 & S2. Absent: gallop, rub - Extremities Extremities: no ischemia, No edema, Full ROM - Abdominal General gastrointestinal: soft, non-tender, non-distended, normal bowel sounds - Integumentary Integumentary: Present: clear, warm, dry - Neurologic Neurologic: CNII-XII intact, moves all extremities Results - Labs CBC & Chem 7: 12/12/18 05:12 12/12/18 05:12 Labs: Laboratory Last Values WBC 9.1 K/mm3 (4.5-11.0) 12/12/18 05:12 RBC 2.92 M/mm3 (3.65-5.03) L 12/12/18 05:12 Hgb 7.8 gm/dl (10.1-14.3) L 12/12/18 05:12 Hct 25.0 % (30.3-42.9) L 12/12/18 05:12 MCV 86 fl (79-97) 12/12/18 05:12 MCH 27 pg (28-32) L 12/12/18 05:12 MCHC 31 % (30-34) 12/12/18 05:12 RDW 15.4 % (13.2-15.2) H 12/12/18 05:12 Plt Count 173 K/mm3 (140-440) 12/12/18 05:12 Lymph % (Auto) 27.8 % (13.4-35.0) 12/12/18 05:12 [place] % (Auto) 9.0 % (0.0-7.3) H 12/12/18 05:12 Eos % (Auto) 3.9 % (0.0-4.3) 12/12/18 05:12 Baso % (Auto) 0.6 % (0.0-1.8) 12/12/18 05:12 Lymph # 2.5 K/mm3 (1.2-5.4) 12/12/18 05:12 [place] # 0.8 K/mm3 (0.0-0.8) 12/12/18 05:12 Eos # 0.4 K/mm3 (0.0-0.4) 12/12/18 05:12 Baso # 0.1 K/mm3 (0.0-0.1) 12/12/18 05:12 Seg Neutrophils % 58.7 % (40.0-70.0) 12/12/18 05:12 Seg Neutrophils # 5.4 K/mm3 (1.8-7.7) 12/12/18 05:12 Sodium 141 mmol/L (137-145) 12/12/18 05:12 Potassium 4.3 mmol/L (3.6-5.0) 12/12/18 05:12 Chloride 101.1 mmol/L (98-107) 12/12/18 05:12 Carbon Dioxide 23 mmol/L (22-30) 12/12/18 05:12 21 mmol/L 12/12/18 05:12 BUN 53 mg/dL (7-17) H 12/12/18 05:12 8.4 mg/dL (0.7-1.2) H 12/12/18 05:12 Estimated GFR 6 ml/min 12/12/18 05:12 6 % 12/12/18 05:12 Glucose 87 mg/dL (65-100) 12/12/18 05:12 Calcium 6.3 mg/dL (8.4-10.2) L 12/12/18 05:12 Phosphorus 4.60 mg/dL (2.5-4.5) H 12/12/18 05:12 0.40 mg/dL (0.1-1.2) 12/08/18 Unknown AST 12 units/L (5-40) 12/08/18 Unknown ALT 7 units/L (7-56) 12/08/18 Unknown 67 units/L (35-129) 12/08/18 Unknown < 0.010 ng/mL (0.00-0.029) 12/07/18 09:08 NT-Pro-B Natriuret Pep 14876 pg/mL (0-450) H 12/07/18 09:08 6.7 g/dL (6.3-8.2) 12/08/18 Unknown 3.3 g/dL (3.9-5) L 12/08/18 Unknown 1.0 % 12/08/18 Unknown PTH Intact 764.2 pg/mL (15-65) H 12/08/18 05:06 Yellow (Yellow) 12/08/18 01:30 Slightly-cloudy (Clear) 12/08/18 01:30 5.0 (5.0-7.0) 12/08/18 01:30 Ur Specific [place] 1.010 (1.003-1.030) 12/08/18 01:30 >500 mg/dL (Negative) 12/08/18 01:30 Neg mg/dL (Negative) 12/08/18 01:30 Tr mg/dL (Negative) 12/08/18 01:30 Neg (Negative) 12/08/18 01:30 Neg (Negative) 12/08/18 01:30 Neg (Negative) 12/08/18 01:30 < 2.0 mg/dL (<2.0) 12/08/18 01:30 Ur Leukocyte Esterase Sm (Negative) 12/08/18 01:30 16.0 /HPF (0.0-6.0) H 12/08/18 01:30 1.0 /HPF (0.0-6.0) 12/08/18 01:30 U Epithel Cells (Auto) 6.0 /HPF (0-13.0) 12/08/18 01:30 Amorphous Crystals Few 12/08/18 01:30 Few /HPF 12/08/18 01:30 <5% (None Seen) 12/08/18 01:30 68.9 mg/dL (0.1-20.0) H 12/08/18 01:30 Protein/Creatinin Ratio 4.47 12/08/18 01:30 77 mmol/L 12/08/18 01:30 308 mg/dL (5-11.8) H 12/08/18 01:30 Hepatitis A IgM Ab Non-reactive (NonReactive) 12/08/18 05:06 Hep Bs Antigen Non-reactive (Negative) 12/08/18 05:06 Hep B Core IgM Ab Non-reactive (NonReactive) 12/08/18 05:06 Non-reactive (NonReactive) 12/08/18 05:06 Active Medications - Current Medications Current Medications: Generic Name Dose Route Start Last Admin Trade Name Freq PRN Reason Stop Dose Admin Acetaminophen 650 mg 12/07/18 10:23 Tylenol PO Q4H PRN Pain MILD(1-3)/Fever >100.5/KIM Benzonatate 200 mg 12/07/18 21:19 12/07/18 21:37 Tessalon Perles PO 200 mg Q8HR PRN Administration cough Calcium Acetate 1,334 mg 12/10/18 08:00 12/12/18 10:24 Phoslo PO 1,334 mg TIDWM NILA Administration Carvedilol 6.25 mg 12/09/18 13:00 12/12/18 10:30 Coreg PO 6.25 mg BID NILA Administration Diphenhydramine HCl 25 mg 12/07/18 21:18 12/09/18 22:00 Benadryl PO 25 mg QHS PRN Administration Sleep Docusate Sodium 100 mg 12/07/18 22:00 12/12/18 10:26 Colace PO 100 mg BID NILA Administration Epoetin [place] 20,000 unit 12/08/18 10:00 12/09/18 11:20 Procrit SUB-Q 20,000 unit MARY PRN Administration hemodialysis Guaifenesin 200 mg 12/07/18 13:01 12/10/18 22:17 Robitussin PO 200 mg Q4H PRN Administration Cough Heparin Sodium (Porcine) 2,000 unit 12/09/18 10:00 Heparin 10,000 Units/10 Ml IV MARY PRN hemodialysis Levofloxacin/Dextrose 500 mg in 100 mls @ 100 mls/hr 12/11/18 14:00 12/11/18 16:46 Levaquin 500mg/100ml IV 100 mls/hr Q48HR NILA Administration Protocol Sodium Chloride 100 mls @ 999 mls/hr 12/12/18 08:17 Nacl 0.9% IV MARY PRN Hypotension Lisinopril 5 mg 12/09/18 13:00 12/12/18 10:28 Zestril PO 5 mg QDAY NILA Administration Ondansetron HCl 4 mg 12/07/18 10:23 Zofran IV Q8H PRN Nausea And Vomiting Oxycodone/Acetaminophen 1 tab 12/07/18 10:23 12/11/18 18:09 Percocet 5/325 PO 1 tab Q6H PRN Administration Pain, Moderate (4-6) Sodium Chloride 10 ml 12/07/18 22:00 12/12/18 10:48 Sodium Chloride Flush Syringe 10 Ml IV 12/17/18 21:59 10 ml BID NILA Administration Sodium Chloride 10 ml 12/07/18 10:23 Sodium Chloride Flush Syringe 10 Ml IV PRN PRN LINE FLUSH Spironolactone 25 mg 12/09/18 13:00 12/12/18 10:25 Aldactone PO 25 mg QDAY NILA Administration Nutrition/Malnutrition Assess - Dietary Evaluation Nutrition/Malnutrition Findings: Nutrition Notes Start: 12/08/18 12:30 Freq: Status: Active Protocol: Document 12/08/18 12:30 LP (Rec: 12/08/18 12:35 LP [id number]) Nutrition Notes Need for 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 Pt states appetite decreased a little but was eating well prior to feeling sick. Pt denies need for education. Pt ran out of medications. Educated on the importance of taking medications and following cardiac diet. Nutrition Intervention Revisit per MD consult or patient Sign Off request:
[2018-12-12] MEDS: PERCOCET 5/325 PO PRN (12:48)
--- NOTE | 2018-12-12 14:13 | XRay Report ---
CHEST 1 VIEW INDICATION: bilateral fluffy infiltrates, worse on the right. Follow up pneumonia. COMPARISON: 12/07/2018 FINDINGS: Support devices: A right Vas-Cath is new compared to the previous exam and the tip is in the distal S VC. Heart: Cardiomegaly with slight decreased heart size since the last exam. Pulmonary vessels: Normal. Resolution of pulmonary venous congestion. Lungs: The lungs are now completely clear. No airspace disease. Pleura: No pleural effusion. No pneumothorax. Additional findings: None. IMPRESSION: Resolution of airspace disease. Cardiomegaly but no CHF or pneumonia. Signer Name: Salomón Cancino MD Signed: 12/12/2018 2:08 PM Workstation Name: [id number]
[2018-12-12] MEDS: PROCRIT SUB-Q PRN (14:21)
[2018-12-12 22:20] LABS: ANA Screen, IFA Negative (Negative)
[2018-12-13 07:45] LABS: Basophils # (Auto) 0.1 K/mm3 (0.0-0.1); Basophils % (Auto) 1.4 % (0.0-1.8); Eosinophils # (Auto) 0.4 K/mm3 (0.0-0.4); Eosinophils % (Auto) 3.7 % (0.0-4.3); Hematocrit 22.9 % (30.3-42.9); Hemoglobin 7.2 gm/dl (10.1-14.3); Lymphocytes # (Auto) 3.1 K/mm3 (1.2-5.4); Lymphocytes % (Auto) 29.6 % (13.4-35.0); Mean Corpuscular HGB Conc 31 % (30-34); Mean Corpuscular Volume 85 fl (79-97); Monocytes # (Auto) 0.9 K/mm3 (0.0-0.8); Red Cell Distribution Width 15.1 % (13.2-15.2)
[2018-12-13 08:06] LABS: Calcium 7.6 mg/dL (8.4-10.2)
[2018-12-13] MEDS ORDERED: LEXISCAN IV ONE (09:00)
--- NOTE | 2018-12-13 10:13 | Progress Note ---
Assessment and Plan 1. ESRD: Most likely CKD has progressed to ESRD. Patient presented with uremic symptoms. Metabolic features were suggestive of ESRD. Renal US was negative for hydronephosis. Renal prognosis is poor. Avoid nephrotoxic agents. Meds dosage based on GFR. Patient was started on hemodialysis due to ESRD, uremic symptoms and associated multiple metabolic abnormalities. Hemodialysis: 12/08, 12/09, 12/12. Patient agrees for PD catheter placement during this admission. D/w . Patient wants to have kidney biopsy done for definitive diagnosis and for also to find out if there is any chance of recovery. Patient was explained the risks and benefits involved in kidney biopsy. She voiced understanding and gave consent for kidney biopsy. Need outpatient hemodialysis chair. 2. FEN: Hyperkalemia, K level is better. Anion gap MA, improved. Volume overload, improved. Hypocalcemia, on Calcium acetate. Monitor lytes. 3. Anemia: Epogen. 4. Systolic CHF with EF 20-25%: Followed by Cards. 5. HTN: BP is well controlled. Subjective Date of service: 12/13/18 Interval history: Patient was seen and examined at the bedside. Doing better. Objective - Vital Signs Vital signs: Vital Signs - 12hr 12/12/18 12/12/18 12/13/18 22:28 23:00 00:06 Temperature 98.6 F Pulse Rate 90 67 101 H Respiratory 20 Rate Blood Pressure 125/96 98/79 O2 Sat by Pulse 99 Oximetry 12/13/18 12/13/18 04:06 07:31 Temperature 98.7 F 98.7 F Pulse Rate 91 H Respiratory 20 18 Rate Blood Pressure 140/88 140/94 O2 Sat by Pulse 94 Oximetry - General Appearance General appearance: well-developed, well-nourished, appears stated age, obese, other (no distress, R IJ tunnel catheter) EENT: ATNC, PERRL, mucous membranes moist, hearing intact, vision intact Neck: supple Respiratory: Present: Clear to Ascultation Cardiology: regular, S1S2, no murmurs Gastrointestinal: normoactive bowel sounds, no tenderness, no distended Integumentary: no rash, warm and dry Neurologic: no focal deficit, no asterixis, alert and oriented x3 Musculoskeletal: other (no edema) Psychiatric: cooperative - Lab 12/13/18 07:10 12/13/18 07:10 Most recent lab results Calcium 7.6 mg/dL (8.4-10.2) L D 12/13/18 07:10 Phosphorus 4.60 mg/dL (2.5-4.5) H 12/12/18 05:12 68.9 mg/dL (0.1-20.0) H 12/08/18 01:30 77 mmol/L 12/08/18 01:30 308 mg/dL (5-11.8) H 12/08/18 01:30 Medications & Allergies - Medications Allergies/Adverse Reactions: Allergies No Known Allergies Allergy (Unverified 08/21/17 20:00) Home Medications: Home Medications Medication Instructions Recorded Confirmed Last Taken Type No Known Home Medications [No 12/07/18 12/07/18 Unknown History Reported Home Medications] Active Medications: Generic Name Dose Route Start Last Admin Trade Name Freq PRN Reason Stop Dose Admin Acetaminophen 650 mg 12/07/18 10:23 Tylenol PO Q4H PRN Pain MILD(1-3)/Fever >100.5/KIM Benzonatate 200 mg 12/07/18 21:19 12/07/18 21:37 Tessalon Perles PO 200 mg Q8HR PRN Administration cough Calcium Acetate 1,334 mg 12/10/18 08:00 12/12/18 18:35 Phoslo PO 1,334 mg TIDWM NILA Administration Carvedilol 6.25 mg 12/09/18 13:00 12/12/18 22:28 Coreg PO 6.25 mg BID NILA Administration Diphenhydramine HCl 25 mg 12/07/18 21:18 12/09/18 22:00 Benadryl PO 25 mg QHS PRN Administration Sleep Docusate Sodium 100 mg 12/07/18 22:00 12/12/18 22:27 Colace PO 100 mg BID NILA Administration Epoetin Trevor 20,000 unit 12/08/18 10:00 12/12/18 14:21 Procrit SUB-Q 20,000 unit MARY PRN Administration hemodialysis Guaifenesin 200 mg 12/07/18 13:01 12/10/18 22:17 Robitussin PO 200 mg Q4H PRN Administration Cough Heparin Sodium (Porcine) 2,000 unit 12/09/18 10:00 Heparin 10,000 Units/10 Ml IV MARY PRN hemodialysis Levofloxacin/Dextrose 500 mg in 100 mls @ 100 mls/hr 12/11/18 14:00 12/11/18 16:46 Levaquin 500mg/100ml IV 100 mls/hr Q48HR NILA Administration Protocol Sodium Chloride 100 mls @ 999 mls/hr 12/12/18 08:17 Nacl 0.9% IV MARY PRN Hypotension Lisinopril 5 mg 12/09/18 13:00 12/12/18 10:28 Zestril PO 5 mg QDAY NILA Administration Ondansetron HCl 4 mg 12/07/18 10:23 Zofran IV Q8H PRN Nausea And Vomiting Oxycodone/Acetaminophen 1 tab 12/07/18 10:23 12/12/18 12:48 Percocet 5/325 PO 1 tab Q6H PRN Administration Pain, Moderate (4-6) Sodium Chloride 10 ml 12/07/18 22:00 12/12/18 22:29 Sodium Chloride Flush Syringe 10 Ml IV 12/17/18 21:59 10 ml BID NILA Administration Sodium Chloride 10 ml 12/07/18 10:23 Sodium Chloride Flush Syringe 10 Ml IV PRN PRN LINE FLUSH Spironolactone 25 mg 12/09/18 13:00 12/12/18 10:25 Aldactone PO 25 mg QDAY NILA Administration
[2018-12-13 10:35] LABS: Platelet Count 126 K/mm3 (140-440)
[2018-12-13] MEDS: ZESTRIL PO SCH (11:37)
[2018-12-13] MEDS: COLACE PO SCH ×2 (11:37→21:34)
[2018-12-13] MEDS: COREG PO SCH ×2 (11:38→21:34)
[2018-12-13] MEDS: PHOSLO PO SCH ×4 (11:39→17:16)
[2018-12-13] MEDS: ALDACTONE PO SCH (11:39)
[2018-12-13] MEDS: LEVAQUIN 500MG/100ML 500 MG/100 ML BAG IV SCH (11:40)
[2018-12-13] MEDS: SODIUM CHLORIDE FLUSH SYRINGE 10 ML IV SCH ×2 (11:40→21:34)
--- NOTE | 2018-12-13 13:19 | Progress Note ---
Assessment and Plan - Patient Problems (1) Systolic heart failure Current Visit: Yes Status: Acute Plan to address problem: A repeat chest x-ray shows clearing of the patient's pulmonary edema. A Lexiscan thallium stress test shows normal perfusion, consistent with a nonischemic dilated cardiomyopathy. We'll continue medical therapy for systolic left ventricular dysfunction as previously outlined. Ongoing dialysis for fluid and electrolyte management. Subjective Date of service: 12/13/18 Interval history: The patient underwent a Lexiscan myocardial perfusion study, revealed a dilated cardiomyopathy with normal perfusion, consistent with a nonischemic cardiomyopathy. Objective Vital Signs Temp Pulse Resp BP Pulse Ox 12/13/18 11:46 97.6 F 18 139/92 12/13/18 11:39 92 H 140/94 12/13/18 11:38 92 H 140/94 12/13/18 11:37 92 H 140/94 12/13/18 10:21 154/78 12/13/18 10:20 130/88 12/13/18 10:19 151/87 12/13/18 10:17 129/107 12/13/18 10:16 157/98 12/13/18 10:14 147/92 12/13/18 10:13 147/85 12/13/18 09:54 151/84 12/13/18 07:31 98.7 F 18 140/94 12/13/18 04:06 98.7 F 91 H 20 140/88 94 12/13/18 00:06 98.6 F 101 H 20 98/79 99 12/12/18 23:00 67 12/12/18 22:28 90 125/96 12/12/18 19:28 98.5 F 90 20 125/96 98 12/12/18 16:59 98.1 F 65 18 130/95 82 L 12/12/18 15:00 91 H 12/12/18 14:25 94 H 156/89 12/12/18 14:20 63 153/84 12/12/18 14:00 61 161/89 12/12/18 13:30 87 166/102 - Physical Examination General: Appears Well, No Apparent Distress HEENT: Positive: PERRL Neck: Positive: trachea midline Cardiac: Positive: Reg Rate and Rhythm Lungs: Positive: clear to auscultation Neuro: Positive: Grossly Intact Abdomen: Positive: Soft Skin: Positive: Clear Extremities: Absent: edema - Labs and Meds CBC 12/13/18 Range/Units 07:10 WBC 10.5 (4.5-11.0) K/mm3 RBC 2.70 L (3.65-5.03) M/mm3 Hgb 7.2 L (10.1-14.3) gm/dl Hct 22.9 L (30.3-42.9) % Plt Count 126 L (140-440) K/mm3 Lymph # 3.1 (1.2-5.4) K/mm3 [place] # 0.9 H (0.0-0.8) K/mm3 Eos # 0.4 (0.0-0.4) K/mm3 Baso # 0.1 (0.0-0.1) K/mm3 Comprehensive Metabolic Panel 12/13/18 Range/Units 07:10 Sodium 139 (137-145) mmol/L Potassium 4.7 (3.6-5.0) mmol/L Chloride 101.3 (98-107) mmol/L Carbon Dioxide 26 (22-30) mmol/L BUN 33 H (7-17) mg/dL Creatinine 5.4 H (0.7-1.2) mg/dL Glucose 89 (65-100) mg/dL Calcium 7.6 L D (8.4-10.2) mg/dL - Imaging and Cardiology EKG: image reviewed
[2018-12-13] MEDS: PERCOCET 5/325 PO PRN (13:48)
--- NOTE | 2018-12-13 14:11 | Progress Note ---
Assessment and Plan - Patient Problems (1) Acute renal insufficiency Current Visit: No Status: Acute Plan to address problem: Pt stable. Pt is acceptable candidate for PD catheter placement. Procedure, risks, benefits were discussed. All questions were answered. Consent was obtained. Surgery scheduled for December 15 at 1 PM. Incidentally, patient remembered that she had a thyroidectomy in the past. She no longer takes Synthroid due to lack of insurance. We will check a TSH in the morning. I have notified the hospitalist and the hereditary cancer program coordinator. Please call with questions. Time=15min Subjective Date of service: 12/13/18 Patient Reports: Positive: no new complaints (would like to proceed with PD catheter placement now) Objective Vital Signs - 12hr 12/13/18 12/13/18 12/13/18 04:06 07:31 09:54 Temperature 98.7 F 98.7 F Pulse Rate 91 H Respiratory 20 18 Rate Blood Pressure 140/88 140/94 151/84 O2 Sat by Pulse 94 Oximetry 12/13/18 12/13/18 12/13/18 10:13 10:14 10:16 Temperature Pulse Rate Respiratory Rate Blood Pressure 147/85 147/92 157/98 O2 Sat by Pulse Oximetry 12/13/18 12/13/18 12/13/18 10:17 10:19 10:20 Temperature Pulse Rate Respiratory Rate Blood Pressure 129/107 151/87 130/88 O2 Sat by Pulse Oximetry 12/13/18 12/13/18 12/13/18 10:21 11:37 11:38 Temperature Pulse Rate 92 H 92 H Respiratory Rate Blood Pressure 154/78 140/94 140/94 O2 Sat by Pulse Oximetry 12/13/18 12/13/18 11:39 11:46 Temperature 97.6 F Pulse Rate 92 H Respiratory 18 Rate Blood Pressure 140/94 139/92 O2 Sat by Pulse Oximetry - General physical appearance no distress, no pain - Respiratory normal expansion, normal respiratory effort - Abdomen soft, not tender, not distended - Integumentary no rash, no growths, no abnormal pigmentation - Psychiatric oriented to time, oriented to person, oriented to place, speech is normal, memory intact - Labs 12/13/18 07:10 12/13/18 07:10 Diabetes panel 12/13/18 Range/Units 07:10 Sodium 139 (137-145) mmol/L Potassium 4.7 (3.6-5.0) mmol/L Chloride 101.3 (98-107) mmol/L Carbon Dioxide 26 (22-30) mmol/L BUN 33 H (7-17) mg/dL Creatinine 5.4 H (0.7-1.2) mg/dL Glucose 89 (65-100) mg/dL Calcium 7.6 L D (8.4-10.2) mg/dL Calcium panel 12/13/18 Range/Units 07:10 Calcium 7.6 L D (8.4-10.2) mg/dL Pituitary panel 12/13/18 Range/Units 07:10 Sodium 139 (137-145) mmol/L Potassium 4.7 (3.6-5.0) mmol/L Chloride 101.3 (98-107) mmol/L Carbon Dioxide 26 (22-30) mmol/L BUN 33 H (7-17) mg/dL Creatinine 5.4 H (0.7-1.2) mg/dL Glucose 89 (65-100) mg/dL Calcium 7.6 L D (8.4-10.2) mg/dL Adrenal panel 12/13/18 Range/Units 07:10 Sodium 139 (137-145) mmol/L Potassium 4.7 (3.6-5.0) mmol/L Chloride 101.3 (98-107) mmol/L Carbon Dioxide 26 (22-30) mmol/L BUN 33 H (7-17) mg/dL Creatinine 5.4 H (0.7-1.2) mg/dL Glucose 89 (65-100) mg/dL Calcium 7.6 L D (8.4-10.2) mg/dL
--- NOTE | 2018-12-13 16:45 | Progress Note ---
Assessment and Plan Assessment and plan: Acute hypoxic respiratory failure. Etiology secondary to systolic heart failure and volume overload. Continue hemodialysis to maintain negative fluid balance. Acute HFrEF. Echocardiogram reveals moderate to severe dilation of the left ventricle. Moderate concentric left ventricular hypertrophy. EF 20-25%. Mild pulmonary hypertension. Eventual evaluation for myocardial ischemia per cardiology Stress test today Cardiomyopathy. As above. Klebsiella UTI. Cont. Levaquin daily. Follow-up blood cultures. ESRD. Continue hemodialysis per nephrology. Pt with new HD To place peritoneal dialysis catheter Accelerated hypertension. Continue antihypertensive medications. History of hypothyroidism. History Interval history: less shortness of breath Hospitalist Physical - Physical exam Narrative exam: Gen: Not in acute distress, lying in bed, obese HEENT: Normocephalic, atraumatic Neck: supple, no JVD Heart: S1 and S2 reg, no murmurs, rubs or gallop Lungs: Bilateral basal crackles, no wheeze Abd: soft, non tender, non distended, normal BS Ext: No edema, no clubbing, no cyanosis Neuro:awake,alert, Oriented X 3. No focal signs Psych: Normal mood - Constitutional Vitals: Temp Pulse Resp BP Pulse Ox 97.6 F 92 H 18 139/92 94 12/13/18 11:46 12/13/18 11:39 12/13/18 11:46 12/13/18 11:46 12/13/18 04:06 General appearance: Present: no acute distress Results - Labs CBC & Chem 7: 12/14/18 06:01 12/13/18 07:10 Labs: Laboratory Last Values WBC 10.5 K/mm3 (4.5-11.0) 12/13/18 07:10 RBC 2.70 M/mm3 (3.65-5.03) L 12/13/18 07:10 Hgb 7.2 gm/dl (10.1-14.3) L 12/13/18 07:10 Hct 22.9 % (30.3-42.9) L 12/13/18 07:10 MCV 85 fl (79-97) 12/13/18 07:10 MCH 27 pg (28-32) L 12/13/18 07:10 MCHC 31 % (30-34) 12/13/18 07:10 RDW 15.1 % (13.2-15.2) 12/13/18 07:10 Plt Count 126 K/mm3 (140-440) L 12/13/18 07:10 Lymph % (Auto) 29.6 % (13.4-35.0) 12/13/18 07:10 [place] % (Auto) 9.0 % (0.0-7.3) H 12/13/18 07:10 Eos % (Auto) 3.7 % (0.0-4.3) 12/13/18 07:10 Baso % (Auto) 1.4 % (0.0-1.8) 12/13/18 07:10 Lymph # 3.1 K/mm3 (1.2-5.4) 12/13/18 07:10 [place] # 0.9 K/mm3 (0.0-0.8) H 12/13/18 07:10 Eos # 0.4 K/mm3 (0.0-0.4) 12/13/18 07:10 Baso # 0.1 K/mm3 (0.0-0.1) 12/13/18 07:10 Seg Neutrophils % 56.3 % (40.0-70.0) 12/13/18 07:10 Seg Neutrophils # 5.9 K/mm3 (1.8-7.7) 12/13/18 07:10 Sodium 139 mmol/L (137-145) 12/13/18 07:10 Potassium 4.7 mmol/L (3.6-5.0) 12/13/18 07:10 Chloride 101.3 mmol/L (98-107) 12/13/18 07:10 Carbon Dioxide 26 mmol/L (22-30) 12/13/18 07:10 16 mmol/L 12/13/18 07:10 BUN 33 mg/dL (7-17) H 12/13/18 07:10 5.4 mg/dL (0.7-1.2) H 12/13/18 07:10 Estimated GFR 10 ml/min 12/13/18 07:10 6 % 12/13/18 07:10 Glucose 89 mg/dL (65-100) 12/13/18 07:10 Calcium 7.6 mg/dL (8.4-10.2) L D 12/13/18 07:10 Phosphorus 4.60 mg/dL (2.5-4.5) H 12/12/18 05:12 0.40 mg/dL (0.1-1.2) 12/08/18 Unknown AST 12 units/L (5-40) 12/08/18 Unknown ALT 7 units/L (7-56) 12/08/18 Unknown 67 units/L (35-129) 12/08/18 Unknown < 0.010 ng/mL (0.00-0.029) 12/07/18 09:08 NT-Pro-B Natriuret Pep 08048 pg/mL (0-450) H 12/07/18 09:08 6.7 g/dL (6.3-8.2) 12/08/18 Unknown 3.3 g/dL (3.9-5) L 12/08/18 Unknown 1.0 % 12/08/18 Unknown PTH Intact 764.2 pg/mL (15-65) H 12/08/18 05:06 Yellow (Yellow) 12/08/18 01:30 Slightly-cloudy (Clear) 12/08/18 01:30 5.0 (5.0-7.0) 12/08/18 01:30 Ur Specific [place] 1.010 (1.003-1.030) 12/08/18 01:30 >500 mg/dL (Negative) 12/08/18 01:30 Neg mg/dL (Negative) 12/08/18 01:30 Tr mg/dL (Negative) 12/08/18 01:30 Neg (Negative) 12/08/18 01:30 Neg (Negative) 12/08/18 01:30 Neg (Negative) 12/08/18 01:30 < 2.0 mg/dL (<2.0) 12/08/18 01:30 Ur Leukocyte Esterase Sm (Negative) 12/08/18 01:30 16.0 /HPF (0.0-6.0) H 12/08/18 01:30 1.0 /HPF (0.0-6.0) 12/08/18 01:30 U Epithel Cells (Auto) 6.0 /HPF (0-13.0) 12/08/18 01:30 Amorphous Crystals Few 12/08/18 01:30 Few /HPF 12/08/18 01:30 <5% (None Seen) 12/08/18 01:30 68.9 mg/dL (0.1-20.0) H 12/08/18 01:30 Protein/Creatinin Ratio 4.47 12/08/18 01:30 77 mmol/L 12/08/18 01:30 308 mg/dL (5-11.8) H 12/08/18 01:30 JOSE Screen Negative (Negative) 12/08/18 05:06 Hepatitis A IgM Ab Non-reactive (NonReactive) 12/08/18 05:06 Hep Bs Antigen Non-reactive (Negative) 12/08/18 05:06 Hep B Core IgM Ab Non-reactive (NonReactive) 12/08/18 05:06 Non-reactive (NonReactive) 12/08/18 05:06 Active Medications - Current Medications Current Medications: Generic Name Dose Route Start Last Admin Trade Name Freq PRN Reason Stop Dose Admin Acetaminophen 650 mg 12/07/18 10:23 Tylenol PO Q4H PRN Pain MILD(1-3)/Fever >100.5/KIM Benzonatate 200 mg 12/07/18 21:19 12/07/18 21:37 Tessalon Perles PO 200 mg Q8HR PRN Administration cough Calcium Acetate 1,334 mg 12/10/18 08:00 12/13/18 11:48 Phoslo PO 1,334 mg TIDWM NILA Administration Carvedilol 6.25 mg 12/09/18 13:00 12/13/18 11:38 Coreg PO 6.25 mg BID NILA Administration Diphenhydramine HCl 25 mg 12/07/18 21:18 12/09/18 22:00 Benadryl PO 25 mg QHS PRN Administration Sleep Docusate Sodium 100 mg 12/07/18 22:00 12/13/18 11:37 Colace PO 100 mg BID NILA Administration Epoetin [place] 20,000 unit 12/08/18 10:00 12/12/18 14:21 Procrit SUB-Q 20,000 unit MARY PRN Administration hemodialysis Guaifenesin 200 mg 12/07/18 13:01 12/10/18 22:17 Robitussin PO 200 mg Q4H PRN Administration Cough Heparin Sodium (Porcine) 2,000 unit 12/09/18 10:00 Heparin 10,000 Units/10 Ml IV MARY PRN hemodialysis Levofloxacin/Dextrose 500 mg in 100 mls @ 100 mls/hr 12/11/18 14:00 12/13/18 11:40 Levaquin 500mg/100ml IV 12/17/18 13:59 100 mls/hr Q48HR NILA Administration Protocol Sodium Chloride 100 mls @ 999 mls/hr 12/12/18 08:17 Nacl 0.9% IV MARY PRN Hypotension Cefazolin Sodium 2 gm in 20 mls @ 40 mls/hr 12/15/18 06:00 Ancef/Sterile Water 2 Gm/20 Ml IV 12/15/18 23:00 PREOP NILA Protocol Lisinopril 5 mg 12/09/18 13:00 12/13/18 11:37 Zestril PO 5 mg QDAY NILA Administration Ondansetron HCl 4 mg 12/07/18 10:23 12/13/18 13:06 Zofran IV 4 mg Q8H PRN Administration Nausea And Vomiting Oxycodone/Acetaminophen 1 tab 12/07/18 10:23 12/13/18 13:48 Percocet 5/325 PO 1 tab Q6H PRN Administration Pain, Moderate (4-6) Sodium Chloride 10 ml 12/07/18 22:00 12/13/18 11:40 Sodium Chloride Flush Syringe 10 Ml IV 12/17/18 21:59 10 ml BID NILA Administration Sodium Chloride 10 ml 12/07/18 10:23 Sodium Chloride Flush Syringe 10 Ml IV PRN PRN LINE FLUSH Spironolactone 25 mg 12/09/18 13:00 12/13/18 11:39 Aldactone PO 25 mg QDAY NILA Administration Nutrition/Malnutrition Assess - Dietary Evaluation Nutrition/Malnutrition Findings: Nutrition Notes Start: 12/08/18 12:30 Freq: Status: Active Protocol: Document 12/08/18 12:30 LP (Rec: 12/08/18 12:35 LP [id number]) Nutrition Notes Need for 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 Pt states appetite decreased a little but was eating well prior to feeling sick. Pt denies need for education. Pt ran out of medications. Educated on the importance of taking medications and following cardiac diet. Nutrition Intervention Revisit per MD consult or patient Sign Off request:
[2018-12-13] MEDS: RESTORIL PO PRN (23:08)
--- NOTE | 2018-12-14 05:01 | Treadmill Report ---
THALLIUM STRESS TEST LEFT VENTRICLE: Left ventricle is mildly dilated. Perfusion study demonstrates homogeneous uptake of the tracer in all segments, no significant perfusion defects identified. Gated analysis demonstrates severe left ventricular systolic dysfunction with ejection fraction calculated at 35%. CONCLUSION: Evidence of severe dilated cardiomyopathy, ejection fraction 35%. Perfusion study is normal, suggesting a nonischemic cardiomyopathy, clinical correlation recommended. [facility]# [id number] [place]/NTS
[2018-12-14 06:43] LABS: Hematocrit 24.1 % (30.3-42.9); Hemoglobin 7.5 gm/dl (10.1-14.3)
[2018-12-14 09:22] LABS: INR 1.15 (0.87-1.13)
[2018-12-14 09:24] LABS: Partial Thromboplastin Time 28.7 Sec. (24.2-36.6)
--- NOTE | 2018-12-14 09:24 | Progress Note ---
Assessment and Plan 1. ESRD: Most likely CKD has progressed to ESRD. Patient presented with uremic symptoms. Metabolic features were suggestive of ESRD. Renal US was negative for hydronephosis. Renal prognosis is poor. Avoid nephrotoxic agents. Meds dosage based on GFR. Patient was started on hemodialysis due to ESRD, uremic symptoms and associated multiple metabolic abnormalities. Hemodialysis: 12/08, 12/09, 12/12, today. Scheduled for PD catheter placement tomorrow. Scheduled for kidney biopsy today. Need outpatient hemodialysis chair. 2. FEN: Hyperkalemia, K level is better. Anion gap MA, improved. Volume overload, improved. Hypocalcemia, on Calcium acetate. Monitor lytes. 3. Anemia: Epogen. 4. Systolic CHF with EF 20-25%: Followed by Cards. 5. HTN: BP is well controlled. 6. Hypothyroid: Started on Levothyroxine. Subjective Date of service: 12/14/18 Interval history: Patient was seen and examined at the bedside. Doing better. Objective - Vital Signs Vital signs: Vital Signs - 12hr 12/13/18 12/13/18 12/13/18 21:34 23:00 23:44 Temperature Pulse Rate 85 76 77 Respiratory 18 Rate Blood Pressure 123/78 103/59 O2 Sat by Pulse 94 Oximetry 12/13/18 12/14/18 12/14/18 23:46 04:16 04:18 Temperature 98.0 F 98.3 F Pulse Rate 76 Respiratory 18 Rate Blood Pressure 112/61 O2 Sat by Pulse 95 Oximetry 12/14/18 08:23 Temperature 98.4 F Pulse Rate Respiratory 18 Rate Blood Pressure 102/68 O2 Sat by Pulse Oximetry - General Appearance General appearance: well-developed, well-nourished, appears stated age, obese, other (no distress, R IJ tunnel catheter) EENT: ATNC, PERRL, mucous membranes moist, hearing intact, vision intact Neck: supple Respiratory: Present: Clear to Ascultation Cardiology: regular, S1S2, no murmurs Gastrointestinal: normoactive bowel sounds, no tenderness, no distended, obese Integumentary: no rash, warm and dry Neurologic: no focal deficit, no asterixis, alert and oriented x3 Musculoskeletal: other (no edema) Psychiatric: cooperative - Lab 12/14/18 06:01 12/13/18 07:10 Most recent lab results Calcium 7.6 mg/dL (8.4-10.2) L D 12/13/18 07:10 Phosphorus 4.60 mg/dL (2.5-4.5) H 12/12/18 05:12 68.9 mg/dL (0.1-20.0) H 12/08/18 01:30 77 mmol/L 12/08/18 01:30 308 mg/dL (5-11.8) H 12/08/18 01:30 Medications & Allergies - Medications Allergies/Adverse Reactions: Allergies No Known Allergies Allergy (Unverified 08/21/17 20:00) Home Medications: Home Medications Medication Instructions Recorded Confirmed Last Taken Type No Known Home Medications [No 12/07/18 12/07/18 Unknown History Reported Home Medications] Active Medications: Generic Name Dose Route Start Last Admin Trade Name Freq PRN Reason Stop Dose Admin Acetaminophen 650 mg 12/07/18 10:23 Tylenol PO Q4H PRN Pain MILD(1-3)/Fever >100.5/KIM Benzonatate 200 mg 12/07/18 21:19 12/07/18 21:37 Tessalon Perles PO 200 mg Q8HR PRN Administration cough Calcium Acetate 1,334 mg 12/10/18 08:00 12/13/18 17:16 Phoslo PO 1,334 mg TIDWM NILA Administration Carvedilol 6.25 mg 12/09/18 13:00 12/13/18 21:34 Coreg PO 6.25 mg BID NILA Administration Diphenhydramine HCl 25 mg 12/07/18 21:18 12/09/18 22:00 Benadryl PO 25 mg QHS PRN Administration Sleep Docusate Sodium 100 mg 12/07/18 22:00 12/13/18 21:34 Colace PO 100 mg BID NILA Administration Epoetin [place] 20,000 unit 12/08/18 10:00 12/12/18 14:21 Procrit SUB-Q 20,000 unit MARY PRN Administration hemodialysis Guaifenesin 200 mg 12/07/18 13:01 12/10/18 22:17 Robitussin PO 200 mg Q4H PRN Administration Cough Heparin Sodium (Porcine) 2,000 unit 12/09/18 10:00 Heparin 10,000 Units/10 Ml IV MARY PRN hemodialysis Levofloxacin/Dextrose 500 mg in 100 mls @ 100 mls/hr 12/11/18 14:00 12/13/18 11:40 Levaquin 500mg/100ml IV 12/17/18 13:59 100 mls/hr Q48HR NILA Administration Protocol Sodium Chloride 100 mls @ 999 mls/hr 12/12/18 08:17 Nacl 0.9% IV MARY PRN Hypotension Cefazolin Sodium 2 gm in 20 mls @ 40 mls/hr 12/15/18 06:00 Ancef/Sterile Water 2 Gm/20 Ml IV 12/15/18 23:00 PREOP NILA Protocol Lisinopril 5 mg 12/09/18 13:00 12/13/18 11:37 Zestril PO 5 mg QDAY NILA Administration Ondansetron HCl 4 mg 12/07/18 10:23 12/13/18 13:06 Zofran IV 4 mg Q8H PRN Administration Nausea And Vomiting Oxycodone/Acetaminophen 1 tab 12/07/18 10:23 12/13/18 13:48 Percocet 5/325 PO 1 tab Q6H PRN Administration Pain, Moderate (4-6) Sodium Chloride 10 ml 12/07/18 22:00 12/13/18 21:34 Sodium Chloride Flush Syringe 10 Ml IV 12/17/18 21:59 10 ml BID NILA Administration Sodium Chloride 10 ml 12/07/18 10:23 Sodium Chloride Flush Syringe 10 Ml IV PRN PRN LINE FLUSH Spironolactone 25 mg 12/09/18 13:00 12/13/18 11:39 Aldactone PO 25 mg QDAY NILA Administration Temazepam 15 mg 12/13/18 22:19 12/13/18 23:08 Restoril PO 15 mg QHS PRN Administration Sleep
--- NOTE | 2018-12-14 09:30 | Progress Note ---
Assessment and Plan Assessment and plan: Acute hypoxic respiratory failure. Etiology secondary to systolic heart failure and volume overload. Continue hemodialysis to maintain negative fluid balance. Acute HFrEF. Echocardiogram reveals moderate to severe dilation of the left ventricle. Moderate concentric left ventricular hypertrophy. EF 20-25%. Mild pulmonary hypertension. Cardiomyopathy. As above. Klebsiella UTI. Cont. Levaquin daily. Follow-up blood cultures. ESRD. Continue hemodialysis per nephrology. Pt with new HD To place peritoneal dialysis catheter 12/15 kidney biopsy today Accelerated hypertension. Continue antihypertensive medications. History of hypothyroidism. History Interval history: less shortness of breath no chest pain Hospitalist Physical - Physical exam Narrative exam: Gen: Not in acute distress, lying in bed, obese HEENT: Normocephalic, atraumatic Neck: supple, no JVD Heart: S1 and S2 reg, no murmurs, rubs or gallop Lungs: Bilateral basal crackles, no wheeze Abd: soft, non tender, non distended, normal BS Ext: No edema, no clubbing, no cyanosis Neuro:awake,alert, Oriented X 3. No focal signs Psych: Normal mood - Constitutional Vitals: Temp Pulse Resp BP Pulse Ox 98.4 F 76 18 102/68 95 12/14/18 08:23 12/14/18 04:16 12/14/18 08:23 12/14/18 08:23 12/14/18 04:16 General appearance: Present: no acute distress Results - Labs CBC & Chem 7: 12/14/18 06:01 12/13/18 07:10 Labs: Laboratory Last Values WBC 10.5 K/mm3 (4.5-11.0) 12/13/18 07:10 RBC 2.70 M/mm3 (3.65-5.03) L 12/13/18 07:10 Hgb 7.5 gm/dl (10.1-14.3) L 12/14/18 06:01 Hct 24.1 % (30.3-42.9) L 12/14/18 06:01 MCV 85 fl (79-97) 12/13/18 07:10 MCH 27 pg (28-32) L 12/13/18 07:10 MCHC 31 % (30-34) 12/13/18 07:10 RDW 15.1 % (13.2-15.2) 12/13/18 07:10 Plt Count 126 K/mm3 (140-440) L 12/13/18 07:10 Lymph % (Auto) 29.6 % (13.4-35.0) 12/13/18 07:10 [place] % (Auto) 9.0 % (0.0-7.3) H 12/13/18 07:10 Eos % (Auto) 3.7 % (0.0-4.3) 12/13/18 07:10 Baso % (Auto) 1.4 % (0.0-1.8) 12/13/18 07:10 Lymph # 3.1 K/mm3 (1.2-5.4) 12/13/18 07:10 [place] # 0.9 K/mm3 (0.0-0.8) H 12/13/18 07:10 Eos # 0.4 K/mm3 (0.0-0.4) 12/13/18 07:10 Baso # 0.1 K/mm3 (0.0-0.1) 12/13/18 07:10 Seg Neutrophils % 56.3 % (40.0-70.0) 12/13/18 07:10 Seg Neutrophils # 5.9 K/mm3 (1.8-7.7) 12/13/18 07:10 PT 14.4 Sec. (12.2-14.9) 12/14/18 08:25 INR 1.15 (0.87-1.13) H 12/14/18 08:25 APTT 28.7 Sec. (24.2-36.6) 12/14/18 08:25 Sodium 139 mmol/L (137-145) 12/13/18 07:10 Potassium 4.7 mmol/L (3.6-5.0) 12/13/18 07:10 Chloride 101.3 mmol/L (98-107) 12/13/18 07:10 Carbon Dioxide 26 mmol/L (22-30) 12/13/18 07:10 16 mmol/L 12/13/18 07:10 BUN 33 mg/dL (7-17) H 12/13/18 07:10 5.4 mg/dL (0.7-1.2) H 12/13/18 07:10 Estimated GFR 10 ml/min 12/13/18 07:10 6 % 12/13/18 07:10 Glucose 89 mg/dL (65-100) 12/13/18 07:10 Calcium 7.6 mg/dL (8.4-10.2) L D 12/13/18 07:10 Phosphorus 4.60 mg/dL (2.5-4.5) H 12/12/18 05:12 0.40 mg/dL (0.1-1.2) 12/08/18 Unknown AST 12 units/L (5-40) 12/08/18 Unknown ALT 7 units/L (7-56) 12/08/18 Unknown 67 units/L (35-129) 12/08/18 Unknown < 0.010 ng/mL (0.00-0.029) 12/07/18 09:08 NT-Pro-B Natriuret Pep 76707 pg/mL (0-450) H 12/07/18 09:08 6.7 g/dL (6.3-8.2) 12/08/18 Unknown 3.3 g/dL (3.9-5) L 12/08/18 Unknown 1.0 % 12/08/18 Unknown TSH 20.140 mlU/mL (0.270-4.200) H 12/14/18 06:01 Free T4 0.90 ng/dL (0.76-1.46) 12/14/18 06:01 PTH Intact 764.2 pg/mL (15-65) H 12/08/18 05:06 Yellow (Yellow) 12/08/18 01:30 Slightly-cloudy (Clear) 12/08/18 01:30 5.0 (5.0-7.0) 12/08/18 01:30 Ur Specific [place] 1.010 (1.003-1.030) 12/08/18 01:30 >500 mg/dL (Negative) 12/08/18 01:30 Neg mg/dL (Negative) 12/08/18 01:30 Tr mg/dL (Negative) 12/08/18 01:30 Neg (Negative) 12/08/18 01:30 Neg (Negative) 12/08/18 01:30 Neg (Negative) 12/08/18 01:30 < 2.0 mg/dL (<2.0) 12/08/18 01:30 Ur Leukocyte Esterase Sm (Negative) 12/08/18 01:30 16.0 /HPF (0.0-6.0) H 12/08/18 01:30 1.0 /HPF (0.0-6.0) 12/08/18 01:30 U Epithel Cells (Auto) 6.0 /HPF (0-13.0) 12/08/18 01:30 Amorphous Crystals Few 12/08/18 01:30 Few /HPF 12/08/18 01:30 <5% (None Seen) 12/08/18 01:30 68.9 mg/dL (0.1-20.0) H 12/08/18 01:30 Protein/Creatinin Ratio 4.47 12/08/18 01:30 77 mmol/L 12/08/18 01:30 308 mg/dL (5-11.8) H 12/08/18 01:30 JOSE Screen Negative (Negative) 12/08/18 05:06 Hepatitis A IgM Ab Non-reactive (NonReactive) 12/08/18 05:06 Hep Bs Antigen Non-reactive (Negative) 12/08/18 05:06 Hep B Core IgM Ab Non-reactive (NonReactive) 12/08/18 05:06 Non-reactive (NonReactive) 12/08/18 05:06 Active Medications - Current Medications Current Medications: Generic Name Dose Route Start Last Admin Trade Name Freq PRN Reason Stop Dose Admin Acetaminophen 650 mg 12/07/18 10:23 Tylenol PO Q4H PRN Pain MILD(1-3)/Fever >100.5/KIM Benzonatate 200 mg 12/07/18 21:19 12/07/18 21:37 Tessalon Perles PO 200 mg Q8HR PRN Administration cough Calcium Acetate 1,334 mg 12/10/18 08:00 12/13/18 17:16 Phoslo PO 1,334 mg TIDWM NILA Administration Carvedilol 6.25 mg 12/09/18 13:00 12/13/18 21:34 Coreg PO 6.25 mg BID NILA Administration Diphenhydramine HCl 25 mg 12/07/18 21:18 12/09/18 22:00 Benadryl PO 25 mg QHS PRN Administration Sleep Docusate Sodium 100 mg 12/07/18 22:00 12/13/18 21:34 Colace PO 100 mg BID NILA Administration Epoetin Trevor 20,000 unit 12/08/18 10:00 12/12/18 14:21 Procrit SUB-Q 20,000 unit MARY PRN Administration hemodialysis Guaifenesin 200 mg 12/07/18 13:01 12/10/18 22:17 Robitussin PO 200 mg Q4H PRN Administration Cough Heparin Sodium (Porcine) 2,000 unit 12/09/18 10:00 Heparin 10,000 Units/10 Ml IV MARY PRN hemodialysis Levofloxacin/Dextrose 500 mg in 100 mls @ 100 mls/hr 12/11/18 14:00 12/13/18 11:40 Levaquin 500mg/100ml IV 12/17/18 13:59 100 mls/hr Q48HR NILA Administration Protocol Sodium Chloride 100 mls @ 999 mls/hr 12/12/18 08:17 Nacl 0.9% IV MARY PRN Hypotension Cefazolin Sodium 2 gm in 20 mls @ 40 mls/hr 12/15/18 06:00 Ancef/Sterile Water 2 Gm/20 Ml IV 12/15/18 23:00 PREOP NILA Protocol Lisinopril 5 mg 12/09/18 13:00 12/13/18 11:37 Zestril PO 5 mg QDAY NILA Administration Ondansetron HCl 4 mg 12/07/18 10:23 12/13/18 13:06 Zofran IV 4 mg Q8H PRN Administration Nausea And Vomiting Oxycodone/Acetaminophen 1 tab 12/07/18 10:23 12/13/18 13:48 Percocet 5/325 PO 1 tab Q6H PRN Administration Pain, Moderate (4-6) Sodium Chloride 10 ml 12/07/18 22:00 12/13/18 21:34 Sodium Chloride Flush Syringe 10 Ml IV 12/17/18 21:59 10 ml BID NILA Administration Sodium Chloride 10 ml 12/07/18 10:23 Sodium Chloride Flush Syringe 10 Ml IV PRN PRN LINE FLUSH Spironolactone 25 mg 12/09/18 13:00 12/13/18 11:39 Aldactone PO 25 mg QDAY NILA Administration Temazepam 15 mg 12/13/18 22:19 12/13/18 23:08 Restoril PO 15 mg QHS PRN Administration Sleep Nutrition/Malnutrition Assess - Dietary Evaluation Nutrition/Malnutrition Findings: Nutrition Notes Start: 12/08/18 12:30 Freq: Status: Active Protocol: Document 12/08/18 12:30 LP (Rec: 12/08/18 12:35 LP [id number]) Nutrition Notes Need for Assessment generated from: soda dialyzer Initial or Follow up Brief Note Current Diagnosis Acute Kidney Injury, Hypertension Other Pertinent Diagnosis non-compliance with medication , PE Subjective/Other Information Screen for MST. Pt states appetite decreased a little but was eating well prior to feeling sick. Pt denies need for education. Pt ran out of medications. Educated on the importance of taking medications and following cardiac diet. Nutrition Intervention Revisit per MD consult or patient Sign Off request:
[2018-12-14] MEDS: SODIUM CHLORIDE FLUSH SYRINGE 10 ML IV SCH ×2 (10:45→21:54)
--- NOTE | 2018-12-14 10:47 | Progress Note ---
<MILIND BARRETT - Last Filed: 12/14/18 10:46> Assessment and Plan CKD with progression to ESRD initiated on dialysis Pulmonary edema Hypertension Acute systolic heart failure Cardiomyopathy, newly diagnosed with uncertain duration EF 20-25% by echo Lexiscan thallium stress test shows normal perfusion, consistent with a nonischemic dilated cardiomyopathy. Recommendations: Continue hemodialysis for fluid management. Continue medical management for systolic heart failure. Otherwise, conservative cardiac management. Subjective Date of service: 12/14/18 Interval history: Patient is resting in bed comfortably. No cardiac complaints. Objective Vital Signs Temp Pulse Resp BP Pulse Ox 12/14/18 08:23 98.4 F 18 102/68 12/14/18 04:18 98.3 F 12/14/18 04:16 76 18 112/61 95 12/13/18 23:46 98.0 F 12/13/18 23:44 77 18 103/59 94 12/13/18 23:00 76 12/13/18 21:34 85 123/78 12/13/18 20:49 98.3 F 12/13/18 20:48 85 20 123/78 99 12/13/18 17:18 97.9 F 77 18 120/74 86 12/13/18 15:00 74 12/13/18 11:46 97.6 F 18 139/92 12/13/18 11:39 92 H 140/94 12/13/18 11:38 92 H 140/94 12/13/18 11:37 92 H 140/94 12/13/18 11:00 18 - Physical Examination General: Appears Well, No Apparent Distress HEENT: Positive: PERRL Neck: Positive: trachea midline Cardiac: Positive: Reg Rate and Rhythm Lungs: Positive: Decreased Breath Sounds Neuro: Positive: Grossly Intact Extremities: Absent: edema - Labs and Meds Coagulation 12/14/18 Range/Units 08:25 PT 14.4 (12.2-14.9) Sec. INR 1.15 H (0.87-1.13) APTT 28.7 (24.2-36.6) Sec. CBC 12/14/18 Range/Units 06:01 Hgb 7.5 L (10.1-14.3) gm/dl Hct 24.1 L (30.3-42.9) % <SUSAN BAPTISTE - Last Filed: 12/14/18 11:14> Assessment and Plan I seen and evaluated the patient agreed with this plan. Patient presents with new onset cardiomyopathy with ejection fraction of 20-25%. The nuclear stress test was negative for stress-induced ischemia, consistent with nonischemic dilated cardiomyopathy. Patient has a history of end-stage renal disease on dialysis. At this time recommend maximization of medical therapy for treatment of cardiomyopathy. Volume removal is via dialysis. Objective Vital Signs Temp Pulse Resp BP Pulse Ox 12/14/18 08:23 98.4 F 18 102/68 12/14/18 04:18 98.3 F 12/14/18 04:16 76 18 112/61 95 12/13/18 23:46 98.0 F 12/13/18 23:44 77 18 103/59 94 12/13/18 23:00 76 12/13/18 21:34 85 123/78 12/13/18 20:49 98.3 F 12/13/18 20:48 85 20 123/78 99 12/13/18 17:18 97.9 F 77 18 120/74 86 12/13/18 15:00 74 12/13/18 11:46 97.6 F 18 139/92 12/13/18 11:39 92 H 140/94 12/13/18 11:38 92 H 140/94 12/13/18 11:37 92 H 140/94 - Labs and Meds Coagulation 12/14/18 Range/Units 08:25 PT 14.4 (12.2-14.9) Sec. INR 1.15 H (0.87-1.13) APTT 28.7 (24.2-36.6) Sec. CBC 12/14/18 Range/Units 06:01 Hgb 7.5 L (10.1-14.3) gm/dl Hct 24.1 L (30.3-42.9) %
[2018-12-14] MEDS ORDERED: ZOFRAN IV ONE (10:49)
[2018-12-14] MEDS ORDERED: DILAUDID IV ONE (10:51)
[2018-12-14] MEDS ORDERED: ZOFRAN ONE (11:05)
[2018-12-14] MEDS ORDERED: VERSED ONE (11:06)
[2018-12-14] MEDS ORDERED: DILAUDID ONE (11:06)
[2018-12-14] MEDS ORDERED: DILAUDID IM ONE (11:56)
[2018-12-14] MEDS: PHOSLO PO SCH ×3 (13:16→19:00)
[2018-12-14] MEDS: COREG PO SCH ×2 (13:17→21:53)
[2018-12-14] MEDS: COLACE PO SCH ×2 (13:17→21:53)
--- NOTE | 2018-12-14 13:56 | Cat Scan Report ---
CT-GUIDED RENAL BIOPSY INDICATION : Renal failure.. COMPARISON: None PROCEDURE: The risks (including but not limited to bleeding and infection) and benefits were explain ed to the patient and informed consent was obtained. All CT scans at this location are performed usi ng CT dose reduction for ALFRED by means of automated exposure control. A time out procedure was performed. The procedure site was prepped and draped in the usual sterile f ashion and lidocaine was used for local anesthesia. Anxiolysis was accomplished with 2 mg of Dilaudid IV. 4 mg of Zofran were also administered. Independent cardiorespiratory monitoring by RN. Intraobse rver time of 15 minutes. The patient was sedated for [address] guidance, a 17-gauge introducer needle was advanced to the inferior pole of the right kidney . 2 separate 1.3 cm 18-gauge core biopsies were obtained and placed in formalin. Follow-up scan demjennifer hoffmanntes no evidence for postbiopsy hemorrhage. The patient tolerated the procedure without difficulty . IMPRESSION: Successful CT-guided biopsy at the inferior pole of the right kidney. Signer Name: Jairon Larsen Jr, MD Signed: 12/14/2018 1:51 PM Workstation Name: [id number]
[2018-12-14] MEDS: ALDACTONE PO SCH (16:54)
[2018-12-14] MEDS: ZESTRIL PO SCH (16:54)
[2018-12-14] MEDS: PROCRIT SUB-Q PRN (17:48)
[2018-12-14] MEDS ORDERED: NACL 0.9% 100 ML IV PRN (18:06)
[2018-12-14] MEDS ORDERED: NACL 0.9 (PRIMING MACHINE ONLY DIALYSIS) MC ONE (18:37)
[2018-12-14] MEDS: RESTORIL PO PRN (21:53)
[2018-12-15] MEDS ORDERED: ANCEF/STERILE WATER 2 GM/20 ML 2 GM/20 ML SYRINGE IV SCH (06:00)
[2018-12-15] MEDS: PERCOCET 5/325 PO PRN ×3 (08:20→21:38)
[2018-12-15] MEDS: PHOSLO PO SCH ×3 (08:44→17:29)
[2018-12-15] MEDS: SYNTHROID PO SCH (08:47)
[2018-12-15] MEDS: LEVAQUIN 500MG/100ML 500 MG/100 ML BAG IV SCH ×2 (08:47→09:47)
--- NOTE | 2018-12-15 09:11 | Progress Note ---
Assessment and Plan Assessment and plan: Acute hypoxic respiratory failure. Etiology secondary to systolic heart failure and volume overload. Continue hemodialysis to maintain negative fluid balance. Acute HFrEF. Echocardiogram reveals moderate to severe dilation of the left ventricle. Moderate concentric left ventricular hypertrophy. EF 20-25%. Mild pulmonary hypertension. Cardiomyopathy. As above. Klebsiella UTI. Cont. Levaquin daily. ESRD. Continue hemodialysis per nephrology. Pt with new HD To place peritoneal dialysis catheter today 12/15 kidney biopsy done 12/14 Accelerated hypertension. Continue antihypertensive medications. History of hypothyroidism. History Interval history: No more shortness of breath no chest pain Hospitalist Physical - Physical exam Narrative exam: Gen: Not in acute distress, lying in bed, obese HEENT: Normocephalic, atraumatic Neck: supple, no JVD Heart: S1 and S2 reg, no murmurs, rubs or gallop Lungs: Bilateral basal crackles, no wheeze Abd: soft, non tender, non distended, normal BS Ext: No edema, no clubbing, no cyanosis Neuro:awake,alert, Oriented X 3. No focal signs Psych: Normal mood - Constitutional Vitals: Temp Pulse Resp BP Pulse Ox 98.9 F 78 18 132/78 97 12/15/18 08:53 12/15/18 03:56 12/15/18 08:53 12/15/18 08:53 12/15/18 03:56 General appearance: Present: no acute distress Results - Labs CBC & Chem 7: 12/14/18 06:01 12/15/18 10:26 Labs: Laboratory Last Values WBC 10.5 K/mm3 (4.5-11.0) 12/13/18 07:10 RBC 2.70 M/mm3 (3.65-5.03) L 12/13/18 07:10 Hgb 7.5 gm/dl (10.1-14.3) L 12/14/18 06:01 Hct 24.1 % (30.3-42.9) L 12/14/18 06:01 MCV 85 fl (79-97) 12/13/18 07:10 MCH 27 pg (28-32) L 12/13/18 07:10 MCHC 31 % (30-34) 12/13/18 07:10 RDW 15.1 % (13.2-15.2) 12/13/18 07:10 Plt Count 126 K/mm3 (140-440) L 12/13/18 07:10 Lymph % (Auto) 29.6 % (13.4-35.0) 12/13/18 07:10 [place] % (Auto) 9.0 % (0.0-7.3) H 12/13/18 07:10 Eos % (Auto) 3.7 % (0.0-4.3) 12/13/18 07:10 Baso % (Auto) 1.4 % (0.0-1.8) 12/13/18 07:10 Lymph # 3.1 K/mm3 (1.2-5.4) 12/13/18 07:10 [place] # 0.9 K/mm3 (0.0-0.8) H 12/13/18 07:10 Eos # 0.4 K/mm3 (0.0-0.4) 12/13/18 07:10 Baso # 0.1 K/mm3 (0.0-0.1) 12/13/18 07:10 Seg Neutrophils % 56.3 % (40.0-70.0) 12/13/18 07:10 Seg Neutrophils # 5.9 K/mm3 (1.8-7.7) 12/13/18 07:10 PT 14.4 Sec. (12.2-14.9) 12/14/18 08:25 INR 1.15 (0.87-1.13) H 12/14/18 08:25 APTT 28.7 Sec. (24.2-36.6) 12/14/18 08:25 Sodium 139 mmol/L (137-145) 12/13/18 07:10 Potassium 4.7 mmol/L (3.6-5.0) 12/13/18 07:10 Chloride 101.3 mmol/L (98-107) 12/13/18 07:10 Carbon Dioxide 26 mmol/L (22-30) 12/13/18 07:10 16 mmol/L 12/13/18 07:10 BUN 33 mg/dL (7-17) H 12/13/18 07:10 5.4 mg/dL (0.7-1.2) H 12/13/18 07:10 Estimated GFR 10 ml/min 12/13/18 07:10 6 % 12/13/18 07:10 Glucose 89 mg/dL (65-100) 12/13/18 07:10 Calcium 7.6 mg/dL (8.4-10.2) L D 12/13/18 07:10 Phosphorus 4.60 mg/dL (2.5-4.5) H 12/12/18 05:12 0.40 mg/dL (0.1-1.2) 12/08/18 Unknown AST 12 units/L (5-40) 12/08/18 Unknown ALT 7 units/L (7-56) 12/08/18 Unknown 67 units/L (35-129) 12/08/18 Unknown < 0.010 ng/mL (0.00-0.029) 12/07/18 09:08 NT-Pro-B Natriuret Pep 85585 pg/mL (0-450) H 12/07/18 09:08 6.7 g/dL (6.3-8.2) 12/08/18 Unknown 3.3 g/dL (3.9-5) L 12/08/18 Unknown 1.0 % 12/08/18 Unknown TSH 20.140 mlU/mL (0.270-4.200) H 12/14/18 06:01 Free T4 0.90 ng/dL (0.76-1.46) 12/14/18 06:01 PTH Intact 764.2 pg/mL (15-65) H 12/08/18 05:06 Yellow (Yellow) 12/08/18 01:30 Slightly-cloudy (Clear) 12/08/18 01:30 5.0 (5.0-7.0) 12/08/18 01:30 Ur Specific [place] 1.010 (1.003-1.030) 12/08/18 01:30 >500 mg/dL (Negative) 12/08/18 01:30 Neg mg/dL (Negative) 12/08/18 01:30 Tr mg/dL (Negative) 12/08/18 01:30 Neg (Negative) 12/08/18 01:30 Neg (Negative) 12/08/18 01:30 Neg (Negative) 12/08/18 01:30 < 2.0 mg/dL (<2.0) 12/08/18 01:30 Ur Leukocyte Esterase Sm (Negative) 12/08/18 01:30 16.0 /HPF (0.0-6.0) H 12/08/18 01:30 1.0 /HPF (0.0-6.0) 12/08/18 01:30 U Epithel Cells (Auto) 6.0 /HPF (0-13.0) 12/08/18 01:30 Amorphous Crystals Few 12/08/18 01:30 Few /HPF 12/08/18 01:30 <5% (None Seen) 12/08/18 01:30 68.9 mg/dL (0.1-20.0) H 12/08/18 01:30 Protein/Creatinin Ratio 4.47 12/08/18 01:30 77 mmol/L 12/08/18 01:30 308 mg/dL (5-11.8) H 12/08/18 01:30 JOSE Screen Negative (Negative) 12/08/18 05:06 Hepatitis A IgM Ab Non-reactive (NonReactive) 12/08/18 05:06 Hep Bs Antigen Non-reactive (Negative) 12/08/18 05:06 Hep B Core IgM Ab Non-reactive (NonReactive) 12/08/18 05:06 Non-reactive (NonReactive) 12/08/18 05:06 Active Medications - Current Medications Current Medications: Generic Name Dose Route Start Last Admin Trade Name Freq PRN Reason Stop Dose Admin Acetaminophen 650 mg 12/07/18 10:23 Tylenol PO Q4H PRN Pain MILD(1-3)/Fever >100.5/KIM Benzonatate 200 mg 12/07/18 21:19 12/07/18 21:37 Tessalon Perles PO 200 mg Q8HR PRN Administration cough Calcium Acetate 1,334 mg 12/10/18 08:00 12/15/18 08:44 Phoslo PO Not Given TIDWM NILA Carvedilol 6.25 mg 12/09/18 13:00 12/14/18 21:53 Coreg PO 6.25 mg BID NILA Administration Diphenhydramine HCl 25 mg 12/07/18 21:18 12/09/18 22:00 Benadryl PO 25 mg QHS PRN Administration Sleep Docusate Sodium 100 mg 12/07/18 22:00 12/14/18 21:53 Colace PO 100 mg BID NILA Administration Epoetin [place] 20,000 unit 12/08/18 10:00 12/14/18 17:48 Procrit SUB-Q 20,000 unit MARY PRN Administration hemodialysis Guaifenesin 200 mg 12/07/18 13:01 12/10/18 22:17 Robitussin PO 200 mg Q4H PRN Administration Cough Heparin Sodium (Porcine) 2,000 unit 12/09/18 10:00 Heparin 10,000 Units/10 Ml IV MARY PRN hemodialysis Levofloxacin/Dextrose 500 mg in 100 mls @ 100 mls/hr 12/11/18 14:00 12/15/18 08:47 Levaquin 500mg/100ml IV 12/17/18 13:59 100 mls/hr Q48HR NILA Administration Protocol Sodium Chloride 100 mls @ 999 mls/hr 12/12/18 08:17 Nacl 0.9% IV MARY PRN Hypotension Cefazolin Sodium 2 gm in 20 mls @ 40 mls/hr 12/15/18 06:00 Ancef/Sterile Water 2 Gm/20 Ml IV 12/15/18 23:00 PREOP [facility] Protocol Sodium Chloride 100 mls @ 999 mls/hr 12/14/18 18:06 Nacl 0.9% IV MARY PRN Hypotension Levothyroxine Sodium 75 mcg 12/15/18 06:00 12/15/18 08:47 Synthroid PO 75 mcg DAILY@0600 [facility] Administration Lisinopril 5 mg 12/09/18 13:00 12/14/18 16:54 Zestril PO Not Given QDAY [facility] Ondansetron HCl 4 mg 12/07/18 10:23 12/13/18 13:06 Zofran IV 4 mg Q8H PRN Administration Nausea And Vomiting Oxycodone/Acetaminophen 1 tab 12/07/18 10:23 12/15/18 08:20 Percocet 5/325 PO 1 tab Q6H PRN Administration Pain, Moderate (4-6) Sodium Chloride 10 ml 12/07/18 22:00 12/14/18 21:54 Sodium Chloride Flush Syringe 10 Ml IV 12/17/18 21:59 10 ml BID NILA Administration Sodium Chloride 10 ml 12/07/18 10:23 Sodium Chloride Flush Syringe 10 Ml IV PRN PRN LINE FLUSH Spironolactone 25 mg 12/09/18 13:00 12/14/18 16:54 Aldactone PO Not Given QDAY NILA Temazepam 15 mg 12/13/18 22:19 12/14/18 21:53 Restoril PO 15 mg QHS PRN Administration Sleep Nutrition/Malnutrition Assess - Dietary Evaluation Nutrition/Malnutrition Findings: Nutrition Notes Start: 12/08/18 12:30 Freq: Status: Active Protocol: Document 12/08/18 12:30 LP (Rec: 12/08/18 12:35 LP [id number]) Nutrition Notes Need for Assessment generated from: precipitator operator Initial or Follow up Brief Note Current Diagnosis Acute Kidney Injury, Hypertension Other Pertinent Diagnosis non-compliance with medication , PE Subjective/Other Information Screen for MST. Pt states appetite decreased a little but was eating well prior to feeling sick. Pt denies need for education. Pt ran out of medications. Educated on the importance of taking medications and following cardiac diet. Nutrition Intervention Revisit per MD consult or patient Sign Off request:
--- NOTE | 2018-12-15 09:59 | Progress Note ---
Assessment and Plan 1. ESRD: Most likely CKD has progressed to ESRD. Patient presented with uremic symptoms. Metabolic features were suggestive of ESRD. Renal US was negative for hydronephosis. Renal prognosis is poor. Avoid nephrotoxic agents. Meds dosage based on GFR. Patient was started on hemodialysis due to ESRD, uremic symptoms and associated multiple metabolic abnormalities. Hemodialysis: 12/08, 12/09, 12/12, 12/14. Scheduled for PD catheter placement today. S/p kidney biopsy yesterday. Outpatient hemodialysis chair at [facility] starting 12/20/2018. 2. FEN: Hyperkalemia, K level is better. Anion gap MA, improved. Volume overload, improved. Hypocalcemia, on Calcium acetate. Monitor lytes. 3. Anemia: Epogen. 4. Systolic CHF with EF 20-25%: Followed by Cards. 5. HTN: BP is well controlled. 6. Hypothyroid: On Levothyroxine. Subjective Date of service: 12/15/18 Interval history: Patient was seen and examined at the bedside. Doing better. Objective - Vital Signs Vital signs: Vital Signs - 12hr 12/14/18 12/14/18 12/14/18 22:00 23:00 23:05 Temperature 98.0 F Pulse Rate 61 82 Respiratory 18 Rate Blood Pressure 123/70 O2 Sat by Pulse 100 95 Oximetry 12/15/18 12/15/18 03:56 08:53 Temperature 98.0 F 98.9 F Pulse Rate 78 Respiratory 18 18 Rate Blood Pressure 107/65 132/78 O2 Sat by Pulse 97 Oximetry - General Appearance General appearance: well-developed, well-nourished, appears stated age, obese, other (no distress, R IJ tunnel catheter) EENT: ATNC, PERRL, mucous membranes moist, hearing intact, vision intact Neck: supple Respiratory: Present: Clear to Ascultation Cardiology: regular, S1S2, no murmurs Gastrointestinal: normoactive bowel sounds, no tenderness, no distended Integumentary: no rash, warm and dry Neurologic: no focal deficit, no asterixis, alert and oriented x3 Musculoskeletal: other (no edema) Psychiatric: cooperative - Lab 12/14/18 06:01 12/15/18 10:26 Most recent lab results Calcium 7.6 mg/dL (8.4-10.2) L D 12/13/18 07:10 Phosphorus 4.60 mg/dL (2.5-4.5) H 12/12/18 05:12 68.9 mg/dL (0.1-20.0) H 12/08/18 01:30 77 mmol/L 12/08/18 01:30 308 mg/dL (5-11.8) H 12/08/18 01:30 Medications & Allergies - Medications Allergies/Adverse Reactions: Allergies No Known Allergies Allergy (Unverified 08/21/17 20:00) Home Medications: Home Medications Medication Instructions Recorded Confirmed Last Taken Type No Known Home Medications [No 12/07/18 12/07/18 Unknown History Reported Home Medications] Active Medications: Generic Name Dose Route Start Last Admin Trade Name Freq PRN Reason Stop Dose Admin Acetaminophen 650 mg 12/07/18 10:23 Tylenol PO Q4H PRN Pain MILD(1-3)/Fever >100.5/KIM Benzonatate 200 mg 12/07/18 21:19 12/07/18 21:37 Tessalon Perles PO 200 mg Q8HR PRN Administration cough Calcium Acetate 1,334 mg 12/10/18 08:00 12/15/18 08:44 Phoslo PO Not Given TIDWM NILA Carvedilol 6.25 mg 12/09/18 13:00 12/14/18 21:53 Coreg PO 6.25 mg BID NILA Administration Diphenhydramine HCl 25 mg 12/07/18 21:18 12/09/18 22:00 Benadryl PO 25 mg QHS PRN Administration Sleep Docusate Sodium 100 mg 12/07/18 22:00 12/14/18 21:53 Colace PO 100 mg BID NILA Administration Epoetin Trevor 20,000 unit 12/08/18 10:00 12/14/18 17:48 Procrit SUB-Q 20,000 unit MARY PRN Administration hemodialysis Guaifenesin 200 mg 12/07/18 13:01 12/10/18 22:17 Robitussin PO 200 mg Q4H PRN Administration Cough Heparin Sodium (Porcine) 2,000 unit 12/09/18 10:00 Heparin 10,000 Units/10 Ml IV MARY PRN hemodialysis Levofloxacin/Dextrose 500 mg in 100 mls @ 100 mls/hr 12/11/18 14:00 12/15/18 09:47 Levaquin 500mg/100ml IV 12/17/18 13:59 Not Given Q48HR NILA Protocol Sodium Chloride 100 mls @ 999 mls/hr 12/12/18 08:17 Nacl 0.9% IV MARY PRN Hypotension Cefazolin Sodium 2 gm in 20 mls @ 40 mls/hr 12/15/18 06:00 Ancef/Sterile Water 2 Gm/20 Ml IV 12/15/18 23:00 PREOP NILA Protocol Sodium Chloride 100 mls @ 999 mls/hr 12/14/18 18:06 Nacl 0.9% IV MARY PRN Hypotension Levothyroxine Sodium 75 mcg 12/15/18 06:00 12/15/18 08:47 Synthroid PO 75 mcg DAILY@0600 [facility] Administration Lisinopril 5 mg 12/09/18 13:00 12/14/18 16:54 Zestril PO Not Given QDAY NILA Ondansetron HCl 4 mg 12/07/18 10:23 12/13/18 13:06 Zofran IV 4 mg Q8H PRN Administration Nausea And Vomiting Oxycodone/Acetaminophen 1 tab 12/07/18 10:23 12/15/18 08:20 Percocet 5/325 PO 1 tab Q6H PRN Administration Pain, Moderate (4-6) Sodium Chloride 10 ml 12/07/18 22:00 12/14/18 21:54 Sodium Chloride Flush Syringe 10 Ml IV 12/17/18 21:59 10 ml BID NILA Administration Sodium Chloride 10 ml 12/07/18 10:23 Sodium Chloride Flush Syringe 10 Ml IV PRN PRN LINE FLUSH Spironolactone 25 mg 12/09/18 13:00 12/14/18 16:54 Aldactone PO Not Given QDAY NILA Temazepam 15 mg 12/13/18 22:19 12/14/18 21:53 Restoril PO 15 mg QHS PRN Administration Sleep
[2018-12-15] MEDS: ZESTRIL PO SCH (10:13)
[2018-12-15] MEDS: ALDACTONE PO SCH (10:13)
[2018-12-15] MEDS: SODIUM CHLORIDE FLUSH SYRINGE 10 ML IV SCH ×2 (10:13→21:38)
[2018-12-15] MEDS: COREG PO SCH ×2 (10:13→21:37)
[2018-12-15] MEDS: COLACE PO SCH ×2 (10:13→21:36)
[2018-12-15 10:58] LABS: HCG Qualitative,Urine Negative (Negative)
[2018-12-15 11:11] LABS: Calcium 8.4 mg/dL (8.4-10.2)
--- NOTE | 2018-12-15 12:01 | Anesthesia Consultation ---
Anesthesia Consult and Med Hx Date of service: 12/15/18 - Pre-Operative Health Status ASA Pre-Surgery Classification: ASA4 Proposed Anesthetic Plan: General - Pulmonary Hx Asthma: No (Mild pulmonary hypertension. ) Hx Respiratory Symptoms: Yes (Pulmonary edema improved now) COPD: No Hx Pneumonia: No - Cardiovascular System Hx Hypertension: Yes - Endocrine Hx Renal Disease: Yes (CKD with progression to ESRD. Klebsiella UTI) Hx End Stage Renal Disease: Yes (HD Yesterday) Hx Hypothyroidism: Yes - Additional Comments Anesthesia Medical History Comments: Acute systolic heart failure. Cardiomyopathy, newly diagnosed with uncertain duration. EF 20-25% by echo. Lexiscan thallium stress test shows normal perfusion, consistent with a nonischemic dilated cardiomyopathy. Acute hypoxic respiratory failure. Etiology secondary to systolic heart failure and volume overload. Continue hemodialysis to maintain negative fluid balance. Acute HFrEF. Echocardiogram reveals moderate to severe dilation of the left ventricle. Moderate concentric left ventricular hypertrophy. EF 20-25%. Cardiomyopathy. As above.
--- NOTE | 2018-12-15 12:07 | Anesthesia Day of Surgery ---
Anesthesia Day of Surgery - Day of Surgery Patient Examined: Yes Patient H&P Reviewed: Yes Patient is NPO: Yes Beta Blockers: Yes Cardiac Clearance: Yes
[2018-12-15] MEDS ORDERED: SUBLIMAZE IV PRN (12:08)
[2018-12-15] MEDS ORDERED: ZOFRAN IV PRN (12:08)
--- NOTE | 2018-12-15 12:27 | Progress Note ---
Assessment and Plan CKD with progression to ESRD initiated on dialysis Pulmonary edema Hypertension Acute systolic heart failure Cardiomyopathy, newly diagnosed with uncertain duration EF 20-25% by echo Lexiscan thallium stress test shows normal perfusion, consistent with a nonischemic dilated cardiomyopathy. Recommendations: Continue hemodialysis for fluid management. Continue medical management for systolic heart failure. Otherwise, conservative cardiac management. Subjective Date of service: 12/15/18 Interval history: Patient is resting in bed comfortably. She has no cardiac complaints. Objective Vital Signs Temp Pulse Resp BP Pulse Ox 12/15/18 08:53 98.9 F 18 132/78 12/15/18 07:00 78 12/15/18 03:56 98.0 F 78 18 107/65 97 12/14/18 23:05 98.0 F 82 18 123/70 95 12/14/18 23:00 61 12/14/18 22:00 100 12/14/18 21:53 82 139/77 12/14/18 19:31 98.2 F 73 18 139/77 99 12/14/18 18:16 98.0 F 69 18 142/67 12/14/18 17:45 54 L 138/66 12/14/18 17:30 52 L 134/68 12/14/18 17:15 55 L 124/55 12/14/18 17:00 52 L 118/56 12/14/18 16:54 66 109/67 12/14/18 16:45 60 115/59 12/14/18 16:30 47 L 115/64 12/14/18 16:15 71 117/70 12/14/18 16:00 51 L 114/64 12/14/18 15:45 54 L 102/63 12/14/18 15:33 80 139/81 12/14/18 15:30 52 L 108/61 12/14/18 15:15 50 L 113/68 12/14/18 15:00 74 104/62 12/14/18 14:50 56 L 121/68 12/14/18 14:30 98.4 F 76 12 116/66 12/14/18 14:22 65 20 127/82 96 12/14/18 13:32 65 18 108/61 98 12/14/18 13:21 18 117/70 12/14/18 13:17 71 117/70 12/14/18 12:57 71 109/67 96 - Physical Examination General: Appears Well HEENT: Positive: PERRL Neck: Positive: trachea midline Cardiac: Positive: Reg Rate and Rhythm Lungs: Positive: Decreased Breath Sounds Neuro: Positive: Grossly Intact Abdomen: Positive: Soft Extremities: Absent: edema - Labs and Meds Comprehensive Metabolic Panel 12/15/18 Range/Units 10:26 Sodium 138 (137-145) mmol/L Potassium 5.0 (3.6-5.0) mmol/L Chloride 99.0 (98-107) mmol/L Carbon Dioxide 28 (22-30) mmol/L BUN 24 H (7-17) mg/dL Creatinine 4.7 H (0.7-1.2) mg/dL Glucose 86 (65-100) mg/dL Calcium 8.4 (8.4-10.2) mg/dL
[2018-12-15] MEDS ORDERED: ZEMURON IV ONE (12:57)
[2018-12-15] MEDS ORDERED: AMIDATE IV ONE (12:57)
[2018-12-15] MEDS ORDERED: DECADRON ONE (12:57)
[2018-12-15] MEDS ORDERED: ZOFRAN ONE (12:57)
[2018-12-15] MEDS ORDERED: SUBLIMAZE ONE (12:58)
[2018-12-15] MEDS ORDERED: NACL 0.9% IR ONE ×2 (12:59)
[2018-12-15] MEDS ORDERED: HEPARIN 10,000 UNITS/10 ML IP ONE (12:59)
[2018-12-15] MEDS ORDERED: MARCAINE-EPI 0.5%-1:200,000 INFILTRATI ONE ×2 (12:59→13:33)
[2018-12-15] MEDS ORDERED: XYLOCAINE 1% 20 mL INFILTRATI ONE (12:59)
[2018-12-15] MEDS ORDERED: VERSED IV NR (13:00)
[2018-12-15] MEDS ORDERED: XYLOCAINE MPF 2% ONE (13:00)
[2018-12-15] MEDS ORDERED: NACL 0.9% 1000 ML 1,000 ML IV SCH (13:00)
[2018-12-15] MEDS ORDERED: XYLOCAINE 1% 20 mL ONE (13:33)
[2018-12-15] MEDS ORDERED: HEPARIN 10,000 UNITS/10 ML ONE (13:35)
[2018-12-15] MEDS ORDERED: BLOXIVERZ ONE (13:59)
[2018-12-15] MEDS ORDERED: ROBINUL ONE (13:59)
--- NOTE | 2018-12-15 14:20 | Post Operative Note ---
Date of procedure: 12/15/18 (dictation:[id number]) Pre-op diagnosis: ESRD Post-op diagnosis: same Findings: one small adhesion in the RLQ Procedure: Lap PD catheter placement IVF - 100cc EBL<10cc Anesthesia: GETA Surgeon: CHECO BARRY Estimated blood loss: minimal Pathology: none Condition: stable Disposition: PACU
--- NOTE | 2018-12-15 15:11 | Operative Report ---
PREOPERATIVE DIAGNOSIS: End-stage renal disease. POSTOPERATIVE DIAGNOSIS: End-stage renal disease. PROCEDURE: Laparoscopic peritoneal dialysis catheter placement. ATTENDING PHYSICIAN: Guille Rosen M.D. ANESTHESIA: General. ESTIMATED BLOOD LOSS: Less than 10 mL. FLUIDS: 100 mL. FINDINGS: Normal intra-abdominal anatomy with one small adhesion in the right lower quadrant that was completely out of the way of the planned catheter placement. SPECIMENS: None. IMPLANTS: Peritoneal dialysis catheter. COMPLICATIONS: None. DISPOSITION: Stable, transferred to Recovery Room. INDICATIONS: This is a 48-year-old female who was recently diagnosed with end-stage renal disease. The patient was assessed to be in need for long-term dialysis. She was started on hemodialysis and was interested in eventually switching over to peritoneal dialysis. Procedure, risks and benefits were explained to the patient for PD catheter placement. Risks included but were not limited to infection, bleeding, pain, injury to surrounding structures, possible need for catheter removal and replacement. The patient understood and consented. OPERATIVE NOTE: The patient was brought to the operating room and placed on the table in supine position. After adequate general anesthesia was established, the patient was prepped and draped in the usual sterile fashion. Antibiotics had been given prior to start of the case. SCDs were in place. Time-out was called. We began by marking out the planned catheter location. Thereafter, Veress needle was inserted into the left upper quadrant and abdomen was insufflated on the first attempt. I placed a 5 mm port in the right upper quadrant using Optiview technique. After the abdomen was insufflated, I entered safely. I examined the area underneath the Veress needle. It was completely atraumatic. There was no evidence of any injury to the underlying structures. The Veress needle was removed. We then made a small incision on the left side of midline where the lower cuff was resting when we marked out the abdomen. Dissection was carried down to the anterior rectus sheath. A small incision was made. Needle tip insertion trocar of the step up trocar system was inserted. Under direct visualization, we watched it go into the peritoneal cavity distally and then this was dilated up with an 8 mm port. Through there, the catheter was inserted. We made sure that the distal cuff came out and then was pulled back just inside the fascia. Please note that we had thoroughly irrigated the catheter. We submerged in saline and made sure all the cuffs were fully saturated with saline. Thereafter, we removed the port using a Renée-Wick tunneler. We passed it from the exit site to the catheter and then pulled the catheter into position. We attached the connectors and began filling the abdomen with saline via a 1 liter of heparinized saline bag. The abdomen was desufflated. As we were doing this, the patient was flattened from Trendelenburg position. As that was flowing in and it was flowing in very rapidly, we then closed the main incision site where the catheter was inserted with a 4-0 Monocryl subcuticular stitch. Initially, I placed Vicryl stitches, but it appeared to compromise the angle of the catheter as the fluid started to slow down. Once I removed the stitches and the flow was wide open again. Therefore, I left the stitches out. I just closed the skin. Once the full liter was in, we then dropped the back to the floor. It came out very rapidly and we left about 300 mL in the abdomen. The exit site was slightly larger than the catheter diameter and so I closed that with a 5-0 chromic stitch. We reinsufflated the abdomen at the end to make sure everything looked good, it was completely hemostatic. The cuff was in a good position. We desufflated the abdomen, removed the port, injected more local into all the incisions and then closed that 5 mm port with a 4-0 Monocryl subcuticular stitch. Skin was cleaned and dried. Dermabond was placed. Biopatch and dressings were replaced from the catheter. The patient tolerated the procedure well. There were no complications. All counts were correct at the end of the case. JOB# [id number] NADIA/CHRIS
--- NOTE | 2018-12-15 16:40 | Post Anesthesia Evaluation ---
- Post Anesthesia Evaluation Patient Participated: Yes Airway Patent: Yes Stable Respiratory Function: Yes Nausea/Vomiting: No Temp > 96.8F: Yes Pain Manageable: Yes Adequeate Hydration: Yes Anesthesia Complications: No
[2018-12-15] MEDS: RESTORIL PO PRN (21:36)
[2018-12-16] MEDS: SYNTHROID PO SCH (05:31)
[2018-12-16 06:31] LABS: Hematocrit 23.2 % (30.3-42.9); Hemoglobin 7.2 gm/dl (10.1-14.3)
[2018-12-16 07:18] LABS: Calcium 7.4 mg/dL (8.4-10.2)
[2018-12-16] MEDS ORDERED: NACL 0.9% 100 ML IV PRN (08:52)
--- NOTE | 2018-12-16 09:33 | Progress Note ---
Assessment and Plan 1. ESRD: Most likely CKD has progressed to ESRD. Patient presented with uremic symptoms. Metabolic features were suggestive of ESRD. Renal US was negative for hydronephosis. Renal biopsy showed extensive fibrosis and global sclerosis. Renal prognosis is poor. Avoid nephrotoxic agents. Meds dosage based on GFR. Patient was started on hemodialysis due to ESRD, uremic symptoms and associated multiple metabolic abnormalities. Hemodialysis: 12/08, 12/09, 12/12, 12/14, today. S/p PD catheter. Outpatient hemodialysis chair at [facility] starting 12/20/2018. 2. FEN: Hyperkalemia, K level is better. Anion gap MA, improved. Volume overload, improved. Hypocalcemia, on Calcium acetate. Monitor lytes. 3. Anemia: Epogen. 4. Systolic CHF with EF 20-25%: Followed by Cards. 5. HTN: BP is well controlled. 6. Hypothyroid: On Levothyroxine. Subjective Date of service: 12/16/18 Interval history: Patient was seen and examined at the bedside. C/o pain over the PD catheter site. Objective - Vital Signs Vital signs: Vital Signs - 12hr 12/15/18 12/15/18 12/15/18 21:37 21:38 23:00 Temperature Pulse Rate 82 63 Respiratory 20 Rate Blood Pressure 108/63 O2 Sat by Pulse Oximetry 12/15/18 12/16/18 12/16/18 23:51 04:50 08:42 Temperature 98.0 F 98.0 F Pulse Rate 82 74 79 Respiratory 18 18 Rate Blood Pressure 117/64 96/49 O2 Sat by Pulse 97 97 Oximetry - General Appearance General appearance: well-developed, well-nourished, appears stated age, obese, other (no distress, R IJ tunnel catheter) EENT: ATNC, PERRL, mucous membranes moist, hearing intact, vision intact Neck: supple Respiratory: Present: Clear to Ascultation Cardiology: regular, S1S2, no murmurs Gastrointestinal: normoactive bowel sounds, no tenderness, no distended, obese, other (PD catheter noted, not tender, no discharge / bleeding) Integumentary: no rash, warm and dry Neurologic: no focal deficit, no asterixis, alert and oriented x3 Musculoskeletal: other (no edema) Psychiatric: cooperative - Lab 12/16/18 05:54 12/16/18 15:52 Most recent lab results Calcium 7.4 mg/dL (8.4-10.2) L 12/16/18 05:54 Phosphorus 4.60 mg/dL (2.5-4.5) H 12/12/18 05:12 68.9 mg/dL (0.1-20.0) H 12/08/18 01:30 77 mmol/L 12/08/18 01:30 308 mg/dL (5-11.8) H 12/08/18 01:30 Medications & Allergies - Medications Allergies/Adverse Reactions: Allergies No Known Allergies Allergy (Unverified 08/21/17 20:00) Home Medications: Home Medications Medication Instructions Recorded Confirmed Last Taken Type Carvedilol [Coreg] 6.25 mg PO BID #60 tablet 12/16/18 Unknown Rx Levothyroxine [Synthroid] 75 mcg PO DAILY #30 tablet 12/16/18 Unknown Rx Lisinopril [Zestril TAB] 5 mg PO QDAY #30 tablet 12/16/18 Unknown Rx Spironolactone [Aldactone] 25 mg PO QDAY #30 tablet 12/16/18 Unknown Rx levoFLOXacin [Levaquin] 750 mg PO Q48H #2 tablet 12/16/18 Unknown Rx traMADol [Ultram 50 MG tab] 50 mg PO Q6HR PRN #12 tablet 12/16/18 Unknown Rx Active Medications: Generic Name Dose Route Start Last Admin Trade Name Freq PRN Reason Stop Dose Admin Acetaminophen 650 mg 12/07/18 10:23 Tylenol PO Q4H PRN Pain MILD(1-3)/Fever >100.5/KIM Benzonatate 200 mg 12/07/18 21:19 12/07/18 21:37 Tessalon Perles PO 200 mg Q8HR PRN Administration cough Calcium Acetate 1,334 mg 12/10/18 08:00 12/15/18 17:29 Phoslo PO 1,334 mg TIDWM NILA Administration Carvedilol 6.25 mg 12/09/18 13:00 12/15/18 21:37 Coreg PO 6.25 mg BID NILA Administration Diphenhydramine HCl 25 mg 12/07/18 21:18 12/09/18 22:00 Benadryl PO 25 mg QHS PRN Administration Sleep Docusate Sodium 100 mg 12/07/18 22:00 12/15/18 21:36 Colace PO 100 mg BID NILA Administration Epoetin Trevor 20,000 unit 12/08/18 10:00 12/14/18 17:48 Procrit SUB-Q 20,000 unit MARY PRN Administration hemodialysis Fentanyl 50 mcg 12/15/18 12:08 Sublimaze IV Q5MIN PRN Pain , Severe (7-10) Guaifenesin 200 mg 12/07/18 13:01 12/10/18 22:17 Robitussin PO 200 mg Q4H PRN Administration Cough Heparin Sodium (Porcine) 2,000 unit 12/09/18 10:00 Heparin 10,000 Units/10 Ml IV MARY PRN hemodialysis Levofloxacin/Dextrose 500 mg in 100 mls @ 100 mls/hr 12/11/18 14:00 12/15/18 09:47 Levaquin 500mg/100ml IV 12/17/18 13:59 Not Given Q48HR NILA Protocol Sodium Chloride 1,000 mls @ 42 mls/hr 12/15/18 13:00 12/15/18 12:10 Nacl 0.9% 1000 Ml IV 42 mls/hr DIRECT NILA Administration Sodium Chloride 100 mls @ 999 mls/hr 12/16/18 08:52 Nacl 0.9% IV MARY PRN Hypotension Levothyroxine Sodium 75 mcg 12/15/18 06:00 12/16/18 05:31 Synthroid PO 75 mcg DAILY@0600 NILA Administration Lisinopril 5 mg 12/09/18 13:00 12/15/18 10:13 Zestril PO 5 mg QDAY NILA Administration Ondansetron HCl 4 mg 12/07/18 10:23 12/13/18 13:06 Zofran IV 4 mg Q8H PRN Administration Nausea And Vomiting Ondansetron HCl 4 mg 12/15/18 12:08 Zofran IV ONCE PRN Nausea And Vomiting Oxycodone/Acetaminophen 1 tab 12/07/18 10:23 12/15/18 21:38 Percocet 5/325 PO 1 tab Q6H PRN Administration Pain, Moderate (4-6) Sodium Chloride 10 ml 12/07/18 22:00 12/15/18 21:38 Sodium Chloride Flush Syringe 10 Ml IV 12/17/18 21:59 10 ml BID NILA Administration Sodium Chloride 10 ml 12/07/18 10:23 Sodium Chloride Flush Syringe 10 Ml IV PRN PRN LINE FLUSH Spironolactone 25 mg 12/09/18 13:00 12/15/18 10:13 Aldactone PO 25 mg QDAY NILA Administration Temazepam 15 mg 12/13/18 22:19 12/15/18 21:36 Restoril PO 15 mg QHS PRN Administration Sleep
[2018-12-16] MEDS: PERCOCET 5/325 PO PRN (09:45)
--- NOTE | 2018-12-16 10:28 | Progress Note ---
Assessment and Plan - Patient Problems (1) Acute renal insufficiency Current Visit: No Status: Acute Plan to address problem: s/p Lap PD catheter placement - POD#1. Pt stable. Most likely having discomfort from where catheter traverses the rectus muscle. No complication appreciated. Should get better in 1-2 days. Ok to d/c home. f/u prn. Should f/u with dialysis center for PD catheter care and teaching. Please call with questions. Subjective Date of service: 12/16/18 Patient Reports: Positive: other (having pain at insertion site. ) Objective Vital Signs - 12hr 12/15/18 12/15/18 12/16/18 23:00 23:51 04:50 Temperature 98.0 F 98.0 F Pulse Rate 63 82 74 Respiratory 18 18 Rate Blood Pressure 117/64 96/49 O2 Sat by Pulse 97 97 Oximetry 12/16/18 08:42 Temperature Pulse Rate 79 Respiratory Rate Blood Pressure O2 Sat by Pulse Oximetry - General physical appearance no distress - Eyes normal occular movement - Respiratory normal expansion, normal respiratory effort - Abdomen soft, other (dressing dry. focal pain reported at insertion site. Site appears normal) - Psychiatric oriented to time, oriented to person, oriented to place, speech is normal, memory intact - Labs 12/16/18 05:54 12/16/18 05:54 Diabetes panel 12/15/18 12/16/18 Range/Units 10:26 05:54 Sodium 138 141 (137-145) mmol/L Potassium 5.0 5.5 H (3.6-5.0) mmol/L Chloride 99.0 103.3 (98-107) mmol/L Carbon Dioxide 28 25 (22-30) mmol/L BUN 24 H 32 H (7-17) mg/dL Creatinine 4.7 H 6.0 H (0.7-1.2) mg/dL Glucose 86 98 (65-100) mg/dL Calcium 8.4 7.4 L (8.4-10.2) mg/dL Calcium panel 12/15/18 12/16/18 Range/Units 10:26 05:54 Calcium 8.4 7.4 L (8.4-10.2) mg/dL Pituitary panel 12/15/18 12/16/18 Range/Units 10:26 05:54 Sodium 138 141 (137-145) mmol/L Potassium 5.0 5.5 H (3.6-5.0) mmol/L Chloride 99.0 103.3 (98-107) mmol/L Carbon Dioxide 28 25 (22-30) mmol/L BUN 24 H 32 H (7-17) mg/dL Creatinine 4.7 H 6.0 H (0.7-1.2) mg/dL Glucose 86 98 (65-100) mg/dL Calcium 8.4 7.4 L (8.4-10.2) mg/dL Adrenal panel 12/15/18 12/16/18 Range/Units 10:26 05:54 Sodium 138 141 (137-145) mmol/L Potassium 5.0 5.5 H (3.6-5.0) mmol/L Chloride 99.0 103.3 (98-107) mmol/L Carbon Dioxide 28 25 (22-30) mmol/L BUN 24 H 32 H (7-17) mg/dL Creatinine 4.7 H 6.0 H (0.7-1.2) mg/dL Glucose 86 98 (65-100) mg/dL Calcium 8.4 7.4 L (8.4-10.2) mg/dL
--- NOTE | 2018-12-16 11:10 | Progress Note ---
Assessment and Plan CKD with progression to ESRD initiated on dialysis Pulmonary edema Hypertension Acute systolic heart failure Cardiomyopathy, newly diagnosed with uncertain duration EF 20-25% by echo Lexiscan thallium stress test shows normal perfusion, consistent with a nonischemic dilated cardiomyopathy. Recommendations: Continue hemodialysis for fluid management. Continue medical management for systolic heart failure. Otherwise, conservative cardiac management. Once discharged, patient will follow up with [place] within 5-7 days. Subjective Date of service: 12/16/18 Interval history: Patient is resting in bed comfortably. She has no cardiac complaints. Objective Vital Signs Temp Pulse Resp BP BP Pulse Ox 12/16/18 08:42 79 12/16/18 04:50 98.0 F 74 18 96/49 97 12/15/18 23:51 98.0 F 82 18 117/64 97 12/15/18 23:00 63 12/15/18 21:38 20 12/15/18 21:37 82 108/63 12/15/18 20:20 98 12/15/18 19:19 98.5 F 88 18 108/63 97 12/15/18 17:35 97.4 F L 63 102/63 12/15/18 16:50 97.4 F L 63 18 102/63 100 12/15/18 16:20 97.9 F 69 18 129/62 99 12/15/18 16:05 68 17 120/61 99 12/15/18 15:50 64 19 131/65 100 12/15/18 15:35 69 20 128/68 100 12/15/18 15:20 97.7 F 70 20 128/69 100 12/15/18 15:05 69 20 128/72 100 12/15/18 14:50 65 19 127/69 100 12/15/18 14:35 69 20 130/73 100 12/15/18 14:30 69 19 122/72 100 12/15/18 14:25 70 15 137/73 100 12/15/18 14:20 97.8 F 73 16 151/83 98 12/15/18 12:25 98 F 71 16 124/76 99 12/15/18 12:20 98.1 F 71 16 124/76 99 12/15/18 11:41 98.3 F 18 136/77 - Physical Examination General: Appears Well HEENT: Positive: PERRL Neck: Positive: trachea midline Cardiac: Positive: Reg Rate and Rhythm Lungs: Positive: Decreased Breath Sounds Neuro: Positive: Grossly Intact Abdomen: Positive: Soft Extremities: Absent: edema - Labs and Meds CBC 12/16/18 Range/Units 05:54 Hgb 7.2 L (10.1-14.3) gm/dl Hct 23.2 L (30.3-42.9) % Comprehensive Metabolic Panel 12/15/18 12/16/18 Range/Units 10:26 05:54 Sodium 138 141 (137-145) mmol/L Potassium 5.0 5.5 H (3.6-5.0) mmol/L Chloride 99.0 103.3 (98-107) mmol/L Carbon Dioxide 28 25 (22-30) mmol/L BUN 24 H 32 H (7-17) mg/dL Creatinine 4.7 H 6.0 H (0.7-1.2) mg/dL Glucose 86 98 (65-100) mg/dL Calcium 8.4 7.4 L (8.4-10.2) mg/dL
[2018-12-16] MEDS: PROCRIT SUB-Q PRN (14:00)
--- NOTE | 2018-12-16 15:43 | Discharge Summary ---
Providers - Providers Date of Admission: 12/07/18 10:23 Date of discharge: 12/16/18 Attending physician: SUSAN GARDUNO 12/07/18 10:23 Consult to Physician [CONS] Urgent Comment: Consulting Provider: FLYNN GEORGE Physician Instructions: Reason For Exam: renal failure 12/08/18 09:40 Consult to Interventional Radiology [CONS] Routine Consulting Provider: RUPALI PAULINO Reason For Exam: Hemodialysis catheter placement. Place consult to:: vascular Notified:: office Phone number called:: [phone] Was contact made?: Yes If yes, spoke with:: Tiffany Time called:: 11:00 12/08/18 09:41 Consult to Physician [CONS] Routine Comment: Consulting Provider: CHECO BARRY Physician Instructions: Reason For Exam: Peritoneal dialysis catheter placement. 12/09/18 08:52 Consult to Cardiology [CONS] Routine Consulting Provider: GISELLE BLAKE Reason For Exam: chf [facility] Hospital course: Patient is 48 years old with a history of hypertension, chronic kidney disease obesity lost to follow-up secondary to insurance issues. Patient presented with complaints of 1-2 weeks of lethargy and weakness fatigue and shortness of breath. Workup in the ED patient found to have acute renal failure with the BUN of 78 and creatinine of 9.5 as well as uncontrolled hypertension. Patient admitted for acute renal failure and emergent hemodialysis. She was seen by [facility] .Dialysis cathter was placed on 12/08/18 and she was started on hemodialysis. Kidney biopsy done 12/14/18. Peritoneal dialysis catheter was placed on 12/15/18 and she was discharged home following day to continue peritoneal dialysis as outpatient. Acute hypoxic respiratory failure. Etiology secondary to systolic heart failure and volume overload. Continue hemodialysis to maintain negative fluid balance. Acute HFrEF. Echocardiogram reveals moderate to severe dilation of the left ventricle. Moderate concentric left ventricular hypertrophy. EF 20-25%. Mild pulmonary hypertension. Cardiomyopathy. As above. Klebsiella UTI. Cont. Levaquin daily. ESRD. Continue hemodialysis per nephrology. Peritoneal dialysis catheter placed today 12/15 kidney biopsy done 12/14 Accelerated hypertension. Continue antihypertensive medications. History of hypothyroidism. Total time spent on discharge, 34 mins Disposition: TO HOME OR SELFCARE - Discharge Diagnoses (1) Acute systolic (congestive) heart failure Status: Acute (2) Acute pulmonary edema Status: Acute (3) HTN (hypertension) Status: Acute (4) History of hypothyroidism Status: Acute (5) Uncontrolled hypertension Status: Acute (6) UTI (urinary tract infection) Status: Acute (7) ESRD (end stage renal disease) on dialysis Status: Acute (8) Cardiomyopathy Status: Acute Core Measure Documentation - Palliative Care Palliative Care/ Comfort Measures: Not Applicable - Core Measures Any of the following diagnoses?: heart failure - Heart Failure Discharge Requirements MASOUD/ARB for LVSD if EF <40%: Yes Beta scuhyler at discharge: Yes Exam - Constitutional Vitals: Temp Pulse Resp BP Pulse Ox 98.0 F 54 L 18 125/77 97 12/16/18 11:15 12/16/18 13:30 12/16/18 11:15 12/16/18 13:30 12/16/18 04:50 Plan Activity: advance as tolerated Diet: low fat, low cholesterol, low salt, renal Additional Instructions: 1.Follow up with PCP in 1 week. 2.Start hemodialysis on Wednesday as scheduled. 3.Follow up with Dr. Blake, cardiology in 1 week. 4.Follow up with Dr. George, Nephrology at [facility] in 3-5 days [facility] - [facility] Days Prescriptions: Spironolactone [Aldactone] 25 mg PO QDAY #30 tablet Carvedilol [Coreg] 6.25 mg PO BID #60 tablet levoFLOXacin [Levaquin] 750 mg PO Q48H #2 tablet Levothyroxine [Synthroid] 75 mcg PO DAILY #30 tablet traMADol [Ultram 50 MG tab] 50 mg PO Q6HR PRN #12 tablet PRN Reason: Pain Lisinopril [Zestril TAB] 5 mg PO QDAY #30 tablet
[2018-12-16] MEDS: PHOSLO PO SCH ×2 (19:06→19:07)
[2018-12-16] MEDS: SODIUM CHLORIDE FLUSH SYRINGE 10 ML IV SCH (19:07)
[2018-12-16] MEDS: ALDACTONE PO SCH (19:07)
[2018-12-16] MEDS: COLACE PO SCH (19:07)
[2018-12-16] MEDS: COREG PO SCH (19:07)
[2018-12-16] MEDS: ZESTRIL PO SCH (19:07)
[2018-12-16 20:06] VITALS: BP 130/65
== END 2018-12-16 19:00 | disposition home or self-care (01) | DRG 673 ==
LOC: ED 07:31 → 4A 10:23
PROVIDERS: ADMIT Internal Medicine; ATTEND Internal Medicine
PROC: 0JH63XZ Insertion of Tunneled Vascular Access Device into Chest Subcutaneous Tissue and Fascia, Percutaneous Approach (ICD-10-PCS; principal; 2018-12-08)
PROC: B2141ZZ Fluoroscopy of Right Heart using Low Osmolar Contrast (ICD-10-PCS; 2018-12-08)
PROC: 02H633Z Insertion of Infusion Device into Right Atrium, Percutaneous Approach (ICD-10-PCS; 2018-12-08)
PROC: B543ZZA Ultrasonography of Right Jugular Veins, Guidance (ICD-10-PCS; 2018-12-08)
PROC: 5A1D70Z Performance of Urinary Filtration, Intermittent, Less than 6 Hours Per Day (ICD-10-PCS; 2018-12-08)
PROC: 5A1D70Z Performance of Urinary Filtration, Intermittent, Less than 6 Hours Per Day (ICD-10-PCS; 2018-12-09)
PROC: 5A1D70Z Performance of Urinary Filtration, Intermittent, Less than 6 Hours Per Day (ICD-10-PCS; 2018-12-12)
PROC: 5A1D70Z Performance of Urinary Filtration, Intermittent, Less than 6 Hours Per Day (ICD-10-PCS; 2018-12-14)
PROC: 0TB03ZX Excision of Right Kidney, Percutaneous Approach, Diagnostic (ICD-10-PCS; 2018-12-14)
PROC: 0WHG43Z Insertion of Infusion Device into Peritoneal Cavity, Percutaneous Endoscopic Approach (ICD-10-PCS; 2018-12-15)
PROC: 5A1D70Z Performance of Urinary Filtration, Intermittent, Less than 6 Hours Per Day (ICD-10-PCS; 2018-12-16)
DX: N17.9 Acute kidney failure, unspecified (principal); J96.01 Acute respiratory failure with hypoxia; I50.23 Acute on chronic systolic (congestive) heart failure; I42.9 Cardiomyopathy, unspecified; I13.2 Hypertensive heart and chronic kidney disease with heart failure and with stage 5 chronic kidney disease, or end stage renal disease; N39.0 Urinary tract infection, site not specified; N18.6 End stage renal disease; J20.9 Acute bronchitis, unspecified; D64.9 Anemia, unspecified; B96.1 Klebsiella pneumoniae [K. pneumoniae] as the cause of diseases classified elsewhere; E03.9 Hypothyroidism, unspecified; E87.5 Hyperkalemia; E83.51 Hypocalcemia; Z91.19 Patient's noncompliance with other medical treatment and regimen; Z82.49 Family history of ischemic heart disease and other diseases of the circulatory system; Z87.442 Personal history of urinary calculi; Z98.51 Tubal ligation status; Z79.899 Other long term (current) drug therapy
CPT/HCPCS: 36415; 36558; 71045; 71046; 76770; 76937; 77001; 77012; 78452; 80048; 80053; 80074; 81001; 81025; 82570; 83880; 83970; 84100; 84132; 84156; 84300; 84439; 84443; 84484; 85014; 85018; 85025; 85610; 85730; 86038; 87040; 87076; 87086; 87186; 89050; 93005; 93010; 93017; 93306; 93970; 96365; 96375; 99285; G0378; A9502; C1750; J0456; J0610; J0690; J0885; J1100; J1170; J1644; J1940; J1956; J2250; J2405; J2710; J2785; J3010; J7030; J7050

== ENCOUNTER 2019-01-29 15:42 | Inpatient (IN) | payer OTHER ==
--- NOTE | 2019-01-29 16:25 | Event Note ---
ED Screening Note Date of service: 01/29/19 Time: 16:23 ED Screening Note: 48 y of presents to ED of vas cath removal This initial assessment/diagnostic orders/clinical plan/treatment(s) is/are subject to change based on patients health status, clinical progression and re- assessment by fellow clinical providers in the ED. Further treatment and workup at subsequent clinical providers discretion. Patient/guardian urged not to elope from the ED as their condition may be serious if not clinically assessed and managed. Initial orders include:
[2019-01-29] MEDS ORDERED: TYLENOL PO ONE (18:48)
[2019-01-29 20:59] LABS: INR 1.12 (0.87-1.13)
[2019-01-29 21:00] LABS: Partial Thromboplastin Time 30.8 Sec. (24.2-36.6)
[2019-01-29 21:04] LABS: Basophils % (Auto) 0.4 % (0.0-1.8); Eosinophils # (Auto) 0.1 K/mm3 (0.0-0.4); Eosinophils % (Auto) 1.5 % (0.0-4.3); Hematocrit 35.7 % (30.3-42.9); Lymphocytes # (Auto) 2.1 K/mm3 (1.2-5.4); Mean Corpuscular HGB Conc 31 % (30-34); Mean Corpuscular Volume 84 fl (79-97); Monocytes # (Auto) 0.6 K/mm3 (0.0-0.8); Platelet Count 180 K/mm3 (140-440); Red Blood Count 4.27 M/mm3 (3.65-5.03); Red Cell Distribution Width 17.3 % (13.2-15.2)
--- NOTE | 2019-01-29 22:02 | Emergency Department Report ---
ED General Adult HPI - General Chief complaint: Medical Clearance Stated complaint: PORT DISCOMFORT/REF BY Time Seen by Provider: 01/29/19 16:23 Source: patient Mode of arrival: Ambulatory Limitations: No Limitations - History of Present Illness Initial comments: Patient is a 48-year-old Tajik female with past history of end-stage renal disease who is presenting with complications to her Vas-Cath. Patient is currently been doing peritoneal dialysis for the last month and a half and is no longer using Vas-Cath for hemodialysis. Patient is developed some right neck discomfort and swelling over the last several weeks. Patient has spoken with her water inspector who stated that she should come to the emergency department to have her Vas-Cath removed. Patient is afebrile and denies any difficulty swallowing cough or congestion. Patient states there is tenderness with palpation of the area just above the Vas-Cath insertion site. Severity scale (0 -10): 9 - Related Data Previous Rx's Medication Instructions Recorded Last Taken Type Carvedilol [Coreg] 6.25 mg PO BID #60 tablet 12/16/18 Unknown Rx Levothyroxine [Synthroid] 75 mcg PO DAILY #30 tablet 12/16/18 Unknown Rx Lisinopril [Zestril TAB] 5 mg PO QDAY #30 tablet 12/16/18 Unknown Rx Spironolactone [Aldactone] 25 mg PO QDAY #30 tablet 12/16/18 Unknown Rx levoFLOXacin [Levaquin] 750 mg PO Q48H #2 tablet 12/16/18 Unknown Rx traMADol [Ultram 50 MG tab] 50 mg PO Q6HR PRN #12 tablet 12/16/18 Unknown Rx Allergies Allergy/AdvReac Type Severity Reaction Status Date / Time No Known Allergies Allergy Unverified 08/21/17 20:00 ED Review of Systems ROS: Stated complaint: PORT DISCOMFORT/REF BY Other details as noted in HPI Comment: All other systems reviewed and negative ED Past Medical Hx - Past Medical History Previous Medical History?: Yes Hx Hypertension: Yes Hx Congestive Heart Failure: Yes Hx Diabetes: No Hx Renal Disease: Yes (CKD with progression to ESRD. Klebsiella UTI) Hx Kidney Stones: Yes Hx Asthma: No (Mild pulmonary hypertension. ) Hx COPD: No Hx HIV: No Additional medical history: Hypothyroidism - Surgical History Past Surgical History?: Yes Additional Surgical History: LEEP, tubal ligation, thyroidectomy, PD cath - Social History Smoking Status: Never Smoker Substance Use Type: Prescribed - Medications Home Medications: Home Medications Medication Instructions Recorded Confirmed Last Taken Type Carvedilol [Coreg] 6.25 mg PO BID #60 tablet 12/16/18 Unknown Rx Levothyroxine [Synthroid] 75 mcg PO DAILY #30 tablet 12/16/18 Unknown Rx Lisinopril [Zestril TAB] 5 mg PO QDAY #30 tablet 12/16/18 Unknown Rx Spironolactone [Aldactone] 25 mg PO QDAY #30 tablet 12/16/18 Unknown Rx levoFLOXacin [Levaquin] 750 mg PO Q48H #2 tablet 12/16/18 Unknown Rx traMADol [Ultram 50 MG tab] 50 mg PO Q6HR PRN #12 tablet 12/16/18 Unknown Rx ED Physical Exam - General Limitations: No Limitations General appearance: alert, in no apparent distress - Head Head exam: Present: atraumatic, normocephalic - Eye Eye exam: Present: normal appearance, PERRL, EOMI - ENT ENT exam: Present: mucous membranes moist - Neck Neck exam: Present: normal inspection, tenderness (patient with a subclavian Vas-Cath in the right chest just below the clavicle. There is a area of firmness and tenderness in the right anterior neck with the Vas-Cath tunnels up or. It is no overlying warmth or erythema present. There is no purulent drainage or bleeding at the insertion site.) - Respiratory Respiratory exam: Present: normal lung sounds bilaterally. Absent: respiratory distress, wheezes, rales, rhonchi - Cardiovascular Cardiovascular Exam: Present: regular rate, normal rhythm. Absent: systolic murmur, diastolic murmur, rubs, gallop - GI/Abdominal GI/Abdominal exam: Present: soft, normal bowel sounds - Extremities Exam Extremities exam: Present: normal inspection - Back Exam Back exam: Present: normal inspection - Neurological Exam Neurological exam: Present: alert, oriented X3 - Psychiatric Psychiatric exam: Present: normal affect, normal mood - Skin Skin exam: Present: warm, dry, intact, normal color. Absent: rash ED Course Vital Signs 01/29/19 01/29/19 01/29/19 15:59 18:53 20:34 Temperature 98.8 F Pulse Rate 102 H Respiratory 18 18 Rate Blood Pressure 140/94 ED Medical Decision Making - Lab Data Result diagrams: 01/29/19 20:32 01/29/19 20:32 - Medical Decision Making I discussed this case with Dr. Hull with vascular surgery he stated that he would like to note there is a clot present before attempting to remove this Vas- Cath. Patient will be admitted for exam ultrasound in the morning and then vessel surgery will be seeing the patient. Probable removal of her vascath Critical care attestation.: If time is entered above; I have spent that time in minutes in the direct care of this critically ill patient, excluding procedure time. ED Disposition Clinical Impression: ESRD (end stage renal disease) on dialysis Vascular catheter dysfunction Qualifiers: Encounter type: initial encounter Qualified Code(s): T82.41XA - Breakdown (mechanical) of vascular dialysis catheter, initial encounter Disposition: OP ADMIT IP TO THIS HOSP Is pt being admited?: Yes Does the pt Need Aspirin: No Condition: Stable Time of Disposition: 22:05
[2019-01-29] MEDS ORDERED: SODIUM CHLORIDE FLUSH SYRINGE 10 ML IV PRN (22:30)
[2019-01-29] MEDS ORDERED: ZOFRAN IV PRN (22:30)
[2019-01-29] MEDS ORDERED: TYLENOL PO PRN (22:30)
[2019-01-29] MEDS ORDERED: MORPHINE IV ONE (22:32)
--- NOTE | 2019-01-29 22:36 | History and Physical Report ---
History of Present Illness Date of examination: 01/29/19 History of present illness: 48 year old woman with hypertension, hypothroidism, esrd on peritoneal dialysis, CHF was sent to the emergency room by her director of student services for removal of the Vas- Cath . She started having pain at the site of the Vas-Cath on Wednesday, she contacted her director of student services on Wednesday who sent her to the emergency room for further evaluation. The pain is dull, constant, intensity 5/10, no radiation, worse when she lies on, Levaquin pain medication given in the emergency room Review Of Systems: Constitutional: no weight loss Ears, eyes, nose, mouth and throat: no nasal congestion, no nasal discharge, no sinus pressure, blurry vision, diplopia Neck: No neck pain or rigidity. Cardiovascular: no chest pain, orthopnea, palpitations Respiratory: No shortness of breath, cough Gastrointestinal: no abdominal pain, hematochezia Genitourinary : no hematuria Musculoskeletal: no muscle ache Integumentary: no rash, no pruritis Neurological: no parathesias, focal weakness Endocrine: no cold or heat intolerance, no polyuria or polydipsia Hematologic/Lymphatic: no easy bruising, no easy bleeding, no gland swelling Allergic/Immunologic: no urticaria, no angioedema. PAST MEDICAL HISTORY: hypertension, hypothyroidism, ESRD, CHF PAST SURGICAL HISTORY: Tubal ligation, thyroidectomy SOCIAL HISTORY: Denies alcohol, tobacco, drugs FAMILY HISTORY: Hypertension Medications and Allergies Allergies Allergy/AdvReac Type Severity Reaction Status Date / Time No Known Allergies Allergy Unverified 08/21/17 20:00 Home Medications Medication Instructions Recorded Confirmed Last Taken Type Carvedilol [Coreg] 6.25 mg PO BID #60 tablet 12/16/18 Unknown Rx Levothyroxine [Synthroid] 75 mcg PO DAILY #30 tablet 12/16/18 Unknown Rx Lisinopril [Zestril TAB] 5 mg PO QDAY #30 tablet 12/16/18 Unknown Rx Spironolactone [Aldactone] 25 mg PO QDAY #30 tablet 12/16/18 Unknown Rx levoFLOXacin [Levaquin] 750 mg PO Q48H #2 tablet 12/16/18 Unknown Rx traMADol [Ultram 50 MG tab] 50 mg PO Q6HR PRN #12 tablet 12/16/18 Unknown Rx Active Meds: Active Medications Acetaminophen (Tylenol) 650 mg PO Q4H PRN PRN Reason: Pain MILD(1-3)/Fever >100.5/KIM Enoxaparin Sodium (Lovenox) 30 mg SUB-Q QDAY NILA Morphine Sulfate (Morphine) 2 mg IV Q4H PRN PRN Reason: Pain, Moderate (4-6) Ondansetron HCl (Zofran) 4 mg IV Q8H PRN PRN Reason: Nausea And Vomiting Sodium Chloride (Sodium Chloride Flush Syringe 10 Ml) 10 ml IV BID NILA Sodium Chloride (Sodium Chloride Flush Syringe 10 Ml) 10 ml IV PRN PRN PRN Reason: LINE FLUSH Exam - Physical Exam Narrative exam: General Apperance: The patient sitting in bed no acute distress HEENT: Normocephalic, atraumatic. Pupils equally round and reactive to light, extraocular movement intact, and no sclericterus or JVD or thyromegaly or nodule. tenderness over the vascath site, no erythema, discharge. Neck supple, no carotid bruit, mucous membranes moist, no exudate or erythema Heart: S1-S2, regular is rhythm Lungs: Clear to auscultation bilaterally, breathing comfortable Abdomen: Positive bowel sounds, soft, nontender, nondistended, no organomegaly Extremities: No edema cyanosis clubbing Skin: no rash, nodule, warm and dry Neuro:CN 2 -12 intact, motor/sensory intact, speech is fluent - Constitutional Vitals: Temp Pulse Resp BP Pulse Ox 98.8 F 93 H 18 136/86 99 01/29/19 15:59 01/29/19 22:33 01/29/19 22:33 01/29/19 22:33 01/29/19 22:33 Results - Labs CBC & Chem 7: 01/29/19 20:32 01/29/19 20:32 Labs: Abnormal lab results 01/29/19 01/29/19 Range/Units 20:32 20:32 MCH 26 L (28-32) pg RDW 17.3 H (13.2-15.2) % Chloride 97.6 L (98-107) mmol/L Carbon Dioxide 20 L (22-30) mmol/L BUN 61 H (7-17) mg/dL Creatinine 9.5 H (0.7-1.2) mg/dL Calcium 6.0 L (8.4-10.2) mg/dL Assessment and Plan Assessment Tenderness over Vascath site ESRD on PD Hypertension Hypothyroidism CHF, stable Plan Obtain ultrasound of the Vas-Cath site Vascular was consulted and saw the patient in the emergency room Consult renal for dialysis Continue appropriate outpatient medications DVT prophylaxis
[2019-01-30 04:40] LABS: Basophils % (Auto) 0.5 % (0.0-1.8); Eosinophils # (Auto) 0.1 K/mm3 (0.0-0.4); Eosinophils % (Auto) 1.9 % (0.0-4.3); Hematocrit 30.7 % (30.3-42.9); Hemoglobin 9.5 gm/dl (10.1-14.3); Lymphocytes # (Auto) 2.5 K/mm3 (1.2-5.4); Lymphocytes % (Auto) 35.1 % (13.4-35.0); Mean Corpuscular HGB Conc 31 % (30-34); Mean Corpuscular Volume 83 fl (79-97); Monocytes # (Auto) 0.6 K/mm3 (0.0-0.8); Monocytes % (Auto) 7.9 % (0.0-7.3); Platelet Count 162 K/mm3 (140-440); Red Cell Distribution Width 17.5 % (13.2-15.2)
[2019-01-30 04:59] LABS: Calcium 5.4 mg/dL (8.4-10.2)
[2019-01-30] MEDS: SODIUM CHLORIDE FLUSH SYRINGE 10 ML IV SCH ×2 (09:45→22:54)
[2019-01-30] MEDS ORDERED: CALCIUM GLUCONATE 2,000 MG in NACL 0.9% 100 ML IV ONE ×2 (10:00→14:50)
[2019-01-30] MEDS ORDERED: LOVENOX SUB-Q SCH (10:00)
[2019-01-30] MEDS: MORPHINE IV PRN (10:00)
--- NOTE | 2019-01-30 10:38 | Vascular Lab Report ---
VL venous duplex UE RT INDICATION / CLINICAL INFORMATION: pain at the site of the vas cath. . Doppler ultrasound and spectral analysis was performed on the right upper extremity COMPARISON: None available. FINDINGS: Occlusive thrombus is seen in the right internal jugular vein. The remainder the veins of the right a rm and right chest are unremarkable in appearance. IMPRESSION: Occlusive thrombus in the right internal jugular vein Signer Name: Mike REAVES Signed: 01/30/2019 10:34 AM Workstation Name: [facility]
[2019-01-30] MEDS: DIANEAL PD IP SCH ×2 (12:54→18:10)
[2019-01-30] MEDS: DEXTROSE IP SCH ×2 (12:54→18:10)
[2019-01-30] MEDS: OSCAL PO SCH ×2 (16:07→22:54)
--- NOTE | 2019-01-30 16:07 | Consultation ---
History of Present Illness - Reason for Consult Consult date: 01/30/19 Permcath removal - History of Present Illness 48-year-old Samoan female with past history of end-stage renal disease who is presenting with complications to her Vas-Cath. Patient is currently been doing peritoneal dialysis for the last month and a half and is no longer using Vas- Cath for hemodialysis. Patient is developed some right neck discomfort and swelling over the last several weeks. Patient has spoken with her florist who stated that she should come to the emergency department to have her Vas-Cath removed. Patient is afebrile and denies any difficulty swallowing cough or congestion. Patient states there is tenderness with palpation of the area just above the Vas-Cath insertion site. Review Of Systems: Constitutional: no weight loss Ears, eyes, nose, mouth and throat: no nasal congestion, no nasal discharge, no sinus pressure, blurry vision, diplopia Neck: No neck pain or rigidity. Cardiovascular: no chest pain, orthopnea, palpitations Respiratory: No shortness of breath, cough Gastrointestinal: no abdominal pain, hematochezia Genitourinary : no hematuria Musculoskeletal: no muscle ache Integumentary: no rash, no pruritis Neurological: no parathesias, focal weakness Endocrine: no cold or heat intolerance, no polyuria or polydipsia Hematologic/Lymphatic: no easy bruising, no easy bleeding, no gland swelling Allergic/Immunologic: no urticaria, no angioedema. PAST MEDICAL HISTORY: hypertension, hypothyroidism, ESRD, CHF, peritoneal dialysis PAST SURGICAL HISTORY: Tubal ligation, thyroidectomy SOCIAL HISTORY: Denies alcohol, tobacco, drugs FAMILY HISTORY: Hypertension Vascular consulted for right internal jugular thrombus with Vas-Cath evaluation. Medications and Allergies Allergies Allergy/AdvReac Type Severity Reaction Status Date / Time No Known Allergies Allergy Unverified 08/21/17 20:00 Home Medications Medication Instructions Recorded Confirmed Last Taken Type Carvedilol [Coreg] 6.25 mg PO BID #60 tablet 12/16/18 01/30/19 Unknown Rx Levothyroxine [Synthroid] 75 mcg PO DAILY #30 tablet 12/16/18 01/29/19 01/29/19 Rx Lisinopril [Zestril TAB] 5 mg PO QDAY #30 tablet 12/16/18 01/30/19 Unknown Rx Spironolactone [Aldactone] 25 mg PO QDAY #30 tablet 12/16/18 01/30/19 Unknown Rx traMADol [Ultram 50 MG tab] 50 mg PO Q6HR PRN #12 tablet 12/16/18 01/29/19 Unknown Rx Active Meds: Active Medications Acetaminophen (Tylenol) 650 mg PO Q4H PRN PRN Reason: Pain MILD(1-3)/Fever >100.5/KIM Calcium Carbonate/Glycine (Oscal) 1,250 mg PO BID [facility] Enoxaparin Sodium (Lovenox) 30 mg SUB-Q QDAY [facility] Last Admin: 01/30/19 09:45 Dose: 30 mg Documented by: Morphine Sulfate (Morphine) 2 mg IV Q4H PRN PRN Reason: Pain, Moderate (4-6) Last Admin: 01/30/19 10:00 Dose: 2 mg Documented by: Ondansetron HCl (Zofran) 4 mg IV Q8H PRN PRN Reason: Nausea And Vomiting Peritoneal Dialysis Solution (Dianeal Pd-2 W/2.5% Dextrose) 2,000 ml IP Q6HR [facility] Last Admin: 01/30/19 12:54 Dose: 2,000 ml Documented by: Pneumococcal Polyvalent Vaccine (Pneumovax 23) 0.5 ml IM .ONCE ONE Stop: 01/31/19 12:01 Sodium Chloride (Sodium Chloride Flush Syringe 10 Ml) 10 ml IV BID [facility] Last Admin: 01/30/19 09:45 Dose: 10 ml Documented by: Sodium Chloride (Sodium Chloride Flush Syringe 10 Ml) 10 ml IV PRN PRN PRN Reason: LINE FLUSH Exam - Constitutional Vitals: Temp Pulse Resp BP Pulse Ox 98.6 F 90 16 102/65 97 01/30/19 11:46 01/30/19 11:46 01/30/19 11:46 01/30/19 11:46 01/30/19 11:46 General appearance: Present: no acute distress - EENT Eyes: Present: EOM intact ENT: hearing intact - Neck Neck: Present: other (some mild right neck pain) - Respiratory Respiratory effort: normal - Extremities Extremities: normal temperature, normal color - Psychiatric Psychiatric: appropriate mood/affect, cooperative Results - Labs CBC & Chem 7: 01/30/19 04:08 01/30/19 04:09 Labs: Abnormal lab results 01/29/19 01/29/19 01/30/19 Range/Units 20:32 20:32 04:08 Hgb 9.5 L (10.1-14.3) gm/dl MCH 26 L 26 L (28-32) pg RDW 17.3 H 17.5 H (13.2-15.2) % Lymph % (Auto) 35.1 H (13.4-35.0) % Hill % (Auto) 7.9 H (0.0-7.3) % Chloride 97.6 L (98-107) mmol/L Carbon Dioxide 20 L (22-30) mmol/L BUN 61 H (7-17) mg/dL Creatinine 9.5 H (0.7-1.2) mg/dL Calcium 6.0 L (8.4-10.2) mg/dL 01/30/19 Range/Units 04:09 Hgb (10.1-14.3) gm/dl MCH (28-32) pg RDW (13.2-15.2) % Lymph % (Auto) (13.4-35.0) % Hill % (Auto) (0.0-7.3) % Chloride (98-107) mmol/L Carbon Dioxide (22-30) mmol/L BUN 66 H (7-17) mg/dL Creatinine 10.0 H (0.7-1.2) mg/dL Calcium 5.4 L* (8.4-10.2) mg/dL Assessment and Plan 48-year-old female with end-stage renal disease and currently on peritoneal dialysis who has not had hemodialysis in 1 month. Patient has been adequately dialyze using peritoneal dialysis. No further need for tunneled hemodialysis catheter. Has right internal jugular vein thrombus. Plan for removal of tunneled hemodialysis catheter. Recommend anticoagulation for 3 months. If decide on NOAC, and recommend Eliquis 5 mg by mouth twice a day.
--- NOTE | 2019-01-30 16:10 | Operative Report ---
Operative Report Operative Report: EXAM: Tunneled catheter removal DATE: 01/30/19 INDICATION: End stage renal disease, no further need for hemodialysis catheter. On peritoneal dialysis. MEDICATIONS: Please see nursing report for full details. SWEATBAND SHAPER: RUPALI DE LUNA MD CONTRAST: None PROCEDURE: The risks, benefits, and alternatives were discussed; written informed consent was obtained. The patient was positioned with the head towards the contralateral side. The tunneled catheter was prepped and draped in a sterile fashion. Lidocaine was infiltrated at the dermatotomy site. Heparin was withdrawn from both lumens. Using a hemostat, blunt dissection was performed and the cuff was extracted. The catheter was extracted and pressure was held at the venotomy and dermatotomy site until hemostasis was achieved. Sterile bandage was then applied. The patient tolerated the procedure without issue. FINDINGS: Successful removal of the tunneled catheter. IMPRESSION: Successful removal of the right internal jugular vein tunneled catheter.
--- NOTE | 2019-01-30 19:24 | Consultation ---
History of Present Illness - Reason for Consult Consult date: 01/30/19 end stage renal disease - History of Present Illness The patient is a 48 YO female who is well known to our service with history significant for Morbid Obesity, Hypertension, Hypothroidism, Systolic CHF, Anemia and ESRD on peritoneal dialysis who presented to [facility] emergency room with c/o pain and swelling over the Vas-Cath site. She was asked to the emergency room by her PD nurse for further evaluation. The pain was dull, constant, intensity 5/10 and no radiation. She had her hemodialysis catheter removed today. Her symptoms are mostly improved. She was found to have R IJ clot. Past History Past Medical History: dialysis, ESRD, heart failure, hypertension, other (Morbid obesity) Medications and Allergies Allergies Allergy/AdvReac Type Severity Reaction Status Date / Time No Known Allergies Allergy Unverified 08/21/17 20:00 Home Medications Medication Instructions Recorded Confirmed Last Taken Type Carvedilol [Coreg] 6.25 mg PO BID #60 tablet 12/16/18 01/30/19 Unknown Rx Levothyroxine [Synthroid] 75 mcg PO DAILY #30 tablet 12/16/18 01/29/19 01/29/19 Rx Lisinopril [Zestril TAB] 5 mg PO QDAY #30 tablet 12/16/18 01/30/19 Unknown Rx Spironolactone [Aldactone] 25 mg PO QDAY #30 tablet 12/16/18 01/30/19 Unknown Rx traMADol [Ultram 50 MG tab] 50 mg PO Q6HR PRN #12 tablet 12/16/18 01/29/19 Unknown Rx Active Meds: Active Medications Acetaminophen (Tylenol) 650 mg PO Q4H PRN PRN Reason: Pain MILD(1-3)/Fever >100.5/KIM Calcium Carbonate/Glycine (Oscal) 1,250 mg PO BID [facility] Last Admin: 01/30/19 16:07 Dose: 1,250 mg Documented by: Enoxaparin Sodium (Lovenox) 30 mg SUB-Q QDAY [facility] Last Admin: 01/30/19 09:45 Dose: 30 mg Documented by: Morphine Sulfate (Morphine) 2 mg IV Q4H PRN PRN Reason: Pain, Moderate (4-6) Last Admin: 01/30/19 10:00 Dose: 2 mg Documented by: Ondansetron HCl (Zofran) 4 mg IV Q8H PRN PRN Reason: Nausea And Vomiting Peritoneal Dialysis Solution (Dianeal Pd-2 W/2.5% Dextrose) 2,000 ml IP Q6HR [facility] Last Admin: 01/30/19 18:10 Dose: 2,000 ml Documented by: Pneumococcal Polyvalent Vaccine (Pneumovax 23) 0.5 ml IM .ONCE ONE Stop: 01/31/19 12:01 Sodium Chloride (Sodium Chloride Flush Syringe 10 Ml) 10 ml IV BID [facility] Last Admin: 01/30/19 09:45 Dose: 10 ml Documented by: Sodium Chloride (Sodium Chloride Flush Syringe 10 Ml) 10 ml IV PRN PRN PRN Reason: LINE FLUSH Review of Systems Constitutional: no weight loss, no weight gain, no fever, no chills, no anorexia, no weakness, no poor appetite Breasts: deferred Cardiovascular: high blood pressure, no chest pain, no edema, no syncope, no lightheadedness, no shortness of breath, no dyspnea on exertion, no leg edema Respiratory: no cough, no hemoptysis, no shortness of breath, no dyspnea on exertion Gastrointestinal: no abdominal pain, no nausea, no vomiting, no diarrhea, no melena Integumentary: no rash Neurological: no head injury, no paralysis, no weakness, no convulsions, no aphasia, no change in speech, no change in mentation, no confusion, no memory loss Exam - Vital Signs Vital signs: Vital Signs Temp Pulse BP 98.8 F 102 H 140/94 01/29/19 15:59 01/29/19 15:59 01/29/19 15:59 - General Appearance General appearance: well-developed, well-nourished, appears stated age, other ( no distress) EENT: ATNC, PERRL, mucous membranes moist, hearing intact, vision intact Neck: Present: neck supple, trachea midline Respiratory: Clear to Ascultation Heart: regular, S1S2, no murmurs Gastrointestinal: Present: normoactive bowel sounds, other (PD catheter noted, effluent clear). Absent: tenderness, distended Integumentary: no rash, warm and dry Neurologic: no focal deficit, no asterixis, alert and oriented x3 Musculoskeletal: Present: other (no edema) Results - Lab Results 01/30/19 04:08 01/30/19 04:09 Most recent lab results Calcium 5.4 mg/dL (8.4-10.2) L* 01/30/19 04:09 Assessment and Plan 1. ESRD: Continue CAPD using 2.5% solution 4 times a day. Patient is tolerating PD well. Effluent is clear. No abdominal symptoms. 2. R IJ clot. S/p removal of dialysis catheter. 3. Hypertension. 4. Hypocalcemia: Replete Calcium. 5. Systolic CHF: Compensated.
[2019-01-31] MEDS: DEXTROSE IP SCH ×5 (00:01→17:57)
[2019-01-31] MEDS: DIANEAL PD IP SCH ×5 (00:01→17:57)
[2019-01-31] MEDS: MORPHINE IV PRN ×2 (06:29→18:39)
--- NOTE | 2019-01-31 07:49 | Progress Note ---
Assessment and Plan Tenderness over Vascath site ESRD on PD Hypertension Hypothyroidism CHF, stable Plan Obtain ultrasound of the Vas-Cath site---IJ clot/DVT Vascular was consulted and saw the patient in the emergency room Consult renal for dialysis Continue appropriate outpatient medications DVT prophylaxis Subjective Date of service: 01/30/19 Principal diagnosis: Rt Ij clot Interval history: 48 year old woman with hypertension, hypothroidism, esrd on peritoneal dialysis, CHF was sent to the emergency room by her government affairs specialist for removal of the Vas- Cath . She started having pain at the site of the Vas-Cath on Wednesday, she contacted her government affairs specialist on Wednesday who sent her to the emergency room for further evaluation. The pain is dull, constant, intensity 5/10, no radiation, worse when she lies on, Levaquin pain medication given in the emergency room Objective - Constitutional Vitals: Vital Signs - 12hr 01/30/19 01/31/19 22:29 05:55 Temperature 99.1 F 98.6 F Pulse Rate 90 91 H Respiratory 16 16 Rate Blood Pressure 113/68 108/72 O2 Sat by Pulse 100 98 Oximetry General appearance: Present: no acute distress, well-nourished - EENT Eyes: PERRL, EOM intact ENT: hearing intact, clear oral mucosa Ears: bilateral: normal - Neck Neck: supple, normal ROM - Respiratory Respiratory effort: normal Respiratory: bilateral: CTA - Breasts Breasts: normal - Cardiovascular Heart rate: 78 Rhythm: regular Heart Sounds: Present: S1 & S2. Absent: gallop, rub Extremities: pulses intact, No edema, normal color, Full ROM - Gastrointestinal General gastrointestinal: Present: soft, non-tender, non-distended, normal bowel sounds - Genitourinary Female genitourinary: normal - Integumentary Integumentary: clear, warm, dry - Musculoskeletal Musculoskeletal: 1, strength equal bilaterally - Neurologic Neurologic: moves all extremities - Psychiatric Psychiatric: memory intact, appropriate mood/affect, intact judgment & insight - Labs CBC & Chem 7: 01/30/19 04:08 01/30/19 04:09
[2019-01-31] MEDS ORDERED: ELIQUIS PO SCH (10:00)
[2019-01-31] MEDS: OSCAL PO SCH (11:16)
[2019-01-31] MEDS: SODIUM CHLORIDE FLUSH SYRINGE 10 ML IV SCH (11:17)
--- NOTE | 2019-01-31 11:35 | Progress Note ---
Assessment and Plan 1. ESRD: Continue CAPD using 2.5% solution 4 times a day. Patient is tolerating PD well. Effluent is clear. No abdominal symptoms. 2. R IJ clot. S/p removal of dialysis catheter. On Eliquis. 3. Hypertension: BP well controlled. 4. Hypocalcemia: Replete Calcium. 5. Systolic CHF: Compensated. 6. 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 Subjective Date of service: 01/31/19 Principal diagnosis: Rt Ij clot Interval history: Patient was seen and examined at the bedside. Doing ok. Objective - Vital Signs Vital signs: Vital Signs - 12hr 01/31/19 01/31/19 05:55 10:00 Temperature 98.6 F Pulse Rate 91 H Respiratory 16 Rate Blood Pressure 108/72 O2 Sat by Pulse 98 98 Oximetry - General Appearance General appearance: well-developed, well-nourished, appears stated age, other (no distress) EENT: ATNC, PERRL, mucous membranes moist, hearing intact, vision intact Neck: supple Respiratory: Present: Clear to Ascultation Cardiology: regular, S1S2, no murmurs Gastrointestinal: normoactive bowel sounds, no tenderness, no distended Integumentary: no rash, warm and dry Neurologic: no focal deficit, no asterixis, alert and oriented x3, other (PD catheter noted) Musculoskeletal: other (no edema) Psychiatric: cooperative - Lab 01/30/19 04:08 01/30/19 04:09 Most recent lab results Calcium 5.4 mg/dL (8.4-10.2) L* 01/30/19 04:09 Medications & Allergies - Medications Allergies/Adverse Reactions: Allergies No Known Allergies Allergy (Unverified 08/21/17 20:00) Home Medications: Home Medications Medication Instructions Recorded Confirmed Last Taken Type Carvedilol [Coreg] 6.25 mg PO BID #60 tablet 12/16/18 01/30/19 Unknown Rx Levothyroxine [Synthroid] 75 mcg PO DAILY #30 tablet 12/16/18 01/29/19 01/29/19 Rx Lisinopril [Zestril TAB] 5 mg PO QDAY #30 tablet 12/16/18 01/30/19 Unknown Rx Spironolactone [Aldactone] 25 mg PO QDAY #30 tablet 12/16/18 01/30/19 Unknown Rx traMADol [Ultram 50 MG tab] 50 mg PO Q6HR PRN #12 tablet 12/16/18 01/29/19 Unknown Rx Active Medications: Generic Name Dose Route Start Last Admin Trade Name Smiley PRN Reason Stop Dose Admin Acetaminophen 650 mg 01/29/19 22:30 Tylenol PO Q4H PRN Pain MILD(1-3)/Fever >100.5/KIM Apixaban 5 mg 01/31/19 10:00 01/31/19 11:17 Eliquis PO 5 mg Q12HR NILA Administration Protocol Calcium Carbonate/Glycine 1,250 mg 01/30/19 15:00 01/31/19 11:16 Oscal PO 1,250 mg BID NILA Administration Calcium Gluconate 2,000 mg/ 120 mls @ 120 mls/hr 01/31/19 12:00 Sodium Chloride IV 01/31/19 12:59 ONCE ONE Morphine Sulfate 2 mg 01/29/19 22:30 01/31/19 06:29 Morphine IV 2 mg Q4H PRN Administration Pain, Moderate (4-6) Ondansetron HCl 4 mg 01/29/19 22:30 Zofran IV Q8H PRN Nausea And Vomiting Peritoneal Dialysis Solution 2,000 ml 01/30/19 12:00 01/31/19 06:02 Dianeal Pd-2 W/2.5% Dextrose IP 2,000 ml Q6HR NILA Administration Pneumococcal Polyvalent Vaccine 0.5 ml 01/31/19 12:00 Pneumovax 23 IM 01/31/19 12:01 .ONCE ONE Sodium Chloride 10 ml 01/30/19 10:00 01/31/19 11:17 Sodium Chloride Flush Syringe 10 Ml IV 10 ml BID NILA Administration Sodium Chloride 10 ml 01/29/19 22:30 01/31/19 06:29 Sodium Chloride Flush Syringe 10 Ml IV 10 ml PRN PRN Administration LINE FLUSH
[2019-01-31] MEDS ORDERED: CALCIUM GLUCONATE 2,000 MG in NACL 0.9% 100 ML IV ONE (12:00)
[2019-01-31] MEDS ORDERED: PNEUMOVAX 23 IM ONE (12:00)
[2019-01-31] MEDS ORDERED: PROCRIT SUB-Q ONE (14:00)
[2019-01-31 16:27] LABS: Calcium 7.7 mg/dL (8.4-10.2)
[2019-01-31 19:22] VITALS: BP 118/83
--- NOTE | 2019-01-31 19:37 | Discharge Summary ---
Providers - Providers Date of Admission: 01/29/19 22:30 Date of discharge: 01/31/19 Attending physician: RYAN CHEATHAM 01/29/19 22:30 Consult to Physician [CONS] Routine Comment: Consulting Provider: FLYNN GEORGE Physician Instructions: Reason For Exam: pd 01/29/19 22:40 Consult to Physician [CONS] Urgent Comment: Dr. Currie spoke with Dr. Lord @ 2016 Consulting Provider: RUPALI LORD Physician Instructions: Reason For Exam: issue with Pk Wick Primary care physician: AWNING HANGER Hospitalization Condition: Stable Hospital course: 48-year-old female with end-stage renal disease and currently on peritoneal dialysis who has not had hemodialysis in 1 month. Patient has been adequately dialyzed using peritoneal dialysis. No further need for tunneled hemodialysis catheter. Has right internal jugular vein thrombus. removed tunneled hemodialysis catheter by Dr Victoria Recommend anticoagulation for 3 months. If decide on NOAC, and recommend Eliquis 5 mg by mouth twice a day. ESRD on PD--Cont PD at home Hypertension--Cont antihypertensives Hypothyroidism--Cont levothyoxine CHF, stable Disposition: DC- TO HOME OR SELFCARE Core Measure Documentation - Palliative Care Palliative Care/ Comfort Measures: Not Applicable - Core Measures Any of the following diagnoses?: none Exam - Constitutional Vitals: Temp Pulse Resp BP Pulse Ox 98.8 F 96 H 20 118/83 100 01/31/19 16:45 01/31/19 16:45 01/31/19 16:45 01/31/19 16:45 01/31/19 16:45 General appearance: Present: no acute distress, well-nourished - EENT Eyes: Present: PERRL ENT: hearing intact, clear oral mucosa - Neck Neck: Present: supple, normal ROM, other (Rt side of neck swollen sec I jugular trombus) - Respiratory Respiratory effort: normal Respiratory: bilateral: CTA - Cardiovascular Heart rate: 78 Rhythm: regular Heart Sounds: Present: S1 & S2. Absent: rub, click - Extremities Extremities: pulses symmetrical, No edema Peripheral Pulses: within normal limits - Abdominal General gastrointestinal: Present: soft, non-tender, non-distended, normal bowel sounds Female genitourinary: Present: normal - Integumentary Integumentary: Present: clear, warm, dry - Musculoskeletal Musculoskeletal: gait normal, strength equal bilaterally - Psychiatric Psychiatric: appropriate mood/affect, intact judgment & insight - Neurologic Neurologic: CNII-XII intact, moves all extremities Plan Activity: no restrictions Diet: renal Follow up with: PRIMARY CAREMD [Primary Care Provider] - 7 Days FLYNN GEORGE MD [Staff Physician] - 7 Days
== END 2019-01-31 21:00 | disposition home or self-care (01) | DRG 314 ==
LOC: ED 15:42 → 3A 22:30
PROVIDERS: ADMIT Internal Medicine; ATTEND Internal Medicine
PROC: 0JPT3XZ Removal of Tunneled Vascular Access Device from Trunk Subcutaneous Tissue and Fascia, Percutaneous Approach (ICD-10-PCS; 2019-01-30)
PROC: 05PY33Z Removal of Infusion Device from Upper Vein, Percutaneous Approach (ICD-10-PCS; 2019-01-30)
PROC: 3E0234Z Introduction of Serum, Toxoid and Vaccine into Muscle, Percutaneous Approach (ICD-10-PCS; principal; 2019-01-31)
DX: T82.868A Thrombosis due to vascular prosthetic devices, implants and grafts, initial encounter (principal); N18.6 End stage renal disease; T82.41XA Breakdown (mechanical) of vascular dialysis catheter, initial encounter; I13.2 Hypertensive heart and chronic kidney disease with heart failure and with stage 5 chronic kidney disease, or end stage renal disease; I50.22 Chronic systolic (congestive) heart failure; I27.20 Pulmonary hypertension, unspecified; E03.9 Hypothyroidism, unspecified; E66.01 Morbid (severe) obesity due to excess calories; D63.1 Anemia in chronic kidney disease; Y92.89 Other specified places as the place of occurrence of the external cause; Y83.8 Other surgical procedures as the cause of abnormal reaction of the patient, or of later complication, without mention of misadventure at the time of the procedure; Z23 Encounter for immunization; Z98.51 Tubal ligation status; Z99.2 Dependence on renal dialysis; Z68.38 Body mass index [BMI] 38.0-38.9, adult
CPT/HCPCS: 36415; 80048; 84100; 85025; 85610; 85730; 87040; 87116; 90732; 96374; G0378; J0610; J0885; J1650; J2270

== ENCOUNTER 2019-04-17 14:06 | Emergency (ER) | payer MEDICARE, OTHER ==
[2019-04-17 16:27] VITALS: BP 158/97
[2019-04-17 17:08] LABS: Hematocrit 35.5 % (30.3-42.9); Hemoglobin 11.1 gm/dl (10.1-14.3); Mean Corpuscular HGB Conc 31 % (30-34); Mean Corpuscular Volume 82 fl (79-97); Platelet Count 248 K/mm3 (140-440); Red Blood Count 4.31 M/mm3 (3.65-5.03)
[2019-04-17 17:21] LABS: Red Cell Distribution Width 21.1 % (13.2-15.2)
[2019-04-17 17:25] LABS: Calcium 6.2 mg/dL (8.4-10.2); Uric Acid 9.8 mg/dL (3.5-7.6)
[2019-04-17 17:56] LABS: Bilirubin,Urine NEG (Negative); Blood,Urine NEG (Negative); Color,Urine Yellow (Yellow); Urobilinogen,Urine < 2.0 mg/dL (<2.0)
--- NOTE | 2019-04-17 19:34 | Emergency Department Report ---
ED Lower Extremity HPI - General Chief Complaint: Abdominal Pain Stated Complaint: RT FOOT PAIN/STOMACH/HBP Time Seen by Provider: 04/17/19 19:23 Source: patient Mode of arrival: Ambulatory Limitations: No Limitations - History of Present Illness Initial Comments: Mrs. Boyle is a 48 yo female with hx of ESRD on peritonieal dialysis, HTN, hypothyroidism, CHF who presents with right foot pain for one week. Toes feel tingly and numb. Pain mostly in the 3rd and 4th toes. No trauma. No hx of DM or gout. Her job requires her to stand for long periods of time. She also wanted her PD catheter site evaluated for possible infection. No fever or discharge. Dr. George is her biller. MD Complaint: other (right foot pain mostly in toes, has improved over the past week) -: Gradual, week(s) (1) Injury: Foot: Right Severity: moderate Improves With: nothing Worsens With: nothing Context: other (none) - Related Data Previous Rx's Medication Instructions Recorded Last Taken Type Apixaban [Eliquis] 5 mg PO Q12HR #60 tablet 01/31/19 Unknown Rx Calcium Carbonate [Oscal 1250MG 1,250 mg PO BID #60 tablet 01/31/19 Unknown Rx TAB] Levothyroxine [Synthroid] 75 mcg PO DAILY #30 tablet 01/31/19 Unknown Rx Lisinopril [Zestril TAB] 5 mg PO QDAY #30 tablet 01/31/19 Unknown Rx Spironolactone [Aldactone] 25 mg PO QDAY #30 tablet 01/31/19 Unknown Rx carvediloL [Coreg] 6.25 mg PO BID #60 tablet 01/31/19 Unknown Rx traMADoL [Ultram 50 MG tab] 50 mg PO Q6HR PRN #30 tablet 01/31/19 Unknown Rx Allergies Allergy/AdvReac Type Severity Reaction Status Date / Time No Known Allergies Allergy Unverified 08/21/17 20:00 ED Review of Systems ROS: Stated complaint: RT FOOT PAIN/STOMACH/HBP Other details as noted in HPI Comment: All other systems reviewed and negative Constitutional: denies: fever, malaise Gastrointestinal: denies: abdominal pain, nausea, vomiting Neurological: numbness, paresthesias ED Past Medical Hx - Past Medical History Previous Medical History?: Yes Hx Hypertension: Yes Hx Congestive Heart Failure: Yes Hx Diabetes: No Hx Renal Disease: Yes (CKD with progression to ESRD. Klebsiella UTI) Hx Sickle Cell Disease: No Hx Kidney Stones: Yes Hx Asthma: No (Mild pulmonary hypertension. ) Hx COPD: No Hx HIV: No Additional medical history: Hypothyroidism - Surgical History Past Surgical History?: Yes Additional Surgical History: LEEP, tubal ligation, thyroidectomy, PD cath - Social History Smoking Status: Never Smoker Substance Use Type: None - Medications Home Medications: Home Medications Medication Instructions Recorded Confirmed Last Taken Type Apixaban [Eliquis] 5 mg PO Q12HR #60 tablet 01/31/19 Unknown Rx Calcium Carbonate [Oscal 1250MG 1,250 mg PO BID #60 tablet 01/31/19 Unknown Rx TAB] Levothyroxine [Synthroid] 75 mcg PO DAILY #30 tablet 01/31/19 Unknown Rx Lisinopril [Zestril TAB] 5 mg PO QDAY #30 tablet 01/31/19 Unknown Rx Spironolactone [Aldactone] 25 mg PO QDAY #30 tablet 01/31/19 Unknown Rx carvediloL [Coreg] 6.25 mg PO BID #60 tablet 01/31/19 Unknown Rx traMADoL [Ultram 50 MG tab] 50 mg PO Q6HR PRN #30 tablet 01/31/19 Unknown Rx ED Physical Exam - General Limitations: No Limitations General appearance: alert, in no apparent distress - Head Head exam: Present: atraumatic, normocephalic - Eye Eye exam: Present: normal appearance - ENT ENT exam: Present: mucous membranes moist - Neck Neck exam: Present: normal inspection, full ROM - Respiratory Respiratory exam: Present: normal lung sounds bilaterally. Absent: respiratory distress, wheezes, rales, rhonchi - Cardiovascular Cardiovascular Exam: Present: regular rate, normal rhythm, normal heart sounds. Absent: systolic murmur, diastolic murmur, rubs, gallop - GI/Abdominal GI/Abdominal exam: Present: soft, normal bowel sounds, other (LLQ PD catheter in place without surrounding redness tenderness purulence). Absent: distended, tenderness, guarding, rebound - Extremities Exam Extremities exam: Present: normal inspection - Expanded Lower Extremity Exam Right Lower Leg exam: Present: normal inspection, full ROM. Absent: tenderness, swelling, abrasion Ankle exam: Present: normal inspection, full ROM. Absent: tenderness, swelling Foot/Toe exam: Present: normal inspection, full ROM. Absent: tenderness, swelling, abrasion, laceration, ecchymosis, deformity Neuro vascular tendon exam: Present: no vascular compromise (2+ DP ) Gait: Positive: observed and normal - Neurological Exam Neurological exam: Present: alert, oriented X3, CN II-XII intact, normal gait, motor sensory deficit, reflexes normal - Psychiatric Psychiatric exam: Present: normal affect, normal mood - Skin Skin exam: Present: warm, dry, intact, normal color. Absent: rash ED Course Vital Signs 04/17/19 16:24 Temperature 97.4 F L Pulse Rate 96 H Respiratory 20 Rate Blood Pressure 158/97 O2 Sat by Pulse 100 Oximetry ED Lower Extremity MDM - Lab Data Result diagrams: 04/17/19 16:46 04/17/19 16:46 Laboratory Results - last 24 hr 04/17/19 04/17/19 04/17/19 16:46 16:46 17:10 WBC 7.1 RBC 4.31 Hgb 11.1 Hct 35.5 MCV 82 MCH 26 L MCHC 31 RDW 21.1 H Plt Count 248 Sodium 145 Potassium 4.8 Chloride 101.7 Carbon Dioxide 21 L Anion Gap 27 BUN 78 H Creatinine 11.0 H Estimated GFR 4 BUN/Creatinine Ratio 7 Glucose 85 Uric Acid 9.8 H Calcium 6.2 L Total Bilirubin 0.30 AST 12 ALT 8 Alkaline Phosphatase 75 Total Protein 8.8 H Albumin 4.0 Albumin/Globulin Ratio 0.8 Urine Color Yellow Urine Turbidity Clear Urine pH 6.0 Ur Specific [place] 1.014 Urine Protein 100 mg/dl Urine Glucose (UA) Neg Urine Ketones Neg Urine Blood Neg Urine Nitrite Neg Urine Bilirubin Neg Urine Urobilinogen < 2.0 Ur Leukocyte Esterase Neg Urine WBC (Auto) 2.0 Urine RBC (Auto) 2.0 U Epithel Cells (Auto) 2.0 - Medical Decision Making right foot pain: DDX: gout, peripheral neuropathy, peripheral vascular disease, intact DP 2+ pulse, no signs of infection, rx: norco referred to grant writer PD site without evidence of infection Critical care attestation.: If time is entered above; I have spent that time in minutes in the direct care of this critically ill patient, excluding procedure time. ED Disposition Clinical Impression: ESRD (end stage renal disease) on dialysis, Right foot pain Disposition: TO HOME OR SELFCARE Is pt being admited?: No Does the pt Need Aspirin: No Condition: Stable Additional Instructions: Please follow up with the grant writer provided. Please also see Dr. George. Referrals: FLYNN GEORGE MD [Staff Physician] - 3-5 Days MATT CUELLAR DPM [Staff Physician] - 3-5 Days Forms: Work/School Release Form(ED)
== END 2019-04-17 19:45 | disposition home or self-care (01) ==
LOC: ED 14:06
DX: I13.2 Hypertensive heart and chronic kidney disease with heart failure and with stage 5 chronic kidney disease, or end stage renal disease (principal); I50.9 Heart failure, unspecified; N18.6 End stage renal disease; E03.9 Hypothyroidism, unspecified; E11.22 Type 2 diabetes mellitus with diabetic chronic kidney disease; M79.671 Pain in right foot; Z99.2 Dependence on renal dialysis; Z79.899 Other long term (current) drug therapy; Z98.51 Tubal ligation status
CPT/HCPCS: 36415; 80053; 81001; 84550; 85027; 99283

== ENCOUNTER 2019-05-14 08:09 | Observation (INO) | payer MEDICARE ==
[2019-05-14 08:48] LABS: Basophils # (Auto) 0.1 K/mm3 (0.0-0.1); Eosinophils # (Auto) 0.1 K/mm3 (0.0-0.4); Eosinophils % (Auto) 1.9 % (0.0-4.3); Hematocrit 30.5 % (30.3-42.9); Hemoglobin 9.5 gm/dl (10.1-14.3); Lymphocytes % (Auto) 28.1 % (13.4-35.0); Mean Corpuscular HGB Conc 31 % (30-34); Mean Corpuscular Volume 83 fl (79-97); Monocytes # (Auto) 0.5 K/mm3 (0.0-0.8); Monocytes % (Auto) 7.1 % (0.0-7.3); Platelet Count 239 K/mm3 (140-440); Red Blood Count 3.66 M/mm3 (3.65-5.03)
[2019-05-14 08:55] LABS: Red Cell Distribution Width 20.5 % (13.2-15.2)
[2019-05-14 09:06] LABS: INR 1.09 (0.87-1.13)
[2019-05-14 09:11] LABS: Partial Thromboplastin Time 28.4 Sec. (24.2-36.6)
--- NOTE | 2019-05-14 09:50 | XRay Report ---
CHEST 2 VIEWS INDICATION / CLINICAL INFORMATION: SOB. Cough and difficult to breathing. Orthopnea. Peritoneal dialysis patient. COMPARISON: 12/12/18 FINDINGS: SUPPORT DEVICES: Right PermCath is no longer present. HEART / MEDIASTINUM: Heart is enlarged but stable. Pulmonary venous hypertension has increased. LUNGS / PLEURA: Mild to moderate interstitial and airspace pulmonary edema. No pneumothorax. ADDITIONAL FINDINGS: No significant additional findings. IMPRESSION: 1. Cardiomegaly with mild to moderate pulmonary edema. Signer Name: Hermann Harrington MD Signed: 05/14/2019 9:46 AM Workstation Name: [id number]
[2019-05-14] MEDS ORDERED: hydrALAZINE 20 MG/1 ML INJ IV ONE (12:35)
[2019-05-14] MEDS ORDERED: FUROSEMIDE 40 MG/4 ML INJ IV ONE ×2 (12:35→17:00)
--- NOTE | 2019-05-14 12:36 | Emergency Department Report ---
ED General Adult HPI - General Chief complaint: Dyspnea/Respdistress Stated complaint: COUGH Time Seen by Provider: 05/14/19 12:18 Source: patient, RN notes reviewed, old records reviewed Mode of arrival: Ambulatory Limitations: No Limitations - History of Present Illness Initial comments: Patient does not have a primary care doctor. Her private soakers supervisor is Dr. Pk Ruth During the entire history and physical examination, I am heel layer and escorted by nurse Chelsea Sandoval The patient is a 48-year-old female. 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 Presents to the ER with a complaint of "I think I have the flu." She endorses chest tightness, cough, shortness of breath, orthopnea. She thinks that she is euvolemic. She denies physical pain. She denies fever. No vomiting. Positive leg swelling. -: Gradual, days(s) (7) Severity scale (0 -10): 0 Consistency: intermittent Improves with: rest Worsens with: movement, other (laying flat) - Related Data Previous Rx's Medication Instructions Recorded Last Taken Type Apixaban [Eliquis] 5 mg PO Q12HR #60 tablet 01/31/19 Unknown Rx Calcium Carbonate [Oscal 1250MG 1,250 mg PO BID #60 tablet 01/31/19 Unknown Rx TAB] Levothyroxine [Synthroid] 75 mcg PO DAILY #30 tablet 01/31/19 Unknown Rx Lisinopril [Zestril TAB] 5 mg PO QDAY #30 tablet 01/31/19 Unknown Rx Spironolactone [Aldactone] 25 mg PO QDAY #30 tablet 01/31/19 Unknown Rx carvediloL [Coreg] 6.25 mg PO BID #60 tablet 01/31/19 Unknown Rx traMADoL [Ultram 50 MG tab] 50 mg PO Q6HR PRN #30 tablet 01/31/19 Unknown Rx HYDROcodone/APAP 5-325 [[place] 1 each PO Q6HR PRN #10 tablet 04/17/19 Unknown Rx 5/325] Allergies Allergy/AdvReac Type Severity Reaction Status Date / Time No Known Allergies Allergy Verified 05/14/19 08:10 ED Review of Systems ROS: Stated complaint: COUGH Other details as noted in HPI Constitutional: malaise. denies: fever Eyes: denies: eye discharge ENT: congestion Respiratory: shortness of breath Cardiovascular: edema Gastrointestinal: denies: nausea, vomiting, diarrhea Genitourinary: denies: urgency Musculoskeletal: denies: myalgia Skin: denies: lesions Neurological: weakness Hematological/Lymphatic: denies: easy bleeding ED Past Medical Hx - Past Medical History Hx Hypertension: Yes Hx Congestive Heart Failure: Yes Hx Diabetes: No Hx Renal Disease: Yes (CKD with progression to ESRD. Klebsiella UTI) Hx Sickle Cell Disease: No Hx Kidney Stones: Yes Hx Asthma: No (Mild pulmonary hypertension. ) Hx COPD: No Hx HIV: No Additional medical history: Hypothyroidism - Surgical History Additional Surgical History: LEEP, tubal ligation, thyroidectomy, PD cath - Social History Smoking Status: Never Smoker Substance Use Type: None - Medications Home Medications: Home Medications Medication Instructions Recorded Confirmed Last Taken Type Apixaban [Eliquis] 5 mg PO Q12HR #60 tablet 01/31/19 Unknown Rx Calcium Carbonate [Oscal 1250MG 1,250 mg PO BID #60 tablet 01/31/19 Unknown Rx TAB] Levothyroxine [Synthroid] 75 mcg PO DAILY #30 tablet 01/31/19 Unknown Rx Lisinopril [Zestril TAB] 5 mg PO QDAY #30 tablet 01/31/19 Unknown Rx Spironolactone [Aldactone] 25 mg PO QDAY #30 tablet 01/31/19 Unknown Rx carvediloL [Coreg] 6.25 mg PO BID #60 tablet 01/31/19 Unknown Rx traMADoL [Ultram 50 MG tab] 50 mg PO Q6HR PRN #30 tablet 01/31/19 Unknown Rx HYDROcodone/APAP 5-325 [[place] 1 each PO Q6HR PRN #10 tablet 04/17/19 Unknown Rx 5/325] ED Physical Exam - General Limitations: No Limitations General appearance: alert, in no apparent distress, obese - Head Head exam: Present: atraumatic, normocephalic - Eye Eye exam: Present: normal appearance, EOMI. Absent: nystagmus - ENT ENT exam: Present: normal exam, normal orophraynx, mucous membranes moist, normal external ear exam - Neck Neck exam: Present: normal inspection, full ROM. Absent: tenderness, meni ngismus - Respiratory Respiratory exam: Present: rales. Absent: respiratory distress, accessory muscle use, decreased breath sounds, prolonged expiratory - Cardiovascular Cardiovascular Exam: Present: regular rate, normal rhythm, normal heart sounds. Absent: bradycardia, tachycardia, irregular rhythm, systolic murmur, diastolic murmur, rubs, gallop - GI/Abdominal GI/Abdominal exam: Present: soft, other (peritoneal dialysis catheter noted, without redness, pus or streaking). Absent: distended, tenderness, rebound, rigid, pulsatile mass - Extremities Exam Extremities exam: Present: normal inspection, full ROM, pedal edema, other (2+ pulses noted in the bilateral upper and lower extremities. There is no palpable cord. negative Homans sign. Muscular compartments are soft. The pelvis is stable.). Absent: calf tenderness - Back Exam Back exam: Present: normal inspection. Absent: tenderness, CVA tenderness (R), CVA tenderness (L), paraspinal tenderness, vertebral tenderness - Neurological Exam Neurological exam: Present: alert, oriented X3, normal gait, other (there is no facial droop. The tongue is midline. The extraocular movements are intact bilaterally. Speaking in full sentences. Minimal elevation of the base of the tongue. There is 5 out of 5 strength in the bilateral upper and lower extremities, and sensation is intact to light touch in the bilateral upper and lower extremities. Appropriate insight.). Absent: motor sensory deficit - Psychiatric Psychiatric exam: Present: anxious - Skin Skin exam: Present: warm, dry, intact, normal color. Absent: rash ED Course Vital Signs 05/14/19 05/14/19 08:19 12:12 Temperature 98.7 F Pulse Rate 92 H Respiratory 18 Rate Blood Pressure 193/128 171/125 [Left] O2 Sat by Pulse 98 Oximetry ED Medical Decision Making - Lab Data Result diagrams: 05/14/19 08:32 05/14/19 08:32 Vital Signs 05/14/19 05/14/19 08:19 12:12 Temperature 98.7 F Pulse Rate 92 H Respiratory 18 Rate Blood Pressure 193/128 171/125 [Left] O2 Sat by Pulse 98 Oximetry Lab Results 05/14/19 05/14/19 05/14/19 Range/Units 08:32 08:32 08:32 WBC 7.1 (4.5-11.0) K/mm3 RBC 3.66 (3.65-5.03) M/mm3 Hgb 9.5 L (10.1-14.3) gm/dl Hct 30.5 (30.3-42.9) % MCV 83 (79-97) fl MCH 26 L (28-32) pg MCHC 31 (30-34) % RDW 20.5 H (13.2-15.2) % Plt Count 239 (140-440) K/mm3 Lymph % (Auto) 28.1 (13.4-35.0) % [place] % (Auto) 7.1 (0.0-7.3) % Eos % (Auto) 1.9 (0.0-4.3) % Baso % (Auto) 1.0 (0.0-1.8) % Lymph # 2.0 (1.2-5.4) K/mm3 [place] # 0.5 (0.0-0.8) K/mm3 Eos # 0.1 (0.0-0.4) K/mm3 Baso # 0.1 (0.0-0.1) K/mm3 Seg Neutrophils % 61.9 (40.0-70.0) % Seg Neutrophils # 4.4 (1.8-7.7) K/mm3 PT 14.2 (12.2-14.9) Sec. INR 1.09 (0.87-1.13) APTT 28.4 (24.2-36.6) Sec. Sodium (137-145) mmol/L Potassium (3.6-5.0) mmol/L Chloride (98-107) mmol/L Carbon Dioxide (22-30) mmol/L Anion Gap mmol/L BUN (7-17) mg/dL Creatinine (0.7-1.2) mg/dL Estimated GFR ml/min BUN/Creatinine Ratio % Glucose (65-100) mg/dL Calcium (8.4-10.2) mg/dL Total Bilirubin (0.1-1.2) mg/dL AST (5-40) units/L ALT (7-56) units/L Alkaline Phosphatase (35-129) units/L NT-Pro-B Natriuret Pep 99269 H (0-450) pg/mL Total Protein (6.3-8.2) g/dL Albumin (3.9-5) g/dL Albumin/Globulin Ratio % 05/14/ Range/Units 08:32 WBC (4.5-11.0) K/mm3 RBC (3.65-5.03) M/mm3 Hgb (10.1-14.3) gm/dl Hct (30.3-42.9) % MCV (79-97) fl MCH (28-32) pg MCHC (30-34) % RDW (13.2-15.2) % Plt Count (140-440) K/mm3 Lymph % (Auto) (13.4-35.0) % [place] % (Auto) (0.0-7.3) % Eos % (Auto) (0.0-4.3) % Baso % (Auto) (0.0-1.8) % Lymph # (1.2-5.4) K/mm3 [place] # (0.0-0.8) K/mm3 Eos # (0.0-0.4) K/mm3 Baso # (0.0-0.1) K/mm3 Seg Neutrophils % (40.0-70.0) % Seg Neutrophils # (1.8-7.7) K/mm3 PT (12.2-14.9) Sec. INR (0.87-1.13) APTT (24.2-36.6) Sec. Sodium 144 (137-145) mmol/L Potassium 5.2 H (3.6-5.0) mmol/L Chloride 103.8 (98-107) mmol/L Carbon Dioxide 14 L (22-30) mmol/L Anion Gap 31 mmol/L BUN 89 H (7-17) mg/dL Creatinine 10.3 H (0.7-1.2) mg/dL Estimated GFR 5 ml/min BUN/Creatinine Ratio 9 % Glucose 84 (65-100) mg/dL Calcium 5.1 L* (8.4-10.2) mg/dL Total Bilirubin 0.30 (0.1-1.2) mg/dL AST 25 (5-40) units/L ALT 15 (7-56) units/L Alkaline Phosphatase 64 (35-129) units/L NT-Pro-B Natriuret Pep (0-450) pg/mL Total Protein 7.9 (6.3-8.2) g/dL Albumin 3.6 L (3.9-5) g/dL Albumin/Globulin Ratio 0.8 % - EKG Data -: EKG Interpreted by Hi EKG shows normal: sinus rhythm Rate: normal - EKG Data 05/14/19 13:25 The EKG today shows a sinus rhythm, there is a normal axis, the QTC is prolong ed, there is left ventricular hypertrophy, atrial enlargement, the EKG shows nonspecific T-wave abnormalities, rate 99 bpm. The EKG is abnormal. It is not consistent with STEMI. It is unchanged from prior EKG from November 2018. - Radiology Data Radiology results: pending, report reviewed, image reviewed Print Report Referring Physician: SUSAN HUSTON Patient Name: PEDRO MCGREGOR Date of : 1970 Sex: Female Report Date: 2019-05-14 Report Status: Finalized Findings [address] [address] XRay Report Signed Patient: PEDRO MCGREGOR MR#: [id number] : 1970 Acct:[id number] Age/Sex: 48 / F ADM Date: 05/14/19 Loc: ED At [facility] Dr: Ordering Physician: SUSAN HUSTON MD Date of Service: 05/14/19 Procedure(s): XR chest routine 2V Accession Number(s): [id number] cc: SUSAN HUSTON MD Fluoro Time In Minutes: CHEST 2 VIEWS INDICATION / CLINICAL INFORMATION: SOB. Cough and difficult to breathing. Orthopnea. Peritoneal dialysis patient. COMPARISON: 12/12/18 FINDINGS: SUPPORT DEVICES: Right PermCath is no longer present. HEART / MEDIASTINUM: Heart is enlarged but stable. Pulmonary venous hypertension has increased. LUNGS / PLEURA: Mild to moderate interstitial and airspace pulmonary edema. No pneumothorax. ADDITIONAL FINDINGS: No significant additional findings. IMPRESSION: 1. Cardiomegaly with mild to moderate pulmonary edema. Signer Name: Hermann Harrington MD Signed: 05/14/2019 9:46 AM Workstation Name: [id number] Transcribed By: DT Dictated By: Billy Harrington MD Electronically Authenticated By: Billy Harrington MD Signed Date/Time: 05/14/19 0946 - Medical Decision Making Differential diagnosis, including but not limited to: Congestive heart failure, pulmonary edema, electrolyte derangement, end-stage renal disease, noncompliance Assessment and plan: 48-year-old female with known history of noncompliance, manifesting clinical signs and symptoms of congestive heart failure and fluid overload, including orthopnea, shortness of breath, pitting edema, JVD. Laboratory studies reviewed and appreciated. X-ray the chest reviewed and appreciated. High dose Lasix ordered. Calcium supplementation ordered. Contacted her soakers supervisor, Dr. Pk Ruth, who agrees with plan of care for admission, and will offer his recommendations for patient's peritoneal dialysis. Contacted Hospital physician, Dr. Hernandes, who graciously accepts the patient to the medical service for the aforementioned decompensated conditions. Discussed plan of care for admission with the patient, who verbalized understanding, and who is amenable to this plan of care. Critical Care Time: Yes Critical care time in (mins) excluding proc time.: 35 Critical care attestation.: If time is entered above; I have spent that time in minutes in the direct care of this critically ill patient, excluding procedure time. ED Disposition Clinical Impression: ESRD (end stage renal disease) on dialysis, Acute pulmonary edema, Uncontrolled hypertension, Noncompliance with medication regimen, Hypocalcemia Disposition: OP ADMIT IP TO THIS HOSP Is pt being admited?: Yes Condition: Good Instructions: Pulmonary Edema (ED), Hypertension (ED) Referrals: PRIMARY CARE, [Primary Care Provider] - 3-5 Days
[2019-05-14 12:40] LABS: Albumin 3.6 g/dL (3.9-5)
[2019-05-14 12:47] LABS: Calcium 5.1 mg/dL (8.4-10.2)
[2019-05-14] MEDS ORDERED: CALCIUM GLUCONATE 2,000 MG in SODIUM CHLORIDE 0.9% 100 ML IV ONE (13:00)
[2019-05-14] MEDS ORDERED: ONDANSETRON 4 MG/2 ML INJ IV PRN (13:11)
[2019-05-14] MEDS ORDERED: ACETAMINOPHEN 325 MG TAB PO PRN (13:11)
[2019-05-14] MEDS ORDERED: HYDROcodone/ACETAMINOPHEN 5-325 MG TAB PO PRN (13:19)
--- NOTE | 2019-05-14 13:22 | History and Physical Report ---
History of Present Illness Chief complaint: I feel weak, I been coughing History of present illness: 48 YO Female with ESRD on PD, HTN, Hypothyroidism, CHF presents to ED for evaluation. Pt states that she has experienced nonproductive cough, fatigue, subjective fever, maliase and "just feeling crappy" over the past 3 days with persistently worsening symptoms over the same time frame. Pt acknowledges Influenza exposure. EMS notified, and upon arrival the patient was found to be in distress and transported to [facility]. Pt seen and evaluated in ED and found to have ESRD, Metabolic Acidosis. Pt placed in observation status and admitted to medical floor. Nephrology consulted in ED for dialysis. Pt admitted due to simba rn for decompensation and worsening symptoms. Prior admission on 01/29/19 reviewed. All medication listed at time of admission has been reconciled. Pt is pending influenza antigen at time of admission. Past History Past Surgical History: thyroidectomy, Other (LEEP, PD catheter placement,) Social history: single. denies: smoking, alcohol abuse, prescription drug abuse, IV drug use Family history: hypertension Medications and Allergies Allergies Allergy/AdvReac Type Severity Reaction Status Date / Time No Known Allergies Allergy Verified 05/14/19 08:10 Home Medications Medication Instructions Recorded Confirmed Last Taken Type Apixaban [Eliquis] 5 mg PO Q12HR #60 tablet 01/31/19 Unknown Rx Calcium Carbonate [Oscal 1250MG 1,250 mg PO BID #60 tablet 01/31/19 Unknown Rx TAB] Levothyroxine [Synthroid] 75 mcg PO DAILY #30 tablet 01/31/19 Unknown Rx Lisinopril [Zestril TAB] 5 mg PO QDAY #30 tablet 01/31/19 Unknown Rx Spironolactone [Aldactone] 25 mg PO QDAY #30 tablet 01/31/19 Unknown Rx carvediloL [Coreg] 6.25 mg PO BID #60 tablet 01/31/19 Unknown Rx traMADoL [Ultram 50 MG tab] 50 mg PO Q6HR PRN #30 tablet 01/31/19 Unknown Rx HYDROcodone/APAP 5-325 [[place] 1 each PO Q6HR PRN #10 tablet 04/17/19 Unknown Rx 5/325] Active Meds: Active Medications Acetaminophen (Tylenol) 650 mg PO Q4H PRN PRN Reason: Pain MILD(1-3)/Fever >100.5/KIM Acetaminophen/Hydrocodone Bitart ([place] 5/325) 1 each PO Q6HR PRN PRN Reason: PAIN Apixaban (Eliquis) 5 mg PO Q12HR [facility]; Protocol Calcium Carbonate/Glycine (Oscal) 1,250 mg PO BID [facility] Carvedilol (Coreg) 6.25 mg PO BID [facility] Levothyroxine Sodium (Synthroid) 75 mcg PO DAILY [facility] Lisinopril (Zestril) 5 mg PO QDAY [facility] Ondansetron HCl (Zofran) 4 mg IV Q8H PRN PRN Reason: Nausea And Vomiting Sodium Chloride (Sodium Chloride Flush Syringe 10 Ml) 10 ml IV BID [facility] Sodium Chloride (Sodium Chloride Flush Syringe 10 Ml) 10 ml IV PRN PRN PRN Reason: LINE FLUSH Spironolactone (Aldactone) 25 mg PO QDAY [facility] Review of Systems Constitutional: fever, fatigue, weakness, malaise Ears, nose, mouth and throat: no ear pain, no ear discharge, no tinnitis, no decreased hearing Breasts: no change in shape, no swelling, no mass Cardiovascular: no chest pain, no orthopnea, no palpitations, no rapid/irregular heart beat, no edema Respiratory: cough, no hemoptysis, no dyspnea on exertion, no wheezing, no pleurisy Gastrointestinal: no nausea, no vomiting, no diarrhea, no constipation, no change in bowel habits Genitourinary Female: no pelvic pain, no flank pain, no menorrhagia, no dysuria, no urinary frequency, no urgency Rectal: no pain, no incontinence, no bleeding Musculoskeletal: no neck stiffness, no neck pain, no shooting arm pain, no low back pain Integumentary: no rash, no pruritis, no redness, no sores, no wounds, no jaundice Neurological: no paralysis, no weakness, no parathesias, no numbness, no tingling, no seizures, no syncope, no tremors, no ataxia Psychiatric: no anxiety, no memory loss, no change in sleep habits, no insomnia, no hypersomnia, no change in appetite, no change in libido, no suicidal ideation Endocrine: no cold intolerance, no heat intolerance, no polyphagia, no excessive thirst, no polydipsia, no polyuria, no nocturia Hematologic/Lymphatic: no easy bruising, no easy bleeding, no lymphadenopathy, no lymphedema Allergic/Immunologic: no urticaria, no allergic rhinitis, no persistent infections, no anaphylaxis Exam - Constitutional Vitals: Temp Pulse Resp BP Pulse Ox 98.7 F 92 H 18 171/125 98 05/14/19 08:19 05/14/19 08:19 05/14/19 08:19 05/14/19 12:12 05/14/19 08:19 General appearance: Present: mild distress - EENT Eyes: Present: PERRL ENT: hearing intact, clear oral mucosa - Neck Neck: Present: supple, normal ROM - Respiratory Respiratory effort: normal Respiratory: bilateral: CTA - Cardiovascular Heart Sounds: Present: S1 & S2. Absent: rub, click - Extremities Extremities: pulses symmetrical, No edema Peripheral Pulses: within normal limits - Abdominal General gastrointestinal: Present: soft, non-tender, non-distended, normal bowel sounds Female genitourinary: Present: normal - Integumentary Integumentary: Present: clear, dry - Musculoskeletal Musculoskeletal: generalized weakness - Psychiatric Psychiatric: appropriate mood/affect, intact judgment & insight - Neurologic Neurologic: CNII-XII intact, moves all extremities Results - Labs CBC & Chem 7: 05/14/19 08:32 05/14/19 08:32 Labs: Abnormal lab results 05/14/19 05/14/19 05/14/19 Range/Units 08:32 08:32 08:32 Hgb 9.5 L (10.1-14.3) gm/dl MCH 26 L (28-32) pg RDW 20.5 H (13.2-15.2) % Potassium 5.2 H (3.6-5.0) mmol/L Carbon Dioxide 14 L (22-30) mmol/L BUN 89 H (7-17) mg/dL Creatinine 10.3 H (0.7-1.2) mg/dL Calcium 5.1 L* (8.4-10.2) mg/dL NT-Pro-B Natriuret Pep 10658 H (0-450) pg/mL Albumin 3.6 L (3.9-5) g/dL Assessment and Plan - Patient Problems (1) ESRD (end stage renal disease) on dialysis Current Visit: Yes Status: Acute Plan to address problem: Nephrology consulted in ED for dialysis, strict I/O, daily weight, monitor uop q shift, avoid nephrotoxic agents, (2) HTN (hypertension) Current Visit: No Status: Acute Qualifiers: Hypertension type: essential hypertension Qualified Code(s): I10 - Essential (primary) hypertension Plan to address problem: Monitor BP q shift, continue medical management. (3) Metabolic acidosis Current Visit: Yes Status: Acute Plan to address problem: Urgent dialysis, IV bicarbonate therapy. (4) CHF (congestive heart failure) Current Visit: Yes Status: Acute Qualifiers: Heart failure chronicity: chronic Plan to address problem: Strict I/O, daily weight, monitor uop q shift, afterload reduction, urgent dialysis, supplemental oxygen, nebulizer therapy, pulse oximetry, bnp, chest x ray. (5) DVT prophylaxis Current Visit: Yes Status: Acute Plan to address problem: SCD to BLE while in bed, Pt ambulatory
[2019-05-14] MEDS ORDERED: LISINOPRIL 5 MG TAB ONE (15:36)
[2019-05-14] MEDS: LISINOPRIL 5 MG TAB PO SCH (15:50)
[2019-05-14] MEDS: SPIRONOLACTONE 25 MG TAB PO SCH (15:51)
[2019-05-14] MEDS: HYDROcodone/HOMATROPINE 5-1.5MG /5 ML ORAL LIQD UNIT DOSE PO PRN (17:19)
[2019-05-14] MEDS ORDERED: [UNRECOGNIZED DRUG - OTHER] IP SCH (18:00)
[2019-05-14] MEDS: [UNRECOGNIZED DRUG - OTHER] IP SCH (19:57)
--- NOTE | 2019-05-14 21:40 | Progress Note ---
Assessment and Plan 1. ESRD: Patient is on automated PD. She is only doing PD once every 3-4 days. Admitted with volume overload due to non-compliance. PD prescription: 4 exchanges, 4.25%, every 4 hours. 2. FEN: Volume overload, PD with 4.25% solution. Hyperkalemia, IV lasix ordered. Replete Calcium. Monitor lytes. 3. Systolic CHF: Cardiac diet. 4. HTN. 5. Hypothyroidism. 6. Medical non-compliance. Subjective Date of service: 05/14/19 Interval history: The patient is a 48 YO female with history significant for ESRD on PD, HTN, Hypothyroidism, CHF and Medical non-compliance who presented to [facility] ED with 3 days h/o nonproductive cough, sob, subjective fever and feeling unwell. Pt acknowledges Influenza exposure. Pt seen and evaluated in ED and found to have volume overload, pulmonary congestion / edema and multiple metabolic abnormalities. Pt is well known to our service. She was started on peritoneal dialysis in November of this year. She has been very non-compliant, not returning multiple phone calls and not showing up for follow up appts & lab draw. Pt has been doing PD once evry 3-4 days. Nephrology consulted for further evaluation. Pt was not examined today. However the current and previous medical records are reviewed in detail as are laboratory and imaging data reviewed when appropriate. Medications being given are also reviewed. In addition the case has been discussed with the attending hospitalist when needed.Newrenalrecommendations as above. Objective - Vital Signs Vital signs: Vital Signs - 12hr 05/14/19 05/14/19 05/14/19 12:12 12:36 12:46 Temperature Pulse Rate 99 H 93 H Respiratory 27 H 20 Rate Blood Pressure 153/103 Blood Pressure 171/125 [Left] O2 Sat by Pulse 95 Oximetry 05/14/19 05/14/19 05/14/19 13:00 13:16 13:30 Temperature Pulse Rate 88 89 90 Respiratory 31 H 25 H 28 H Rate Blood Pressure 153/103 133/97 133/97 Blood Pressure [Left] O2 Sat by Pulse 95 97 94 Oximetry 05/14/19 05/14/19 05/14/19 13:41 13:46 14:00 Temperature Pulse Rate 90 88 87 Respiratory 18 35 H 15 Rate Blood Pressure 154/112 154/112 154/112 Blood Pressure 154/119 [Left] O2 Sat by Pulse 100 98 96 Oximetry 05/14/19 05/14/19 05/14/19 14:16 14:30 14:46 Temperature Pulse Rate 89 70 93 H Respiratory 28 H 29 H 15 Rate Blood Pressure 144/97 151/114 151/114 Blood Pressure [Left] O2 Sat by Pulse 96 97 99 Oximetry 05/14/19 05/14/19 05/14/19 15:00 15:16 15:36 Temperature Pulse Rate 91 H 67 107 H Respiratory 6 L 13 Rate Blood Pressure 151/114 143/98 144/97 Blood Pressure [Left] O2 Sat by Pulse 96 98 Oximetry 05/14/19 05/14/19 05/14/19 15:40 15:50 17:22 Temperature 97.7 F Pulse Rate 90 140 H 91 H Respiratory 24 36 H 20 Rate Blood Pressure 144/97 140/96 156/103 Blood Pressure 140/96 [Left] O2 Sat by Pulse 95 98 98 Oximetry - Lab 05/14/19 08:32 05/15/19 11:05 Most recent lab results Calcium 5.1 mg/dL (8.4-10.2) L* 05/14/19 08:32 Medications & Allergies - Medications Allergies/Adverse Reactions: Allergies No Known Allergies Allergy (Verified 05/14/19 08:10) Home Medications: Home Medications Medication Instructions Recorded Confirmed Last Taken Type Apixaban [Eliquis] 5 mg PO Q12HR #60 tablet 01/31/19 Unknown Rx Calcium Carbonate [Oscal 1250MG 1,250 mg PO BID #60 tablet 01/31/19 Unknown Rx TAB] Levothyroxine [Synthroid] 75 mcg PO DAILY #30 tablet 01/31/19 Unknown Rx Lisinopril [Zestril TAB] 5 mg PO QDAY #30 tablet 01/31/19 Unknown Rx Spironolactone [Aldactone] 25 mg PO QDAY #30 tablet 01/31/19 Unknown Rx carvediloL [Coreg] 6.25 mg PO BID #60 tablet 01/31/19 Unknown Rx traMADoL [Ultram 50 MG tab] 50 mg PO Q6HR PRN #30 tablet 01/31/19 Unknown Rx HYDROcodone/APAP 5-325 [[place] 1 each PO Q6HR PRN #10 tablet 04/17/19 Unknown Rx 5-325 mg TAB] Active Medications: Generic Name Dose Route Start Last Admin Trade Name Freq PRN Reason Stop Dose Admin Acetaminophen 650 mg 05/14/19 13:11 Tylenol PO Q4H PRN Pain MILD(1-3)/Fever >100.5/KIM Acetaminophen/Hydrocodone Bitart 1 each 05/14/19 13:19 [place] 5/325 PO Q6H PRN PAIN, MODERATE Apixaban 5 mg 05/14/19 22:00 Eliquis PO Q12HR NILA Protocol Calcium Carbonate/Glycine 1,250 mg 05/14/19 22:00 Oscal PO BID [facility] Carvedilol 6.25 mg 05/14/19 22:00 Coreg PO BID [facility] Hydrocodone Bit/Homatropine Methylb 10 ml 05/14/19 14:44 05/14/19 17:19 Hydromet PO 10 ml Q6H PRN Administration Cough Levothyroxine Sodium 75 mcg 05/15/19 06:00 Synthroid PO 0600 NILA Lisinopril 5 mg 05/14/19 14:00 05/14/19 15:50 Zestril PO 5 mg QDAY NILA Administration Ondansetron HCl 4 mg 05/14/19 13:11 Zofran IV Q8H PRN Nausea And Vomiting Peritoneal Dialysis Solution 2,000 ml 05/14/19 20:00 05/14/19 19:57 Dianeal Pd-2 W/4.25% Dextrose IP 2,000 ml Q6H NLIA Administration Sodium Chloride 10 ml 05/14/19 22:00 Sodium Chloride Flush Syringe 10 Ml IV BID NILA Sodium Chloride 10 ml 05/14/19 13:11 Sodium Chloride Flush Syringe 10 Ml IV PRN PRN LINE FLUSH Spironolactone 25 mg 05/14/19 14:00 05/14/19 15:51 Aldactone PO Not Given QDAY NILA
[2019-05-14] MEDS: APIXABAN 5 MG TAB PO SCH (22:11)
[2019-05-14] MEDS: carvediloL 6.25 MG TAB PO SCH (22:12)
[2019-05-14] MEDS: CALCIUM CARBONATE 1250 MG TAB PO SCH (23:07)
[2019-05-15] MEDS ORDERED: diphenhydrAMINE 25 MG CAP PO ONE (00:55)
[2019-05-15] MEDS: [UNRECOGNIZED DRUG - OTHER] IP SCH ×2 (01:43→08:10)
[2019-05-15] MEDS: HYDROcodone/HOMATROPINE 5-1.5MG /5 ML ORAL LIQD UNIT DOSE PO PRN (03:00)
[2019-05-15] MEDS ORDERED: LEVOTHYROXINE 75 MCG TAB PO SCH (06:00)
[2019-05-15] MEDS: CALCIUM CARBONATE 1250 MG TAB PO SCH (10:12)
[2019-05-15] MEDS: LISINOPRIL 5 MG TAB PO SCH (10:12)
[2019-05-15] MEDS: SPIRONOLACTONE 25 MG TAB PO SCH (10:13)
[2019-05-15] MEDS: APIXABAN 5 MG TAB PO SCH (10:13)
[2019-05-15] MEDS: carvediloL 6.25 MG TAB PO SCH (10:13)
[2019-05-15 12:17] LABS: Calcium 6.1 mg/dL (8.4-10.2)
--- NOTE | 2019-05-15 12:20 | Discharge Summary ---
Providers - Providers Date of Admission: 05/14/19 13:11 Attending physician: BALDEV SLATER MD 05/14/19 12:35 Consult to Physician [CONS] Urgent Comment: Consulting Provider: FLYNN GEORGE Physician Instructions: Reason For Exam: esrd on pd 05/15/19 11:46 Consult to Case Management [CONS] Routine Services Needed at Discharge: Embedded Case Manager Additional Physician Instructions: maybe converting to HD. supplies were cut off. PLEASE Speak to Condenser Cleaner Primary care physician: FINANCIAL ACCOUNTING ANALYST Hospitalization Reason for admission: Shortness of breath Condition: Good Hospital course: 48 YO Female with ESRD on PD, HTN, Hypothyroidism, CHF presents to ED for evaluation. Pt states that she has experienced nonproductive cough, fatigue, subjective fever, maliase and "just feeling crappy" over the past 3 days with persistently worsening symptoms over the same time frame. Pt acknowledges Influenza exposure. EMS notified, and upon arrival the patient was found to be in distress and transported to [facility]. Pt seen and evaluated in ED and found to have ESRD, Metabolic Acidosis. Pt placed in observation status and admitted to medical floor. Nephrology consulted in ED for dialysis. Pt admitted due to concern for decompensation and worsening symptoms. Prior admission on 01/29/19 reviewed. All medication listed at time of admission has been reconciled. Pt is pending influenza antigen at time of admission. * On admission patient had dialysis and did well. Imaging studies was concerning for pulmonary edema. Shortness of breath improved. * I did have a discussion with the critical care clinical nurse specialist who reports that patient has been noncompliant as a result her PD dialysis supplies were cut off this appears to have been resolved and the patient is stable at this point for discharge. * Compliance stressed in detail patient verbalized understanding (1) ESRD (end stage renal disease) on dialysis (2) HTN (hypertension) (3) Metabolic acidosis (4) chronic stable CHF (congestive heart failure) (5) pulmonary edema secondary to end-stage renal disease (6) morbid obesity Disposition: -01 TO HOME OR SELFCARE Time spent for discharge: 35 MINS Core Measure Documentation - Palliative Care Palliative Care/ Comfort Measures: Not Applicable - Core Measures Any of the following diagnoses?: none Exam - Physical Exam Narrative exam: VITAL SIGNS: Reviewed. GENERAL: The patient appears normally developed, morbidly obese vital signs as documented. HEAD: No signs of head trauma. EYES: Pupils are equal. Extraocular motions intact. EARS: Hearing grossly intact. MOUTH: Oropharynx is normal. NECK: No adenopathy, no JVD. CHEST: Chest with clear breath sounds bilaterally. No wheezes, rales, or rhonchi. CARDIAC: Regular rate and rhythm. S1 and S2, without murmurs, gallops, or rubs. VASCULAR: No Edema. Peripheral pulses normal and equal in all extremities. ABDOMEN: Soft, non tender and non distended. No rebound or guarding, and no masses palpated. Bowel Sounds normal. MUSCULOSKELETAL: Good range of motion of all major joints. Extremities without clubbing, cyanosis or edema. NEUROLOGIC EXAM: Alert and oriented x 3 No focal sensory or strength deficits. Speech normal. Follows commands. PSYCHIATRIC: Mood normal. SKIN: detail exam as documented in skin assessment - Constitutional Vitals: Temp Pulse Resp BP Pulse Ox 98.3 F 67 18 140/89 95 05/15/19 05:19 05/15/19 05:19 05/15/19 05:19 05/15/19 10:13 05/15/19 05:19 Plan Activity: advance as tolerated, fall precautions Diet: low fat, renal Follow up with: MARIBEL LINDSEY MD [Primary Care Provider] - 3-5 Days FLYNN GEORGE MD [Staff Physician] - 7 Days
[2019-05-15 18:19] VITALS: BP 125/82
--- NOTE | 2019-05-15 19:45 | Consultation ---
History of Present Illness - Reason for Consult Consult date: 05/15/19 end stage renal disease, hyperkalemia - History of Present Illness The patient is a 48 YO female with history significant for ESRD on PD, HTN, Anemia, Hypothyroidism, CHF, DVT on Eliquis and Medical non-compliance who presented to [facility] ED with 3 days h/o nonproductive cough, sob, subjective fever and feeling unwell. Pt acknowledges Influenza exposure. Pt seen and evaluated in ED and found to have volume overload, pulmonary congestion / edema and multiple metabolic abnormalities. Pt is well known to our service. She was started on peritoneal dialysis in November of this year. She has been very non- compliant, not returning multiple phone calls and not showing up for follow up appts & lab draw. Pt has been doing PD once every 3-4 days. Nephrology consulted for further evaluation. Past History Past Medical History: anemia, dialysis, DVT, ESRD, heart failure, hypertension, hypothyroidism Past Surgical History: thyroidectomy, Other (LEEP, PD catheter placement,) Social history: single. denies: smoking, alcohol abuse, prescription drug abuse, IV drug use Family history: hypertension Medications and Allergies Allergies Allergy/AdvReac Type Severity Reaction Status Date / Time No Known Allergies Allergy Verified 05/14/19 08:10 Home Medications Medication Instructions Recorded Confirmed Last Taken Type Apixaban [Eliquis] 5 mg PO Q12HR #60 tablet 01/31/19 Unknown Rx Calcium Carbonate [Oscal 1250MG 1,250 mg PO BID #60 tablet 01/31/19 Unknown Rx TAB] Levothyroxine [Synthroid] 75 mcg PO DAILY #30 tablet 01/31/19 Unknown Rx Lisinopril [Zestril TAB] 5 mg PO QDAY #30 tablet 01/31/19 Unknown Rx Spironolactone [Aldactone] 25 mg PO QDAY #30 tablet 01/31/19 Unknown Rx carvediloL [Coreg] 6.25 mg PO BID #60 tablet 01/31/19 Unknown Rx traMADoL [Ultram 50 MG tab] 50 mg PO Q6HR PRN #30 tablet 01/31/19 Unknown Rx HYDROcodone/APAP 5-325 [[place] 1 each PO Q6HR PRN #10 tablet 04/17/19 Unknown Rx 5-325 mg TAB] Review of Systems Constitutional: fever, fatigue, no weight loss, no weight gain, no chills, no sweats, no anorexia, no weakness, no poor appetite Breasts: deferred Cardiovascular: orthopnea, shortness of breath, high blood pressure, no chest pain, no palpitations, no edema, no syncope, no lightheadedness, no leg edema, no decreased exercise tolerance Respiratory: cough, shortness of breath, no hemoptysis Gastrointestinal: no abdominal pain, no nausea, no vomiting, no diarrhea, no melena, no jaundice Genitourinary Female: no dysuria, no hematuria, no nocturia Rectal: no bleeding Musculoskeletal: no morning stiffness, no muscle weakness, no muscle cramps Integumentary: no rash, no wounds, no jaundice Neurological: no paralysis, no weakness, no seizures, no syncope, no tremors, no headaches, no migraines, no convulsions, no aphasia, no change in speech, no change in mentation, no confusion, no memory loss Psychiatric: no anxiety Exam - Vital Signs Vital signs: Vital Signs Temp Pulse Resp BP Pulse Ox 98.7 F 92 H 18 193/128 98 05/14/19 08:19 05/14/19 08:19 05/14/19 08:19 05/14/19 08:19 05/14/19 08:19 - General Appearance General appearance: well-developed, well-nourished, appears stated age, obese, other (no distress) EENT: ATNC, PERRL, mucous membranes moist, hearing intact, vision intact Neck: Present: neck supple, trachea midline Respiratory: Clear to Ascultation Heart: regular, S1S2, no murmurs Gastrointestinal: Present: normoactive bowel sounds, obese, other (PD catheter with clean exit site). Absent: tenderness, distended Integumentary: no rash, warm and dry Neurologic: no focal deficit, no asterixis, alert and oriented x3 Musculoskeletal: Present: other (no edema) Results - Lab Results 05/14/19 08:32 05/15/19 11:05 Most recent lab results Calcium 6.1 mg/dL (8.4-10.2) L D 05/15/19 11:05 Phosphorus 6.80 mg/dL (2.5-4.5) H 05/15/19 11:05 Assessment and Plan 1. ESRD: Patient is on automated PD. She is only doing PD once every 3-4 days. Admitted with volume overload due to non-compliance. PD prescription: 4 exchanges, 4.25%, every 4 hours. 2. FEN: Volume overload, improving. Continue PD with 4.25% solution. Hyperkalemia, improved. Metabolic acidosis is improving. Monitor lytes. 3. Systolic CHF: Cardiac diet. 4. HTN. 5. Hypothyroidism. 6. Medical non-compliance: After discussing with the dialysis unit staff I had a detailed discussion with the patient. Patient will not be able to continue as a PD patient at the current unit due to long standing non-compliance. She can switch to hemodialysis or she can find a dialysis unit that will accept her as a PD patient. Patient voiced understanding and she is going to try to find a different dialysis unit who will accept / admit as their PD pt. Pt is aware that she need to go to the nearest ER if she run out of PD supplies.
== END 2019-05-15 19:00 | disposition home or self-care (01) ==
LOC: ED 08:09 → 3A 13:11
PROVIDERS: ADMIT Internal Medicine; ATTEND Internal Medicine
DX: I13.2 Hypertensive heart and chronic kidney disease with heart failure and with stage 5 chronic kidney disease, or end stage renal disease (principal); I50.9 Heart failure, unspecified; N18.6 End stage renal disease; E87.70 Fluid overload, unspecified; E87.2 Acidosis; J81.1 Chronic pulmonary edema; E03.9 Hypothyroidism, unspecified; E83.51 Hypocalcemia; Z91.14 Patient's other noncompliance with medication regimen
CPT/HCPCS: 36415; 71046; 80048; 80053; 83880; 84100; 85025; 85610; 85730; 87116; 87400; 93005; 93010; 96374; 96375; 96376; 99291; G0378; J0360; J0610; J1940

== ENCOUNTER 2019-07-18 11:37 | Day surgery (SDC) | payer MEDICARE ==
--- NOTE | 2019-07-17 18:59 | Short Stay Summary ---
Short Stay Documentation Date of service: 07/18/19 - History H&P: obtained from office - Allergies and Medications Current Medications: Allergies No Known Allergies Allergy (Verified 05/14/19 08:10) Home Medications Medication Instructions Recorded Confirmed Last Taken Type Calcium Acetate [Phoslo] 2 cap PO TID 07/14/19 07/14/19 Unknown History Metoprolol Tartrate 50 mg PO BID 07/14/19 07/14/19 Unknown History amLODIPine 10 mg PO DAILY 07/14/19 07/14/19 Unknown History - Physical exam General appearance: no acute distress Integumentary: no rash HEENT: Atraumatic Lungs: Normal air movement Neurological: Normal speech - Brief post op/procedure progress note Date of procedure: 07/18/19 (dictation:[id number]) Pre-op diagnosis: ESRD Post-op diagnosis: same Procedure: Removal of PD catheter IVF 250cc EBL min Anesthesia: GETA Findings: no evidence of infection Surgeon: CHECO BARRY Estimated blood loss: minimal Pathology: none Condition: stable - Hospital course Hospital course: uneventful - Disposition Condition at discharge: Stable Disposition: DC-01 TO HOME OR SELFCARE Short Stay Discharge Plan Activity: no restrictions Diet: renal Wound: remove dressing (after 48 hours. May remove wick at that time. ) Special Instructions: no heavy lifting Additional Instructions: Post Operative Instructions Activity: no heavy lifting for next 1 week. May shower . Pat dry the wound or wounds. Keep incision site clean and dry. May remove dressings on and leave open to air if there is no drainage. After surgery, start with a light diet. Consider starting with liquids. If you do well, you can advance to a regular diet as you feel comfortable. Apply an ice pack to the wound or wounds for 10-20 minutes at a time. Do this at least 4-5 times a day. You can do it more if he would like. Pain Medication Schedule for the first 2 days after surgery: Gabapentin 600mg twice a day Tylenol 500mg four times a day (every 6 hours) After the first 2 days, then take alternating doses of ibuprofen and Tylenol as needed for pain. Take 600 mg of ibuprofen every 6 hours as needed. Take 500 mg of Tylenol every 6 hours as needed. You should alternate these 2 medicines. Make sure you take the ibuprofen with food. It is very important that you use the prescription narcotic pain medicine (oxy codone) only for very severe pain. Do not take the narcotic medicine before you try using all the medications listed above. We will call you in a couple of days to see how youre doing. If you have any questions or concerns, always feel free to call the clinic ([phone]) at any time. Follow up with: MARIBEL LINDSEY MD [Primary Care Provider] - 7 Days CHECO BARRY MD [Staff Physician] - 14 Days Prescriptions: Gabapentin 600 mg PO BID #8 capsule oxyCODONE /ACETAMINOPHEN [Percocet 5/325] 1 tab PO Q6HR PRN #20 tablet PRN Reason: Pain , Severe (7-10)
[~2019-07-18 11:37] MED LIST: ACETAMINOPHEN 500 MG TAB PO ONE; CELECOXIB 200 MG CAP PO NR; GABAPENTIN 400 MG CAP PO NR; GABAPENTIN 400 MG CAP PO SCH; SODIUM CHLORIDE 0.9% 1000 ML 1,000 ML IV SCH; ceFAZolin/Water 2 GM/20 ML 2 GM/20 ML SYRINGE IV NR
[2019-07-18] MEDS ORDERED: GABAPENTIN 300 MG CAP ONE (12:32)
[2019-07-18] MEDS ORDERED: fentaNYL 100 MCG/2 ML INJ IV PRN (12:33)
--- NOTE | 2019-07-18 12:44 | Anesthesia Consultation ---
Anesthesia Consult and Med Hx Date of service: 07/18/19 - Airway Anesthetic Teeth Evaluation: Partials (upper) ROM Head & Neck: Adequate Mental/Hyoid Distance: Adequate Mallampati Class: Class III Intubation Access Assessment: Probably Good (previous easy intubation with MAC 3) - Pulmonary Exam CTA: Yes - Cardiac Exam Cardiac Exam: RRR - Pre-Operative Health Status ASA Pre-Surgery Classification: ASA4 Proposed Anesthetic Plan: General, MAC - Pre-Anesthesia Comment Pre-Anesthesia Comments: GA vs MAC pending discussion with surgeon regarding extent of intended procedure. - Pulmonary Hx Respiratory Symptoms: No Hx Sleep Apnea: No (PRESCREEN LOW) - Cardiovascular System Hx Hypertension: Yes (took metoprolol and amlodipine today) Hx Coronary Artery Disease: No (nonischemic cardiomyopathy EF 25 - 35%) Hx Heart Attack/AMI: No Hx Percutaneous Transluminal Coronary Angioplasty (PTCA): No Hx Cardia Arrhythmia: No - Central Nervous System CVA: No Hx Psychiatric Problems: No - Gastrointestinal Hx Gastroesophageal Reflux Disease: No - Endocrine Hx End Stage Renal Disease: Yes (last HD 07/17/2019) Hx Liver Disease: No Hx Insulin Dependent Diabetes: No Hx Non-Insulin Dependent Diabetes: No Hx Hypothyroidism: Yes - Other Systems Hx Obesity: Yes (BMI 37) - Additional Comments Anesthesia Medical History Comments: No hx anesthetic complications. Denies signs/symptoms HF decompensation.
--- NOTE | 2019-07-18 12:45 | Anesthesia Day of Surgery ---
Anesthesia Day of Surgery - Day of Surgery Patient Examined: Yes Patient H&P Reviewed: Yes Patient is NPO: Yes Beta Blockers: Yes
[2019-07-18] MEDS ORDERED: LIDOCAINE (1%) 10 MG/1 ML VIAL 20 ML MDV ONE (12:50)
[2019-07-18] MEDS ORDERED: BUPIVACAINE-EPINEPHRINE/PF 0.5%-1:200,000 (30 ML) VIAL INFILTRATI ONE ×2 (12:50→14:00)
[2019-07-18] MEDS ORDERED: fentaNYL 100 MCG/2 ML INJ ONE (12:54)
[2019-07-18] MEDS ORDERED: propofoL 200 MG/20 ML VIAL IV ONE (12:54)
[2019-07-18] MEDS ORDERED: LIDOCAINE MPF (2%) 20 MG/1 ML VIAL 5 ML ONE (12:54)
[2019-07-18 13:10] LABS: Basophils % (Auto) 0.5 % (0.0-1.8); Eosinophils # (Auto) 0.1 K/mm3 (0.0-0.4); Eosinophils % (Auto) 2.5 % (0.0-4.3); Hematocrit 34.2 % (30.3-42.9); Hemoglobin 10.9 gm/dl (10.1-14.3); Lymphocytes # (Auto) 1.8 K/mm3 (1.2-5.4); Lymphocytes % (Auto) 41.4 % (13.4-35.0); Mean Corpuscular HGB Conc 32 % (30-34); Mean Corpuscular Volume 86 fl (79-97); Monocytes # (Auto) 0.4 K/mm3 (0.0-0.8); Monocytes % (Auto) 10.1 % (0.0-7.3); Platelet Count 176 K/mm3 (140-440); Red Blood Count 3.97 M/mm3 (3.65-5.03); Red Cell Distribution Width 16.9 % (13.2-15.2)
[2019-07-18 13:19] LABS: Calcium 7.7 mg/dL (8.4-10.2)
[2019-07-18] MEDS ORDERED: GABAPENTIN 300 MG CAP PO NR ×3 (13:49→14:00)
[2019-07-18] MEDS ORDERED: LIDOCAINE (1%) 10 MG/1 ML VIAL 20 ML MDV INFILTRATI ONE (14:00)
[2019-07-18] MEDS ORDERED: SODIUM CHLORIDE 0.9% IRR 1,500 ML BOTTLE IR ONE (14:01)
[2019-07-18 15:09] VITALS: BP 156/93
--- NOTE | 2019-07-18 15:48 | Operative Report ---
PREOPERATIVE DIAGNOSIS: End-stage renal disease. POSTOPERATIVE DIAGNOSIS: End-stage renal disease. PROCEDURE: Removal of PD catheter. ATTENDING PHYSICIAN: Guille Rosen MD ANESTHESIA: General. ESTIMATED BLOOD LOSS: Minimal. FLUIDS: 250 mL. FINDINGS: No evidence of infection along the catheter site. There was some purulent appearing drainage, but only at the exit site, nothing along the catheter tract. SPECIMENS: None. COMPLICATIONS: None. DISPOSITION: Stable, transferred to Recovery Room. INDICATIONS: This is a 48-year-old female who had a PD catheter originally placed when she was first diagnosed with end-stage renal disease last summer. The patient returns as she wishes to have the catheter removed for a variety of reasons, none of which include infection or complications related to the catheter. Procedures, risks, benefits were explained to the patient. Risks included but were not limited to infection, bleeding, pain, injury to surrounding structures, possible need for further procedures in the future. The patient understood and consented. OPERATIVE NOTE: The patient was brought to the operating room and placed on the table in supine position. After adequate general anesthesia was established, the patient was prepped and draped in the usual sterile fashion. SCDs were in place. Antibiotics had been given. Time-out was called. I began by anesthetizing the medial incision. Initially, we just opened up the old incision site; however, it was too small for us to do a complete dissection, therefore it was extended laterally to approximately another 5-7 mm. We identified the tract after dissecting through the overlying subcutaneous tissue. The catheter was deep in the subcutaneous tissue. Once we identified it, we dissected out the proximal cuff from the subcutaneous tissue using a combination of blunt dissection and electrocautery. Once this was freed up, we then went for the proximal cuff that was sitting above the posterior rectus sheath. We performed the same maneuver bluntly dissecting the tissue away from the cuff as well as using electrocautery. Eventually, we were able to free it. The internal portion of the catheter looked completely normal. The portion of the catheter in the subcutaneous tissue also looked very normal. We divided the catheter above the second cuff and then pulled the external portion of the catheter out, not wanting to drag the purulent appearing fluid through the tract. The wound was thoroughly irrigated. Additional local was injected into the surrounding tissue. Hemostasis was achieved with electrocautery. It was completely hemostatic at the end. We put a couple of deep stitches of 3-0 Vicryl to close that space and then closed the skin with a few interrupted 4-0 Monocryl subcuticular stitches. I did not want to close it completely because of some fluid accumulated. I wanted it to have a way to drain out and not potentially lead to infection. The exit site of the catheter was left open. We thoroughly irrigated that and then packed it with Betadine-soaked wick in case there was some superficial colonization. Skin was cleaned and dried, dressings were placed. The patient tolerated the procedure well. There were no complications. All counts were correct at the end of the case. The patient said that she did not need me to speak with her daughter at the end of the case. JOB# [id number] NADIA/CHRIS
== END 2019-07-18 15:56 | disposition home or self-care (01) ==
LOC: OR 11:37
PROVIDERS: ATTEND Surgery
DX: I13.2 Hypertensive heart and chronic kidney disease with heart failure and with stage 5 chronic kidney disease, or end stage renal disease (principal); I50.20 Unspecified systolic (congestive) heart failure; N18.6 End stage renal disease; D64.9 Anemia, unspecified; I42.9 Cardiomyopathy, unspecified; E66.9 Obesity, unspecified; E03.9 Hypothyroidism, unspecified; Z98.51 Tubal ligation status; Z87.442 Personal history of urinary calculi; Z98.890 Other specified postprocedural states; Z88.8 Allergy status to other drugs, medicaments and biological substances; Z79.899 Other long term (current) drug therapy; Z87.440 Personal history of urinary (tract) infections; Z91.14 Patient's other noncompliance with medication regimen; Z86.39 Personal history of other endocrine, nutritional and metabolic disease; Z98.41 Cataract extraction status, right eye; Z98.42 Cataract extraction status, left eye; Z82.49 Family history of ischemic heart disease and other diseases of the circulatory system
CPT/HCPCS: 36415; 49422; 80048; 81025; 85025; J0690; J2704; J3010; J7030

== ENCOUNTER 2020-06-28 10:50 | Emergency (ER) | payer MEDICARE ==
--- NOTE | 2020-06-28 12:05 | Event Note ---
ED Screening Note Date of service: 06/28/20 Time: 12:03 ED Screening Note: 49-year-old -[place] female presents to the emergency room for left shunt bleeding. Patient states she recently had a revision and was at dialysis using her PermCath when her left shunt started to bleed. Patient states that she did have them rapid up with gauze and a Jared bandage. This provider attempted to take it down to evaluate and bleeding started immediately. Patient was instructed to apply direct pressure and will be evaluated in the back. This initial assessment/diagnostic orders/clinical plan/treatment(s) is/are subject to change based on patients health status, clinical progression and re-assessment by fellow clinical providers in the ED. Further treatment and workup at subsequent clinical providers discretion. Patient/guardian urged not to elope from the ED as their condition may be serious if not clinically assessed and managed. Initial orders include:
[2020-06-28 12:51] LABS: Basophils % (Auto) 0.4 % (0.0-1.8); Eosinophils % (Auto) 0.2 % (0.0-4.3); Hematocrit 32.1 % (30.3-42.9); Hemoglobin 10.1 gm/dl (10.1-14.3); Lymphocytes # (Auto) 1.6 K/mm3 (1.2-5.4); Lymphocytes % (Auto) 16.5 % (13.4-35.0); Mean Corpuscular HGB Conc 32 % (30-34); Mean Corpuscular Volume 85 fl (79-97); Monocytes # (Auto) 1.3 K/mm3 (0.0-0.8); Monocytes % (Auto) 12.8 % (0.0-7.3); Platelet Count 143 K/mm3 (140-440); Red Blood Count 3.78 M/mm3 (3.65-5.03); Red Cell Distribution Width 19.3 % (13.2-15.2)
[2020-06-28 13:03] LABS: INR 1.14 (0.87-1.13)
[2020-06-28 13:13] LABS: Albumin 4.1 g/dL (3.9-5); Calcium 8.9 mg/dL (8.4-10.2)
--- NOTE | 2020-06-28 13:55 | Emergency Department Report ---
<MARLENE HALL - Last Filed: 06/28/20 16:04> ED General Adult HPI - General Chief complaint: Medical Clearance Stated complaint: VASCULAR ACCESS BLEEDING Time Seen by Provider: 06/28/20 13:34 Source: patient Mode of arrival: Ambulatory Limitations: No Limitations - History of Present Illness Initial comments: 49-year-old female presented to medical screening with the following history: 49-year-old -[place] female presents to the emergency room for left shunt bleeding. Patient states she recently had a revision and was at dialysis using her PermCath when her left shunt started to bleed. Patient states that she did have them rapid up with gauze and a Jared bandage. This provider attempted to take it down to evaluate and bleeding started immediately. Patient was instructed to apply direct pressure and will be evaluated in the back. She stated to me that she had a shunt revision on 06/19/2020. She was apparently discharged from the hospital on 06/23/2020 at [facility]. The patient states states that since the procedure there has been some opening of the wound and intermittent bleeding. She states that "a piece of skin fell off" at the distal aspect of the wound prior to the bleeding. Apparently when the PA attempted to remove the dressing there was significant bleeding. -: Sudden, days(s) Location: upper extremity Associated Symptoms: denies other symptoms - Related Data Home Medications Medication Instructions Recorded Confirmed Last Taken Calcium Acetate [Phoslo] 2 cap PO TID 07/14/19 07/14/19 Unknown Metoprolol Tartrate 50 mg PO BID 07/14/19 07/18/19 07/18/19 10:00 amLODIPine 10 mg PO DAILY 07/14/19 07/18/19 07/18/19 10:00 Previous Rx's Medication Instructions Recorded Last Taken Type Gabapentin 600 mg PO BID #8 capsule 07/18/19 Unknown Rx oxyCODONE /ACETAMINOPHEN [Percocet 1 tab PO Q6HR PRN #20 tablet 07/18/19 Unknown Rx 5/325] Allergies Allergy/AdvReac Type Severity Reaction Status Date / Time shrimp Allergy Swelling Verified 06/28/20 11:01 ED Review of Systems Constitutional: denies: chills, fever Eyes: denies: eye pain, vision change ENT: other (No symptoms reported) Respiratory: denies: cough, shortness of breath Cardiovascular: denies: chest pain, palpitations Endocrine: no symptoms reported Gastrointestinal: denies: abdominal pain, vomiting Genitourinary: as per HPI (Dialysis patient) Musculoskeletal: denies: back pain, arthralgia Skin: denies: rash, lesions Neurological: denies: headache, weakness Psychiatric: anxiety (Regarding this event, states afraid to go home). denies: depression Hematological/Lymphatic: denies: easy bleeding, easy bruising ED Past Medical Hx - Past Medical History Hx Hypertension: Yes (took metoprolol and amlodipine today) Hx Heart Attack/AMI: No Hx Congestive Heart Failure: Yes (CARDIOMYOPATHY) Hx Diabetes: No Hx GERD: No Hx Liver Disease: No Hx Renal Disease: Yes Hx Sickle Cell Disease: No Hx Headaches / Migraines: No Hx Seizures: No Hx Kidney Stones: Yes Hx Asthma: No Hx COPD: No Hx Tuberculosis: No Hx HIV: No Additional medical history: Hypothyroidism - Surgical History Additional Surgical History: LEEP, tubal ligation, thyroidectomy, PD cath - Social History Smoking Status: Never Smoker Substance Use Type: None - Medications Home Medications: Home Medications Medication Instructions Recorded Confirmed Last Taken Type Calcium Acetate [Phoslo] 2 cap PO TID 07/14/19 07/14/19 Unknown History Metoprolol Tartrate 50 mg PO BID 07/14/19 07/18/19 07/18/19 10:00 History amLODIPine 10 mg PO DAILY 07/14/19 07/18/19 07/18/19 10:00 History Gabapentin 600 mg PO BID #8 capsule 07/18/19 Unknown Rx oxyCODONE /ACETAMINOPHEN [Percocet 1 tab PO Q6HR PRN #20 tablet 07/18/19 Unknown Rx 5/325] ED Physical Exam - General Limitations: No Limitations General appearance: alert, in no apparent distress - Head Head exam: Present: atraumatic, normocephalic - Eye Eye exam: Present: normal appearance. Absent: scleral icterus - ENT ENT exam: Present: mucous membranes moist - Neck Neck exam: Present: normal inspection - Respiratory Respiratory exam: Present: normal lung sounds bilaterally. Absent: respiratory distress - Cardiovascular Cardiovascular Exam: Present: regular rate, normal rhythm. Absent: systolic murmur, diastolic murmur, rubs, gallop - GI/Abdominal GI/Abdominal exam: Present: soft, normal bowel sounds. Absent: distended, tenderness, guarding - Extremities Exam Extremities exam: Present: other (There is a staple AV graft site and the patient upper extremity on the left. Distally there is apparent wound there is wound dehiscence and a dry dressing with fresh blood.) - Back Exam Back exam: Present: normal inspection - Neurological Exam Neurological exam: Present: alert, oriented X3 - Psychiatric Psychiatric exam: Present: normal affect, normal mood - Skin Skin exam: Present: warm, dry, intact, normal color. Absent: rash ED Course - Reevaluation(s) Reevaluation #1: I did debulk the dressing but did not remove it. It appeared apparent that it would bleed substantially if the dressing was removed. There are pulses proximal to the wound dehiscence where the skin is stapled. Neurovascular exam of the extremity is grossly intact. It would appear that the patient does need to go to the vascular lab. I do not see the wisdom of removing the dressing as I do not think that hemostasis would occur. Therefore I contacted [place] [facility] after being unsuccessful with reaching the patient's vascular surgeon Dr. Gonzalez directly. Awaiting callback. 06/28/20 14:00 Reevaluation #2: Advised patient as to the nature of the weight. She states that she would like to go home. I convinced her to stay explaining to her the risk of rebleeding. 06/28/20 15:07 Reevaluation #3: Dr. Gonzalez, the patient's vascular surgeon at [facility] finally called back. He declined to take the patient in transfer. I did explain that the patient has not had any active bleeding for many hours and is hemodynamically stable with a hemoglobin over 10. Despite this, he requested that I have our vascular surgeon come to the emergency department, undress the wound and give him a call. He does not want me to undress the wound. It does not seem judicious for me to do so either. I have paged vascular surgery. 06/28/20 15:54 Reevaluation #4: I waiting our vascular surgeon callback. Signed out to Dr. Currie the oncoming emergency physician at the conclusion of my shift. 06/28/20 16:04 ED Medical Decision Making - Lab Data Result diagrams: 06/28/20 12:07 06/28/20 12:07 Laboratory Results - last 24 hr 06/28/20 06/28/20 06/28/20 12:07 12:07 12:07 WBC 10.0 RBC 3.78 Hgb 10.1 Hct 32.1 MCV 85 MCH 27 L MCHC 32 RDW 19.3 H Plt Count 143 Lymph % (Auto) 16.5 [place] % (Auto) 12.8 H Eos % (Auto) 0.2 Baso % (Auto) 0.4 Lymph # (Auto) 1.6 [place] # (Auto) 1.3 H Eos # (Auto) 0.0 Baso # (Auto) 0.0 Seg Neutrophils % 70.1 H Seg Neutrophils # 7.0 PT 14.4 INR 1.14 H APTT 31.0 Sodium 138 Potassium 4.4 Chloride 96.4 L Carbon Dioxide 26 Anion Gap 20 BUN 21 H Creatinine 6.5 H Estimated GFR 8 BUN/Creatinine Ratio 3 Glucose 94 Calcium 8.9 Total Bilirubin 0.30 AST 24 ALT 21 Alkaline Phosphatase 75 Total Protein 7.7 Albumin 4.1 Albumin/Globulin Ratio 1.1 Blood Type Antibody Screen 06/28/20 12:07 WBC RBC Hgb Hct MCV MCH MCHC RDW Plt Count Lymph % (Auto) [place] % (Auto) Eos % (Auto) Baso % (Auto) Lymph # (Auto) [place] # (Auto) Eos # (Auto) Baso # (Auto) Seg Neutrophils % Seg Neutrophils # PT INR APTT Sodium Potassium Chloride Carbon Dioxide Anion Gap BUN Creatinine Estimated GFR BUN/Creatinine Ratio Glucose Calcium Total Bilirubin AST ALT Alkaline Phosphatase Total Protein Albumin Albumin/Globulin Ratio Blood Type O POSITIVE Antibody Screen Negative ED Disposition Clinical Impression: Wound dehiscence, Arteriovenous fistula for hemodialysis in place, primary, Postoperative bleeding from incision Disposition: DC- TO HOME OR SELFCARE Condition: Stable <JUAN LUIS CURRIE - Last Filed: 06/28/20 16:47> ED Review of Systems ROS: Stated complaint: VASCULAR ACCESS BLEEDING Other details as noted in HPI ED Course Vital Signs 06/28/20 11:03 Temperature 98.9 F Pulse Rate 105 H Respiratory 16 Rate Blood Pressure 139/82 O2 Sat by Pulse 97 Oximetry ED Medical Decision Making - Lab Data Result diagrams: 06/28/20 12:07 06/28/20 12:07 - Medical Decision Making I assumed care of this patient Naya Boyle from my colleague. I evaluated the wound. Patient has a 3 cm dehiscence at the site of AV fistula iat the distal left forearm. There was minimal blood oozing. Nonpulsatile bleeding. 2+ radial pulse intact. There has been no bleeding for the past 6-1/2 hours. Patient had fistula revision surgery 9 days ago by vascular surgeon Dr. Gonzalez with [facility]. Dr. Gonzalez has instructed her to pack the wound twice a day. Patient received heparin at the end of dialysis. Shortly after heparin administration, the area of wound dehiscence did bleed. Patient has had bleeding daily from the wound. According to Mrs. Boyle, the bleeding always subsides with pressure. Patient was evaluated by Dr. Lord from our vascular surgery service. He agreed that patient is stable for discharge home. Patient has follow-up with h er surgeon next week. Patient understands to resume her normal hemodialysis schedule using permacath. She understands return precautions. I personally bandaged the site with gauze and Coban. Critical care attestation.: If time is entered above; I have spent that time in minutes in the direct care of this critically ill patient, excluding procedure time. ED Disposition Is pt being admited?: No Does the pt Need Aspirin: No
[2020-06-28 16:52] VITALS: BP 136/84
--- NOTE | 2020-06-28 16:57 | Consultation ---
History of Present Illness - Reason for Consult Consult date: 06/28/20 bleeding left Mimi - History of Present Illness Patient with a history of end-stage renal disease on hemodialysis through a left chest wall tunneled hemodialysis catheter. She had a Mimi fistula placed at [facility]. Patient recently underwent revision of her Mimi fistula with wound dehiscence at the inferior aspect of the Mimi fistula. The patient has jaiden extending across her elbow. At time of examination, the patient is not bleeding. Patient was given heparin at the conclusion of dialysis and immediately began to have oozing. She has a pressure dressing on the fistula and palpable pulses distally. Past History Past Medical History: dialysis, ESRD Past Surgical History: Other (Left Mimi) Medications and Allergies Allergies Allergy/AdvReac Type Severity Reaction Status Date / Time shrimp Allergy Swelling Verified 06/28/20 11:01 Home Medications Medication Instructions Recorded Confirmed Last Taken Type Calcium Acetate [Phoslo] 2 cap PO TID 07/14/19 07/14/19 Unknown History Metoprolol Tartrate 50 mg PO BID 07/14/19 07/18/19 07/18/19 10:00 History amLODIPine 10 mg PO DAILY 07/14/19 07/18/19 07/18/19 10:00 History Gabapentin 600 mg PO BID #8 capsule 07/18/19 Unknown Rx oxyCODONE /ACETAMINOPHEN [Percocet 1 tab PO Q6HR PRN #20 tablet 07/18/19 Unknown Rx 5/325] Review of Systems All systems: negative Exam - Constitutional Vitals: Temp Pulse Resp BP Pulse Ox 98.9 F 105 H 16 139/82 97 06/28/20 11:03 06/28/20 11:03 06/28/20 11:03 06/28/20 11:03 06/28/20 11:03 General appearance: Present: no acute distress, obese - EENT Eyes: Present: EOM intact ENT: hearing intact - Neck Neck: Present: supple, normal ROM - Respiratory Respiratory effort: normal - Extremities Extremities: no ischemia - Abdominal General gastrointestinal: Present: deferred, soft - Rectal Rectal Exam: deferred - Psychiatric Psychiatric: appropriate mood/affect, cooperative Results - Labs CBC & Chem 7: 06/28/20 12:07 06/28/20 12:07 Labs: Abnormal lab results 06/28/20 06/28/20 06/28/20 Range/Units 12:07 12:07 12:07 MCH 27 L (28-32) pg RDW 19.3 H (13.2-15.2) % [place] % (Auto) 12.8 H (0.0-7.3) % [place] # (Auto) 1.3 H (0.0-0.8) K/mm3 Seg Neutrophils % 70.1 H (40.0-70.0) % INR 1.14 H (0.87-1.13) Chloride 96.4 L (98-107) mmol/L BUN 21 H (7-17) mg/dL Creatinine 6.5 H (0.6-1.2) mg/dL Assessment and Plan Patient with a history of left Mimi fistula placed at Shock who underwent subsequent revision. The inferior aspect of the fistula is healing by secondary intention. At time of examination, the patient's wound is no longer healing and the patient has palpable pulses distally. She will need to keep her pressure dressing on the wound until tomorrow morning. She has a scheduled appointment to follow-up with Dr. Sanchez early next week which she will need to keep. No vascular interventions planned.
== END 2020-06-28 16:52 | disposition home or self-care (01) ==
LOC: ED 10:50
DX: T81.30XA Disruption of wound, unspecified, initial encounter (principal); I77.0 Arteriovenous fistula, acquired; L76.22 Postprocedural hemorrhage of skin and subcutaneous tissue following other procedure; I11.0 Hypertensive heart disease with heart failure; I50.9 Heart failure, unspecified; Z90.89 Acquired absence of other organs; Z98.51 Tubal ligation status; Y92.89 Other specified places as the place of occurrence of the external cause
CPT/HCPCS: 36415; 80053; 85025; 85610; 85730; 86850; 86900; 86901